=== PATIENT | male | born 1970 | race Hispanic/Latino ===

== ENCOUNTER 2017-11-26 14:47 | Emergency (ER) | payer BC ==
--- OUTSIDE RECORDS SUMMARY | 2017-11-26 14:49 | XMS REPORT ---
:1970 Author Organization eClinicalWorks Care Team Providers Name Role Phone Burak Davies Provider Role Unavailable Allergies No Known Allergies Problems Problem Type Condition Code Onset Dates Condition Status Problem Controlled type 2 diabetes mellitus E11.9 Active without complication, without long-term current use of insulin Problem Migraine without aura and without G43.009 Active status migrainosus, not intractable Problem Asthma without status asthmaticus J45.909 Active or acute exacerbation Problem Obesity (BMI 30.0-34.9) E66.9 Active Problem Prediabetes R73.09 Active Problem Benign essential HTN I10 Active Problem Hyperlipidemia, mixed E78.2 Active Problem Allergic rhinitis, seasonal J30.2 Active Problem Obstructive sleep apnea G47.33 Active Problem Dysphagia, unspecified R13.10 Active Assessment Hyperlipidemia, mixed E78.2 Active Assessment Obstructive sleep apnea G47.33 Active Assessment Benign essential HTN I10 Active Assessment Migraine without aura and without G43.009 Active status migrainosus, not intractable Assessment Controlled type 2 diabetes mellitus E11.9 Active without complication, without long-term current use of insulin Medications Medication Code Code Instructions Start End Status Dosage System Date Date Nalfon [facility] 44296183824 400 MG Orally Active 1 capsule Three times a day Sumatriptan [facility] 91156218129 5 MG/ACT Active 1 puff as Nasally Once a needed one day time Metformin HCl ND 88140697197 1000 MG Orally Inactive 1 tablet Twice a day with meals Cozaar ND 83546932773 100 MG Orally Active 1 tablet Once a day Metformin HCl ND 36518374375 500 MG Orally August 21, Active 1 tablet twice a day 2017 with a meal Topiramate ND 65168996426 25 MG Orally Active 1 tablet Twice a day Results No Known Results Summary Purpose eClinicalWorks Submission
--- OUTSIDE RECORDS SUMMARY | 2017-11-26 14:49 | XMS REPORT ---
:1970 Author Organization eClinicalWorks Care Team Providers Name Role Phone Samson Burak Provider Role Unavailable Allergies No Known Allergies [...] Start End Status Dosage System Date Date Sumatriptan [facility] 66743167569 5 MG/ACT Nasally Active 1 puff as Once a day needed one time Nalfon [facility] 49655420619 400 MG Orally Active 1 capsule Three times a day Cozaar [facility] 40138876764 100 MG Orally Active 1 tablet Once a day Topiramate ND 15297998316 25 MG Orally Active 1 tablet Twice a day Metformin HCl ND 40082285060 1000 MG Orally May 30, Active 1 tablet Twice a day 2017 with meals Results No Known Results Summary Purpose eClinicalWorks Submission
[2017-11-26] MEDS ORDERED: ONDANSETRON 4 MG/2 ML VIAL ONE (17:08)
[2017-11-26] MEDS ORDERED: FENTANYL CITR 100 MCG/2 ML ONE (17:08)
[2017-11-26 17:14] LABS: Absolute Lymphocytes (CBC) 2.7 K/uL (0.7-4.9); Absolute Monocytes 0.8 K/uL (0.1-1.3); Absolute Neutrophil 4.2 K/uL (1.8-8.0); Basophils % 0.4 % (0-1.3); Eosinophils % 1.7 % (0-4.4); Hematocrit 47.9 % (39.6-49.0); Lymphocytes % 34.3 % (15.3-44.8); MCH 31.5 pg (27.0-35.0); MCV 91.9 fL (80-100); MPV 9.8 fL (7.6-11.3); Monocytes % 9.9 % (3.3-12.3); RBC Red Blood Cell Count 5.21 M/uL (4.33-5.43)
[2017-11-26 17:32] LABS: Bilirubin Direct 0.2 mg/dL (0-0.2); Bilirubin Total 1.2 mg/dL (0.2-1.0); Potassium 3.6 mmol/L (3.5-5.1); Protein, Total 8.5 g/dL (6.4-8.2)
--- NOTE | 2017-11-26 18:05 | RAD REPORT ---
EXAM DESCRIPTION: CT - Abdomen Pelvis W Contrast - 11/26/2017 5:49 pm CLINICAL HISTORY: Abdominal pain/right upper quadrant pain nausea. COMPARISON: 2013 TECHNIQUE: Computed axial tomography of the abdomen pelvis was obtained. 100 cc Isovue-300 was admin istered intravenously. Oral contrast was not requested which limits evaluation of bowel. All CT scans are performed using dose optimization technique as appropriate and may include automated exposure control or mA/KV adjustment according to patient size. FINDINGS: The liver, spleen, pancreas, adrenal and kidneys appear unremarkable. The gallbladder is been removed There is no evidence of diverticulitis. The appendix is normal. Small bilateral inguinal hernias contain. Small umbilical hernia is seen The wall of the rectum appears thickened IMPRESSION: Apparent thickening of the wall of the rectum may be secondary to incomplete distention or mass. Digital examination is recommended
--- NOTE | 2017-11-26 18:49 | ER ---
Nurse's Notes [facility] Name: Shahab Pacheco Age: 47 yrs Sex: Male : 1970 Arrival Date: 11/26/2017 Time: 14:51 Bed 14 Private MD: Diagnosis: Upper abdominal pain, unspecified Presentation: 11/26 14:56 Presenting complaint: Patient states: RUQ pain that began . pt reports nausea aa5 today. Denies vomiting, denies diarrhea. Transition of care: patient was not received from another setting of care. Onset of symptoms was November 2017. Risk Assessment: Do you want to hurt yourself or someone else? Patient reports no desire to harm self or others. Initial Sepsis Screen: Does the patient meet any 2 criteria? No. Patient's initial sepsis screen is negative. Does the patient have a suspected source of infection? No. Patient's initial sepsis screen is negative. Care prior to arrival: None. 14:56 Method Of Arrival: Ambulatory aa5 14:56 Acuity: DAMIAN 3 aa5 Historical: - Allergies: 14:57 Morphine; aa5 - PMHx: 14:57 Hypertension; lower back pain; aa5 - PSHx: 14:57 spur removed from foot; removal of bone from pharynx; Cholecystectomy; aa5 - Immunization history:: Adult Immunizations up to date. - Social history:: Smoking status: Patient/guardian denies using tobacco. - Ebola Screening: : No symptoms or risks identified at this time. Screenin:53 Abuse screen: Denies threats or abuse. Denies injuries from another. Nutritional ph screening: No deficits noted. Tuberculosis screening: No symptoms or risk factors identified. Fall Risk None identified. Assessment: 16:51 General: Appears in no apparent distress. uncomfortable, well groomed, Behavior is ph calm, cooperative, appropriate for age, Denies fever. Pain: Complains of pain in right upper quadrant Pain radiates to anterior aspect of right lateral abdomen. Neuro: Level of Consciousness is awake, alert, obeys commands, Oriented to person, place, time, situation. Cardiovascular: Capillary refill < 3 seconds in bilateral fingers Patient's skin is warm and dry. Respiratory: Airway is patent Respiratory effort is even, unlabored, Respiratory pattern is regular, symmetrical. GI: Abdomen is round non-distended, Bowel sounds present X 4 quads. Abd is soft X 4 quads Abdomen is tender to palpation in right upper quadrant and right lower quadrant Reports upper abdominal pain, bloating, gaseousness, nausea, Patient currently denies diarrhea, vomiting. : No signs and/or symptoms were reported regarding the genitourinary system. Derm: Skin is intact, is healthy with good turgor, Skin is pink, warm \T\ dry. Musculoskeletal: Circulation, motion, and sensation intact. Range of motion: intact in all extremities. 17:30 Reassessment: Patient appears in no apparent distress at this time. Patient and/or ph family updated on plan of care and expected duration. Pain level reassessed. Patient is alert, oriented x 3, equal unlabored respirations, skin warm/dry/pink. Pt reports that pain has decreased to 5/10, taken to CT via wheelchair. 18:30 Reassessment: Patient appears in no apparent distress at this time. Patient and/or ph family updated on plan of care and expected duration. Pain level reassessed. Patient is alert, oriented x 3, equal unlabored respirations, skin warm/dry/pink. Pt resting quietly, awaiting CT results, at bedside. 19:30 General: Appears in no apparent distress. Behavior is calm, cooperative, appropriate ea for age, Discharge instructions give to patient, verbalized the understanding of instruciton. Neuro: Level of Consciousness is awake, alert, obeys commands, Oriented to person, place, time, situation. Cardiovascular: Patient's skin is warm and dry. Respiratory: Airway is patent Respiratory effort is even, unlabored, Respiratory pattern is regular, symmetrical. GI: pt reports symptoms improved. : No signs and/or symptoms were reported regarding the genitourinary system. Derm: Skin is pink, warm \T\ dry. Vital Signs: 14:57 BP 123 / 87; Pulse 60; Resp 16 S; Temp 97.8(TE); Pulse Ox 97% on R/A; Weight 102.06 kg aa5 (R); Height 5 ft. 11 in. (180.34 cm) (R); Pain 8/10; 17:00 BP 118 / 91; Pulse 62; Resp 18; Pulse Ox 99% on R/A; ph 18:00 BP 127 / 78; Pulse 61; Resp 18; Pulse Ox 98% on R/A; ph 19:30 BP 130 / 70; Pulse 60; Resp 18; Temp 98; Pulse Ox 99% on R/A; Pain 0/10; ea 14:57 Body Mass Index 31.38 (102.06 kg, 180.34 cm) aa5 ED Course: 14:51 Patient arrived in ED. mr 14:56 Triage completed. aa5 14:56 Arm band placed on. aa5 16:20 Dell Cloud MD is Attending Physician. gs 16:51 Jelly Constantino RN is Primary Nurse. ph 16:53 Patient has correct armband on for positive identification. Placed in gown. Bed in low ph position. Call light in reach. Side rails up X 1. Pulse ox on. NIBP on. Warm blanket given. 16:53 Initial lab(s) drawn, by me, sent to lab. Inserted saline lock: 20 gauge in right ph antecubital area, using aseptic technique. Blood collected. 17:48 CT Abd/Pelvis - W/Contrast In Process Unspecified. EDNM 18:47 Solomon Navarrete MD is Referral Physician. gs 19:28 No provider procedures requiring assistance completed. ph 19:40 IV discontinued, intact, bleeding controlled, No redness/swelling at site. Pressure ea dressing applied. Administered Medications: 17:10 Drug: Zofran 4 mg Route: IVP; Site: right antecubital; ph 17:30 Follow up: Response: No adverse reaction ph 17:10 Drug: fentaNYL (PF) 50 mcg Route: IVP; Site: right antecubital; ph 17:30 Follow up: Response: No adverse reaction; Pain is decreased ph Outcome: 18:48 Discharge ordered by . gs 19:40 Discharged to home ambulatory, with significant other. ea 19:40 Condition: improved 19:40 Discharge instructions given to patient, Instructed on discharge instructions, follow up and referral plans. medication usage, Demonstrated understanding of instructions, follow-up care, medications, Prescriptions given X 1. 19:45 Patient left the ED. ea Signatures: Dispatcher [employer] EDNM Zoey Khan mr LoraSwati RN RN aa5 Jelly Constantino RN RN ph Bulan, Christian cb2 Antunez, Elena, RN RN ea Starr, Gregory, MD MD Corrections: (The following items were deleted from the chart) 14:59 14:57 Pulse 60bpm; Resp 16bpm; Spontaneous; Pulse Ox 97% RA; Temp 97.8F Temporal; aa5 102.06 kg Reported; Height 5 ft. 11 in. Reported; BMI: 31.3; Pain 10/12; aa5 11/27 02:28 11/26 20:18 Patient left the ED. cb2 ea
--- NOTE | 2017-11-26 18:49 | EDPHYS ---
Physician Documentation [facility] Name: Shahab Pacheco Age: 47 yrs Sex: Male : 1970 Arrival Date: 11/26/2017 Time: 14:51 Bed 14 Private MD: ED Physician Dell Cloud HPI: 11/26 19:48 This 47 yrs old Male presents to ER via Ambulatory with complaints of gs Abdominal Pain. 19:48 The patient presents with abdominal pain. The patient presents with abdominal pain in gs the epigastric area, in the right upper quadrant. Onset: The symptoms/episode began/occurred yesterday. The symptoms do not radiate. Associated signs and symptoms: Pertinent positives: nausea. The symptoms are described as crampy, sharp. Modifying factors: The symptoms are alleviated by nothing, the symptoms are aggravated by nothing. Severity of pain: At its worst the pain was severe in the emergency department the pain has improved moderately. The patient has experienced similar episodes in the past, a few times. Historical: - Allergies: 14:57 Morphine; aa5 - PMHx: 14:57 Hypertension; lower back pain; aa5 - PSHx: 14:57 spur removed from foot; removal of bone from pharynx; Cholecystectomy; aa5 - Immunization history:: Adult Immunizations up to date. - Social history:: Smoking status: Patient/guardian denies using tobacco. - Ebola Screening: : No symptoms or risks identified at this time. ROS: 19:48 All other systems are negative. gs Exam: 19:48 Head/Face: Normocephalic, atraumatic. Eyes: Pupils equal round and reactive to light, gs extra-ocular motions intact. Lids and lashes normal. Conjunctiva and sclera are non-icteric and not injected. Cornea within normal limits. Periorbital areas with no swelling, redness, or edema. ENT: Nares patent. No nasal discharge, no septal abnormalities noted. Tympanic membranes are normal and external auditory canals are clear. Oropharynx with no redness, swelling, or masses, exudates, or evidence of obstruction, uvula midline. Mucous membranes moist. Neck: Trachea midline, no thyromegaly or masses palpated, and no cervical lymphadenopathy. Supple, full range of motion without nuchal rigidity, or vertebral point tenderness. No Meningismus. Chest/axilla: Normal chest wall appearance and motion. Nontender with no deformity. No lesions are appreciated. Cardiovascular: Regular rate and rhythm with a normal S1 and S2. No gallops, murmurs, or rubs. Normal PMI, no JVD. No pulse deficits. Respiratory: Lungs have equal breath sounds bilaterally, clear to auscultation and percussion. No rales, rhonchi or wheezes noted. No increased work of breathing, no retractions or nasal flaring. Back: No spinal tenderness. No costovertebral tenderness. Full range of motion. Skin: Warm, dry with normal turgor. Normal color with no rashes, no lesions, and no evidence of cellulitis. MS/ Extremity: Pulses equal, no cyanosis. Neurovascular intact. Full, normal range of motion. Neuro: Awake and alert, GCS 15, oriented to person, place, time, and situation. Cranial nerves II-XII grossly intact. Motor strength 5/5 in all extremities. Sensory grossly intact. Cerebellar exam normal. Normal gait. 19:48 Constitutional: The patient appears alert, awake. 19:48 Abdomen/GI: Palpation: moderate abdominal tenderness, in the right upper quadrant and right lower quadrant, rebound tenderness, is not appreciated. 19:48 Abdomen/GI: Rectal exam: is unremarkable. gs Vital Signs: 14:57 BP 123 / 87; Pulse 60; Resp 16 S; Temp 97.8(TE); Pulse Ox 97% on R/A; Weight 102.06 kg aa5 (R); Height 5 ft. 11 in. (180.34 cm) (R); Pain 8/10; 17:00 BP 118 / 91; Pulse 62; Resp 18; Pulse Ox 99% on R/A; ph 18:00 BP 127 / 78; Pulse 61; Resp 18; Pulse Ox 98% on R/A; ph 19:30 BP 130 / 70; Pulse 60; Resp 18; Temp 98; Pulse Ox 99% on R/A; Pain 0/10; ea 14:57 Body Mass Index 31.38 (102.06 kg, 180.34 cm) aa5 MDM: 16:45 Patient medically screened. gs 19:48 Differential diagnosis: appendicitis, bowel obstruction, gastritis, pancreatitis. Data gs reviewed: vital signs, nurses notes. Counseling: I had a detailed discussion with the patient and/or guardian regarding: the historical points, exam findings, and any diagnostic results supporting the discharge/admit diagnosis, lab results, radiology results. Response to treatment: the patient's symptoms have markedly improved after treatment, and as a result, I will discharge patient. 11/26 16:55 Order name: Basic Metabolic Panel; Complete Time: 17:37 11/26 16:55 Order name: CBC with Diff; Complete Time: 17:37 11/26 16:55 Order name: Hepatic Function; Complete Time: 17:37 11/26 16:55 Order name: Lipase; Complete Time: 17:37 11/26 16:55 Order name: CT Abd/Pelvis - W/Contrast; Complete Time: 18:15 11/26 16:55 Order name: IV Saline Lock; Complete Time: 16:56 11/26 16:55 Order name: Labs collected and sent; Complete Time: 16:56 Administered Medications: 17:10 Drug: Zofran 4 mg Route: IVP; Site: right antecubital; ph 17:30 Follow up: Response: No adverse reaction ph 17:10 Drug: fentaNYL (PF) 50 mcg Route: IVP; Site: right antecubital; ph 17:30 Follow up: Response: No adverse reaction; Pain is decreased ph Disposition: 11/26/17 18:48 Discharged to Home. Impression: Upper abdominal pain, unspecified. - Condition is Stable. - Discharge Instructions: Abdominal Pain, Adult. - Prescriptions for Tramadol 50 mg Oral Tablet - take 1 tablet by ORAL route every 8 hours as needed; 12 tablet. - Medication Reconciliation Form, Thank You Letter, Antibiotic Education, Prescription Opioid Use form. - Follow up: Solomon Navarrete MD; When: 2 - 3 days; Reason: Re-evaluation by your physician. Signatures: Dispatcher [employer] EDMS Swati Lora RN RN [email or web address] Jelly Constantino RN RN ph Bulan, Christian cb2 Dell Cloud MD MD Corrections: (The following items were deleted from the chart) 20:18 18:48 11/26/2017 18:48 Discharged to Home. Impression: Upper abdominal pain, cb2 unspecified. Condition is Stable. Forms are Medication Reconciliation Form, Thank You Letter, Antibiotic Education, Prescription Opioid Use. Follow up: Solomon Navarrete; When: 2 - 3 days; Reason: Re-evaluation by your physician. gs
== END 2017-11-26 20:18 | disposition home or self-care (01) ==
LOC: ER 14:47
DX: R10.10 Upper abdominal pain, unspecified (principal); I10 Essential (primary) hypertension; Z88.5 Allergy status to narcotic agent
CPT/HCPCS: 36415; 74177; 80048; 80076; 83690; 85025; 96374; 96375; 99284; J2405; J3010; Q9967

== ENCOUNTER 2018-05-08 11:49 | Emergency (ER) | payer BC ==
--- OUTSIDE RECORDS SUMMARY | 2018-05-08 11:51 | XMS REPORT ---
:1970 Author Organization eClinicalWorks Care Team Providers Name Role Phone Samson Burak Provider Role Unavailable Allergies No Known Allergies Problems Problem Type Condition Code Onset Dates Condition Status Problem Migraine without aura and without G43.009 Active status migrainosus, not intractable Problem Hyperlipidemia, mixed E78.2 Active Problem Allergic rhinitis, seasonal J30.2 Active Assessment Benign essential HTN I10 Active Problem Controlled type 2 diabetes mellitus E11.9 Active without complication, without long-term current use of insulin Problem Asthma without status asthmaticus J45.909 Active or acute exacerbation Problem Benign essential HTN I10 Active Problem Adult BMI 33.0-33.9 kg/sq m Z68.33 Active Problem Obstructive sleep apnea G47.33 Active Problem Dysphagia, unspecified R13.10 Active Problem Obesity (BMI 30.0-34.9) E66.9 Active Problem Prediabetes R73.09 Active Medications Medication Code System Code Instructions Start Date End Date Status Dosage Cozaar [facility] 46742398183 100 MG Orally Active 1 tablet Once a day Results No Known Results Summary Purpose eClinicalWorks Submission
--- OUTSIDE RECORDS SUMMARY | 2018-05-08 11:51 | XMS REPORT ---
[...] End Status Dosage System Date Date Nalfon [facility] 12037254330 400 MG Orally Active 1 capsule Three times a day Sumatriptan [facility] 56079675902 5 MG/ACT Active 1 puff as Nasally Once a needed one day time Metformin HCl ND 77961276959 1000 MG Orally Inactive 1 tablet Twice a day with meals Cozaar ND 80965821949 100 MG Orally Active 1 tablet Once a day Metformin HCl ND 62889795408 500 MG Orally August 21, Active 1 tablet twice a day 2017 with a meal Topiramate ND 04142602432 25 MG Orally Active 1 tablet Twice a day Results No Known Results Summary Purpose eClinicalWorks Submission
--- OUTSIDE RECORDS SUMMARY | 2018-05-08 11:51 | XMS REPORT ---
:1970 Author Organization eClinicalWorks Care Team Providers Name Role Phone Davies Burak Provider Role Unavailable Allergies, Adverse Reactions, Alerts Substance Reaction Event Type Morphine Sulfate Info Not Available Drug Allergy Problems Problem Type Condition Code Onset Dates [...] Active Problem Dysphagia, unspecified R13.10 Active Assessment Obstructive sleep apnea G47.33 Active Assessment Benign essential HTN I10 Active Assessment Migraine without aura and without G43.009 Active status migrainosus, not intractable Assessment Controlled type 2 diabetes mellitus E11.9 Active without complication, without long-term current use of insulin Assessment Hyperlipidemia, mixed E78.2 Active Medications Medication Code Code Instructions Start End Status Dosage System Date Date Sumatriptan [facility] 01099967685 5 MG/ACT Nasally Active 1 puff as Once a day needed one time Metformin HCl ND 91229025441 500 MG Orally Active 1 tablet Once a day with a meal Nalfon [facility] 71509183936 400 MG Orally Active 1 capsule Three times a day Topiramate ND 75171023146 25 MG Orally Active 1 tablet Once a day Metformin HCl ND 67661020875 500 MG Orally Active 1 tablet twice a day with a meal Cozaar ND 61304770945 100 MG Orally Active 1 tablet Once a day Results No Known Results Summary Purpose eClinicalWorks Submission
--- OUTSIDE RECORDS SUMMARY | 2018-05-08 11:51 | XMS REPORT ---
:1970 Author Organization eClinicalWorks Care Team Providers Name Role Phone Davies [facility] Provider Role Unavailable Allergies, Adverse Reactions, Alerts Substance Reaction Event Type Morphine Sulfate Info Not Available Drug Allergy Problems Problem Type Condition Code Onset Dates Condition Status Problem Migraine without aura and without G43.009 Active status migrainosus, not intractable Problem Hyperlipidemia, mixed E78.2 Active Problem Allergic rhinitis, seasonal J30.2 Active Assessment Adult BMI 33.0-33.9 kg/sq m Z68.33 Active Assessment Well adult on routine health check Z00.00 Active Problem Controlled type 2 diabetes mellitus [...] Problem Prediabetes R73.09 Active Medications Medication Code Code Instructions Start End Status Dosage System Date Date Metformin HCl [facility] 12214409946 500 MG Active TAKE ONE TABLET BY MOUTH TWICE A DAY WITH MEALS Topiramate [facility] 94737341340 25 MG Orally Active 1 tablet Once a day Sumatriptan [facility] 64786706331 5 MG/ACT Nasally Active 1 puff as Once a day needed one time Nalfon [facility] 29416489081 400 MG Orally Active 1 capsule Three times a day Cozaar [facility] 92335293523 100 MG Orally Active 1 tablet Once a day Results No Known Results Summary Purpose eClinicalWorks Submission
--- OUTSIDE RECORDS SUMMARY | 2018-05-08 11:51 | XMS REPORT ---
[...] End Status Dosage System Date Date Sumatriptan [facility] 00521426521 5 MG/ACT Nasally Active 1 puff as Once a day needed one time Nalfon [facility] 30471202704 400 MG Orally Active 1 capsule Three times a day Cozaar [facility] 05702453839 100 MG Orally Active 1 tablet Once a day Topiramate ND 40878575179 25 MG Orally Active 1 tablet Twice a day Metformin HCl ND 04909386847 1000 MG Orally May 30, Active 1 tablet Twice a day 2017 with meals Results No Known Results Summary Purpose eClinicalWorks Submission
[2018-05-08 13:27] LABS: Protime INR 0.96
--- NOTE | 2018-05-08 13:30 | RAD REPORT ---
EXAM DESCRIPTION: CT - Head Brain Wo Cont - 05/08/2018 1:23 pm CLINICAL HISTORY: DIZZINESS Headache, hypertension COMPARISON: No comparisons TECHNIQUE: All CT scans are performed using dose optimization technique as appropriate and may inclu de automated exposure control or mA/KV adjustment according to patient size. FINDINGS: No intracranial hemorrhage, hydrocephalus or extra-axial fluid collection.No areas of brai n edema or evidence of midline shift. The paranasal sinuses and mastoids are clear. The calvarium is intact. IMPRESSION: No acute intracranial abnormality.
--- NOTE | 2018-05-08 13:33 | EKG ---
Test Date: 2018-05-08 Test Time: 13:14:36 Last Trimmer: PAOLO MEASUREMENT RESULTS: Intervals: Rate: 50 RI: 144 QRSD: 90 QT: 448 QTc: 408 [place]: P: 45 RI: 144 QRS: 66 T: 40 INTERPRETIVE STATEMENTS: Sinus bradycardia Otherwise normal ECG Compared to ECG 02/26/2014 22:16:43 Sinus rhythm no longer present Sinus arrhythmia no longer present T-wave abnormality no longer present Electronically Signed On 05-08-18 13:32:53 [employer] ROUTEMAN by Tito Campa
[2018-05-08 13:45] LABS: ALT/SGPT 43 U/L (12-78); AST/SGOT 20 U/L (15-37); Albumin 4.2 g/dL (3.4-5.0); Alkaline Phosphatase 103 U/L (45-117); BUN Blood Urea Nitrogen 16 mg/dL (7-18); Bicarbonate 28 mmol/L (21-32); Bilirubin Direct 0.1 mg/dL (0-0.2); Bilirubin Total 0.6 mg/dL (0.2-1.0); Glucose Level 88 mg/dL (74-106); Magnesium 2.3 mg/dL (1.8-2.4); NT PRO-BNP 9 pg/mL (<125); Potassium 3.7 mmol/L (3.5-5.1); Protein, Total 8.2 g/dL (6.4-8.2); Sodium Level 142 mmol/L (136-145); Troponin (Emerg Dept Use Only) < 0.02 ng/mL (0.0-0.045)
[2018-05-08 13:56] LABS: Absolute Lymphocytes (CBC) 2.3 K/uL (0.7-4.9); Absolute Monocytes 0.5 K/uL (0.1-1.3); Absolute Neutrophil 2.6 K/uL (1.8-8.0); Basophils % 0.6 % (0-1.3); Eosinophils % 2.2 % (0-4.4); Hematocrit 46.2 % (39.6-49.0); Lymphocytes % 41.4 % (15.3-44.8); MPV 10.2 fL (7.6-11.3); Monocytes % 8.9 % (3.3-12.3); RBC Red Blood Cell Count 5.13 M/uL (4.33-5.43)
[2018-05-08] MEDS ORDERED: MECLIZINE HCL 12.5 MG TAB ONE (13:57)
[2018-05-08] MEDS ORDERED: DIAZEPAM 5 MG TABLET ONE (13:57)
--- NOTE | 2018-05-08 14:13 | RAD REPORT ---
EXAM DESCRIPTION: RAD - Chest Single View - 05/08/2018 2:04 pm CLINICAL HISTORY: HTN,, Dizziness Chest pain. COMPARISON: CHEST PA AND LAT 2 VIEW dated 02/26/2014; CHEST PA AND LAT 2 VIEW dated 02/25/2008; CHES T PA AND LAT 2 VIEW dated 02/23/2008; CHEST PA AND LAT 2 VIEW dated 12/16/2005 FINDINGS: Portable technique limits examination quality. The lungs are grossly clear. The heart is normal in size. No displaced fractures. IMPRESSION: No acute intrathoracic process suspected.
--- NOTE | 2018-05-08 15:19 | ER ---
Nurse's Notes [facility] Name: Shahab Pacheco Age: 47 yrs Sex: Male : 1970 Arrival Date: 05/08/2018 Time: 11:50 Bed 24 Private MD: Burak Davies Diagnosis: Vertiginous syndromes in diseases classified elsewhere Presentation: 05/08 12:04 Presenting complaint: states: he told me to come pick him up from work, he said he tw2 has blurry vision, he is tense in the back of his neck and he says he feels flush and they told him his bp was elevated. Transition of care: patient was not received from another setting of care. Onset of symptoms was May 08, 2018. Risk Assessment: Do you want to hurt yourself or someone else? Patient reports no desire to harm self or others. Initial Sepsis Screen: Does the patient meet any 2 criteria? No. Patient's initial sepsis screen is negative. Does the patient have a suspected source of infection? No. Patient's initial sepsis screen is negative. Care prior to arrival: None. 12:04 Method Of Arrival: Wheelchair tw2 12:04 Acuity: DAMIAN 3 tw2 Triage Assessment: 12:07 General: Appears in no apparent distress. well groomed, Behavior is calm, cooperative, tw2 appropriate for age. Pain: Complains of pain in back of neck. Historical: - Allergies: 12:09 Morphine; "cold, and i get stiff"; tw2 - Home Meds: 12:09 losartan 100 mg Oral tab once daily [Active]; tramadol 50 mg Oral tab 1 tab every 4-6 tw2 hours for Pain [Active]; metformin 500 mg Oral Tb24 1 tab 2 times per day [Active]; fenoprofen 400 mg oral cap 1 cap 3 times per day [Active]; topiramate 25 mg oral CSpX 1 cap once daily [Active]; - PMHx: 12:09 Hypertension; lower back pain; tw2 - PSHx: 12:09 spur removed from foot; removal of bone from pharynx; Cholecystectomy; tw2 - Immunization history:: Adult Immunizations. - Social history:: Smoking status: Patient/guardian denies using tobacco. - Ebola Screening: : Patient denies travel to an Ebola-affected area in the 21 days before illness onset. Screenin:05 Abuse screen: Denies threats or abuse. Denies injuries from another. Nutritional ca1 screening: No deficits noted. Tuberculosis screening: No symptoms or risk factors identified. Fall Risk IV access (20 points). Assessment: 13:05 General: Appears in no apparent distress. comfortable, Behavior is calm, cooperative, ca1 appropriate for age. Pain: Complains of pain in back of neck Pain does not radiate. Pain currently is 8 out of 10 on a pain scale. Quality of pain is described as pressure, Pain began 2 hours ago. Neuro: Level of Consciousness is awake, alert, obeys commands, Oriented to person, place, time, situation, Reports dizziness, since this morning. Cardiovascular: Heart tones S1 S2 present Capillary refill < 3 seconds Patient's skin is warm and dry. Respiratory: Airway is patent Trachea midline Respiratory effort is even, unlabored, Respiratory pattern is regular, symmetrical, Breath sounds are clear bilaterally. GI: Abdomen is round non-distended, Bowel sounds present X 4 quads. Abd is soft and non tender X 4 quads. Reports nausea. : No signs and/or symptoms were reported regarding the genitourinary system. EENT: No signs and/or symptoms were reported regarding the EENT system. Derm: Skin is intact, is healthy with good turgor, Skin is pink, warm \\T\\ dry. Musculoskeletal: Circulation, motion, and sensation intact. Capillary refill < 3 seconds. 14:00 Reassessment: Patient appears in no apparent distress at this time. Patient and/or ca1 family updated on plan of care and expected duration. Pain level reassessed. Patient is alert, oriented x 3, equal unlabored respirations, skin warm/dry/pink. 14:54 Reassessment: Patient appears in no apparent distress at this time. Patient and/or ca1 family updated on plan of care and expected duration. Pain level reassessed. Patient is alert, oriented x 3, equal unlabored respirations, skin warm/dry/pink. 15:30 Reassessment: Patient appears in no apparent distress at this time. Patient is alert, ca1 oriented x 3, equal unlabored respirations, skin warm/dry/pink. Vital Signs: 12:06 BP 126 / 88; Pulse 63; Resp 18; Temp 96.8(TE); Pulse Ox 97% on R/A; Weight 102.06 kg; tw2 Height 5 ft. 10 in. (177.80 cm) (R); Pain 6/10; 13:30 BP 129 / 91; Pulse 54; Resp 19; Pulse Ox 100% on R/A; ca1 14:15 BP 120 / 81; Pulse 67; Resp 19; Pulse Ox 98% on R/A; ca1 14:54 BP 108 / 80; Pulse 51; Resp 19; Pulse Ox 98% on R/A; ca1 15:30 BP 122 / 73; Pulse 50; Resp 19; Pulse Ox 98% on R/A; ca1 12:06 Body Mass Index 32.28 (102.06 kg, 177.80 cm) tw2 12:06 the back of neck, slight headache tw2 ED Course: 11:50 Patient arrived in ED. mr 11:52 Burak Davies DO is Private Physician. mr 12:06 Triage completed. tw2 12:06 Arm band placed on. tw2 12:59 Deion Mcclain MD is Attending Physician. kdr 13:05 Patient has correct armband on for positive identification. Placed in gown. Bed in low ca1 position. Call light in reach. Side rails up X 1. siderographist on. Pulse ox on. NIBP on. Warm blanket given. 13:06 Rosita Owens, SISI is Primary Nurse. ca1 13:13 Inserted saline lock: 20 gauge in right antecubital area, using aseptic technique. ca1 Blood collected. 13:21 EKG done, by fuel conversion technician. reviewed by Deion Mcclain MD. at1 13:22 CT completed. Patient tolerated procedure well. Patient moved to CT via wheelchair. jg6 Patient moved back from CT. 13:28 CT Head Brain wo Cont In Process Unspecified. EDMS 13:39 CT completed. Patient tolerated procedure well. Patient moved to CT. jg6 14:03 X-ray completed. Portable x-ray completed in exam room. Patient tolerated procedure jb2 well. 14:04 XRAY Chest (1 view) In Process Unspecified. EDMS 15:18 Ernesto De La Torre MD is Referral Physician. kdr 15:41 No provider procedures requiring assistance completed. IV discontinued, intact, ca1 bleeding controlled, No redness/swelling at site. Pressure dressing applied. Administered Medications: 13:48 Drug: Valium 5 mg Route: PO; ca1 14:15 Follow up: Response: No adverse reaction ca1 13:49 Drug: Meclizine 25 mg Route: PO; ca1 14:16 Follow up: Response: No adverse reaction; Marked relief of symptoms ca1 Outcome: 15:19 Discharge ordered by . kdr 15:41 Discharged to home ambulatory. ca1 15:41 Condition: stable 15:41 Discharge instructions given to patient, significant other, Instructed on discharge instructions, follow up and referral plans. medication usage, Demonstrated understanding of instructions, follow-up care, medications, Prescriptions given X 1. 15:42 Patient left the ED. ca1 Signatures: Dispatcher [employer] EDMS Deion Mcclain MD MD kdr Rivera, Tatiana mr Gamez, Serjio jb2 Latricia Farr, pediatric oncology nurse EKG Tat1 Agata Brito RN RN tw2 Deann France6 Rosita Owens RN RN ca1 Corrections: (The following items were deleted from the chart) 13:30 13:05 GI: No signs and/or symptoms were reported involving the gastrointestinal system. ca1 ca1 13:44 13:05 Pain: Complains of pain in back of neck Pain does not radiate. Pain currently is ca1 8 out of 10 on a pain scale. Pain began 2 hours ago. ca1
--- NOTE | 2018-05-08 15:19 | EDPHYS ---
Physician Documentation [facility] Name: Shahab Pacheco Age: 47 yrs Sex: Male : 1970 Arrival Date: 05/08/2018 Time: 11:50 Bed 24 Private MD: Samson [facility] ED Physician Deion Mcclain HPI: 05/08 15:20 This 47 yrs old Male presents to ER via Wheelchair with complaints of High kdr Blood Pressure, Dizziness, Blurred Vision. 15:21 The patient presents with dizziness, generalized weakness, lightheadedness, feeling off kdr balance, sense of spinning, vertigo. Onset: The symptoms/episode began/occurred suddenly, just prior to arrival. Context: occurred at work, occurred while the patient was standing, walking, just prior to the episode the patient experienced no apparent symptoms. Modifying factors: The symptoms are alleviated by holding head still, the symptoms are aggravated by movement of head, standing up, changing position. Associated signs and symptoms: Pertinent positives: blurred vision, Pertinent negatives: abdominal pain, agitation, ataxia, combativeness, confusion, diaphoresis, focal weakness, head injury, headache, near-syncope, numbness, palpitations, , seizure, shortness of breath, syncope, tingling, vomiting. Severity of symptoms: At their worst the symptoms were mild in the emergency department the symptoms have improved moderately. Patient's baseline: Neuro: alert and fully oriented, Motor: no deficits, Ambulation: walks without assistance, Speech: normal. Historical: - Allergies: 12:09 Morphine; "cold, and i get stiff"; tw2 - Home Meds: 12:09 losartan 100 mg Oral tab once daily [Active]; tramadol 50 mg Oral tab 1 tab every 4-6 tw2 hours for Pain [Active]; metformin 500 mg Oral Tb24 1 tab 2 times per day [Active]; fenoprofen 400 mg oral cap 1 cap 3 times per day [Active]; topiramate 25 mg oral CSpX 1 cap once daily [Active]; - PMHx: 12:09 Hypertension; lower back pain; tw2 - PSHx: 12:09 spur removed from foot; removal of bone from pharynx; Cholecystectomy; tw2 - Immunization history:: Adult Immunizations. - Social history:: Smoking status: Patient/guardian denies using tobacco. - Ebola Screening: : Patient denies travel to an Ebola-affected area in the 21 days before illness onset. ROS: 15:21 Constitutional: Negative for fever, chills, and weight loss, Eyes: Negative for injury, kdr pain, redness, and discharge, ENT: Negative for injury, pain, and discharge, Neck: Negative for injury, pain, and swelling, Cardiovascular: Negative for chest pain, palpitations, and edema, Respiratory: Negative for shortness of breath, cough, wheezing, and pleuritic chest pain, Abdomen/GI: Negative for abdominal pain, nausea, vomiting, diarrhea, and constipation, Back: Negative for injury and pain, : Negative for injury, bleeding, discharge, and swelling, MS/Extremity: Negative for injury and deformity, Skin: Negative for injury, rash, and discoloration, Psych: Negative for depression, anxiety, suicide ideation, homicidal ideation, and hallucinations, Allergy/Immunology: Negative for hives, rash, and allergies, Endocrine: Negative for neck swelling, polydipsia, polyuria, polyphagia, and marked weight changes, Hematologic/Lymphatic: Negative for swollen nodes, abnormal bleeding, and unusual bruising. 15:21 Neuro: Positive for dizziness, Negative for altered mental status, gait disturbance, hearing loss, seizure activity, speech changes, syncope, tinnitus, tremor. Exam: 15:21 Constitutional: This is a well developed, well nourished patient who is awake, alert, kdr and in no acute distress. Head/Face: Normocephalic, atraumatic. Eyes: Pupils equal round and reactive to light, extra-ocular motions intact. Lids and lashes normal. Conjunctiva and sclera are non-icteric and not injected. Cornea within normal limits. Periorbital areas with no swelling, redness, or edema. ENT: Nares patent. No nasal discharge, no septal abnormalities noted. Tympanic membranes are normal and external auditory canals are clear. Oropharynx with no redness, swelling, or masses, exudates, or evidence of obstruction, uvula midline. Mucous membranes moist. Neck: Trachea midline, no thyromegaly or masses palpated, and no cervical lymphadenopathy. Supple, full range of motion without nuchal rigidity, or vertebral point tenderness. No Meningismus. Chest/axilla: Normal chest wall appearance and motion. Nontender with no deformity. No lesions are appreciated. Cardiovascular: Regular rate and rhythm with a normal S1 and S2. No gallops, murmurs, or rubs. Normal PMI, no JVD. No pulse deficits. Respiratory: Lungs have equal breath sounds bilaterally, clear to auscultation and percussion. No rales, rhonchi or wheezes noted. No increased work of breathing, no retractions or nasal flaring. Abdomen/GI: Soft, non-tender, with normal bowel sounds. No distension or tympany. No guarding or rebound. No evidence of tenderness throughout. Back: No spinal tenderness. No costovertebral tenderness. Full range of motion. Skin: Warm, dry with normal turgor. Normal color with no rashes, no lesions, and no evidence of cellulitis. MS/ Extremity: Pulses equal, no cyanosis. Neurovascular intact. Full, normal range of motion. Neuro: Awake and alert, GCS 15, oriented to person, place, time, and situation. Cranial nerves II-XII grossly intact. Motor strength 5/5 in all extremities. Sensory grossly intact. Cerebellar exam normal. Normal gait. Psych: Awake, alert, with orientation to person, place and time. Behavior, mood, and affect are within normal limits. Vital Signs: 12:06 BP 126 / 88; Pulse 63; Resp 18; Temp 96.8(TE); Pulse Ox 97% on R/A; Weight 102.06 kg; tw2 Height 5 ft. 10 in. (177.80 cm) (R); Pain 6/10; 13:30 BP 129 / 91; Pulse 54; Resp 19; Pulse Ox 100% on R/A; ca1 14:15 BP 120 / 81; Pulse 67; Resp 19; Pulse Ox 98% on R/A; ca1 14:54 BP 108 / 80; Pulse 51; Resp 19; Pulse Ox 98% on R/A; ca1 15:30 BP 122 / 73; Pulse 50; Resp 19; Pulse Ox 98% on R/A; ca1 12:06 Body Mass Index 32.28 (102.06 kg, 177.80 cm) tw2 12:06 the back of neck, slight headache tw2 MDM: 15:19 Patient medically screened. kdr 15:21 Data reviewed: vital signs, nurses notes, lab test result(s), radiologic studies. kdr Counseling: I had a detailed discussion with the patient and/or guardian regarding: the historical points, exam findings, and any diagnostic results supporting the discharge/admit diagnosis, lab results, radiology results, the need for outpatient follow up. Physician consultation: Ernesto De La Torre MD was called at 15:15, was contacted at 15:15, regarding consult, patient's condition, outpatient follow-up, and will see patient in office, next week. 05/08 13:04 Order name: Basic Metabolic Panel; Complete Time: 14:10 kdr 05/08 13:04 Order name: CBC with Diff; Complete Time: 14:10 kdr 05/08 13:04 Order name: LFT's; Complete Time: 14:10 kdr 05/08 13:04 Order name: Magnesium; Complete Time: 14:10 kdr 05/08 13:04 Order name: NT PRO-BNP; Complete Time: 14:10 kdr 05/08 13:04 Order name: PT-INR; Complete Time: 13:37 kdr 05/08 13:04 Order name: Troponin (emerg Dept Use Only); Complete Time: 14:10 kdr 05/08 13:04 Order name: XRAY Chest (1 view); Complete Time: 14:56 kdr 05/08 13:04 Order name: EKG; Complete Time: 13:04 kdr 05/08 13:04 Order name: Cardiac monitoring; Complete Time: 13:07 kdr 05/08 13:04 Order name: EKG - Nurse/Tech; Complete Time: 13:17 kdr 05/08 13:05 Order name: CT Head Brain wo Cont; Complete Time: 13:37 kdr 05/08 13:04 Order name: IV Saline Lock; Complete Time: 13:17 kdr 05/08 13:04 Order name: Labs collected and sent; Complete Time: 13:17 kdr 05/08 13:04 Order name: O2 Per Protocol; Complete Time: 13:07 kdr 05/08 13:04 Order name: O2 Sat Monitoring; Complete Time: 13:07 kdr Administered Medications: 13:48 Drug: Valium 5 mg Route: PO; ca1 14:15 Follow up: Response: No adverse reaction ca1 13:49 Drug: Meclizine 25 mg Route: PO; ca1 14:16 Follow up: Response: No adverse reaction; Marked relief of symptoms ca1 Disposition: 05/08/18 15:19 Discharged to Home. Impression: Vertiginous syndromes in diseases classified elsewhere. - Condition is Stable. - Discharge Instructions: Vertigo, [id number], Dizziness, [id number]. - Prescriptions for Meclizine 25 mg Oral Tablet - take 1 tablet by ORAL route every 8 hours As needed; 30 tablet. - Medication Reconciliation Form, Thank You Letter, Work release form form. - Follow up: Ernesto De La Torre MD; When: 2 - 3 days; Reason: If symptoms return, Further diagnostic work-up, Recheck today's complaints, Continuance of care, Re-evaluation by your physician. - Problem is new. - Symptoms have improved. Signatures: Dispatcher [employer] EDMS Deion Mcclain MD MD kdr Agata Brito RN RN tw2 Rosita Owens RN RN ca1 Corrections: (The following items were deleted from the chart) 15:42 15:19 05/08/2018 15:19 Discharged to Home. Impression: Vertiginous syndromes in ca1 diseases classified elsewhere. Condition is Stable. Forms are Medication Reconciliation Form, Thank You Letter, Antibiotic Education, Prescription Opioid Use. Follow up: Ernesto De La Torre; When: 2 - 3 days; Reason: If symptoms return, Further diagnostic work-up, Recheck today's complaints, Continuance of care, Re-evaluation by your physician. Problem is new. Symptoms have improved. kdr
== END 2018-05-08 15:42 | disposition home or self-care (01) ==
LOC: ER 11:49
DX: R42 Dizziness and giddiness (principal); H82.9 Vertiginous syndromes in diseases classified elsewhere, unspecified ear; I10 Essential (primary) hypertension; Z88.5 Allergy status to narcotic agent
CPT/HCPCS: 36415; 70450; 71045; 80048; 80076; 83735; 83880; 84484; 85025; 85610; 93005; 99285

== ENCOUNTER 2020-01-06 14:16 | Inpatient (IN) | payer BC ==
--- OUTSIDE RECORDS SUMMARY | 2020-01-06 14:34 | XMS REPORT | Continuity of Care Document ---
:1970 Author Organization [facility] t Address [address] [place] [address] Care Team Providers Name Role Phone Unavailable Unavailable Unavailable Problems This patient has no known problems. Allergies, Adverse Reactions, Alerts Allergy Allergy Status Severity Reaction(s) Onset Inactive Treating Comm ents Source Name Type Date Date Clinician Morphine Adverse Active Info Not [facility] Available [facility] Medications Ordered Filled Start Stop Current Ordering Indication Dosage Frequency Signature Comments Components Source Medication Medication Date Date Medication? Clinician (SIG) Name Name Pantoprazol Pantoprazol Yes Burak [address] [facility] Sodium e Sodium 1-17 [facility] Montelukast Montelukast Yes Burak [address] [facility] Sodium Sodium 7-18 [facility] Atorvastati Atorvastati Yes Burak [address] [facility] n Calcium n Calcium 4-08 Davies [facility] Losartan Losartan Yes Burak [address] [facility] Potassium Potassium 3-11 Davies [facility] - [facility]: [facility] Topiramate Topiramate Yes Burak [address] [facility] Metformin Metformin Yes Burak [address] [facility] HCl HCl [facility] with a [facility] Sumatriptan Sumatriptan Yes Burak [address] [facility] Davies needed one [facility] - [facility] Nalfon Nalfon Yes Burak [address] [facility] Fenoprofen Fenoprofen Yes Burak [address] [facility] Calcium Calcium Davies [facility] Metformin Metformin Yes Burak TAKE ONE [facility] HCl HCl Davies TABLET BY [facility] - MOUTH ONCE [facility] WITH l A [facility]AL [facility] Pantoprazol Pantoprazol Yes Burak TAKE ONE [facility] Sodium e Sodium Davies TABLET BY L [facility] - MOUTH [facility] Atorvastati Atorvastati Yes Burak TAKE ONE [facility] n Calcium n Calcium Davies TABLET BY [facility] - MOUTH [facility]ILY l [facility] Losartan Losartan Yes Burak TAKE ONE [facility] Potassium Potassium Davies TABLET BY [facility] - MOUTH [facility] Procedures This patient has no known procedures. Encounters Start End Encounter Admission Attending Care Care Encounter Source Date/Time Date/Time Type Type Clinicians Facility Department ID 2020-01-05 2020-01-05 Outpatient [facility] [id number] [facility] 2019-12-22 2019-12-22 [facility] [id number] [facility] 2019-09-22 2019-09-22 [facility] [id number] [facility] 08[facility]15[facility] 08:15:00 [facility] [employer] [facility] l Medicine Outpati ent Clinics 2019-06-23 2019-06-23 [facility] [id number] [facility] 08:30[facility]00 08:30:00 [facility] [employer] [facility] Medicine l Medicine Outpati ent Clinics 2019-03-21 2019-03-21 [facility] [id number] [facility] 11:15:00 11:15:00 t [employer] [facility] Medicine l Medicine Outpati ent Clinics 2019-01-13 2019-01-13 [facility] [id number] [facility] 15:15:[facility] 15:15:[address] [facility] Medicine l Medicine Outpati ent Clinics 2018-12-20 2018-12-20 [facility] [id number] 14:02:[facility] 14:02:[address] [facility] Medicine l Medicine Outpati ent Clinics 2018-12-20 2018-12-20 [facility] [id number] [facility] 08:30:[facility] 08:30:[address] [facility] Medicine l Medicine Outpati ent Clinics 2018-09-19 2018-09-19 [facility] [id number] 10:45:[facility] 10:45:[address] [facility] Medicine l Medicine Outpati ent Clinics 2018-06-10 2018-06-10 [facility] [id number] [facility] 08:15:[facility] 08:15:[address] [facility] - Drive [facility] Medicine l Medicine Outpati ent Clinics 2018-05-20 2018-05-20 [facility] [id number] [facility] 10:32:[facility] 10:32:[address] [facility] Medicine l Medicine Outpati ent Clinics 2018-05-14 2018-05-14 [facility] [id number] 11:21:00 11:21:[address] [facility] - Drive [facility] Medicine l Medicine Outpati ent Clinics 2018-05-10 2018-05-10 [facility] [id number] [facility] 14:47:00 14:47:[address] [facility] - Drive [facility] Medicine l Medicine Outpati ent Clinics 2018-05-06 2018-05-06 [facility] [id number] 10:11:00 10:11:[address] [facility] - Drive [facility] Medicine l Medicine Outpati ent Clinics 2018-03-11 2018-03-11 [facility] [id number] 13:15:00 13:15:[address] [facility] - Drive [facility] Medicine l Medicine Outpati ent Clinics 2017-12-06 2017-12-06 [facility] [id number] 14:30:00 14:30:00 t [employer] [facility] 2017-08-21 2017-08-21 [facility] [id number] [facility] 14:15:00 14:15:00 t [employer] [facility] 2017-05-30 2017-05-30 [facility] [id number] 16:00:00 16:00:00 t [employer] [facility] Results This patient has no known results.
--- OUTSIDE RECORDS SUMMARY | 2020-01-06 14:35 | XMS REPORT ---
:1970 Author Organization [facility] Address [address] [place] [place] [address] Care Team Providers Name Role Phone Burak Davies Unavailable [phone] PROBLEMS Type Condition ICD9-CM [id number] Onset Condition SNOMED Code Notes Code Code Dates Status Problem Controlled type E11.9 Active 221406054 2 diabetes mellitus without complication, without long-term current use of insulin Problem Hyperlipidemia, E78.2 Active 311635868 mixed Problem Allergic J30.2 Active 076692407 rhinitis, seasonal Problem Prediabetes R73.09 Active 043842498 Problem Obesity (BMI E66.9 Active 720897162 30.0-34.9) Problem Benign essential I10 Active 71193475 HTN Problem Non-seasonal J30.89 Active 77517297 allergic rhinitis, unspecified trigger Problem Obstructive G47.33 Active 34030939 sleep apnea Problem Primary insomnia F51.01 Active 7503952 Problem Dysphagia, R13.10 Active 04378862 unspecified Problem Migraine without G43.009 Active 974259535 aura and without status migrainosus, not intractable Problem Asthma without J45.909 Active 803917340 status asthmaticus or acute exacerbation Problem Adult BMI Z68.33 Active 684674841 33.0-33.9 kg/sq m Problem GERD without K21.9 Active 547660387 esophagitis ALLERGIES Allergen (clinical drug Drug/Non Drug Allergy Reaction Allergy Type Onset Date Status ingredient) documented on EMR morphine Morphine Sulfate(NDC Unknown Drug Allergy Ac tive Code:[address]-09) ENCOUNTERS from 1970 to 2020-01-05 Encounter Location Date Provider Diagnosis [facility] [address] [address], [address] ; [place] [address] due to life ev ent Z63.4 ; Benign essential HTN I 10 ; Obstructive sle ep apnea G47.33 ; Adult BMI 33.0-33.9 k g/sq m Z68.33 ; Contro lled type 2 diabetes mellitus withou t complication, w ithout long-term curre nt use of insulin E11. 9 ; Hyperlipidemia, mixed E78.2 ; Migrain e without aura an d without status migrainosus, no t intractable G43 .009 ; Allergic rhinit is, seasonal J30.2 ; GERD without esophag itis K21.9 and [facility] counseling Z71. 89 IMMUNIZATIONS Vaccine Route Administration Date Status Kenalog (Triamcinolone) IM Intramuscular Dec 20, 2018 Adminis tered SOCIAL HISTORY Tobacco Use: Social History Observation Description Date Details (start date - stop date) Never Smoker Sex Assigned At : Social History Observation Description Sex Assigned At Unknown PHQ9 Question Answer Notes Little interest or pleasure in doing things More than half t he days Feeling down, depressed, or hopeless More than half the days Trouble falling or staying asleep or sleeping too much More than half the days Feeling tired or having little energy More than half the day s Poor appetite or overeating More than half the days Feeling bad about yourself, or that you are a failure, More than half the days or have let yourself or your family down Trouble concentrating on things, such as reading the Several days newspaper or watching television Moving or speaking so slowly that other people could Not at all have noticed; or the opposite, being so fidgety or restless that you have been moving around a lot more than usual Total Score 13 Interpretation Moderate Depression Thoughts that you would be better off or of Not at all hurting yourself in some way Alcohol Screen Question Answer Notes Did you have a drink containing alcohol in Yes the past year? Points 3 Interpretation Negative How often did you have 6 or more drinks on Never (0 points) one occasion in the past year? How many drinks did you have on a typical 3 or 4 (1 point) day when you were drinking in the past year? How often did you have a drink containing Two to four times a month (2 points) alcohol in the past year? Tobacco Use/Smoking Question Answer Notes Are you a never smoker REASON FOR REFERRAL No Information VITAL SIGNS Height 70 in Jan, Weight 247.9 lbs Jan, Temperature 97.5 degrees Fahrenheit Jan, BMI 35.57 kg/m2 Jan, Oximetry 98 % Jan, Respiratory Rate 16 /min Jan, Blood pressure systolic 136 mm Hg Jan, Blood pressure diastolic 81 mm Hg Jan, MEDICATIONS Medication SIG (Take, Route, Start Date End Date Status Frequency, Duration) Atorvastatin Calcium 10 MG 1 tablet Orally Once a Active day for 90 days Atorvastatin Calcium 10 MG TAKE ONE TABLET BY MOUTH Active DAILY for 30 Metformin HCl 500 MG TAKE ONE TABLET BY MOUTH Not-Taking ONCE DAILY WITH A MEAL Fenoprofen Calcium 400 MG 1 capsule Orally PRN Not-Taking ProAir HFA 108 (90 Base) 2 puffs as needed Jan, Active MCG/ACT Inhalation every 6 hrs PRN COugh, Wheezing or shortness of breath for 30 days Nalfon 400 MG 1 capsule Orally Three Acti ve times a day Montelukast Sodium 10 MG 1 tablet Orally Once a Active day for 30 day(s) Losartan Potassium 50 MG 1 tablet Orally Once a Active day for 90 days Topiramate 25 MG 1 tablet Orally Once a A ctive day for 30 days Pantoprazole Sodium 40 MG TAKE ONE TABLET BY MOUTH Not-Taking DAILY for 30 Sumatriptan 5 MG/ACT 1 puff as needed one time Active Nasally Once a day Trazodone HCl 100 MG Take 1/2 tab QHS x 1 week Jan, Active then 1 tab QHS Orally Once a day for 30 day(s) Pantoprazole Sodium 40 MG 1 tablet Orally Once a Active day for 30 day(s) PROCEDURES No Information RESULTS No Results REASON FOR VISIT Refill on asthma RX, & possible depressionIN BOBBY [phone] MEDICAL (GENERAL) HISTORY Type Description Date Medical History Benign essential HTN Medical History Obstructive sleep apnea Medical History Asthma without status asthmaticus or acu te exacerbation Medical History Allergic rhinitis, seasonal Medical History Obesity (BMI 30.0-34.9) Medical History Prediabetes Medical History Hyperlipidemia, mixed Medical History Dysphagia, unspecified Medical History Migraine without aura and without status migrainosus, not intractable Medical History Controlled type 2 diabetes mellitus with out complication, without long-term current use of insulin Surgical History Gallbladder 2010 Surgical History Toe 2000 Surgical History Right CTS Dr. Winslow 2016 Goals Section No Information Health Concerns No Information MEDICAL EQUIPMENT No Information MENTAL STATUS No Information FUNCTIONAL STATUS No Information ASSESSMENTS Encounter Date Diagnosis Notes Jan, Bereavement counseling (ICD-10 - Z71.89) Jan, GERD without esophagitis (ICD-10 - K21.9 ) Jan, Bereavement due to life event (ICD-10 - Z63.4) Jan, Primary insomnia (ICD-10 - F51.01) Jan, Hyperlipidemia, mixed (ICD-10 - E78.2) Jan, Allergic rhinitis, seasonal (ICD-10 - J3 0.2) Jan, Migraine without aura and without status migrainosus, not intractable (ICD-10 - G43.009) Jan, Obstructive sleep apnea (ICD-10 - G47.33 ) Jan, Benign essential HTN (ICD-10 - I10) Jan, Controlled type 2 diabetes mellitus with out complication, without long-term current use of insulin (ICD-10 - E11.9) Jan, Adult BMI 33.0-33.9 kg/sq m (ICD-10 - Z6 8.33) PLAN OF TREATMENT Medication Medication Name Sig Start Date Stop Date ProAir HFA 108 (90 Base) MCG/ACT 2 puffs as needed Inhalation Jan, every 6 hrs PRN COugh, Wheezing or shortness of breath for 30 days Trazodone HCl 100 MG Take 1/2 tab QHS x 1 week then Jan, 1 tab QHS Orally Once a day for 30 day(s) Pantoprazole Sodium 40 MG 1 tablet Orally Once a day for 30 day(s) Losartan Potassium 50 MG 1 tablet Orally Once a day for 90 days Topiramate 25 MG 1 tablet Orally Once a day for 30 days Montelukast Sodium 10 MG 1 tablet Orally Once a day for 30 day(s) Atorvastatin Calcium 10 MG 1 tablet Orally Once a day for 90 days Sumatriptan 5 MG/ACT 1 puff as needed one time Nasally Once a day Nalfon 400 MG 1 capsule Orally Three times a day Treatment Notes Assessment Notes Clinical Notes Primary insomnia Discussed differential diagnosis with patient. Education given. Discussed good sleep hygiene. Will trial trazodone and titrate as tolerated. Side effect panel discussed extensively. Bereavement due to life event Actively listented. Support gi darby. Discussed treatment options. Medication + Counseling/Therapy. Infomation provided for psychologist for therapy options, encouraged to call to make an appt. close follow-up in 3 weeks. Benign essential HTN Doing well. REDUCED TO 50 mg. Education given. , DASH Diet discussed. Instructed to measure BP at home and bring in log to f/u appt. Instructions and logs given. Education given. Obstructive sleep apnea New CPAP: COmpliant. Adult BMI 33.0-33.9 kg/sq m Counseling given. Diet and exerc ise discussed. Education given. Goal is to lose 20 pounds. Controlled type 2 diabetes STOPPED METFORMIN for 3 additiona l mellitus without complication, months trial (total 6 months) . SIde without long-term current use of effect panel discussed. , D iawilliamtes insulin Education Diabetes is a disorder that disrupts the way your body uses glucose (sugar). It is a chronic medication condition that requires regular monitoring and treatment throughout your life. Treatment includes: lifestyle modification, self-care measures, and medication. Fortunately, these treatments can keep the blood sugar levels close to normal and minimize the risk of developing complications. The primary blood test to measure the progress of diabetes is the Hemoglobin A1c. Normal levels is less than 7.0 but less than 6.5 is considered excellent control. Fasting blood sugars should be in the range of 80-120 while random blood sugars should range below 200 especially after meals. Carbohydrate (sugar) intake for diabetics should be below 45 grams per meal and 15 grams per snack. Diabetic preventive care is vital to prevent complications, so it is important to have yearly diabetic eye and foot exams with specialists. If your diabetes is not controlled, then contact your doctor to further address.Medication may need to be adjusted and/or added. Hyperlipidemia, mixed Cont LIPITOR 10 mg and titrate as toelrated. Side effect discussed. GOal <70 LDL. Hyperlipidemia Education: Hyperlipidemia refers to increased levels of lipids(fats) in the blood, including cholesterol and triglycerides. This can significantly increase your risk of developing coronary artery disease and peripheral artery disease. This can cause chest pain, heart attack, stroke, and fatigue. Treatment is recommended to decrease your risk. Treatment includes: lifestyle modification, low salt/low fat diet, exercise, tobacco cessation, low alcohol intake and sometimes medication. Blood tests (TC,TG, HDL, LDL) are utilized to determine treatment regimens. TC(Total cholesterol) should be below 200. TG(Total Triglycerides) should be below 150. HDL(Good cholesterol) should be above 40. LDL(Bad Cholesterol) should be below 130(if you have one risk factor) or less than 100( if you have more than one risk factor or have DM/CAD/PVD). Compliance with medication and treatment is vital. If you have questions, talk to your doctor. Migraine without aura and without Stable. Managed by Dr.Barn alvarez. Keep status migrainosus, not HARTMAN Diary. intractable Allergic rhinitis, seasonal Refill given. Education given. s kash effect discussed. Flare-up. Knelaog IM given in office. Will start allergy benefits. 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 Using intermittently. We have discussed the pathophysiology of reflux disease and we discussed lifestyle modifications to avoid reflux that include elevation head of the bed, avoid alcohol, avoid caffeine, avoid maintenance, avoid tight clothing, avoid eating within 3-4 hours before bedtime, and avoiding smoking. Next Appt Details 3 Weeks TV Reason: Provider Name:Burak Davies, 2020-01-26 0 3:20:00 PM, [address], [place], [address], Provider Name:Burak Davies 2020-03-16 0 9:45:00 AM, [address], [place], [address], Provider Name:Burak Davies 2020-03-23 1 0:30:00 AM, [address], [place], [address], Insurance Providers Payer Name Payer Payer Insured Name Patient Coverage Covera ge End Address Phone Relationship to Start Date Gabriel e Insured [employer] [phone] Junior,Re self 2016 and Blue [id number] [facility] [address]
--- OUTSIDE RECORDS SUMMARY | 2020-01-06 14:35 | XMS REPORT ---
:1970 Author Organization [facility] Address [address] [place] [place] [address] Care Team Providers Name Role Phone Burak Davies Unavailable [phone] PROBLEMS Type Condition ICD9-CM EHX56-GF Onset Condition SNOMED Code Notes Code Code Dates Status Problem Allergic J30.2 Active 658870889 rhinitis, seasonal Problem Controlled type E11.9 Active 054459555 2 diabetes mellitus without complication, without long-term current use of insulin Problem Obstructive G47.33 Active 75438708 sleep apnea Problem Prediabetes R73.09 Active 455362061 Problem Obesity (BMI E66.9 Active 598729342 30.0-34.9) Problem GERD without K21.9 Active 227485885 esophagitis Problem Dysphagia, R13.10 Active 53905209 unspecified Problem Non-seasonal J30.89 Active 95157770 allergic rhinitis, unspecified trigger Problem Hyperlipidemia, E78.2 Active 224056587 mixed Problem Benign essential I10 Active 49658072 HTN Problem Asthma without J45.909 Active 052464949 status asthmaticus or acute exacerbation Problem Migraine without G43.009 Active 851299475 aura and without status migrainosus, not intractable Problem Adult BMI Z68.33 Active 651488030 33.0-33.9 kg/sq m ALLERGIES Allergen (clinical drug Drug/Non Drug Allergy Reaction Allergy Type Onset Date Status ingredient) documented on EMR morphine Morphine Sulfate(NDC Unknown Drug Allergy Ac tive Code:[address]-69) ENCOUNTERS from 1970 to 2019-12-22 Encounter Location Date Provider Diagnosis [facility] [address] Dec, [facility] type 2 Family Medicine [address], [place] [address] without compli cation, without long-te rm current use of insulin E11.9 ; Benign essentia l HTN I10 ; Adult BMI 33.0-33.9 kg/sq m Z68.33 ; Obstru ctive sleep apnea G47 .33 ; Hyperlipidemia, mixed E78.2 ; Migrain e without aura an d without status migrainosus, no t intractable G43 .009 ; Allergic rhinit is, seasonal J30.2 and GERD without esophagitis K21 .9 IMMUNIZATIONS Vaccine Route Administration Date Status Kenalog (Triamcinolone) IM Intramuscular Dec 20, 2018 Adminis tered SOCIAL HISTORY Tobacco Use: Social History Observation Description Date Details (start date - stop date) Never Smoker Sex Assigned At : Social History Observation Description Sex Assigned At Unknown Alcohol Screen Question Answer Notes Did you [...] No Information VITAL SIGNS Height 70 in Dec, Weight 245 lbs Dec, Temperature 97.9 degrees Fahrenheit Dec, BMI 35.15 kg/m2 Dec, MEDICATIONS Medication SIG (Take, Route, Start Date End Date Status Frequency, Duration) Montelukast Sodium 10 MG 1 tablet Orally Once a day Active for 30 day(s) Losartan Potassium 50 MG 1 tablet Orally Once a day Active for 90 days Pantoprazole Sodium 40 MG 1 tablet Orally Once a day Active for 30 day(s) Topiramate 25 MG 1 tablet Orally Once a day Active for 30 days Atorvastatin Calcium 10 MG TAKE ONE TABLET BY MOUTH Active DAILY for 30 Fenoprofen Calcium 400 MG 1 capsule Orally PRN Not-Taking Nalfon 400 MG 1 capsule Orally Three Acti ve times a day Sumatriptan 5 MG/ACT 1 puff as needed one time Active Nasally Once a day Pantoprazole Sodium 40 MG TAKE ONE TABLET BY MOUTH Active DAILY for 30 Metformin HCl 500 MG TAKE ONE TABLET BY MOUTH Not-Taking ONCE DAILY WITH A MEAL PROCEDURES No Information RESULTS No Results REASON FOR VISIT 3 mth lab f/u MEDICAL (GENERAL) HISTORY Type Description Date Medical [...] Surgical History Gallbladder 2010 Surgical History Toe 1999 Surgical History Right CTS Dr. Winslow 2016 Goals Section No Information Health Concerns No Information MEDICAL EQUIPMENT No Information MENTAL STATUS No Information FUNCTIONAL STATUS No Information ASSESSMENTS Encounter Date Diagnosis Notes Dec, Controlled type 2 diabetes mellitus with out complication, without long-term current use of insulin (ICD-10 - E11.9) Dec, Adult BMI 33.0-33.9 kg/sq m (ICD-10 - Z6 8.33) Dec, Benign essential HTN (ICD-10 - I10) Dec, GERD without esophagitis (ICD-10 - K21.9 ) Dec, Hyperlipidemia, mixed (ICD-10 - E78.2) Dec, Obstructive sleep apnea (ICD-10 - G47.33 ) Dec, Allergic rhinitis, seasonal (ICD-10 - J3 0.2) Dec, Migraine without aura and without status migrainosus, not intractable (ICD-10 - G43.009) PLAN OF TREATMENT Medication Medication Name Sig Start Date Stop Date Montelukast Sodium 10 MG 1 tablet Orally Once a day for 30 day(s) Sumatriptan 5 MG/ACT 1 puff as needed one time Nasally Once a day Atorvastatin Calcium 10 MG TAKE ONE TABLET BY MOUTH DAILY for 30 Nalfon 400 MG 1 capsule Orally Three times a day Losartan Potassium 50 MG 1 tablet Orally Once a day for 90 days Topiramate 25 MG 1 tablet Orally Once a day for 30 days Pantoprazole Sodium 40 MG 1 tablet Orally Once a day for 30 day(s) Treatment Notes Assessment Notes Clinical Notes Controlled type 2 diabetes STOPPED METFORMIN for 3 additiona l mellitus without complication, months trial (total 6 months) . SIde without long-term current use of effect panel discussed. Anjali insulin Education Diabetes is a disorder that [...] may need to be adjusted and/or added. Benign essential HTN Doing well. REDUCED TO 50 mg. Education given. , DASH Diet discussed. Instructed to measure BP at home and bring in log to f/u appt. Instructions and logs given. Education given. Adult BMI 33.0-33.9 kg/sq m Counseling given. Diet and exerc ise discussed. Education given. Goal is to lose 20 pounds. Obstructive sleep apnea New CPAP: COmpliant. Hyperlipidemia, mixed Cont LIPITOR 10 mg and [...] start allergy benefits. 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 Using intermittently. We have discussed the pathophysiology of reflux disease and we discussed lifestyle modifications to avoid reflux that include elevation head of the bed, avoid alcohol, avoid caffeine, avoid maintenance, avoid tight clothing, avoid eating within 3-4 hours before bedtime, and avoiding smoking. Treatment Notes Test Name Order Date Lipid Panel With LDL/HDL Ratio 2019-12-22 Microalbumin/Creat Ratio, Random Ur 2019-12-22 Hemoglobin A1c 2019-12-22 Comp. Metabolic Panel (14) (CMP) 2019-12-22 CBC With Differential/Platelet 2019-12-22 Next Appt Details 3 Months TV + Labs 1 week before Reason: Insurance Providers Payer Name Payer Payer Insured Name Patient Coverage Covera ge End Address Phone Relationship to Start Date Gabriel e Insured [employer] [phone] Karlee Pacheco self 2016 and [place] [id number] [facility] [address]
[2020-01-06] MEDS ORDERED: METHYLPREDNISOLONE 125 MG INJ ONE ×2 (14:57→22:59)
[2020-01-06] MEDS ORDERED: LEVALBUTEROL 1.25 MG/3 ML NEB ONE (14:57)
[2020-01-06] MEDS ORDERED: NA CHLORIDE 0.9% 1,000 ML ONE (14:58)
[2020-01-06 15:11] LABS: Absolute Lymphocytes (CBC) 1.6 K/uL (0.7-4.9); Basophils % 0.8 % (0-1.3); Hematocrit 45.8 % (39.6-49.0); Lymphocytes % 28.6 % (15.3-44.8); MPV 9.4 fL (7.6-11.3); RBC Red Blood Cell Count 5.07 M/uL (4.33-5.43)
[2020-01-06 15:23] LABS: Potassium 3.5 mmol/L (3.5-5.1)
--- NOTE | 2020-01-06 16:54 | RAD REPORT ---
EXAM DESCRIPTION: Carol Ann Single View01/06/2020 3:39 pm CLINICAL HISTORY: Cough COMPARISON: 2018 FINDINGS: The lungs appear clear of acute infiltrate. The heart is normal size IMPRESSION: No acute abnormalities displayed
--- NOTE | 2020-01-06 17:02 | RAD REPORT ---
EXAM DESCRIPTION: CT - Chest For Pe Angio - 01/06/2020 4:55 pm CLINICAL HISTORY: DYSPNEA COMPARISON: Chest Single View dated 01/06/2020 TECHNIQUE: Dynamically enhanced 3 mm thick images of the chest were obtained during administration o f approximately 150mL Isovue 370 IV contrast. Coronal and oblique MIP reconstruction images were gene rated and reviewed. Exam utilizes a protocol to evaluate the pulmonary arterial tree. All CT scans are performed using dose optimization technique as appropriate and may include automated exposure control or mA/KV adjustment according to patient size. FINDINGS: No pulmonary emboli are identified. The aorta as imaged shows no acute or suspicious finding. No pericardial thickening or effusion. No focal mass or infiltrate. Interstitial markings are accentuated by respiratory motion. No pleural effusion or pleural thickening. No mediastinal or hilar suspicious masses. No chest wall masses or abnormal axillary lymphadenopathy. IMPRESSION: No pulmonary emboli identified. No other significant or suspicious findings.
--- NOTE | 2020-01-06 17:14 | EDPHYS ---
Physician Documentation [facility] Name: Shahab Pacheco Age: 49 yrs Sex: Male : 1970 Arrival Date: 01/06/2020 Time: 14:19 Bed 26 Private MD: Burak Davies ED Physician Demond Abad HPI: 01/05 14:43 This 49 yrs old Male presents to ER via Ambulatory with complaints of rn Breathing Difficulty. 14:43 The patient has shortness of breath at rest, with light activity. rn 14:44 Onset: The symptoms/episode began/occurred 3 day(s) ago. The patient's shortness of rn breath is aggravated by exertion, light activity, talking, walking. Severity of symptoms: At their worst the symptoms were moderate in the emergency department the symptoms are unchanged. The patient has experienced similar episodes in the past. Reports asthma, gets bad atleast "Once a year". Reports doesn't feel ill, no fever, no hemoptysis, no hx of dvt/PE. 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 No trauma. Seen by pcp recently, given albuterol and helps temporarily but got worse today. No fever/runny nose/loss of taste or smell. . Historical: - Allergies: 14:24 Morphine; "cold, and i get stiff"; ll1 - Home Meds: 18:46 topiramate 25 mg Oral CSpX 1 cap once daily [Active]; Multiple Vitamins oral tab tw2 [Active]; atorvastatin 10 mg oral tab 1 tab once daily [Active]; pantoprazole 40 mg oral TbEC 1 tab once daily [Active]; losartan 50 mg oral tab 1 tab once daily [Active]; trazodone (bulk) 100 mg tab, take 1/2 tab at bedtime miscellaneous powd [Active]; - PMHx: 14:24 Hypertension; lower back pain; cpap at night; ll1 - PSHx: 14:24 spur removed from foot; removal of bone from pharynx; Cholecystectomy; ll1 - Immunization history:: Flu vaccine is not up to date. - Social history:: Smoking status: Patient denies any tobacco usage or history of. - Family history:: not pertinent. - Hospitalizations: : No recent hospitalization is reported. ROS: 14:44 Constitutional: Negative for fever, chills, and weight loss, Eyes: Negative for injury, rn pain, redness, and discharge, Cardiovascular: Negative for palpitations, and edema Respiratory: + sob/cough/wheezing Abdomen/GI: Negative for abdominal pain, nausea, vomiting, diarrhea, and constipation, MS/Extremity: Negative for injury and deformity, Skin: Negative for injury, rash, and discoloration, Neuro: Negative for headache, weakness, numbness, tingling, and seizure. Exam: 14:44 Constitutional: This is a well developed, well nourished patient who is awake, alert, rn + tachypnea with audible wheezing and frequent cough Head/Face: Normocephalic, atraumatic. Cardiovascular: Regular rate and rhythm. No pulse deficits. Respiratory: + tachypnea with retractions, audible wheezing noted Abdomen/GI: Soft, non-tender Skin: Warm, dry MS/ Extremity: Pulses equal, no cyanosis. Neuro: Awake and alert, GCS 15 15:28 ECG was reviewed by the Attending Physician. rn Vital Signs: 14:24 BP 158 / 86; Pulse 77; Resp 20; Temp 98.3; Pulse Ox 97% ; Weight 112.04 kg; Height 5 ll1 ft. 11 in. (180.34 cm); Pain 5/10; 15:08 BP 152 / 84; Pulse 65; Resp 18; Pulse Ox 97% on Nebulizer Mask; tw2 16:00 BP 143 / 78; Pulse 73; Resp 20; Pulse Ox 98% ; tw2 17:11 BP 149 / 88; Pulse 89; Resp 22; Pulse Ox 91% on R/A; tw2 17:15 Pulse Ox 97% on 2 lpm NC; tw2 17:46 BP 128 / 79; Pulse 66; Resp 22; Pulse Ox 96% ; sv 18:47 BP 124 / 71; Pulse 71; Resp 19; Pulse Ox 97% on 2 lpm NC; tw2 14:24 Body Mass Index 34.45 (112.04 kg, 180.34 cm) ll1 17:11 provider at bedside at this time, placed on o2 via nc, will continue to monitor tw2 MDM: 14:31 Patient medically screened. rn 17:12 Differential diagnosis: Anemia Anxiety Reaction asthma, Bronchitis pneumonia, rn Pneumothorax Psychogenic pulmonary edema, Pulmonary Embolism reactive airway disease, Sepsis. Data reviewed: vital signs, nurses notes, lab test result(s), EKG, radiologic studies, CT scan, plain films, and as a result, I will admit patient. Counseling: I had a detailed discussion with the patient and/or guardian regarding: the historical points, exam findings, and any diagnostic results supporting the discharge/admit diagnosis, lab results, radiology results, the need for further work-up and treatment in the hospital. Response to treatment: the patient's symptoms have mildly improved after treatment, and as a result, I will admit patient. Admission orders: after a detailed discussion of the patient's condition and case, the admit orders are written by me. ED course: Pt still tachypneic, oxygen 91%, clear cxr and neg CT PE protocol. flu neg. Covid sent. Will admit for oxygen requirement and work of breathing to Dr. Griffin. . 01/05 14:41 Order name: CBC with Diff rn 01/05 14:41 Order name: Basic Metabolic Panel; Complete Time: 15:44 rn 01/05 14:41 Order name: COVID-19 rn 01/05 14:41 Order name: Flu; Complete Time: 16:15 rn 01/05 14:41 Order name: Procalcitonin; Complete Time: 15:44 rn 01/05 17:21 Order name: CBC with Automated Diff EDID 01/05 17:21 Order name: CBC with Automated Diff EDID 01/05 17:21 Order name: Comprehensive Metabolic Panel [facility] 01/05 17:21 Order name: Comprehensive Metabolic Panel [facility] 01/05 17:21 Order name: Lactate EDID 01/05 17:21 Order name: Lactate EDID 01/05 17:21 Order name: Lipid Profile EDID 01/05 17:21 Order name: Lipid Profile EDID 01/05 17:21 Order name: Magnesium EDID 01/05 14:41 Order name: XRAY Chest (1 view); Complete Time: 17:01 rn 01/05 16:24 Order name: CT Chest For PE Angio; Complete Time: 17:04 rn 01/05 17:21 Order name: Magnesium EDID 01/05 17:21 Order name: NT PRO-BNP EDID 01/05 17:21 Order name: NT PRO-BNP EDID 01/05 17:21 Order name: Phosphorus EDID 01/05 17:21 Order name: Phosphorus EDMS 01/05 17:21 Order name: Protime (+INR) EDMS 01/05 17:21 Order name: Protime (+INR) EDMS 01/05 17:21 Order name: PTT, Activated Partial Thromb EDMS 01/05 17:21 Order name: PTT, Activated Partial Thromb EDMS 01/05 18:10 Order name: CBC Smear Scan EDMS 01/05 20:20 Order name: Blood Culture Adult (2) rv 01/06 07:45 Order name: CBC Smear Scan EDMS 01/06 10:43 Order name: Lactate Sepsis 2 HR Follow-up EDMS 01/06 16:22 Order name: Lactate EDMS 01/05 14:41 Order name: IV Start; Complete Time: 15:08 rn 01/05 14:41 Order name: EKG; Complete Time: 14:41 rn 01/05 14:41 Order name: EKG - Nurse/Tech; Complete Time: 14:51 rn 01/05 17:21 Order name: NPO EDMS EC:28 Rate is 74 beats/min. Rhythm is regular. QRS [place] is Normal. [place] interval is normal. QRS rn interval is normal. QT interval is normal. No Q waves. T waves are Normal. No ST changes noted. Clinical impression: NSR w/ Non-specific ST/T Changes. Interpreted by me. Reviewed by me. Administered Medications: 15:05 Drug: SOLU-Medrol 125 mg Route: IVP; Site: left antecubital; tw2 16:31 Follow up: Response: No adverse reaction tw2 15:07 Drug: NS 0.9% 1000 ml Route: IV; Rate: 1000 ml; Site: left antecubital; tw2 16:31 Follow up: Response: No adverse reaction; IV Status: Completed infusion; IV Intake: tw2 1000ml 15:08 Drug: Xopenex (3) 1.25 mg Route: Inhalation; tw2 Disposition: 01/06/20 17:14 Hospitalization ordered by Hema Griffin for Observation. Preliminary diagnosis are Asthma, Hypoxemia, Dyspnea, unspecified. - Bed requested for Telemetry/MedSurg (observation). - Status is Observation. bd - Condition is Stable. - Problem is an acute exacerbation. - Symptoms have improved. Signatures: Dispatcher [employer] EDMS [address] Elana Hays, RN RN kl Demond Abad MD MD rn Lasagna, Tonya, RN RN tl1 Agata Brito RN RN tw2 Zulma Hays RN RN ll1 Corrections: (The following items were deleted from the chart) 19:39 17:14 Hospitalization Ordered by Hema Griffin MD for Observation. Preliminary tl1 diagnosis is Asthma; Hypoxemia; Dyspnea, unspecified. Bed requested for Telemetry/MedSurg (observation). Status is Observation. Condition is Stable. Problem is an acute exacerbation. Symptoms have improved. rn 01/06 17:03 11 19:39 01/06/2020 17:14 Hospitalization Ordered by Hema Griffin MD for bd Observation. Preliminary diagnosis is Asthma; Hypoxemia; Dyspnea, unspecified. Bed requested for [facility] ER HOLD. Status is Observation. Condition is Stable. Problem is an acute exacerbation. Symptoms have improved. tl1 01/06 17:13 17:03 01/06/2020 17:14 Hospitalization Ordered by Hema Griffin MD for Observation. kl Preliminary diagnosis is Asthma; Hypoxemia; Dyspnea, unspecified. Bed requested for Telemetry/MedSurg (observation). Status is Observation. Condition is Stable. Problem is an acute exacerbation. Symptoms have improved. bd 18:31 17:13 01/06/2020 17:14 Hospitalization Ordered by Hema Griffin MD for Observation. bd Preliminary diagnosis is Asthma; Hypoxemia; Dyspnea, unspecified. Bed requested for Telemetry/MedSurg (observation). Status is Observation. Condition is Stable. Problem is an acute exacerbation. Symptoms have improved.
--- NOTE | 2020-01-06 17:14 | ER ---
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 States he was ll1 wheezing earlier this week and saw his doctor, Brayan Davies, given an inhaler, not helping. Coronavirus screen: Client denies travel out of the [place] in the last 14 days. congestion, cough unrelated to allergies, Client presents with at least one sign or symptom that may indicate coronavirus-19. Standard/surgical mask placed on the client. Ebola Screen: Patient denies travel to an Ebola-affected area in the 21 days before illness onset. Initial Sepsis Screen: Does the patient meet any 2 criteria? No. Patient's initial sepsis screen is negative. Risk Assessment: Do you want to hurt yourself or someone else? Patient reports no desire to harm self or others. Onset of symptoms was January 06, 2020. 14:24 Method Of Arrival: Ambulatory ll1 14:24 Acuity: DAMIAN 3 ll1 20:32 Initial Sepsis Screen: Does the patient have a suspected source of infection? Yes: rv Productive cough/pneumonia. Triage Assessment: 20:32 General: Appears comfortable. Respiratory: Onset: The symptoms/episode began/occurred rv gradually, the patient has mild shortness of breath. Respiratory: Airway is patent Breath sounds are clear bilaterally. Historical: - Allergies: 14:24 Morphine; "cold, and i get stiff"; ll1 - Home Meds: 18:46 topiramate 25 mg Oral CSpX 1 cap once daily [Active]; Multiple Vitamins oral tab tw2 [Active]; atorvastatin 10 mg oral tab 1 tab once daily [Active]; pantoprazole 40 mg oral TbEC 1 tab once daily [Active]; losartan 50 mg oral tab 1 tab once daily [Active]; trazodone (bulk) 100 mg tab, take 1/2 tab at bedtime miscellaneous powd [Active]; - PMHx: 14:24 Hypertension; lower back pain; cpap at night; ll1 - PSHx: 14:24 spur removed from foot; removal of bone from pharynx; Cholecystectomy; ll1 - Immunization history:: Flu vaccine is not up to date. - Social history:: Smoking status: Patient denies any tobacco usage or history of. - Family history:: not pertinent. - Hospitalizations: : No recent hospitalization is reported. Screenin:36 Abuse screen: Denies threats or abuse. Nutritional screening: No deficits noted. tw2 Nutritional screening: No deficits noted. Tuberculosis screening: No symptoms or risk factors identified. Fall Risk None identified. Assessment: 14:34 Reassessment: provider at bedside at this time. tw2 15:05 General: Appears in no apparent distress. well groomed, Behavior is calm, cooperative, tw2 appropriate for age. Pain: Denies pain. Neuro: Level of Consciousness is awake, alert, obeys commands, Oriented to person, place, time, situation. Cardiovascular: Heart tones S1 S2 Patient's skin is warm and dry. Rhythm is regular. Respiratory: Reports shortness of breath at rest on exertion cough that is non-productive, persistent Airway is patent Respiratory effort is even, unlabored, Respiratory pattern is regular, symmetrical, Breath sounds are clear bilaterally. GI: Abdomen is flat, Bowel sounds present X 4 quads. : No signs and/or symptoms were reported regarding the genitourinary system. EENT: No signs and/or symptoms were reported regarding the EENT system. Derm: No signs and/or symptoms reported regarding the dermatologic system. Musculoskeletal: Range of motion: intact in all extremities. 16:00 Reassessment: No changes from previously documented assessment. Patient and/or family tw2 updated on plan of care and expected duration. Pain level reassessed. Patient is alert, oriented x 3, equal unlabored respirations, skin warm/dry/pink. 17:00 Reassessment: No changes from previously documented assessment. Patient and/or family tw2 updated on plan of care and expected duration. Pain level reassessed. Patient is alert, oriented x 3, equal unlabored respirations, skin warm/dry/pink. 18:00 Reassessment: No changes from previously documented assessment. Patient and/or family tw2 updated on plan of care and expected duration. Pain level reassessed. Patient is alert, oriented x 3, equal unlabored respirations, skin warm/dry/pink. 18:48 Reassessment: Patient appears in no apparent distress at this time. No changes from tw2 previously documented assessment. Patient and/or family updated on plan of care and expected duration. Pain level reassessed. Patient is alert, oriented x 3, equal unlabored respirations, skin warm/dry/pink. Vital Signs: 14:24 BP 158 / 86; Pulse 77; Resp 20; Temp 98.3; Pulse Ox 97% ; Weight 112.04 kg; Height 5 ll1 ft. 11 in. (180.34 cm); Pain 5/10; 15:08 BP 152 / 84; Pulse 65; Resp 18; Pulse Ox 97% on Nebulizer Mask; tw2 16:00 BP 143 / 78; Pulse 73; Resp 20; Pulse Ox 98% ; tw2 17:11 BP 149 / 88; Pulse 89; Resp 22; Pulse Ox 91% on R/A; tw2 17:15 Pulse Ox 97% on 2 lpm NC; tw2 17:46 BP 128 / 79; Pulse 66; Resp 22; Pulse Ox 96% ; sv 18:47 BP 124 / 71; Pulse 71; Resp 19; Pulse Ox 97% on 2 lpm NC; tw2 14:24 Body Mass Index 34.45 (112.04 kg, 180.34 cm) ll1 17:11 provider at bedside at this time, placed on o2 via nc, will continue to monitor tw2 ED Course: 14:19 Patient arrived in ED. ag5 14:20 Burak Davies DO is Private Physician. ag5 14:27 Triage completed. ll1 14:27 Arm band placed on Patient placed in an exam room, on a stretcher. ll1 14:30 Placed in gown. Bed in low position. Adult w/ patient. traffic monitor specialist on. Pulse ox on. tw2 NIBP on. 14:31 Demond Abad MD is Attending Physician. rn 14:36 Agata Brito RN is Primary Nurse. tw2 15:05 Inserted saline lock: 20 gauge in left antecubital area, using aseptic technique. Blood tw2 collected. 15:08 Flu Sent. tw2 15:08 COVID-19 Sent. tw2 15:08 Basic Metabolic Panel Sent. tw2 15:08 CBC with Diff Sent. tw2 15:40 XRAY Chest (1 view) In Process Unspecified. EDMS 16:55 CT Chest For PE Angio In Process Unspecified. EDMS 17:13 Hema Griffin MD is Hospitalizing Provider. rn 19:07 Report given to SISI Orozco. tw2 19:38 Primary Nurse role handed off by Agata Brito RN mw2 19:49 Ryder Wilcox RN is Primary Nurse. rv 20:31 No provider procedures requiring assistance completed. IV is patent, with fluids rv infusing freely, Patient admitted, IV remains in place. 01/06 07:10 Primary Nurse role handed off by Ryder Wilcox RN 07:10 Guru Neal, SISI is Primary Nurse. bp Administered Medications: 01/05 15:05 Drug: SOLU-Medrol 125 mg Route: IVP; Site: left antecubital; tw2 16:31 Follow up: Response: No adverse reaction tw2 15:07 Drug: NS 0.9% 1000 ml Route: IV; Rate: 1000 ml; Site: left antecubital; tw2 16:31 Follow up: Response: No adverse reaction; IV Status: Completed infusion; IV Intake: tw2 1000ml 15:08 Drug: Xopenex (3) 1.25 mg Route: Inhalation; tw2 Intake: 16:31 IV: 1000ml; Total: 1000ml. tw2 Output: 17:15 Urine: 900ml (Voided); Total: 900ml. tw2 Outcome: 17:14 Decision to Hospitalize by Provider. rn 20:31 Admitted to ER Hold. Please see [facility] for further documentation. rv 20:31 Condition: good 20:31 Instructed on the need for admit. 01/06 18:31 Patient left the ED. bd Signatures: Dispatcher [employer] EDMS [address] Stephanie RN Demond Benson MD MD rn Wise, Tara, RN RN tw2 Guru Neal RN RN Milla Harvey mw2 Ryder Wilcox RN RN Zeferino Jaramillo 5 Zulma Hays RN RN ll1 Corrections: (The following items were deleted from the chart) 01/05 17:11 16:00 BP 143 / 78; Pulse 73bpm; Resp 16bpm; Pulse Ox 98%; sv tw2
[2020-01-06] MEDS ORDERED: ACETAMINOPHEN 500 MG TAB PO PRN (17:17)
[2020-01-06] MEDS ORDERED: ONDANSETRON 4 MG/2 ML VIAL IV PRN (17:17)
[2020-01-06] MEDS ORDERED: BENZONATATE 100 MG CAP PO PRN (17:20)
[2020-01-06] MEDS: METHYLPREDNISOLONE 125 MG INJ IV SCH ×2 (18:00→23:05)
[2020-01-06 18:10] LABS: Blood Morphology Comment NOT SEEN (NOT SEEN); Platelet Estimate ADEQ; White Blood Cell Scan OK (OK)
[2020-01-06] MEDS ORDERED: IPRATROPIUM BROM 0.5MG/2.5ML ONE (19:34)
[2020-01-06] MEDS ORDERED: ALBUTEROL 2.5 MG/3 ML NEB SOL ONE (19:34)
[2020-01-06] MEDS: IPRATROPIUM BROM 0.5MG/2.5ML NEB SCH (19:35)
[2020-01-06] MEDS: ALBUTEROL 2.5 MG/3 ML NEB SOL NEB PRN (19:35)
[2020-01-06] MEDS ORDERED: AZITHROMYCIN 500 MG INJ IVPB ONE (20:11)
[2020-01-06] MEDS ORDERED: NA CHLORIDE 0.9% 250 ML ONE (20:11)
[2020-01-06] MEDS ORDERED: CEFTRIAXONE/SWI 1gm 1 GM/10 ML SYR ONE (20:12)
[2020-01-06] MEDS ORDERED: ENOXAPARIN 40 MG/0.4 ML SQ ONE (20:12)
[2020-01-06] MEDS: AZITHROMYCIN IV 500 MG in NA CHLORIDE 0.9% 250 ML IVPB SCH (20:34)
[2020-01-06] MEDS: ENOXAPARIN 40 MG/0.4 ML SQ SCH (20:34)
[2020-01-06 20:56] VITALS: BMI 34.4
[2020-01-06] MEDS: CEFTRIAXONE/SWI 1gm 1 GM/10 ML SYR IVP SCH (21:00)
[2020-01-07] MEDS: IPRATROPIUM BROM 0.5MG/2.5ML NEB SCH ×4 (01:15→20:00)
[2020-01-07] MEDS: ALBUTEROL 2.5 MG/3 ML NEB SOL NEB PRN ×2 (01:15→07:52)
[2020-01-07] MEDS ORDERED: ALBUTEROL 2.5 MG/3 ML NEB SOL ONE ×2 (01:27→07:41)
[2020-01-07] MEDS ORDERED: METHYLPREDNISOLONE 125 MG INJ ONE ×3 (04:45→16:22)
[2020-01-07] MEDS: METHYLPREDNISOLONE 125 MG INJ IV SCH ×3 (05:00→17:22)
[2020-01-07 05:37] LABS: Absolute Lymphocytes (CBC) 0.8 K/uL (0.7-4.9); Basophils % 0.2 % (0-1.3); Hematocrit 44.1 % (39.6-49.0); Lymphocytes % 9.5 % (15.3-44.8); RBC Red Blood Cell Count 4.86 M/uL (4.33-5.43)
[2020-01-07 05:38] LABS: Protime INR 1.01
[2020-01-07 05:41] LABS: Albumin 3.7 g/dL (3.4-5.0); Bilirubin Total 0.6 mg/dL (0.2-1.0); Magnesium 2.3 mg/dL (1.8-2.4); Phosphorus 2.4 mg/dL (2.5-4.9); Potassium 4.1 mmol/L (3.5-5.1); Protein, Total 7.8 g/dL (6.4-8.2)
--- NOTE | 2020-01-07 07:16 | EKG ---
Test Date: 2020-01-06 Test Time: 14:48:24 Program/Music Director: MATT MEASUREMENT RESULTS: Intervals: Rate: 74 MO: 150 QRSD: 86 QT: 388 QTc: 430 [place]: P: 45 MO: 150 QRS: 59 T: 40 INTERPRETIVE STATEMENTS: Sinus rhythm with premature atrial complexes Otherwise normal ECG Compared to ECG 05/08/2018 13:14:36 Atrial premature complex(es) now present Sinus bradycardia no longer present Electronically Signed On 01-07-20 07:16:03 CHEMISTRY TEACHER by Barak Munoz
[2020-01-07] MEDS ORDERED: IPRATROPIUM BROM 0.5MG/2.5ML ONE ×2 (07:41→12:31)
[2020-01-07 07:45] LABS: Blood Morphology Comment NOT SEEN (NOT SEEN); Platelet Estimate ADEQ; White Blood Cell Scan OK (OK)
[2020-01-07] MEDS: POTASS/SODIUM PHOSPHATE 1 PKT POWD.PACK PO SCH ×3 (08:00→10:00)
[2020-01-07] MEDS ORDERED: INFLUENZA VACCINE (for 3y+) 0.5 ML DOSE IMVAC ONE (08:00)
[2020-01-07] MEDS: CEFTRIAXONE/SWI 1gm 1 GM/10 ML SYR IVP SCH ×2 (09:00→21:14)
[2020-01-07] MEDS: ENOXAPARIN 40 MG/0.4 ML SQ SCH (09:00)
[2020-01-07] MEDS: AZITHROMYCIN IV 500 MG in NA CHLORIDE 0.9% 250 ML IVPB SCH (09:00)
[2020-01-07] MEDS ORDERED: ENOXAPARIN 30 MG/0.3 ML SQ ONE (09:32)
[2020-01-07] MEDS ORDERED: CEFTRIAXONE/SWI 1gm 1 GM/10 ML SYR ONE (09:32)
--- NOTE | 2020-01-07 16:44 | P.HP ---
Certification for Inpatient Patient admitted to: Observation With expected LOS: <2 Midnights Patient will require the following post-hospital care: None Practitioner: I am a practitioner with admitting privileges, knowledge of patient current condition, hospital course, and medical plan of care. Services: Services provided to patient in accordance with Admission requirements found in Title 42 Section 412.3 of the Code of Federal Regulations Patient History Date of Service: 01/06/20 Reason for admission: Acute asthma exacerbation; hypoxic; tachypneic; lactic acidosis History of Present Illness: Patient is a 49-year-old gentleman came to the hospital with difficulty breathing. Patient was severely tachypneic and was unable to get his breath. He has a history of asthma but states that it has been well controlled. He decided to come to the emergency room for further evaluation. In the emergency room, patient was hypoxic satting 85% on room air. She was given 2 L of oxygen his sats came up to 95%. Patient had chest x-ray and CT scan imaging which did not reveal an acute infiltrate. It appears that he is having acute asthma exacerbation. Patient also has a lactic acidosis mainly related to hypoxemia. Will monitor the lactic acid level and continue monitoring for any fever and infection. COVID-19 testing is pending as well. Flu testing has been negative. At this time, patient be admitted to the hospital and will monitor his peak flows and serial lactic acid levels. Hopefully we can get patient home within the next 48 hrs. Allergies morphine Allergy (Verified 01/06/20 22:01) Unknown Home Medications: Atorvastatin Calcium 1 tab PO DAILY 01/06/20 Losartan Potassium 1 tab PO DAILY 01/06/20 Multivitamin [Multiple Vitamins] 1 tab PO DAILY 01/06/20 Pantoprazole [Protonix Tab*] 1 tab PO DAILY 01/06/20 Topiramate 1 tab PO DAILY 01/06/20 Trazodone HCl 0.5 tab PO BEDTIME 01/06/20 Albuterol Inhaler [Ventolin Inhaler*] 2 puff IH Q6H PRN 01/07/20 - Past Medical/Surgical History -: Asthma Past Surgical History: Patient denies surgical history - Family History Father Family History: Reviewed- Non-Contributory - Social History Smoking Status: Former smoker (Quit 20 years ago) Place of Residence: Home Review of Systems 10-point ROS is otherwise unremarkable Physical Examination - Vital Signs Temperature: 96.9 F Blood Pressure: 118/76 Pulse: 101 Respirations: 18 Pulse Ox (%): 96 - Physical Exam General: Alert, In no apparent distress, Moderate distress HEENT: Atraumatic, PERRLA, Mucous membr. moist/pink, EOMI, Sclerae nonicteric Neck: Supple, 2+ carotid pulse no bruit, No LAD, Without JVD or thyroid abnormality Respiratory: Diminished, Expiratory wheezes, Inspiratory wheezes Cardiovascular: Regular rate/rhythm, Normal S1 S2, No murmurs Gastrointestinal: Normal bowel sounds, Soft and benign, Non-distended, No tenderness Musculoskeletal: No clubbing, No swelling, No tenderness Integumentary: No rashes Neurological: Normal gait, Normal speech, Normal strength at 5/5 x4 extr, Normal tone, Sensation intact, Cranial nerves 3-12 intact, Normal affect Lymphatics: No axilla or inguinal lymphadenopathy - Studies Laboratory Data (last 24 hrs) 01/06/20 14:58: WBC 5.5, Hgb 15.6, Hct 45.8, Plt Count 152 Microbiology Data (last 24 hrs): 01/06/20 14:53 Nasopharnyx Influenza Type A Antigen Screen - Final 01/06/20 14:53 Nasopharnyx Influenza Type B Antigen Screen - Final Assessment & Plan - Problems (Diagnosis) (1) Acute asthma exacerbation Current Visit: Yes Status: Acute (2) Hypoxemia Current Visit: Yes Status: Acute (3) Tachypnea Current Visit: Yes Status: Acute - Plan Plan: 1. Continue with albuterol and Atrovent nebs 2. Continue with IV steroids 3. Outpatient pulmonary function testing 4. Pulmonary follow-up if symptoms do not improve 5. Room air O2 sats 6. Repeat chest x-ray in the morning 7. Peak flows as needed 8. GI and DVT prophylaxis Discharge Plan: Home Plan to discharge in: 48 Hours - Advance Directives Does patient have a Living Will: No Does patient have a Durable POA for Healthcare: No - Code Status/Comfort Care Code Status Assessed: Yes Code Status: Full Code Critical Care: No Time Spent Managing PTS Care (In Minutes): 45
[2020-01-07] MEDS ORDERED: TRAZODONE 50 MG TABLET PO PRN (20:57)
[2020-01-08] MEDS: METHYLPREDNISOLONE 125 MG INJ IV SCH ×2 (00:25→05:19)
[2020-01-08] MEDS: IPRATROPIUM BROM 0.5MG/2.5ML NEB SCH ×2 (01:20→07:40)
[2020-01-08 04:28] LABS: Phosphorus 4.2 mg/dL (2.5-4.9); Potassium 4.3 mmol/L (3.5-5.1)
[2020-01-08] MEDS: CEFTRIAXONE/SWI 1gm 1 GM/10 ML SYR IVP SCH (09:02)
[2020-01-08] MEDS: AZITHROMYCIN IV 500 MG in NA CHLORIDE 0.9% 250 ML IVPB SCH (09:02)
[2020-01-08] MEDS: ENOXAPARIN 40 MG/0.4 ML SQ SCH (09:02)
[2020-01-08 09:24] VITALS: O2SAT 98
[2020-01-08 09:25] VITALS: BP 123/55; TEMP 98
--- NOTE | 2020-01-08 09:52 | P.PN ---
Subjective Date of Service: 01/07/20 The patient is still with some cough shortness of breath. Overall, feeling better. COVID-19 testing still pending. Review of Systems 10-point ROS is otherwise unremarkable Physical Examination - Vital Signs Temperature: 98 F Blood Pressure: 123/55 Pulse: 66 Respirations: 20 Pulse Ox (%): 94 - Physical Exam General: Alert, In no apparent distress, Oriented x3 Respiratory: Clear to auscultation bilaterally, Normal air movement Cardiovascular: Regular rate/rhythm, Normal S1 S2, No murmurs Gastrointestinal: Normal bowel sounds, Soft and benign, Non-distended, No tenderness Musculoskeletal: No clubbing, No swelling, No tenderness Integumentary: No rashes Neurological: Normal tone, Sensation intact, Cranial nerves 3-12 intact - Studies Medications List Reviewed: Yes Assessment & Plan - Problems (Diagnosis) (1) Acute asthma exacerbation Current Visit: Yes Status: Acute (2) Hypoxemia Current Visit: Yes Status: Acute (3) Tachypnea Current Visit: Yes Status: Acute - Plan Plan: Cont. with plan of care as mentioned below: 1. Continue with albuterol and Atrovent nebs 2. Continue with IV steroids 3. Outpatient pulmonary function testing 4. Pulmonary follow-up if symptoms do not improve 5. Room air O2 sats 6. Repeat chest x-ray in the morning 7. Peak flows as needed 8. GI and DVT prophylaxis Discharge Plan: Home Plan to discharge in: Greater than 2 days - Advance Directives Does patient have a Living Will: No Does patient have a Durable POA for Healthcare: No - Code Status/Comfort Care Code Status: Full Code Critical Care: No Time Spent Managing PTS Care (In Minutes): 35
--- NOTE | 2020-01-08 09:52 | P.DS ---
Discharge Date: 01/08/20 Disposition: ROUTINE DISCHARGE Discharge Condition: GOOD Reason for Admission: Acute asthma exacerbation; hypoxic; tachypneic; lactic acidosis - Problems (1) Acute asthma exacerbation Status: Acute (2) Hypoxemia Status: Acute (3) Tachypnea Status: Acute Brief History of Present Illness: Patient is a 49-year-old gentleman came to the hospital with difficulty breathing. Patient was severely tachypneic and was unable to get his breath. He has a history of asthma but states that it has been well controlled. He decided to come to the emergency room for further evaluation. In the emergency room, patient was hypoxic satting 85% on room air. She was given 2 L of oxygen his sats came up to 95%. Patient had chest x-ray and CT scan imaging which did not reveal an acute infiltrate. It appears that he is having acute asthma exacerbation. Patient also has a lactic acidosis mainly related to hypoxemia. Will monitor the lactic acid level and continue monitoring for any fever and infection. COVID-19 testing is pending as well. Flu testing has been negative. At this time, patient be admitted to the hospital and will monitor his peak flows and serial lactic acid levels. Hopefully we can get patient home within the next 48 hrs. Hospital Course: Patient is to hospital for his severe hypoxemia. She was started on 2 L of oxygen and weak and was generally eats, nebs, and antibiotics. Patient's lactic acid remains elevated. After his hypoxemia corrected his lactic acid improved. At this time, patient is doing well and he is stable for discharge home with outpatient follow-up. His COVID-19 test came back negative. Vital Signs/Physical Exam: Temp Pulse Resp BP Pulse Ox 98 F 66 20 123/55 L 94 01/08/20 09:52 01/08/20 09:52 01/08/20 09:52 01/08/20 09:52 01/08/20 09:52 General: Alert, In no apparent distress, Oriented x3 Laboratory Data at Discharge: WBC 8.5 K/uL (4.3-10.9) D 01/07/20 04:37 Hgb 15.1 g/dL (13.6-17.9) 01/07/20 04:37 Hct 44.1 % (39.6-49.0) 01/07/20 04:37 Plt Count 178 K/uL (152-406) 01/07/20 04:37 PT 11.9 SECONDS (9.5-12.5) 01/07/20 04:37 INR 1.01 01/07/20 04:37 APTT 26.1 SECONDS (24.3-36.9) 01/07/20 04:37 Sodium 142 mmol/L (136-145) 01/08/20 03:26 Potassium 4.3 mmol/L (3.5-5.1) 01/08/20 03:26 BUN 17 mg/dL (7-18) 01/08/20 03:26 Creatinine 1.05 mg/dL (0.55-1.3) 01/08/20 03:26 Glucose 152 mg/dL (74-106) H 01/08/20 03:26 Phosphorus 4.2 mg/dL (2.5-4.9) D 01/08/20 03:26 Magnesium 2.3 mg/dL (1.8-2.4) 01/07/20 04:37 Total Bilirubin 0.6 mg/dL (0.2-1.0) 01/07/20 04:37 AST 29 U/L (15-37) 01/07/20 04:37 ALT 89 U/L (12-78) H 01/07/20 04:37 Alkaline Phosphatase 103 U/L (45-117) 01/07/20 04:37 Triglycerides 82 mg/dL (<150) 01/07/20 04:37 Cholesterol 147 mg/dL (<200) 01/07/20 04:37 HDL Cholesterol 42 mg/dL (40-60) 01/07/20 04:37 Cholesterol/HDL Ratio 3.50 01/07/20 04:37 Home Medications: Atorvastatin Calcium 1 tab PO DAILY 01/06/20 Losartan Potassium 1 tab PO DAILY 01/06/20 Multivitamin [Multiple Vitamins] 1 tab PO DAILY 01/06/20 Pantoprazole [Protonix Tab*] 1 tab PO DAILY 01/06/20 Topiramate 1 tab PO DAILY 01/06/20 Trazodone HCl 0.5 tab PO BEDTIME 01/06/20 Albuterol Inhaler [Ventolin Inhaler*] 2 puff IH Q6H PRN 01/07/20 Azithromycin Tab [Zithromax*] 250 mg PO ZPAK #1 katarzyna 01/08/20 Fluticasone/Salmeterol [Advair 250-50 Diskus] 1 each IH BID #1 disk.w.dev 01/08/20 Methylprednisolone [Medrol dosepack] 4 mg PO DIRECTED #1 katarzyna 01/08/20 New Medications: Fluticasone/Salmeterol [Advair 250-50 Diskus] 1 each IH BID #1 disk.w.dev Methylprednisolone [Medrol dosepack] 4 mg PO DIRECTED #1 katarzyna Azithromycin Tab [Zithromax*] 250 mg PO ZPAK #1 katarzyna Patient Discharge Instructions: OK TO DC IV AND DC HOME. FOLLOW-UP WITH PRIMARY CARE PROVIDER IN 1-2 WEEKS. FOLLOW-UP WITH PULMONARY FOR PULMONARY FUNCTION TESTING IN 1-2 WEEKS. RETURN TO THE ER IF SYMPTOMS WORSEN. CALL or TEXT DR. SERRANO AT [phone] IF ANY QUESTIONS REGARDING HOSPITAL STAY. PLEASE CALL THE FLOOR AT [phone] IF ANY MEDICATION OR NURSING QUESTIONS. 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
[2020-01-08] MEDS ORDERED: INFLUENZA VACCINE (for 3y+) 0.5 ML DOSE IMVAC ONE (10:00)
== END 2020-01-08 10:25 | disposition home or self-care (01) | DRG 202 ==
LOC: ER 14:16 → ERHOLD 17:18 → 2ND 01-07 17:45
PROVIDERS: ADMIT Hospitalist; ATTEND Hospitalist
DX: J45.901 Unspecified asthma with (acute) exacerbation (principal); E87.2 Acidosis; I10 Essential (primary) hypertension; R06.82 Tachypnea, not elsewhere classified; R09.02 Hypoxemia; Z88.5 Allergy status to narcotic agent; Z87.891 Personal history of nicotine dependence; Z79.899 Other long term (current) drug therapy; Z90.49 Acquired absence of other specified parts of digestive tract; Z20.828 Contact with and (suspected) exposure to other viral communicable diseases; Z23 Encounter for immunization
CPT/HCPCS: 36415; 71045; 71275; 80048; 80053; 80061; 83605; 83735; 83880; 84100; 84145; 85025; 85610; 85730; 87040; 87804; 90471; 93005; 94010; 94640; 94760; 96361; 96374; 99285; J0456; J0696; J1650; J2930; J7030; J7050; Q2035; Q9967

== ENCOUNTER 2020-04-11 18:20 | Emergency (ER) | payer BC ==
--- OUTSIDE RECORDS SUMMARY | 2020-04-11 18:22 | XMS REPORT | Continuity of Care Document ---
:[address] [facility] t Address [address] [place] [address] Care Team Providers Name Role Phone Unavailable Unavailable Unavailable Problems This patient has no known problems. Allergies, Adverse Reactions, Alerts Allergy Allergy Status Severity Reaction(s) Onset Inactive Treating Comm ents Source Name Type Date Date Clinician Morphine Adverse Active Info Not [facility] Available [facility] Medications Ordered Filled Start Stop Current Ordering Indication Dosage Frequency Signature Comments Components Source Medication Medication Date Date Medication? Clinician (SIG) Name Name Pantoprazol Pantoprazol Yes Burak [address] [facility] Sodium e Sodium 1-17 [facility] Montelukast Montelukast Yes Burak [address] [facility] Sodium Sodium 7-18 [facility] Atorvastati Atorvastati Yes Burak [address] [facility] n Calcium n Calcium 4-08 Davies [facility] - [facility]: [facility] Losartan Losartan Yes Burak [address] [facility] Potassium Potassium 3-11 Davies [facility]: [facility] Topiramate Topiramate Yes Burak [address] [facility] Metformin Metformin Yes Burak [address] [facility] HCl HCl Davies with a [facility] - meal [facility] Sumatriptan Sumatriptan Yes Burak [address] [facility] Davies needed one [facility] - [facility] Nalfon Nalfon Yes Burak [address] [facility] Fenoprofen Fenoprofen Yes Burak [address] [facility] Calcium Calcium Davies [facility] Metformin Metformin Yes Burak TAKE ONE [facility] HCl HCl Davies TABLET BY [facility] - MOUTH ONCE [facility] DAILY WITH l A MEAL [facility] Pantoprazol Pantoprazol Yes Burak TAKE ONE [facility] e Sodium e Sodium Davies TABLET BY L ukes - MOUTH [facility] Atorvastati Atorvastati Yes Burak TAKE ONE [facility] n Calcium n Calcium Davies TABLET BY [facility] - M[facility]TH [facility] Losartan Losartan Yes Burak TAKE ONE [facility] Potassium Potassium Davies TABLET BY [facility] M[facility]TH [facility] Procedures This patient has no known procedures. Encounters Start End Encounter Admission Attending Care Care Encounter Source Date/Time Date/Time Type Type Clinicians Facility Department ID 2020-04-06 2020-04-06 Outpatient [facility] [id number] [facility] 2020-03-23 2020-03-23 [facility] [id number] 2020-02-16 2020-02-16 [facility] [id number] [facility] 2020-02-16 2020-02-16 [facility] [id number] 2020-02-03 2020-02-03 [facility] [id number] [facility] 2020-01-26 2020-01-26 [facility] [id number] [facility] 2020-01-19 2020-01-19 [facility] [id number] [facility] 2020-01-09 2020-01-09 [facility] [id number] [facility] 2020-01-06 2020-01-06 [facility] [id number] [facility] 2020-01-05 2020-01-05 [facility] [id number] 2019-12-22 2019-12-22 [facility] [id number] [facility] 2019-09-22 2019-09-22 [facility] [id number] [facility] 08[facility] 08:15:[facility] [place] [employer] [place] [facility] Medicine l Medicine Outpati ent Clinics 2019-06-23 2019-06-23 [facility] [id number] [address] 08[facility]30:00 08:30:00 t [employer] s - [facility] Medicine l Medicine Outpati ent Clinics 2019-03-21 2019-03-21 [facility] [id number] [facility] 11:15:00 11:15:00 [place] [employer] [place] [facility] Medicine l Medicine Outpati ent Clinics 2019-01-13 2019-01-13 [facility] [id number] [facility] 15:15:00 15:15:00 [place] [employer] [place] [facility] Medicine l Medicine Outpati ent Clinics 2018-12-20 2018-12-20 [facility] [id number] 14:02:00 14:02:00 [employer] - [facility] Medicine l Medicine Outpati ent Clinics 2018-12-20 2018-12-20 [facility] [id number] 08:30:00 08:30:[address] [facility] - Drive [facility] Medicine l Medicine Outpati ent Clinics 2018-09-19 2018-09-19 [facility] [id number] 10:45:[facility] 10:45:[address] [facility] - Drive [facility] Medicine l Medicine Outpati ent Clinics 2018-06-10 2018-06-10 [facility] [id number] 08:15:[facility] 08:15:[address] [facility] - Drive [facility] Medicine l Medicine Outpati ent Clinics 2018-05-20 2018-05-20 [facility] [id number] 10:32:00 10:32:[address] Luke [facility] - Drive [facility] Medicine Outpati ent Clinics 2018-05-14 2018-05-14 [facility] [id number] 11:21:00 11:21:[address] [facility] - Drive [facility] Medicine Outpati ent Clinics 2018-05-10 2018-05-10 [facility] [id number] 14:47:00 14:47:[address] [facility] - Drive [facility] Medicine l Medicine Outpati ent Clinics 2018-05-06 2018-05-06 [facility] [id number] 10:11:00 10:11:00 [place] [facility] - Drive [facility] Medicine Medicine Outpati ent Clinics 2018-03-11 2018-03-11 [facility] [id number] 13:15:00 13:15:[address] [facility] - Drive [facility] Medicine Medicine Outpati ent Clinics 2017-12-06 2017-12-06 [facility] [id number] [facility] 14:30:00 14:30:[address] [facility] - Drive [facility] Medicine l Medicine Outpati ent Clinics 2017-08-21 2017-08-21 [facility] [id number] 14:15:00 14:15:[address] Luke [facility] - Drive [facility] Medicine l Medicine Outpati ent Clinics 2017-05-30 2017-05-30 [facility] [id number] 16:00:00 16:00:00 t [employer] [facility] Medicine Medicine Outpati ent Clinics Results This patient has no known results.
--- OUTSIDE RECORDS SUMMARY | 2020-04-11 18:22 | XMS REPORT ---
:1970 Author Organization [facility] Address [address] [place] [place] [address] Care Team Providers Name Role Phone Burak Davies Unavailable [phone] PROBLEMS Type Condition ICD9-CM [id number] Onset Condition SNOMED Code Notes Code Code Dates Status Problem Allergic J30.2 Active 981644235 rhinitis, seasonal Problem Controlled type E11.9 Active 762741314 2 diabetes mellitus without complication, without long-term current use of insulin Problem Dysphagia, R13.10 Active 81984895 unspecified Problem Hyperlipidemia, E78.2 Active 756393390 mixed Problem Obesity (BMI E66.9 Active 463702168 30.0-34.9) Problem Benign essential I10 Active 58376642 HTN Problem Migraine without G43.009 Active 895162330 aura and without status migrainosus, not intractable Problem Primary insomnia F51.01 Active 2075221 Problem Prediabetes R73.09 Active 204788236 Problem Moderate asthma J45.901 Active 187021669 with exacerbation, unspecified whether persistent Problem Obstructive G47.33 Active 81110765 sleep apnea Problem Asthma without J45.909 Active 782271149 status asthmaticus or acute exacerbation Problem Adult BMI Z68.33 Active 750098992 33.0-33.9 kg/sq m Problem GERD without K21.9 Active 729378320 esophagitis Problem Non-seasonal J30.89 Active 59460864 allergic rhinitis, unspecified trigger ALLERGIES Allergen (clinical drug Drug/Non Drug Allergy Reaction Allergy Type Onset Date Status ingredient) documented on EMR morphine Morphine Sulfate(NDC Unknown Drug Allergy Ac tive Code:[address]-11) ENCOUNTERS from 1970 to 2020-01-19 Encounter Location Date Provider Diagnosis [facility] [address], [place] [address] IMMUNIZATIONS Vaccine Route Administration Date Status Kenalog [...] REASON FOR REFERRAL No Information VITAL SIGNS No information MEDICATIONS Medication SIG (Take, Route, Notes Start Date End Date Status Frequency, Duration) Trazodone HCl 100 MG Take 1/2 tab QHS x 1 Active week then 1 tab QHS Orally Once a day for 30 day(s) Metformin HCl 500 MG TAKE ONE TABLET BY Not-Taking MOUTH ONCE DAILY WITH A MEAL Fenoprofen Calcium 400 MG 1 capsule Orally PRN Not-Taking Losartan Potassium 50 MG 1 tablet Orally Once a Active day for 90 days Sumatriptan 5 MG/ACT 1 puff as needed one Active time Nasally Once a day Topiramate 25 MG 1 tablet Orally Once a Active day for 30 days Montelukast Sodium 10 MG 1 tablet Orally Once a Active day for 30 day(s) ProAir HFA 108 (90 Base) 2 puffs as needed Active MCG/ACT Inhalation every 6 hrs PRN COugh, Wheezing or shortness of breath for 30 days Atorvastatin Calcium 10 TAKE ONE TABLET BY Active MG MOUTH DAILY for 30 Atorvastatin Calcium 10 1 tablet Orally Once a Active MG day for 90 days Pantoprazole Sodium 40 MG TAKE ONE TABLET BY Active MOUTH DAILY for 30 Nalfon 400 MG 1 capsule Orally Three Active times a day PROCEDURES No Information RESULTS No Results REASON FOR VISIT [facility]ML[facility] hosp admit, pulmonology MEDICAL (GENERAL) HISTORY Type Description Date Medical [...] 1999 Surgical History Right CTS Dr. Winslow 2017 Goals Section No Information Health Concerns No Information MEDICAL EQUIPMENT No Information MENTAL STATUS No Information FUNCTIONAL STATUS No Information ASSESSMENTS No Information PLAN OF TREATMENT Medication Medication Name Sig Start Date Stop Date Trazodone HCl 100 MG Take 1/2 tab QHS x 1 week then 1 tab QHS Orally Once a day for 30 day(s) Atorvastatin Calcium 10 MG 1 tablet Orally Once a day for 90 days Pantoprazole Sodium 40 MG TAKE ONE TABLET BY MOUTH DAILY for 30 ProAir HFA 108 (90 Base) MCG/ACT 2 puffs as needed Inhalation every 6 hrs PRN COugh, Wheezing or shortness of breath for 30 days Losartan Potassium 50 MG 1 tablet Orally Once a day for 90 days Sumatriptan 5 MG/ACT 1 puff as needed one time Nasally Once a day Topiramate 25 MG 1 tablet Orally Once a day for 30 days Montelukast Sodium 10 MG 1 tablet Orally Once a day for 30 day(s) Nalfon 400 MG 1 capsule Orally Three times a day Next Appt Details Provider Name:Burak Davies, 2020-01-26 0 3:20:00 PM, [address], [place], [address], Provider Name:Burak Davies, 2020-03-16 0 9:45:00 AM, [address], [place], [address], Provider Name:Burak Davies, 2020-03-23 1 0:30:00 AM, [address], [place], [address], Insurance Providers Payer Name Payer Payer Insured Name Patient Coverage Covera ge End Address Phone Relationship to Start Date Gabriel e Insured [employer] [phone] Junior,Re self 2017 and Blue [id number] [facility] [id number]
--- OUTSIDE RECORDS SUMMARY | 2020-04-11 18:23 | XMS REPORT ---
:1970 Author Organization [facility] Address [address] [place] [address] Care Team Providers Name Role Phone Burak Davies Unavailable [phone] PROBLEMS Type Condition ICD9-CM [id number] Onset Condition SNOMED Code Notes Code Code Dates Status Problem Controlled type E11.9 Active 461842459 2 diabetes mellitus without complication, without long-term current use of insulin Problem Hyperlipidemia, E78.2 Active 678079423 mixed Problem Allergic J30.2 Active 201295441 rhinitis, seasonal Problem Obstructive G47.33 Active 34864987 sleep apnea Problem Dysphagia, R13.10 Active 87089097 unspecified Problem Benign essential I10 Active 76571643 HTN Problem Migraine without G43.009 Active 369202369 aura and without status migrainosus, not intractable Problem Asthma without J45.909 Active 727573755 status asthmaticus or acute exacerbation Problem Moderate J45.40 Active 988110974 persistent asthma without complication Problem Obesity (BMI E66.9 Active 083667966 30.0-34.9) Problem Moderate asthma J45.901 Active 483911434 with exacerbation, unspecified whether persistent Problem Prediabetes R73.09 Active 120174084 Problem Adult BMI Z68.33 Active 483606696 33.0-33.9 kg/sq m Problem GERD without K21.9 Active 173116577 esophagitis Problem Non-seasonal J30.89 Active 44535457 allergic rhinitis, unspecified trigger Problem Primary insomnia F51.01 Active 2734476 ALLERGIES Allergen (clinical drug Drug/Non Drug Allergy Reaction Allergy Type Onset Date Status ingredient) documented on EMR morphine Morphine Sulfate([facility] Unknown Drug Allergy Ac tive Code:[address]-89) ENCOUNTERS from 1970 to 2020-01-26 Encounter Location Date Provider Diagnosis [facility] [address] Jan, [facility] Davies Mod erate asthma with Family Medicine [address] [place] [address] unspecified wh ether persistent J45. 901 ; Moderate persis tent asthma without complication J4 5.40 ; Primary insomni a F51.01 ; Bereav ement due to life bebeto nt Z63.4 ; Benign essential HTN I 10 [...] ; GERD without esophag itis K21.9 and [place] vement counseling Z71. 89 IMMUNIZATIONS Vaccine Route [...] VITAL SIGNS Height 70 in Jan, Weight 250 lbs Jan, Temperature 97 degrees Fahrenheit Jan, BMI 35.87 kg/m2 Jan, MEDICATIONS Medication SIG (Take, Route, Notes Start Date End Date Status Frequency, Duration) Nalfon 400 MG 1 capsule Orally Three Active times a day Montelukast Sodium 10 MG 1 tablet Orally Once a Active day for 30 day(s) Atorvastatin Calcium 10 TAKE ONE TABLET BY Active MG MOUTH DAILY for 30 Fenoprofen Calcium 400 1 capsule Orally PRN Not-Taking MG Pantoprazole Sodium 40 TAKE ONE TABLET BY Active MG MOUTH DAILY for 30 Pantoprazole Sodium 40 1 tablet Orally Once a Active MG day for 30 day(s) Sumatriptan 5 MG/ACT 1 puff as needed one Active time Nasally Once a day Losartan Potassium 50 MG 1 tablet Orally Once a Active day for 90 days ProAir HFA 108 (90 Base) 2 puffs as needed Active MCG/ACT Inhalation every 6 hrs PRN COugh, Wheezing or shortness of breath for 30 days Trelegy Ellipta 1 puff Inhalation Once Jan, Active 100-62.5-25 MCG/INH a day Atorvastatin Calcium 10 1 tablet Orally Once a Active MG day for 90 days Metformin HCl 500 MG TAKE ONE TABLET BY Not-Taking MOUTH ONCE DAILY WITH A MEAL Topiramate 25 MG 1 tablet Orally Once a Active day for 30 days Trazodone HCl 100 MG 1 tablet at bedtime Active Orally Once a day for 90 days PROCEDURES No Information RESULTS No Results REASON FOR VISIT 3 wk f/u MEDICAL (GENERAL) HISTORY Type Description Date [...] STATUS No Information ASSESSMENTS Encounter Date Diagnosis Assessment Notes Treatment Notes Treatm ent Clinical Notes Jan, Moderate asthma Hospital Course with exacerbation, reviewed. Education unspecified given. Answered all whether persistent questions to the best (ICD-10 - J45.901) of my knowledge. Seen by extended day teacher. Prednisone was changed to 15-day course. Upcoming appointment pulmonology for pulmonary function test. Reports a significant improvement Jan, Moderate Managed by persistent asthma Aggrawal. Stable without with current regimen. complication Upcoming appointment (ICD-10 - J45.40) for pulmonary function test. Jan, Primary insomnia Discussed (ICD-10 - F51.01) differential diagnosis with patient. Education given. Discussed good sleep hygiene. Working well with trazodone. Refill given for 100 mg. Side effect panel discussed extensively. Jan, Bereavement due to Actively listented. life event (ICD-10 Support given. - Z63.4) Discussed treatment options. Medication + Counseling/Therapy. Infomation provided for psychologist for therapy options, encouraged to call to make an appt. doing well overall. Jan, Benign essential Doing well. REDUCED HTN (ICD-10 - I10) TO 50 mg. Education given. , DASH Diet discussed. Instructed to measure BP at home and bring in log to f/u appt. Instructions and logs given. Education given. Jan, Obstructive sleep New CPAP: COmpliant. apnea (ICD-10 - G47.33) Jan, Adult BMI Counseling given. 33.0-33.9 kg/sq m Diet and exercise (ICD-10 - Z68.33) discussed. Education given. Goal is to lose 20 pounds. Jan, Controlled type 2 STOPPED METFORMIN for diabetes mellitus 3 additional months without trial (total 6 complication, months). SIde effect without long-term panel discussed. , current use of Diabetes Education insulin (ICD-10 - Diabetes is a E11.9) disorder that disrupts the way your body [...] may need to be adjusted and/or added. Jan, Hyperlipidemia, Cont LIPITOR 10 mg mixed (ICD-10 - and titrate as E78.2) toelrated. Side effect discussed. GOal <70 LDL. [...] you have questions, talk to your doctor. Jan, Migraine without Stable. Managed by aura and without . Keep HARTMAN status Diary. migrainosus, not intractable (ICD-10 - G43.009) Jan, Allergic rhinitis, Refill given. seasonal (ICD-10 - Education given. side J30.2) effect discussed. Flare-up. Knelaog IM given in office. Will start allergy benefits. Jan, GERD without Discussed alf esophagitis impact of PPI usage. (ICD-10 - K21.9) Using intermittently. We have discussed the pathophysiology of reflux disease and we discussed lifestyle modifications to avoid reflux that include elevation head of the bed, avoid alcohol, avoid caffeine, avoid maintenance, avoid tight clothing, avoid eating within 3-4 hours before bedtime, and avoiding smoking. Jan, Bereavement counseling (ICD-10 - Z71.89) Jan, Other -- Medication reviewed and updated. -- Dietary and Lifestyle modifications addressed regarding diet, exercise and weight managemen t. -- Treatment options, risks and benefits, side effects reviewed in detail. -- Advised on signs/symptoms to monitor and when to call clinic and/or visit the nearest ER. Patient verbalized understanding and agreeable with plan. PLAN OF TREATMENT Medication Medication Name Sig Start Date Stop Date Losartan Potassium 50 MG 1 tablet Orally Once a day for 90 days Montelukast Sodium 10 MG 1 tablet Orally Once a day for 30 day(s) Trelegy Ellipta 100-62.5-25 1 puff Inhalation Once a day Jan, MCG/INH Topiramate 25 MG 1 tablet Orally Once a day for 30 days Trazodone HCl 100 MG 1 tablet at bedtime Orally Once a day for 90 days ProAir HFA 108 (90 Base) MCG/ACT 2 puffs as needed Inhalation every 6 hrs PRN COugh, Wheezing or shortness of breath for 30 days Sumatriptan 5 MG/ACT 1 puff as needed one time Nasally Once a day Nalfon 400 MG 1 capsule Orally Three times a day Atorvastatin Calcium 10 MG 1 tablet Orally Once a day for 90 days Pantoprazole Sodium 40 MG 1 tablet Orally Once a day for 30 day(s) Treatment Notes Assessment Notes Clinical Notes Moderate asthma with exacerbation, Hospital Course reviewed. Education unspecified whether persistent given. Answered all questions to the best of my knowledge. Seen by extended day teacher. Prednisone was changed to 15-day course. Upcoming appointment pulmonology for pulmonary function test. Reports a significant improvement Moderate persistent asthma without Managed by Dr. Murray. Stable complication with current regimen. Upcoming appointment for pulmonary function test. Primary insomnia Discussed differential diagnosis with patient. Education given. Discussed good sleep hygiene. Working well with trazodone. Refill given for 100 mg. Side effect panel discussed extensively. Bereavement due to life event Actively listented. Support gi darby. Discussed treatment options. Medication + Counseling/Therapy. Infomation provided for psychologist for therapy options, encouraged to call to make an appt. doing well overall. Benign essential HTN Doing well. REDUCED TO [...] use of effect panel discussed. , D iabetes insulin Education Diabetes is a disorder that [...] Keep status migrainosus, not HARTMAN Diary. intractable GERD without esophagitis Discussed alf impact of PPI usage. Using intermittently. We have discussed the pathophysiology of reflux disease and we discussed lifestyle modifications to avoid reflux that include elevation head of the bed, avoid alcohol, avoid caffeine, avoid maintenance, avoid tight clothing, avoid eating within 3-4 hours before bedtime, and avoiding smoking. Allergic rhinitis, seasonal Refill given. Education given. s kash effect discussed. Flare-up. Knelaog IM given in office. Will start allergy benefits. Next Appt Details as scheduled Reason: Provider Name:Burak Davies, 2020-03-16 0 9:45:00 AM, [address], [place], [address], Provider Name:Burak Samson 2020-03-23 1 0:30:00 AM, [address], [place], [address], Insurance Providers Payer Name Payer Payer Insured Name Patient Coverage Covera ge End Address Phone Relationship to Start Date Gabriel e Insured [employer] [phone] Junior,Re self 2016 and Blue [id number] [facility] [address]
--- OUTSIDE RECORDS SUMMARY | 2020-04-11 18:23 | XMS REPORT ---
:1970 Author Organization [facility] Address [address] [place] [place] [address] Care Team Providers Name Role Phone Burak Davies Unavailable [phone] PROBLEMS Type Condition ICD9-CM [id number] Onset Condition SNOMED Code Notes Code Code Dates Status Problem Controlled type E11.9 Active 597950909 2 diabetes mellitus without complication, without long-term current use of insulin Problem Hyperlipidemia, E78.2 Active 064589265 mixed Problem Allergic J30.2 Active 188224540 rhinitis, seasonal Problem Obstructive G47.33 Active 75843915 sleep apnea Problem Dysphagia, R13.10 Active 65246315 unspecified Problem Benign essential I10 Active 90510370 HTN Problem Migraine without G43.009 Active 980001656 aura and without status migrainosus, not intractable Problem Asthma without J45.909 Active 849098944 status asthmaticus or acute exacerbation Problem Moderate J45.40 Active 164153871 persistent asthma without complication Problem Obesity (BMI E66.9 Active 401996433 30.0-34.9) Problem Moderate asthma J45.901 Active 570936396 with exacerbation, unspecified whether persistent Problem Prediabetes R73.09 Active 551945921 Problem Adult BMI Z68.33 Active 587131041 33.0-33.9 kg/sq m Problem GERD without K21.9 Active 921481254 esophagitis Problem Non-seasonal J30.89 Active 22946705 allergic rhinitis, unspecified trigger Problem Primary insomnia F51.01 Active 4821368 ALLERGIES Allergen (clinical drug Drug/Non Drug Allergy Reaction Allergy Type Onset Date Status ingredient) documented on EMR morphine Morphine Sulfate([facility] Unknown Drug Allergy Ac tive Code:[address]-01) ENCOUNTERS from 1970 to 2020-02-16 Encounter Location Date Provider Diagnosis [address] Feb, [facility] Davies Upp er respiratory Family Medicine [address], [place] [address] unspecified ty pe J06.9 ; Cough R 05 and Moderate persis tent asthma without complication J4 5.40 IMMUNIZATIONS Vaccine Route Administration Date Status Kenalog [...] No Information VITAL SIGNS Height 70 in Feb, Weight 248 lbs Feb, Temperature 98.6 degrees Fahrenheit Feb, BMI 35.58 kg/m2 Feb, Blood pressure systolic 123 mm Hg Feb, Blood pressure diastolic 84 mm Hg Feb, MEDICATIONS Medication SIG (Take, Route, Notes Start Date End Date Status Frequency, Duration) Trelegy Ellipta 1 puff Inhalation Ac tive 100-62.5-25 MCG/INH Once a day Topiramate 25 MG 1 tablet Orally Once Active a day for 30 days Sumatriptan 5 MG/ACT 1 puff as needed one Active time Nasally Once a day Pantoprazole Sodium 40 TAKE ONE TABLET BY Active MG MOUTH DAILY for 30 Nalfon 400 MG 1 capsule Orally Activ e Three times a day Trazodone HCl 100 MG 1 tablet at bedtime Active Orally Once a day for 90 days ProAir HFA 108 (90 2 puffs as needed Active Base) MCG/ACT Inhalation every 6 hrs PRN COugh, Wheezing or shortness of breath for 30 days Metformin HCl 500 MG TAKE ONE TABLET BY Not-Taking MOUTH ONCE DAILY WITH A MEAL Losartan Potassium 50 1 tablet Orally Once Active MG a day for 90 days Atorvastatin Calcium TAKE ONE TABLET BY Active 10 MG MOUTH DAILY for 30 Atorvastatin Calcium 1 tablet Orally Once Active 10 MG a day for 90 days PredniSONE 20 MG 2 tablet Orally Once Feb, Feb, Active a day for 5 days Fenoprofen Calcium 400 1 capsule Orally PRN Not-Taking MG Montelukast Sodium 10 1 tablet Orally Once Active MG a day for 30 day(s) PROCEDURES No Information RESULTS No Results REASON FOR VISIT Sick MEDICAL (GENERAL) HISTORY Type Description Date Medical [...] Notes Treatment Notes Treatm ent Clinical Notes Feb, Upper respiratory Discussed tract infection, supportive measures unspecified type and home remedies (ICD-10 - J06.9) for symptomatic relief. Increase hydration. Advised on signs/symptoms to monitor. OK to use OTC Tylenol and/or NSAIDs for pain and fever, temporarily. It is important to rest and take your medication as recommended by the doctor. You should clean your hands frequently. You should remain indoors and cover your mouth when coughing. If necessary you may have to wear a mask to keep from infecting others. You should also change your toothbrush within 24 hours of starting any antibiotics. Salt water gargles three times a day is recommended for pharyngeal irritation and congestion. Nasal saline sprays three times a day to the nostrils may help with the nasal congestion. You may also take Mucinex OTC for chest congestion. If the symptoms persists or worsen after 24-48 hours especially if taking medication, then you are to call back for reevaluation or go to the ER. Feb, Cough (ICD-10 - R05) Feb, Moderate persistent Managed by Dr. skaggs without Aggrawal. Concern complication for early (ICD-10 - J45.40) exacerbation, mild. Will start prednisone burst for 5 days. Encouraged patient to call feeder operator for further evaluation management. Declined ED visit. Monitor symptoms closely. Upcoming appointment for pulmonary function test. Advised on signs and symptoms to monitor and when to visit the nearest ED. Patient vocalized understanding. Feb, Other -- Medication reviewed and updated. -- Dietary and Lifestyle modifications addressed regarding diet, exercise and weight managemen t. -- Treatment options, risks and benefits, side effects reviewed in detail. -- Advised on signs/symptoms to monitor and when to call clinic and/or visit the nearest ER. Patient verbalized understanding and agreeable with plan. -- Medication reviewed and updated. -- Dietary and Lifestyle modifications addressed regarding diet, exercise and weight managemen t. -- Treatment options, risks and benefits, side effects reviewed in detail. -- Advised on signs/symptoms to monitor and when to call clinic and/or visit the nearest ER. Patient verbalized understanding and agreeable with plan. PLAN OF TREATMENT Medication Medication Name Sig Start Date Stop Date Domingolenevaeh Velasquez 100-62.5-25 1 puff Inhalation Once a day MCG/INH PredniSONE 20 MG 2 tablet Orally Once a day Feb, 19 D 2019 for 5 days Treatment Notes Assessment Notes Clinical Notes Upper respiratory tract infection, Discussed supportive joshua ures and unspecified type home remedies for symptomatic relief. Increase hydration. Advised on signs/symptoms to monitor. OK to use OTC Tylenol and/or NSAIDs for pain and fever, temporarily. It is important to rest and take your medication as recommended by the doctor. You should clean your hands frequently. You should remain indoors and cover your mouth when coughing. If necessary you may have to wear a mask to keep from infecting others. You should also change your toothbrush within 24 hours of starting any antibiotics. Salt water gargles three times a day is recommended for pharyngeal irritation and congestion. Nasal saline sprays three times a day to the nostrils may help with the nasal congestion. You may also take Mucinex OTC for chest congestion. If the symptoms persists or worsen after 24-48 hours especially if taking medication, then you are to call back for reevaluation or go to the ER. Moderate persistent asthma without Managed by Dr. Murray. Concern complication for early exacerbation, mild. Will start prednisone burst for 5 days. Encouraged patient to call feeder operator for further evaluation management. Declined ED visit. Monitor symptoms closely. Upcoming appointment for pulmonary function test. Advised on signs and symptoms to monitor and when to visit the nearest ED. Patient vocalized understanding. Next Appt Details prn Reason: Provider Name:Burak Davies, 2020-03-16 0 9:45:00 AM, [address], [place], [address], Provider Name:Burak Davies, 2020-03-23 1 0:30:00 AM, [address], [place], [address], Insurance Providers Payer Name Payer Payer Insured Name Patient Coverage Covera ge End Address Phone Relationship to Start Date Gabriel e Insured [employer] [phone] Junior,Re self 2016 and [place] [id number] [facility] [address]
--- OUTSIDE RECORDS SUMMARY | 2020-04-11 18:23 | XMS REPORT ---
:1970 Author Organization [facility] Address [address] [place] [address] Care Team Providers Name Role Phone Burak Davies Unavailable [phone] PROBLEMS Type Condition ICD9-CM [id number] Onset Condition SNOMED Code Notes Code Code Dates Status Problem Controlled type E11.9 Active 023516506 2 diabetes mellitus without complication, without long-term current use of insulin Problem Hyperlipidemia, E78.2 Active 660352809 mixed Problem Allergic J30.2 Active 256070063 rhinitis, seasonal Problem Obstructive G47.33 Active 95126803 sleep apnea Problem Dysphagia, R13.10 Active 08847797 unspecified Problem Benign essential I10 Active 67231984 HTN Problem Migraine without G43.009 Active 709590197 aura and without status migrainosus, not intractable Problem Asthma without J45.909 Active 572236818 status asthmaticus or acute exacerbation Problem Moderate J45.40 Active 800498036 persistent asthma without complication Problem Obesity (BMI E66.9 Active 429739933 30.0-34.9) Problem Moderate asthma J45.901 Active 960413156 with exacerbation, unspecified whether persistent Problem Prediabetes R73.09 Active 885877368 Problem Adult BMI Z68.33 Active 076409129 33.0-33.9 kg/sq m Problem GERD without K21.9 Active 336908302 esophagitis Problem Non-seasonal J30.89 Active 77285134 allergic rhinitis, unspecified trigger Problem Primary insomnia F51.01 Active 6525584 ALLERGIES Allergen (clinical drug Drug/Non Drug Allergy Reaction Allergy Type Onset Date Status ingredient) documented on EMR morphine Morphine Sulfate([facility] Unknown Drug Allergy Ac tive Code:[address]-09) ENCOUNTERS from 1970 to 2020-02-16 Encounter Location Date Provider Diagnosis [facility] [address], [place] [address] IMMUNIZATIONS Vaccine Route Administration Date Status Kenalog [...] Medication Name Sig Start Date Stop Date Trelegy Ellipta 100-62.5-25 1 puff Inhalation Once a day MCG/INH PredniSONE 20 MG 2 tablet Orally Once a day Feb,2019 for 5 days Next Appt Details Provider Name:Burak Samson 2020-03-16 0 9:45:00 AM, [address], [place], [address], Provider Name:Burak Davies 2020-03-23 1 0:30:00 AM, [address], [place], [address], Insurance Providers Payer Name Payer Payer Insured Name Patient Coverage Covera End Address Phone Relationship to Start Date Gabriel e Insured [employer] [phone] Junior,Re self 2016 and Blue [id number] [facility] [phone]
--- OUTSIDE RECORDS SUMMARY | 2020-04-11 18:23 | XMS REPORT ---
:1970 Author Organization [facility] Address [address] [place] [place] [address] Care Team Providers Name Role Phone Burak Davies Unavailable [phone] PROBLEMS Type Condition ICD9-CM [id number] Onset Condition SNOMED Code Notes Code Code Dates Status Problem Controlled type E11.9 Active 867117765 2 diabetes mellitus without complication, without long-term current use of insulin Problem Hyperlipidemia, E78.2 Active 905529873 mixed Problem Allergic J30.2 Active 713846805 rhinitis, seasonal Problem Obstructive G47.33 Active 37508534 sleep apnea Problem Dysphagia, R13.10 Active 65498997 unspecified Problem Benign essential I10 Active 85506425 HTN Problem Migraine without G43.009 Active 109803723 aura and without status migrainosus, not intractable Problem Asthma without J45.909 Active 815634849 status asthmaticus or acute exacerbation Problem Moderate J45.40 Active 368310948 persistent asthma without complication Problem Obesity (BMI E66.9 Active 608254977 30.0-34.9) Problem Moderate asthma J45.901 Active 682442359 with exacerbation, unspecified whether persistent Problem Prediabetes R73.09 Active 460224285 Problem Adult BMI Z68.33 Active 233769075 33.0-33.9 kg/sq m Problem GERD without K21.9 Active 946136243 esophagitis Problem Non-seasonal J30.89 Active 01750469 allergic rhinitis, unspecified trigger Problem Primary insomnia F51.01 Active 4902851 ALLERGIES Allergen (clinical drug Drug/Non Drug Allergy Reaction Allergy Type Onset Date Status ingredient) documented on EMR morphine Morphine Sulfate([facility] Unknown Drug Allergy Ac tive Code:[address]-94) ENCOUNTERS from 1970 to 2020-03-23 Encounter Location Date Provider Diagnosis [facility] [address] [place], Burak Davies Mod erate asthma with Family Medicine [address] [place] [address] unspecified wh ether persistent J45. 901 ; [...] ; GERD without esophag itis K21.9 and [place] vement counseling Z71. 89 IMMUNIZATIONS Vaccine Route [...] No Information VITAL SIGNS Height 70 in Mar, Weight 246 lbs Mar, Temperature 98 degrees Fahrenheit Mar, BMI 35.29 kg/m2 Mar, Blood pressure systolic 122 mm Hg Mar, Blood pressure diastolic 80 mm Hg Mar, MEDICATIONS Medication SIG (Take, Route, Notes Start Date End Date Status Frequency, Duration) Metformin HCl 500 MG TAKE ONE TABLET BY Not-Taking MOUTH ONCE DAILY WITH A MEAL Trelegy Ellipta 1 puff Inhalation Once Active 100-62.5-25 MCG/INH a day Losartan Potassium 50 MG 1 tablet Orally Once a Active day for 90 days Sumatriptan 5 MG/ACT 1 puff as needed one Active time Nasally Once a day Montelukast Sodium 10 MG 1 tablet Orally Once a Active day for 30 day(s) Atorvastatin Calcium 10 1 tablet Orally Once a Active MG day for 90 days Pantoprazole Sodium 40 MG TAKE ONE TABLET BY Active MOUTH DAILY for 30 Atorvastatin Calcium 10 TAKE ONE TABLET BY Active MG MOUTH DAILY for 30 Trazodone HCl 100 MG 1 tablet at bedtime Active Orally Once a day for 90 days Fenoprofen Calcium 400 MG 1 capsule Orally PRN Not-Taking Pantoprazole Sodium 40 MG 1 tablet Orally Once a Active day for 30 day(s) Nalfon 400 MG 1 capsule Orally Three Active times a day Topiramate 25 MG 1 tablet Orally Once a Active day for 30 days ProAir HFA 108 (90 Base) 2 puffs as needed Active MCG/ACT Inhalation every 6 hrs PRN COugh, Wheezing or shortness of breath for 30 days PROCEDURES No Information RESULTS No Results [...] Notes Treatment Notes Treatm ent Clinical Notes Mar, Moderate asthma Hospital Course with exacerbation, reviewed. Education unspecified given. Answered all whether persistent questions to the best (ICD-10 - J45.901) of my knowledge. 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 Prednisone was changed to 15-day course. Upcoming appointment pulmonology for pulmonary function test. Reports a significant improvement Mar, Moderate Managed by persistent asthma Aggrawal. Stable without with current regimen. complication Upcoming appointment (ICD-10 - J45.40) for pulmonary function test. Mar, Primary insomnia Discussed (ICD-10 - F51.01) differential diagnosis with patient. Education given. Discussed good sleep hygiene. Working well with trazodone. Refill given for 100 mg. Side effect panel discussed extensively. Mar, Bereavement due to Actively listented. life event (ICD-10 Support given. - Z63.4) Discussed treatment options. Medication + Counseling/Therapy. Infomation provided for psychologist for therapy options, encouraged to call to make an appt. doing well overall. Mar, Benign essential Doing well. REDUCED HTN (ICD-10 - I10) TO 50 mg. Education given. , DASH Diet discussed. Instructed to measure BP at home and bring in log to f/u appt. Instructions and logs given. Education given. Mar, Obstructive sleep New CPAP: COmpliant. apnea (ICD-10 - G47.33) Mar, Adult BMI Counseling given. 33.0-33.9 kg/sq m Diet and exercise (ICD-10 - Z68.33) discussed. Education given. Goal is to lose 20 pounds. Mar, Controlled type 2 STOPPED METFORMIN for diabetes [...] may need to be adjusted and/or added. Mar, Hyperlipidemia, Cont LIPITOR 10 mg mixed (ICD-10 [...] you have questions, talk to your doctor. Mar, Migraine without Stable. Managed by auralfreda and without . Keep HARTMAN status Diary. migrainosus, not intractable (ICD-10 - G43.009) Mar, Allergic rhinitis, Refill given. seasonal (ICD-10 - Education given. side J30.2) effect discussed. Flare-up. Knelaog IM given in office. Will start allergy benefits. Mar, GERD without Discussed custodial esophagitis impact of PPI usage. (ICD-10 - K21.9) Using intermittently. We have discussed the pathophysiology of reflux disease and we discussed lifestyle modifications to avoid reflux that include elevation head of the bed, avoid alcohol, avoid caffeine, avoid maintenance, avoid tight clothing, avoid eating within 3-4 hours before bedtime, and avoiding smoking. Mar, Bereavement counseling (ICD-10 - Z71.89) Mar, Other -- Medication reviewed and updated. -- [...] 1 capsule Orally Three times a day Sumatriptan 5 MG/ACT 1 puff as needed one time Nasally Once a day Losartan Potassium [...] Orally Once a day for 30 days Trelegy Ellipta 100-62.5-25 1 puff Inhalation Once a day MCG/INH Pantoprazole Sodium 40 MG 1 tablet Orally Once a day for 30 day(s) Atorvastatin Calcium 10 MG 1 tablet Orally Once a day for 90 days Treatment Notes Assessment Notes Clinical Notes Moderate asthma with exacerbation, Hospital Course reviewed. Education unspecified whether persistent given. Answered all questions to the best of my knowledge. 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 Prednisone was changed to 15-day course. Upcoming appointment pulmonology for pulmonary function test. Reports a significant improvement Moderate persistent asthma without Managed by Dr. Aggrawal. Stable complication with current regimen. Upcoming appointment [...] current use of effect panel discussed. , Anjali flynn insulin Education Diabetes is a disorder that [...] HARTMAN Diary. intractable GERD without esophagitis Discussed custodial impact of PPI usage. Using intermittently. We [...] Will start allergy benefits. Next Appt Details 3 Months TV + Labs 1 week before Reason: Provider Name:Burak Davies, 2020-06-14 08:15:00 AM, [address], [place], [address], Provider Name:Burak Davies, 2020-06-21 11:30:00 AM, [address], [place], [address], Insurance Providers Payer Name Payer Payer Insured Name Patient Coverage Covera ge End Address Phone Relationship to Start Date Gabriel e Insured [employer] [phone] Junior,Re self 2017 and Blue [id number] [facility] [address]
--- OUTSIDE RECORDS SUMMARY | 2020-04-11 18:23 | XMS REPORT ---
:1970 Author Organization [facility] Address [address] [place] [place] [address] Care Team Providers Name Role Phone Burak Davies Unavailable [phone] PROBLEMS Type Condition ICD9-CM [id number] Onset Condition SNOMED Code Notes Code Code Dates Status Problem Controlled type E11.9 Active 302667887 2 diabetes mellitus without complication, without long-term current use of insulin Problem Hyperlipidemia, E78.2 Active 770750084 mixed Problem Allergic J30.2 Active 276467840 rhinitis, seasonal Problem Obstructive G47.33 Active 61542238 sleep apnea Problem Dysphagia, R13.10 Active 10667986 unspecified Problem Benign essential I10 Active 19246161 HTN Problem Migraine without G43.009 Active 682776407 aura and without status migrainosus, not intractable Problem Asthma without J45.909 Active 174637024 status asthmaticus or acute exacerbation Problem Moderate J45.40 Active 904569018 persistent asthma without complication Problem Obesity (BMI E66.9 Active 738380767 30.0-34.9) Problem Moderate asthma J45.901 Active 994111723 with exacerbation, unspecified whether persistent Problem Prediabetes R73.09 Active 010545243 Problem Adult BMI Z68.33 Active 714561570 33.0-33.9 kg/sq m Problem GERD without K21.9 Active 257144226 esophagitis Problem Non-seasonal J30.89 Active 89346337 allergic rhinitis, unspecified trigger Problem Primary insomnia F51.01 Active 7316680 ALLERGIES Allergen (clinical drug Drug/Non Drug Allergy Reaction Allergy Type Onset Date Status ingredient) documented on EMR morphine Morphine Sulfate([facility] Unknown Drug Allergy Ac tive Code:[address]-36) ENCOUNTERS from 1970 to 2020-02-03 Encounter Location Date Provider Diagnosis [facility] [address], [place] [address] IMMUNIZATIONS Vaccine Route Administration Date Status Kenalog [...] Information RESULTS No Results REASON FOR VISIT FMLA, pulm MEDICAL (GENERAL) HISTORY Type Description Date Medical [...] Orally Once a day for 30 day(s) Next Appt Details Provider Name:Burak Davies, 2020-03-16 0 9:45:00 AM, [address], [place], [address], Provider Name:Burak Davies, 2020-03-23 1 0:30:00 AM, [address], [place], [address], Insurance Providers Payer Name Payer Payer Insured Name Patient Coverage Covera ge End Address Phone Relationship to Start Date Gabriel e Insured [employer] [phone] Junior,Re self 2016 and Boyd [id number] [facility] [address]
--- OUTSIDE RECORDS SUMMARY | 2020-04-11 18:23 | XMS REPORT ---
:1970 Author Organization [facility] Address [address] [facility] [address] [place] [address] Care Team Providers Name Role Phone Nato Acuña Unavailable [phone] PROBLEMS Type Condition ICD9-CM SGD14-EW Onset Condition W/U Status Risk SNOM ED Notes Code Code Dates Status Code Problem Controlled E11.9 Active confirmed 966448070 type 2 diabetes mellitus without complication, without long-term current use of insulin Problem Hyperlipidemi E78.2 Active confirmed 623268 003 a, mixed Problem Allergic J30.2 Active confirmed 583145411 rhinitis, seasonal Problem Obstructive G47.33 Active confirmed 31152396 sleep apnea Problem Dysphagia, R13.10 Active confirmed 84504290 unspecified Problem Benign I10 Active confirmed 82347107 essential HTN Problem Migraine G43.009 Active confirmed 541906379 without aura and without status migrainosus, not intractable Problem Asthma J45.909 Active confirmed 198125656 without status asthmaticus or acute exacerbation Problem Moderate J45.40 Active confirmed 844012682 persistent asthma without complication Problem Obesity (BMI E66.9 Active confirmed 8900563 01 30.0-34.9) Problem Moderate J45.901 Active confirmed 778439966 asthma with exacerbation, unspecified whether persistent Problem Prediabetes R73.09 Active confirmed 52113141 2 Problem Adult BMI Z68.33 Active confirmed 208314500 33.0-33.9 kg/sq m Problem GERD without K21.9 Active confirmed 6259757 05 esophagitis Problem Non-seasonal J30.89 Active confirmed 9719732 4 allergic rhinitis, unspecified trigger Problem Primary F51.01 Active confirmed 9533504 insomnia ALLERGIES Allergen (clinical drug Drug/Non Drug Allergy Reaction Allergy Type Onset Date Status ingredient) documented on EMR morphine Morphine Sulfate([facility] Unknown Drug Allergy Ac tive Code:[address]-46) ENCOUNTERS from 1970 to 2020-04-06 Encounter Location Date Provider Diagnosis [facility] [address] Apr, Nato Acuña Pain, joint, ankle, [facility] [address] [place] [address] IMMUNIZATIONS Vaccine Route Administration Date Status Kenalog [...] Once a Active day for 30 day(s) Fenoprofen Calcium 400 MG 1 capsule Orally PRN Not-Taking Trazodone HCl 100 MG 1 tablet at bedtime Active Orally Once a day for 90 days Metformin HCl 500 MG TAKE ONE TABLET BY Not-Taking MOUTH ONCE DAILY WITH A MEAL Atorvastatin Calcium 10 1 tablet Orally Once a Active MG day for 90 Sumatriptan 5 MG/ACT 1 puff as needed one Active time Nasally Once a day Topiramate 25 MG 1 tablet Orally Once a Active day for 30 days Losartan Potassium 50 MG 1 tablet Orally Once a Active day for 90 days ProAir HFA 108 (90 Base) 2 puffs as needed Active MCG/ACT Inhalation every 6 hrs PRN COugh, Wheezing or shortness of breath for 30 days Nalfon 400 MG 1 capsule Orally Three Active times a day Pantoprazole Sodium 40 MG TAKE ONE TABLET BY Active MOUTH DAILY for 30 Trelegy Ellipta 1 puff Inhalation Once Active 100-62.5-25 MCG/INH a day PROCEDURES No Information RESULTS No Results REASON FOR VISIT xray order MEDICAL (GENERAL) HISTORY Type Description Date Medical [...] Notes Treatment Notes Treatm ent Clinical Notes Apr, Pain, joint, ankle, right (ICD-10 - M25.571) PLAN OF TREATMENT Medication Medication Name Sig Start Date Stop Date Montelukast Sodium 10 MG 1 tablet Orally Once a day for 30 day(s) Nalfon 400 MG 1 capsule Orally Three times a day Pantoprazole Sodium 40 MG TAKE ONE TABLET BY MOUTH DAILY for 30 Losartan Potassium 50 MG 1 tablet Orally Once a day for 90 days ProAir HFA 108 (90 Base) MCG/ACT 2 puffs as needed Inhalation every 6 hrs PRN COugh, Wheezing or shortness of breath for 30 days Trazodone HCl 100 MG 1 tablet at bedtime Orally Once a day for 90 days Atorvastatin Calcium 10 MG 1 tablet Orally Once a day for 90 Sumatriptan 5 MG/ACT 1 puff as needed one time Nasally Once a day Topiramate 25 MG 1 tablet Orally Once a day for 30 days Trelenevaeh Ellipta 100-62.5-25 1 puff Inhalation Once a day MCG/INH Treatment Notes Test Name Order Date Ankle Right 3 View 2020-04-06 Next Appt Details Provider Name:Nato Acuña, 2020-04-15 0 2:00:00 PM, [address] [place], [address], Provider Name:Burak Davies, 2020-06-14 08:15:00 AM, [address], [place], [address], Provider Name:Burak Davies, 2020-06-21 11:30:00 AM, [address], [place], [address], Insurance Providers Payer Name Payer Payer Insured Name Patient Coverage Covera ge End Address Phone Relationship to Start Date Gabriel e Insured [employer] [phone] Junior,Re self 2016 and Blue [id number] [facility] [address]
[2020-04-11 20:04] LABS: Absolute Lymphocytes (CBC) 0.7 K/uL (0.7-4.9); Basophils % 0.5 % (0-1.3); Lymphocytes % 8.7 % (15.3-44.8); MPV 8.9 fL (7.6-11.3); RBC Red Blood Cell Count 5.16 M/uL (4.33-5.43)
[2020-04-11] MEDS ORDERED: LEVALBUTEROL 1.25 MG/3 ML NEB ONE (20:04)
[2020-04-11] MEDS ORDERED: dexAMETHasone 10 MG/ML VIAL ONE (20:04)
[2020-04-11] MEDS ORDERED: Magnesium Sulfate 2gm IVPB 2 G/50 ML BAG IV ONE (20:04)
[2020-04-11 20:33] LABS: ALT/SGPT 80 U/L (12-78); AST/SGOT 35 U/L (15-37); Albumin 3.6 g/dL (3.4-5.0); Alkaline Phosphatase 102 U/L (45-117); BUN Blood Urea Nitrogen 12 mg/dL (7-18); Bicarbonate 25 mmol/L (21-32); Bilirubin Direct 0.1 mg/dL (0-0.2); Bilirubin Total 0.4 mg/dL (0.2-1.0); Glucose Level 109 mg/dL (74-106); Magnesium 2.1 mg/dL (1.8-2.4); NT PRO-BNP 7 pg/mL (<125); Protein, Total 7.7 g/dL (6.4-8.2); Sodium Level 138 mmol/L (136-145); Troponin (Emerg Dept Use Only) < 0.02 ng/mL (0.0-0.045)
--- NOTE | 2020-04-11 20:59 | RAD REPORT ---
EXAM DESCRIPTION: RAD - Chest Single View - 04/11/2020 8:36 pm CLINICAL HISTORY: SOB Chest pain. COMPARISON: Chest Single View dated 01/06/2020; Chest Single View dated 05/08/2018; CHEST PA AND LAT 2 VIEW dated 02/26/2014; CHEST PA AND LAT 2 VIEW dated 02/25/2008 FINDINGS: Portable technique limits examination quality. Mild bilateral interstitial lung opacities are seen, compatible with viral infection. The heart is no rmal in size. No displaced fractures.
--- NOTE | 2020-04-11 22:36 | ER ---
Nurse's Notes [facility] Name: Shahab Pacheco Age: 49 yrs Sex: Male : 1970 Arrival Date: 04/11/2020 Time: 18:22 Bed 16 Private MD: Burak Davies Diagnosis: Coronavirus infection, unspecified Presentation: 04/11 18:29 Chief complaint: Patient states: tested positive for COVID on , started losing iw his breath earlier today, SpO2 dropped into the 80's at home, also has dry cough, no chest pain, no fever at home,denies n/v/d. Coronavirus screen: Client reports previous positive COVID test result. Ebola Screen: Patient negative for fever greater than or equal to 101.5 degrees Fahrenheit, and additional compatible Ebola Virus Disease symptoms Patient denies exposure to infectious person. Patient denies travel to an Ebola-affected area in the 21 days before illness onset. No symptoms or risks identified at this time. Initial Sepsis Screen: Does the patient meet any 2 criteria? No. Patient's initial sepsis screen is negative. Does the patient have a suspected source of infection? No. Patient's initial sepsis screen is negative. Risk Assessment: Do you want to hurt yourself or someone else? Patient reports no desire to harm self or others. Onset of symptoms was April 08, 2020. 18:29 Method Of Arrival: Wheelchair iw 18:29 Acuity: DAMIAN 3 iw Historical: - Allergies: 18:34 Morphine; "cold, and i get stiff"; iw - Home Meds: 18:34 trelegy [Active]; Albuterol Inhl [Active]; pantoprazole 40 mg oral TbEC 1 tab once iw daily [Active]; topiramate 25 mg oral tab [Active]; losartan 50 mg oral tab 1 tab once daily [Active]; atorvastatin 10 mg Oral tab 1 tab once daily [Active]; Azithromycin Oral [Active]; - PMHx: 18:34 cpap at night; Hypertension; lower back pain; iw - PSHx: 18:34 removal of bone from pharynx; spur removed from foot; Cholecystectomy; iw - Immunization history:: Flu vaccine is up to date. - Social history:: Smoking status: Patient/guardian denies using tobacco, but has a distant history of tobacco abuse. Assessment: 19:20 General: Appears in no apparent distress. Behavior is calm, cooperative, appropriate ll2 for age. Pain: Denies pain. Neuro: Level of Consciousness is awake, alert, obeys commands, Oriented to person, place, time, situation. Cardiovascular: Rhythm is regular. Respiratory: Airway is patent Respiratory effort is even, unlabored, Respiratory pattern is regular, symmetrical. Derm: Skin is intact, is healthy with good turgor, Skin is pink, warm \\T\\ dry. 20:15 Reassessment: Patient and/or family updated on plan of care and expected duration. Pain ll2 level reassessed. Patient is alert, oriented x 3, equal unlabored respirations, skin warm/dry/pink. 22:07 Reassessment: Patient and/or family updated on plan of care and expected duration. Pain ll2 level reassessed. Patient is alert, oriented x 3, equal unlabored respirations, skin warm/dry/pink. Vital Signs: 18:29 BP 130 / 81; Pulse 117; Resp 20 S; Pulse Ox 95% on R/A; Weight 115.21 kg; Height 5 ft. iw 11 in. (180.34 cm); 18:29 Body Mass Index 35.43 (115.21 kg, 180.34 cm) iw ED Course: 18:22 Patient arrived in ED. ag5 18:22 Angel Robles MD is Private Physician. ag5 18:22 Burak Davies DO is Private Physician. ag5 18:32 Triage completed. iw 18:34 Arm band placed on. iw 19:13 Shane Cole PA is PHCP. [facility] 19:14 Lucius Childress MD is Attending Physician. [facility] 19:30 Jennifer Hill RN is Primary Nurse. ll2 19:55 Inserted saline lock: 20 gauge in left antecubital area, using aseptic technique. Blood dh4 collected. 20:36 XRAY Chest (1 view) In Process Unspecified. EDMS 22:36 Burak Davies DO is Referral Physician. [facility] Administered Medications: 20:30 Drug: Magnesium Sulfate 1 grams Route: IVPB; Infused Over: 1 hrs; Site: left ll2 antecubital; 20:37 Drug: Xopenex (3) 1.25 mg Route: Inhalation; ll2 21:03 Follow up: Response: No adverse reaction ll2 20:37 Drug: Decadron - Dexamethasone 10 mg Route: IVP; Site: left antecubital; ll2 21:03 Follow up: Response: No adverse reaction ll2 Outcome: 22:36 Discharge ordered by MD. dominguez 23:11 Patient left the ED. ll2 Signatures: Dispatcher [employer] EDMS Shane Cole PA PA jmm Williams, Irene, RN Zeferino Linton 5 René Angeles 4 Jennifer Hill RN RN 2
--- NOTE | 2020-04-11 22:36 | EDPHYS ---
Physician Documentation [facility] Name: Shahab Pacheco Age: 49 yrs Sex: Male : 1970 Arrival Date: 04/11/2020 Time: 18:22 Bed 16 Private MD: Burak Davies ED Physician Lucius Childress HPI: 04/11 19:22 This 49 yrs old Male presents to ER via Wheelchair with complaints of jmm Breathing Difficulty. 19:22 The patient has shortness of breath at rest, with light activity. Onset: The jmm symptoms/episode began/occurred gradually, 3 day(s) ago. Duration: The symptoms are continuous, and are markedly worse than the original presentation. The patient's shortness of breath is aggravated by exertion, light activity. Associated signs and symptoms: Pertinent positives: non-productive cough. This is a 49 year old male with a history of htn that presents to the ED with complaints of cough, shortness of breath beginning 3 days ago when diagnosed with covid. Patient states home o2 lowered today. . Historical: - Allergies: 18:34 Morphine; "cold, and i get stiff"; iw - Home Meds: 18:34 trelegy [Active]; Albuterol Inhl [Active]; pantoprazole 40 mg oral TbEC 1 tab once iw daily [Active]; topiramate 25 mg oral tab [Active]; losartan 50 mg oral tab 1 tab once daily [Active]; atorvastatin 10 mg Oral tab 1 tab once daily [Active]; Azithromycin Oral [Active]; - PMHx: 18:34 cpap at night; Hypertension; lower back pain; iw - PSHx: 18:34 removal of bone from pharynx; spur removed from foot; Cholecystectomy; iw - Immunization history:: Flu vaccine is up to date. - Social history:: Smoking status: Patient/guardian denies using tobacco, but has a distant history of tobacco abuse. ROS: 19:22 Constitutional: Positive for body aches, chills, fatigue. jmm 19:22 Respiratory: Positive for cough, shortness of breath. 19:22 All other systems are negative. Exam: 19:22 Constitutional: This is a well developed, well nourished patient who is awake, alert, jmm and in no acute distress. Head/Face: atraumatic. Eyes: EOMI, no conjunctival erythema appreciated ENT: Moist Mucus Membranes Neck: Trachea midline, Supple Chest/axilla: Normal chest wall appearance and motion. Cardiovascular: Regular rate and rhythm. No edema appreciated Respiratory: Normal respirations, no respiratory distress appreciated Abdomen/GI: Non distended, soft Back: Normal ROM Skin: General appearance color normal MS/ Extremity: Moves all extremities, no obvious deformities appreciated, no edema noted to the lower extremities Neuro: Awake and alert, normal gait Psych: Behavior is normal, Mood is normal, Patient is cooperative and pleasant Vital Signs: 18:29 BP 130 / 81; Pulse 117; Resp 20 S; Pulse Ox 95% on R/A; Weight 115.21 kg; Height 5 ft. iw 11 in. (180.34 cm); 18:29 Body Mass Index 35.43 (115.21 kg, 180.34 cm) iw MDM: 19:22 Patient medically screened. [facility] 22:35 Data reviewed: vital signs, nurses notes. Counseling: I had a detailed discussion with alberto the patient and/or guardian regarding: the historical points, exam findings, and any diagnostic results supporting the discharge/admit diagnosis, lab results, radiology results, the need for outpatient follow up, to return to the emergency department if symptoms worsen or persist or if there are any questions or concerns that arise at home. ED course: O2 on ambulation wnl. Patient prescribed additional medication and given strict return precautions. Patient does not appear to be in resp distress on discharge. . 04/11 19:22 Order name: Basic Metabolic Panel [facility] 04/11 19:22 Order name: CBC with Diff; Complete Time: 20:09 [facility] 04/11 19:22 Order name: LFT's [facility] 04/11 19:22 Order name: Magnesium [facility] 04/11 19:22 Order name: NT PRO-BNP; Complete Time: 20:40 [facility] 04/11 19:22 Order name: PT-INR; Complete Time: 20:22 [facility] 04/11 19:22 Order name: Troponin (emerg Dept Use Only); Complete Time: 20:40 [facility] 04/11 19:22 Order name: D-Dimer; Complete Time: 20:22 [facility] 04/11 19:22 Order name: CRP; Complete Time: 20:40 [facility] 04/11 19:22 Order name: Blood Culture Adult (2) [facility] 04/11 19:22 Order name: Procalcitonin; Complete Time: 20:40 m 04/11 19:22 Order name: Lactate; Complete Time: 20:40 [facility] 04/11 19:23 Order name: Basic Metabolic Panel; Complete Time: 20:40 EDMS 04/11 19:23 Order name: Liver (Hepatic) Function; Complete Time: 20:40 EDMS 04/11 19:22 Order name: XRAY Chest (1 view); Complete Time: 21:07 [facility] 04/11 19:22 Order name: EKG; Complete Time: 19:24 m 04/11 19:22 Order name: Cardiac monitoring; Complete Time: 19:56 [facility] 04/11 19:22 Order name: EKG - Nurse/Tech; Complete Time: 19:56 [facility] 04/11 19:22 Order name: IV Saline Lock; Complete Time: 19:56 [facility] 04/11 19:22 Order name: Labs collected and sent; Complete Time: 19:56 [facility] 04/11 19:22 Order name: O2 Per Protocol; Complete Time: 19:55 [facility] 04/11 19:22 Order name: O2 Sat Monitoring; Complete Time: 19:55 [facility] 04/11 19:23 Order name: Magnesium; Complete Time: 20:40 EDMS 04/11 20:41 Order name: Misc. Order: ambulate o2; Complete Time: 22:05 jm Administered Medications: 20:30 Drug: Magnesium Sulfate 1 grams Route: IVPB; Infused Over: 1 hrs; Site: left ll2 antecubital; 20:37 Drug: Xopenex (3) 1.25 mg Route: Inhalation; ll2 21:03 Follow up: Response: No adverse reaction ll2 20:37 Drug: Decadron - Dexamethasone 10 mg Route: IVP; Site: left antecubital; ll2 21:03 Follow up: Response: No adverse reaction ll2 Disposition: 04/12 05:14 Co-signature as Attending Physician, Lucius Childress MD. [email or web address] Disposition: 04/11/20 22:36 Discharged to Home. Impression: Coronavirus infection, unspecified. - Condition is Stable. - Discharge Instructions: COVID-19. - Prescriptions for ivermectin 3 mg Oral tablet - take 6 tablet by ORAL route as directed 6 tabs by mouth on day one and on day 3; 12 tablet. Prednisone 20 mg Oral Tablet - take 3 tablet by ORAL route once daily for 5 days; 15 tablet. - Medication Reconciliation Form, Thank You Letter, Antibiotic Education, Prescription Opioid Use form. - Follow up: Burak Davies DO; When: 1 - 2 days; Reason: Recheck today's complaints, Continuance of care, Re-evaluation by your physician. - Notes: Please take 10,000 IU of vitamin D daily 1000 MG of NAC twice a day 50 mg of Zinc a day Signatures: Dispatcher [employer] EDMS Shane Cole PA PA jmm Williams, Irene RN RN iw Jennifer Hill RN RN ll2 Lucius Childress MD MD [email or web address] Corrections: (The following items were deleted from the chart) 04/11 23:11 22:36 04/11/2020 22:36 Discharged to Home. Impression: Coronavirus infection, ll2 unspecified. Condition is Stable. Forms are Medication Reconciliation Form, Thank You Letter, Antibiotic Education, Prescription Opioid Use. Follow up: Burak Davies; When: 1 - 2 days; Reason: Recheck today's complaints, Continuance of care, Re-evaluation by your physician. alberto
[2020-04-11 23:18] VITALS: BP 130/81; O2SAT 95
== END 2020-04-11 23:11 | disposition home or self-care (01) ==
LOC: ER 18:20
DX: U07.1 COVID-19 (principal); R05 Cough; I10 Essential (primary) hypertension; Z88.5 Allergy status to narcotic agent
CPT/HCPCS: 93005; 87040 ×2; 85025; 80048; 36415; 83735; 85610; 85379; 80076; 83605; 84484; 84145; 83880; 86140; 71045; 96375; 96374; 99284; J1100; J3475

== ENCOUNTER 2020-04-14 03:39 | Inpatient (IN) | payer BC ==
[2020-04-14 04:39] LABS: Absolute Lymphocytes (CBC) 1.3 K/uL (0.7-4.9); Basophils % 0.1 % (0-1.3); Hematocrit 49.2 % (39.6-49.0); RBC Red Blood Cell Count 5.36 M/uL (4.33-5.43)
[2020-04-14 04:43] LABS: Protime INR 0.94
[2020-04-14] MEDS ORDERED: ACETAMINOPHEN 500 MG TAB ONE (04:49)
[2020-04-14] MEDS ORDERED: METHYLPREDNISOLONE 125 MG INJ ONE (04:49)
[2020-04-14] MEDS ORDERED: IPRATROPIUM BROM 0.5MG/2.5ML ONE (04:49)
[2020-04-14] MEDS ORDERED: AZITHROMYCIN 500 MG INJ IVPB ONE (04:50)
[2020-04-14] MEDS ORDERED: ALBUTEROL 2.5 MG/3 ML NEB SOL ONE (04:50)
[2020-04-14] MEDS ORDERED: NA CHLORIDE 0.9% 1,000 ML ONE ×2 (04:50→08:19)
[2020-04-14] MEDS ORDERED: NA CHLORIDE 0.9% 250 ML ONE (04:50)
[2020-04-14] MEDS ORDERED: ONDANSETRON 4 MG/2 ML VIAL ONE (04:58)
[2020-04-14 05:05] LABS: ALT/SGPT 55 U/L (12-78); AST/SGOT 27 U/L (15-37); Albumin 3.2 g/dL (3.4-5.0); Alkaline Phosphatase 94 U/L (45-117); BUN Blood Urea Nitrogen 15 mg/dL (7-18); Bicarbonate 27 mmol/L (21-32); Bilirubin Direct 0.2 mg/dL (0-0.2); Bilirubin Total 0.5 mg/dL (0.2-1.0); Ferritin 841.9 ng/mL (26-388); Glucose Level 102 mg/dL (74-106); Lipase 186 U/L (73-393); Protein, Total 8.1 g/dL (6.4-8.2); Sodium Level 137 mmol/L (136-145); Troponin (Emerg Dept Use Only) < 0.02 ng/mL (0.0-0.045)
--- NOTE | 2020-04-14 05:28 | P.HP ---
Certification for Inpatient Patient admitted to: Inpatient With expected LOS: >2 Midnights Patient will require the following post-hospital care: None Practitioner: I am a practitioner with admitting privileges, knowledge of patient current condition, hospital course, and medical plan of care. Services: Services provided to patient in accordance with Admission requirements found in Title 42 Section 412.3 of the Code of Federal Regulations <Yi Wheelershua - Last Filed: 04/14/20 05:23> Patient History Date of Service: 04/14/20 Primary Care Provider: Brayan Davies Reason for admission: Covid Pneumonia, Hypoxia History of Present Illness: This is a 49 y/o M with history of sleep apnea and HTN that presented to the ED today for worsening of shortness of breath and cough. Patient was seen three days ago and diagnosed with COVID-19. Was put on vitamins and azithromycin. Stated that his symptoms significantly increased over last 24 hours. Patients oxygen saturation was in the 80s RA upon arrival. Patient found to have infiltrates consistent with viral pneumonia. Medicine consulted at that time for admission Home medications list reviewed: Yes - Past Medical/Surgical History Has patient received pneumonia vaccine in the past: No Diabetic: No -: Asthma - Social History Smoking Status: Never smoker Smoking therapy provided: No Alcohol use: No CD- Drugs: No Caffeine use: Yes Place of Residence: Home <Pedro Luis Wheeler - Last Filed: 04/14/20 05:23> Date of Service: 04/14/20 <ceasar ashby - Last Filed: 04/14/20 15:06> Allergies morphine Allergy (Verified 01/06/20 22:01) Unknown Home Medications: Atorvastatin Calcium 1 tab PO DAILY 01/06/20 Losartan Potassium 1 tab PO DAILY 01/06/20 Pantoprazole [Protonix Tab*] 1 tab PO DAILY 01/06/20 Topiramate 1 tab PO DAILY 01/06/20 Trazodone HCl 1 tab PO BEDTIME 01/06/20 Albuterol Inhaler [Ventolin Inhaler*] 2 puff IH Q6H PRN 01/07/20 Azithromycin Tab [Zithromax*] 250 mg PO ZPAK #1 katarzyna 01/08/20 Ascorbic Acid [Vitamin C] 1,000 mg pe PO DAILY 04/14/20 Cholecalciferol (Vitamin D3) [Vitamin D3] 25 mcg PO DAILY 04/14/20 Cyanocobalamin (Vitamin B-12) [Vitamin B12] 1,000 mg PO DAILY 04/14/20 Fluticasone/Umeclidin/Vilanter [Trelegy Ellipta 200-62.5-25] 1 pill IH DAILY 04/14/20 Montelukast [Singulair*] 10 mg PO DAILY 04/14/20 Zinc Gluconate [Zinc] 22 mg PO DAILY 04/14/20 Review of Systems General: Fever, Malaise Eyes: Unremarkable ENT: Unremarkable Respiratory: Cough, Shortness of Breath, SOB with Excertion Cardiovascular: Unremarkable Gastrointestinal: Unremarkable Genitourinary: Unremarkable Musculoskeletal: Unremarkable Integumentary: Unremarkable Neurological: Unremarkable Lymphatics: Unremarkable <LizbethyamilethPedro Luis - Last Filed: 04/14/20 05:23> Physical Examination - Vital Signs Temperature: 101.4 F Blood Pressure: 113/63 Pulse: 113 Respirations: 24 Pulse Ox (%): 97 (4 lpm NC) - Physical Exam General: Alert, In no apparent distress, Oriented x3, Cooperative HEENT: PERRLA, Mucous membr. moist/pink, EOMI Neck: Supple, 2+ carotid pulse no bruit, JVD not distended, No Thyromegaly Respiratory: Clear to auscultation bilaterally Cardiovascular: No edema, Normal S1 S2, No gallops, No rubs, Irregular heart rate/rhythm (Tachycardic) Capillary refill: <2 Seconds Gastrointestinal: Normal bowel sounds, Soft and benign, Non-distended, No ascites, No tenderness, No masses, No rebound, No guarding Musculoskeletal: No clubbing, No swelling, No contractures, No erythema, No tenderness, No warmth Integumentary: No rashes, No breakdown, No significant lesion, No tenderness/swelling, No erythema, No warmth, No cyanosis Neurological: Normal speech, Normal strength at 5/5 x4 extr, Normal tone, Sensation intact, Cranial nerves 3-12 intact, Normal affect Lymphatics: No axilla or inguinal lymphadenopathy - Studies Laboratory Data (last 24 hrs) 04/14/20 04:25: PT 10.8, INR 0.94, APTT 27.0 04/14/20 04:25: WBC 12.10 H D, Hgb 16.1, Hct 49.2 H, Plt Count 223 D 04/14/20 04:25: Sodium 137, Potassium 4.0, BUN 15, Creatinine 1.05, Glucose 102, Total Bilirubin 0.5, AST 27, ALT 55, Alkaline Phosphatase 94, Lipase 186 <Pedro Luis Wheeler - Last Filed: 04/14/20 05:23> - Studies Laboratory Data (last 24 hrs) 04/14/20 04:25: PT 10.8, INR 0.94, APTT 27.0 04/14/20 04:25: WBC 12.10 H D, Hgb 16.1, Hct 49.2 H, Plt Count 223 D 04/14/20 04:25: Sodium 137, Potassium 4.0, BUN 15, Creatinine 1.05, Glucose 102, Total Bilirubin 0.5, AST 27, ALT 55, Alkaline Phosphatase 94, Lipase 186 Microbiology Data (last 24 hrs): 04/14/20 04:25 Nasopharnyx Influenza Type A Antigen Screen - Final 04/14/20 04:25 Nasopharnyx Influenza Type B Antigen Screen - Final <ceasar ashby - Last Filed: 04/14/20 15:06> Assessment and Plan - Problems (Diagnosis) (1) HTN (hypertension) Current Visit: Yes Status: Chronic Qualifiers: Hypertension type: essential hypertension Qualified Code(s): I10 - Essential (primary) hypertension (2) Pneumonia due to COVID-19 virus Current Visit: Yes Status: Acute (3) Hypoxia Current Visit: Yes Status: Acute (4) Sleep apnea Current Visit: Yes Status: Chronic Qualifiers: Sleep apnea type: obstructive Qualified Code(s): G47.33 - Obstructive sleep apnea (adult) (pediatric) - Plan 1. Patient will be admitted to COVID floor for continuous pulse-ox monitoring and telemetry. Will continue to be on oxygen and will adjust as needed 2. Patient started on Remdisivir, Ivermectin, vitamins, steroids, and anticoagulation therapy according to covid protocol 3. Pulmonology has been consulted for further evaluation and recommendations for COVID-19 4. Will manage BP with medication as needed for systolic >160 or diastolic >110 Discharge Plan: Home Plan to discharge in: Greater than 2 days - Advance Directives Does patient have a Living Will: No Does patient have a Durable POA for Healthcare: No - Code Status/Comfort Care Code Status Assessed: Yes Code Status: Full Code Critical Care: No Time Spent Managing Pts Care (In Minutes): 70 <Pedro Luis Wheeler - Last Filed: 04/14/20 05:23> Physician Review: Patient Assessed, Agree with Above Assessment and Plan Physician Review Additional Text: Pneumonia due to COVID 19 Acute respiratory failure with hypoxia. High-dose steroid Patient is status post Ivermectin. Titrate oxygen. Arranged for home oxygen. Thromboprophylaxis with Eliquis. <ceasar ashby - Last Filed: 04/14/20 15:06>
[2020-04-14] MEDS ORDERED: KETOROLAC 30 MG/ML INJ ONE (05:31)
--- NOTE | 2020-04-14 05:38 | ER ---
Nurse's Notes [facility] Name: Shahab Pacheco Age: 49 yrs Sex: Male : 1970 Arrival Date: 04/14/2020 Time: 03:42 Bed 7 Private MD: Burak Davies Diagnosis: SARS-associated coronavirus as the cause of diseases classified elsewhere;Viral pneumonia, unspecified;Acute respiratory failure with hypoxia Presentation: 04/14 03:58 Chief complaint: Patient states: I woke up this morning around 2 am and was short of jb4 breath again. I have covid-19. Coronavirus screen: Client denies travel out of the [place] in the last 14 days. Client presents with at least one sign or symptom that may indicate coronavirus-19. Standard/surgical mask placed on the client. Provider contacted for isolation considerations. Client reports previous positive COVID test result. Ebola Screen: Patient negative for fever greater than or equal to 101.5 degrees Fahrenheit, and additional compatible Ebola Virus Disease symptoms. Initial Sepsis Screen: Does the patient meet any 2 criteria? RR > 20 per min. Temp <36.0*C (96.8*F)) or > 38.3*C (100.9*F). HR > 90 bpm. Yes Does the patient have a suspected source of infection? No. Patient's initial sepsis screen is negative. Risk Assessment: Do you want to hurt yourself or someone else? Patient reports no desire to harm self or others. Onset of symptoms was April 14, 2020. Transition of care: patient was not received from another setting of care. 03:58 Method Of Arrival: Ambulatory jb4 03:58 Acuity: DAMIAN 3 jb4 Historical: - Allergies: 04:05 Morphine; "cold, and i get stiff"; jb4 - Home Meds: 04:05 Albuterol Inhl [Active]; atorvastatin 10 mg Oral tab 1 tab once daily [Active]; jb4 Azithromycin Oral [Active]; losartan 50 mg Oral tab 1 tab once daily [Active]; losartan 50 mg Oral tab 1 tab once daily [Active]; Multiple Vitamins Oral tab [Active]; pantoprazole 40 mg Oral TbEC 1 tab once daily [Active]; topiramate 25 mg Oral tab [Active]; trelegy [Active]; - PMHx: 04:05 cpap at night; Hypertension; lower back pain; jb4 - PSHx: 04:05 removal of bone from pharynx; spur removed from foot; Cholecystectomy; jb4 - Immunization history:: Adult Immunizations up to date. - Social history:: Smoking status: Patient denies any tobacco usage or history of. Patient/guardian denies using alcohol, street drugs. - Family history:: not pertinent. Screenin:51 Abuse screen: Denies threats or abuse. Nutritional screening: No deficits noted. ea Tuberculosis screening: No symptoms or risk factors identified. Fall Risk None identified. Assessment: 04:05 General: Appears in no apparent distress. uncomfortable, ill, Behavior is calm, jb4 cooperative, appropriate for age. Pain: Complains of pain in low back area Pain does not radiate. Pain currently is 8 out of 10 on a pain scale. Quality of pain is described as aching. Neuro: Level of Consciousness is awake, alert, obeys commands, Oriented to person, place, time, situation. Cardiovascular: Patient's skin is warm and dry. Rhythm is sinus rhythm. Respiratory: Airway is patent Respiratory effort is even, labored, Respiratory pattern is symmetrical, tachypnea Breath sounds are clear bilaterally. GI: No signs and/or symptoms were reported involving the gastrointestinal system. : No signs and/or symptoms were reported regarding the genitourinary system. EENT: No signs and/or symptoms were reported regarding the EENT system. Derm: Skin is intact, Skin is pink, warm \\T\\ dry. Musculoskeletal: Circulation, motion, and sensation intact. Range of motion: intact in all extremities. 05:00 Reassessment: Patient appears in no apparent distress at this time. Patient and/or jb4 family updated on plan of care and expected duration. Pain level reassessed. PT remains tachypneic, with even, labored respirations. Is A\\T\\Ox4, no s/s of distress noted. 06:20 Reassessment: Patient appears in no apparent distress at this time. Patient and/or jb4 family updated on plan of care and expected duration. Pain level reassessed. Patient is alert, oriented x 3, equal unlabored respirations, skin warm/dry/pink. Updated pt's (Belle, ) on POC. Vital Signs: 03:58 BP 113 / 63; Pulse 113; Resp 24; Temp 101.4(O); Pulse Ox 100% on R/A; Weight 116.12 kg; jb4 Height 5 ft. 11 in. (180.34 cm) (R); Pain 8/10; 05:00 BP 100 / 60; Pulse 107; Resp 27; Pulse Ox 98% on R/A; jb4 06:30 BP 112 / 65; Pulse 104; Resp 24; Temp 98.4(TE); Pulse Ox 92% on 2 lpm NC; jb4 03:58 Body Mass Index 35.70 (116.12 kg, 180.34 cm) jb4 ED Course: 03:42 Patient arrived in ED. mr 03:42 Burak Davies DO is Private Physician. mr 03:48 Hema Willis MD is Attending Physician. ma2 03:51 Jamia Simons, RN is Primary Nurse. ea 03:51 Patient has correct armband on for positive identification. Bed in low position. Call ea light in reach. Side rails up X2. Pulse ox on. NIBP on. 03:51 Arm band placed on right wrist. Patient placed in an exam room, on a stretcher, on ea pulse oximetry. 04:00 Triage completed. jb4 04:37 Chest Single View XRAY In Process Unspecified. EDMS 05:37 Francisco Grant is Hospitalizing Provider. jr8 07:12 Primary Nurse role handed off by Jamia Simons, SISI bd Administered Medications: 03:35 Drug: SOLU-Medrol 125 mg Route: IVP; Site: right antecubital; jb4 04:35 Drug: NS 0.9% 1000 ml Route: IV; Rate: 1 bolus; Site: right antecubital; jb4 04:35 Drug: Tylenol 1000 mg Route: PO; jb4 04:42 Drug: Albuterol - atroVENT (3:1) (2.5 mg - 0.5 mg) 3 ml Route: Nebulizer; jb4 05:15 Follow up: Response: No adverse reaction; Marked relief of symptoms jb4 04:42 Drug: Zofran (Ondansetron) 4 mg Route: IVP; Site: right antecubital; jb4 05:15 Follow up: Response: No adverse reaction; Nausea is decreased jb4 04:45 Drug: AZITHromycin 500 mg Route: IVPB; Infused Over: 1 hrs; Site: right antecubital; jb4 04:49 Not Given (Other Intervention Used): Albuterol HFA Inhaler 2 puffs Inhalation once jb4 05:24 Drug: TORadol - Ketorolac 15 mg Route: IVP; Site: right antecubital; jb4 06:00 Follow up: Response: No adverse reaction; Pain is decreased jb4 Outcome: 05:37 Decision to Hospitalize by Provider. jr8 13:02 Patient left the ED. bd Signatures: Dispatcher [employer] EDMS Lala Streeta, Tatiana mr Liam, Seamus, KATIE PA jr8 Kris Jesus RN RN jb4 Jamia Simons RN RN ea Alzahri, Mohammad, MD MD ma2 Corrections: (The following items were deleted from the chart) 05:11 05:00 BP 100 / 60; Pulse 107bpm; Resp 38bpm; Pulse Ox 98% RA; jb4 jb4 06:57 06:20 Reassessment: Patient appears in no apparent distress at this time. Patient jb4 and/or family updated on plan of care and expected duration. Pain level reassessed. Patient is alert, oriented x 3, equal unlabored respirations, skin warm/dry/pink. jb4
--- NOTE | 2020-04-14 05:38 | EDPHYS ---
Physician Documentation [facility] Name: Shahab Pacheco Age: 49 yrs Sex: Male : 1970 Arrival Date: 04/14/2020 Time: 03:42 Bed 7 Private MD: Samson [facility] ED Physician Hema Willis HPI: 04/14 04:12 This 49 yrs old Male presents to ER via Ambulatory with complaints of COVID+, ma2 Breathing Difficulty. 04:12 The patient has shortness of breath at rest. Onset: The symptoms/episode began/occurred ma2 gradually, 2 day(s) ago. Associated signs and symptoms: Pertinent positives: productive cough, Pertinent negatives: non-productive cough, diaphoresis. Severity of symptoms: At their worst the symptoms were mild in the emergency department the symptoms are unchanged. The patient has not experienced similar symptoms in the past. Historical: - Allergies: 04:05 Morphine; "cold, and i get stiff"; jb4 - Home Meds: 04:05 Albuterol Inhl [Active]; atorvastatin 10 mg Oral tab 1 tab once daily [Active]; jb4 Azithromycin Oral [Active]; losartan 50 mg Oral tab 1 tab once daily [Active]; losartan 50 mg Oral tab 1 tab once daily [Active]; Multiple Vitamins Oral tab [Active]; pantoprazole 40 mg Oral TbEC 1 tab once daily [Active]; topiramate 25 mg Oral tab [Active]; trelegy [Active]; - PMHx: 04:05 cpap at night; Hypertension; lower back pain; jb4 - PSHx: 04:05 removal of bone from pharynx; spur removed from foot; Cholecystectomy; jb4 - Immunization history:: Adult Immunizations up to date. - Social history:: Smoking status: Patient denies any tobacco usage or history of. Patient/guardian denies using alcohol, street drugs. - Family history:: not pertinent. ROS: 04:12 Constitutional: Negative for fever, chills, and weight loss. ma2 04:12 All other systems are negative. Exam: 04:12 Constitutional: This is a well developed, well nourished patient who is awake, alert, ma2 and in no acute distress. ENT: Nares patent. No nasal discharge, no septal abnormalities noted. Tympanic membranes are normal and external auditory canals are clear. Oropharynx with no redness, swelling, or masses, exudates, or evidence of obstruction, uvula midline. Mucous membranes moist. Neck: Trachea midline, no thyromegaly or masses palpated, and no cervical lymphadenopathy. Supple, full range of motion without nuchal rigidity, or vertebral point tenderness. No Meningismus. Chest/axilla: Normal chest wall appearance and motion. Nontender with no deformity. No lesions are appreciated. Cardiovascular: Regular rate and rhythm with a normal S1 and S2. No gallops, murmurs, or rubs. Normal PMI, no JVD. No pulse deficits. Respiratory: Lungs have equal breath sounds bilaterally, rales to auscultation bilat. No rales. No increased work of breathing, no retractions or nasal flaring. has hypoxemia with sats 90 on RA. sats improved to 96% with O2 4 L via NC Abdomen/GI: Soft, non-tender, with normal bowel sounds. No distension or tympany. No guarding or rebound. No evidence of tenderness throughout. Back: No spinal tenderness. No costovertebral tenderness. Full range of motion. Skin: Warm, dry with normal turgor. Normal color with no rashes, no lesions, and no evidence of cellulitis. MS/ Extremity: Pulses equal, no cyanosis. Neurovascular intact. Full, normal range of motion. Neuro: Awake and alert, GCS 15, oriented to person, place, time, and situation. Cranial nerves II-XII grossly intact. Motor strength 5/5 in all extremities. Sensory grossly intact. Cerebellar exam normal. Normal gait. Vital Signs: 03:58 BP 113 / 63; Pulse 113; Resp 24; Temp 101.4(O); Pulse Ox 100% on R/A; Weight 116.12 kg; jb4 Height 5 ft. 11 in. (180.34 cm) (R); Pain 8/10; 05:00 BP 100 / 60; Pulse 107; Resp 27; Pulse Ox 98% on R/A; jb4 06:30 BP 112 / 65; Pulse 104; Resp 24; Temp 98.4(TE); Pulse Ox 92% on 2 lpm NC; jb4 03:58 Body Mass Index 35.70 (116.12 kg, 180.34 cm) 4 MDM: 03:48 Patient medically screened. ma2 04:12 Differential diagnosis: Bronchitis pneumonia, reactive airway disease. ms04/14 04:02 Order name: Blood Culture Adult (2) 04/14 04:02 Order name: BMP ms2 04/14 04:02 Order name: C-Reactive Protein ms2 04/14 04:02 Order name: CBC with Diff ms2 04/14 04:02 Order name: Ferritin ms2 04/14 04:02 Order name: Flu ms2 04/14 04:02 Order name: Lactate ms04/14 04:02 Order name: LFT's; Complete Time: 05:36 ms2 04/14 04:02 Order name: Lipase; Complete Time: 05:36 [facility] 04/14 04:02 Order name: Procalcitonin; Complete Time: 05:36 [facility] 04/14 04:02 Order name: PT-INR; Complete Time: 04:58 [facility] 04/14 04:02 Order name: Ptt, Activated; Complete Time: 04:58 [facility] 04/14 04:02 Order name: Troponin (emerg Dept Use Only); Complete Time: 05:36 [facility] 04/14 04:02 Order name: Blood Culture [facility] 04/14 03:51 Order name: Chest Single View XRAY ms04/14 04:02 Order name: Basic Metabolic Panel; Complete Time: 05:36 EDMS 04/14 04:02 Order name: C-Reactive Protein; Complete Time: 05:36 MS 04/14 04:02 Order name: CBC with Automated Diff; Complete Time: 04:58 MS 04/14 04:03 Order name: Ferritin; Complete Time: 05:36 [facility] 04/14 04:03 Order name: Influenza Screen (A MS 04/14 04:03 Order name: Lactate; Complete Time: 05:02 MS 04/14 11:55 Order name: Urine Dipstick--Ancillary (enter results) em1 04/14 12:26 Order name: Urine Dipstick-Ancillary [facility] 04/14 04:02 Order name: EKG; Complete Time: 04:03 ms04/14 04:02 Order name: Cardiac monitoring; Complete Time: 05:16 ms2 04/14 04:02 Order name: Droplet/Contact Precautions; Complete Time: 05:16 [facility] 04/14 04:02 Order name: EKG - Nurse/Tech; Complete Time: 05:16 04/14 04:02 Order name: IV Start; Complete Time: 04:30 04/14 04:02 Order name: Labs collected and sent; Complete Time: 04:49 04/14 04:02 Order name: O2 Per Protocol; Complete Time: 05:17 04/14 04:02 Order name: O2 Sat Monitoring; Complete Time: 05:17 04/14 04:02 Order name: Urine Dipstick-Ancillary (obtain specimen); Complete Time: 11:54 04/14 05:10 Order name: CONS Physician Consult EDMS Administered Medications: 03:35 Drug: SOLU-Medrol 125 mg Route: IVP; Site: right antecubital; jb4 04:35 Drug: NS 0.9% 1000 ml Route: IV; Rate: 1 bolus; Site: right antecubital; jb4 04:35 Drug: Tylenol 1000 mg Route: PO; jb4 04:42 Drug: Albuterol - atroVENT (3:1) (2.5 mg - 0.5 mg) 3 ml Route: Nebulizer; jb4 05:15 Follow up: Response: No adverse reaction; Marked relief of symptoms jb4 04:42 Drug: Zofran (Ondansetron) 4 mg Route: IVP; Site: right antecubital; jb4 05:15 Follow up: Response: No adverse reaction; Nausea is decreased jb4 04:45 Drug: AZITHromycin 500 mg Route: IVPB; Infused Over: 1 hrs; Site: right antecubital; jb4 04:49 Not Given (Other Intervention Used): Albuterol HFA Inhaler 2 puffs Inhalation once jb4 05:24 Drug: TORadol - Ketorolac 15 mg Route: IVP; Site: right antecubital; jb4 06:00 Follow up: Response: No adverse reaction; Pain is decreased jb4 Disposition: 04/14/20 05:37 Hospitalization ordered by Francisco Grant for Inpatient Admission. Preliminary diagnosis are SARS-associated coronavirus as the cause of diseases classified elsewhere, Viral pneumonia, unspecified, Acute respiratory failure with hypoxia. - Bed requested for Intensive Care Unit. - Status is Inpatient Admission. bd - Condition is Stable. - Problem is new. - Symptoms have improved. Signatures: Dispatcher [employer] EDMS [address] bd Mary Harkins, RN RN iw Seamus Wheeler PA PA jr8 Kris Jesus, RN RN jb4 Hema Willis MD MD ma2 Corrections: (The following items were deleted from the chart) 11:01 05:37 Hospitalization Ordered by Francisco Grant for Inpatient Admission. Preliminary iw diagnosis is SARS-associated coronavirus as the cause of diseases classified elsewhere; Viral pneumonia, unspecified; Acute respiratory failure with hypoxia. Bed requested for Telemetry/MedSurg (Inpatient). Status is Inpatient Admission. Condition is Stable. Problem is new. Symptoms have improved. jr8 11:52 11:01 04/14/2020 05:37 Hospitalization Ordered by Francisco Grant for Inpatient bd Admission. Preliminary diagnosis is SARS-associated coronavirus as the cause of diseases classified elsewhere; Viral pneumonia, unspecified; Acute respiratory failure with hypoxia. Bed requested for [facility] ER HOLD. Status is Inpatient Admission. Condition is Stable. Problem is new. Symptoms have improved. iw 13:02 11:52 04/14/2020 05:37 Hospitalization Ordered by Francisco Grant for Inpatient bd Admission. Preliminary diagnosis is SARS-associated coronavirus as the cause of diseases classified elsewhere; Viral pneumonia, unspecified; Acute respiratory failure with hypoxia. Bed requested for Intensive Care Unit. Status is Inpatient Admission. Condition is Stable. Problem is new. Symptoms have improved. bd
[2020-04-14] MEDS ORDERED: Remdesivir 200 MG in NA CHLORIDE 0.9% 250 ML IV ONE (07:20)
[2020-04-14] MEDS ORDERED: NA CHLORIDE 0.9% 1,000 ML IV SCH (07:20)
--- NOTE | 2020-04-14 08:11 | RAD REPORT ---
EXAM DESCRIPTION: RAD - Chest Single View - 04/14/2020 4:37 am CLINICAL HISTORY: CONGESTION, COVID-19 positive COMPARISON: April 11 TECHNIQUE: AP portable chest image was obtained 04/14/2020 4:37 am . FINDINGS: Lung volumes are relatively low. Mild bilateral interstitial opacities are still present. There is some hazy ground-glass opacification in the mid and lower left lung field. Heart and vascula ture are normal. No measurable pleural effusion and no pneumothorax. No acute bony abnormality seen. No acute aortic findings suspected. IMPRESSION: Hazy opacification in the mid and lower left lung field is present along with continued interstitial opacification. Given the history, mild COVID-19 pneumonia is the primary consideration.
[2020-04-14] MEDS ORDERED: THIAMINE 200 MG/2 ML INJ ONE (08:18)
[2020-04-14] MEDS ORDERED: ZINC SULFATE 220 MG CAP ONE (08:18)
[2020-04-14] MEDS ORDERED: ASCORBIC ACID 500 MG TABLET ONE (08:19)
[2020-04-14] MEDS ORDERED: APIXABAN 5 MG TABLET ONE (08:19)
[2020-04-14] MEDS ORDERED: FAMOTIDINE 20 MG/2 ML VIAL IV ONE (08:19)
[2020-04-14] MEDS ORDERED: METHYLPREDNISOLONE 40 MG INJ ONE (08:19)
[2020-04-14] MEDS: THIAMINE 200 MG/2 ML INJ IVP SCH (09:00)
[2020-04-14] MEDS: FAMOTIDINE 20 MG/2 ML VIAL IV SCH ×2 (09:00→19:53)
[2020-04-14] MEDS: VITAMIN D 5,000 UNIT CAP PO SCH (09:00)
[2020-04-14] MEDS: METHYLPREDNISOLONE 125 MG INJ IV SCH ×2 (09:00→19:53)
[2020-04-14] MEDS: ZINC SULFATE 220 MG CAP PO SCH (09:00)
[2020-04-14] MEDS: APIXABAN 5 MG TABLET PO SCH ×2 (09:00→19:54)
[2020-04-14] MEDS: ASCORBIC ACID 500 MG TABLET PO SCH ×4 (09:00→19:54)
[2020-04-14] MEDS ORDERED: IVERMECTIN 3 MG TABLET PO ONE (09:00)
[2020-04-14] MEDS: ACETAMINOPHEN 325 MG TABLET PO PRN ×2 (11:21→19:53)
[2020-04-14] MEDS ORDERED: ACETAMINOPHEN 325 MG TABLET ONE (11:33)
--- NOTE | 2020-04-14 11:53 | EKG ---
Test Date: 2020-04-14 Test Time: 04:15:45 Sales Project Administrator: MU MEASUREMENT RESULTS: Intervals: Rate: 97 WV: 122 QRSD: 78 QT: 324 QTc: 411 [place]: P: 40 WV: 122 QRS: 37 T: 8 INTERPRETIVE STATEMENTS: Normal sinus rhythm Nonspecific T wave abnormality Abnormal ECG Compared to ECG 04/11/2020 19:53:29 T-wave abnormality now present Sinus tachycardia no longer present Electronically Signed On 04-14-20 11:53:13 [employer] by Barak Munoz
--- NOTE | 2020-04-14 12:13 | P.CNS ---
Date of Consult: 04/14/20 Reason for Consult: Respiratory failure from byrne virus Primary Care Provider: Brayan Davies Chief Complaint: Covid Pneumonia, Hypoxia History of Present Illness: Patient is 49 years of age history of sleep apnea hypertension admitted with worsening shortness of breath and cough he was diagnosed with byrne virus 3 days ago as her multi vitamins is Zithromax continued to get progressively worse and appeared in the hospital he is doing much better on the L of nasal cannula oxygen Allergies morphine Allergy (Verified 01/06/20 22:01) Unknown Home Medications: Atorvastatin Calcium 1 tab PO DAILY 01/06/20 Losartan Potassium 1 tab PO DAILY 01/06/20 Pantoprazole [Protonix Tab*] 1 tab PO DAILY 01/06/20 Topiramate 1 tab PO DAILY 01/06/20 Trazodone HCl 1 tab PO BEDTIME 01/06/20 Albuterol Inhaler [Ventolin Inhaler*] 2 puff IH Q6H PRN 01/07/20 Azithromycin Tab [Zithromax*] 250 mg PO ZPAK #1 katarzyna 01/08/20 Ascorbic Acid [Vitamin C] 1,000 mg pe PO DAILY 04/14/20 Cholecalciferol (Vitamin D3) [Vitamin D3] 25 mcg PO DAILY 04/14/20 Cyanocobalamin (Vitamin B-12) [Vitamin B12] 1,000 mg PO DAILY 04/14/20 Fluticasone/Umeclidin/Vilanter [Trelegy Ellipta 200-62.5-25] 1 pill IH DAILY 04/14/20 Montelukast [Singulair*] 10 mg PO DAILY 04/14/20 Zinc Gluconate [Zinc] 22 mg PO DAILY 04/14/20 - Past Medical/Surgical History Diabetic: No -: Asthma -: hypertension -: CPAP at night -: low back back -: cholecystectomy -: Pharynx (removal of bone) -: Spur removed from foot - Social History Smoking Status: Former smoker Alcohol use: No CD- Drugs: No Caffeine use: Yes Place of Residence: Home Review of Systems General: Weakness Respiratory: Cough, Shortness of Breath Physical Examination Temp Pulse Resp BP Pulse Ox 99.1 F 80 22 H 111/68 94 04/14/20 11:41 04/14/20 11:41 04/14/20 11:41 04/14/20 11:41 04/14/20 11:41 General: Alert, Oriented x3, Mild distress Laboratory Data (last 24 hrs) 04/14/20 04:25: PT 10.8, INR 0.94, APTT 27.0 04/14/20 04:25: WBC 12.10 H D, Hgb 16.1, Hct 49.2 H, Plt Count 223 D 04/14/20 04:25: Sodium 137, Potassium 4.0, BUN 15, Creatinine 1.05, Glucose 102, Total Bilirubin 0.5, AST 27, ALT 55, Alkaline Phosphatase 94, Lipase 186 - Problems (1) Pneumonia due to COVID-19 virus Current Visit: Yes Status: Acute Plan: Patient is 49 years of age admitted with respiratory failure from byrne virus he is doing better on 2 L nasal cannula oxygen chemistries all reviewed chest x- ray shows minimal changes plan to discharge home on ivermectin high-dose prednisone follow-up with me in a week
[2020-04-14 12:26] LABS: Urine Blood NEGATIVE (NEG); Urine Glucose NEGATIVE (NEG); Urine Protein 1+ (NEG); Urine Specific Gravity 1.015 (1.005-1.030); Urine pH 7.5 (5.0-7.0)
--- OUTSIDE RECORDS SUMMARY | 2020-04-14 12:35 | XMS REPORT | Continuity of Care Document ---
:1970 Author Organization [facility] t Address [address] [place] [address] Care Team Providers Name Role Phone Unavailable Unavailable Unavailable Problems This patient has no known problems. Allergies, Adverse Reactions, Alerts Allergy Allergy Status Severity Reaction(s) Onset Inactive Treating Comm ents Source Name Type Date Date Clinician Morphine Adverse Active Info Not [facility] Medications Ordered Filled Start Stop Current Ordering Indication Dosage Frequency Signature Comments Components Source Medication Medication Date Date Medication? Clinician (SIG) Name Name Pantoprazol Pantoprazol Yes Burak [address] [facility] Sodium e Sodium 1-17 [facility] Montelukast Montelukast Yes Burak [address] [facility] Sodium Sodium 7-18 [facility] Atorvastati Atorvastati Yes Burak [address] [facility] n Calcium n Calcium 4-08 Davies [facility] - 00:[facility]: [facility] Losartan Losartan Yes Burak [address] [facility] Potassium Potassium 3-11 Davies [facility] - 00:[facility]: [facility] Topiramate Topiramate Yes Burak [address] [facility] Metformin Metformin Yes Burak [address] [facility] HCl HCl Davies with a [facility] - meal [facility] Sumatriptan Sumatriptan Yes Burak [address] [facility] Davies needed one [facility] - time [facility] Nalfon Nalfon Yes Burak [address] [facility] Fenoprofen Fenoprofen Yes Burak [address] [facility] Calcium Calcium [facility] Metformin Metformin Yes Burak TAKE ONE [facility] HCl HCl Davies TABLET BY [facility] - MOUTH ONCE Memoria DAILY WITH l A MEAL [facility] Pantoprazol Pantoprazol Yes Burak TAKE ONE [facility] Sodium e Sodium Davies TABLET BY L ukes - MOUTH Memoria DAILY l [facility] Atorvastati Atorvastati Yes Burak TAKE ONE [facility] n Calcium n Calcium Davies TABLET BY [facility] - MOUTH [facility] DAILY l [facility] Losartan Losartan Yes Burak TAKE ONE [facility] Potassium Potassium Davies TABLET BY [facility] - MOUTH [facility] DAILY l [facility] Procedures This patient has no known procedures. Encounters Start End Encounter Admission Attending Care Care Encounter Source Date/Time Date/Time Type Type Clinicians Facility Department ID 2020-04-12 2020-04-12 Outpatient [facility] [id number] [facility] 2020-04-11 2020-04-11 Outpatient [facility] [id number] [facility] 2020-04-11 2020-04-11 Outpatient [facility] [id number] [facility] 2020-04-06 2020-04-06 Outpatient [facility] [id number] [facility] 2020-03-23 2020-03-23 [facility] [id number] [facility] 2020-02-16 2020-02-16 [facility] [id number] [facility] 2020-02-16 2020-02-16 [facility] [id number] [facility] 2020-02-03 2020-02-03 Out[facility] [id number] [facility] 2020-01-26 2020-01-26 Out[facility] [id number] [facility] 2020-01-19 2020-01-19 Out[facility] [id number] [facility] 2020-01-09 2020-01-09 Out[facility] [id number] [facility] 2020-01-06 2020-01-06 Out[facility] [id number] [facility] 2020-01-05 2020-01-05 Out[facility] [id number] [facility] 2019-12-22 2019-12-22 Out[facility] [id number] [facility] 2019-09-22 2019-09-22 [facility] [id number] [facility] 08[facility]15:[facility] [facility] Outpati ent Clinics 2019-06-23 2019-06-23 [facility] [id number] [facility] 08:30[facility] 08:30:00 [facility] [place] [facility] Outpat[facility] Clinics 2019-03-21 2019-03-21 [facility] [id number] [address] 11:15:00 11:15:00 t [place] [facility] - [facility] Medicine l Medicine Outpati ent Clinics 2019-01-13 2019-01-13 [facility] [id number] 15:15:00 15:15:00 [place] [address] [facility] - [facility] Medicine Medicine Outpati ent Clinics 2018-12-20 2018-12-20 [facility] [id number] 14:02:00 14:02:00 [place] [address] [facility] - Drive [facility] Medicine Outpati ent Clinics 2018-12-20 2018-12-20 [facility] [id number] [address] 08:30:00 08:30:00 [place] [address] [place] [address] Luke [facility] - Drive [facility] Medicine Medicine Outpati ent Clinics 2018-09-19 2018-09-19 [facility] [id number] 10:45:00 10:45:00 [place] [address] Luke [facility] - Drive [facility] Medicine Outpati ent Clinics 2018-06-10 2018-06-10 [facility] [id number] [address] 08:15:00 08:15:00 [place] [address] [place] [address] Luke s - Drive [facility] Medicine Medicine Outpati ent Clinics 2018-05-20 2018-05-20 [facility] [id number] [facility] 10:32:00 10:32:00 [place] [address] Luke [facility] - Drive [facility] Medicine Outpati ent Clinics 2018-05-14 2018-05-14 [facility] [id number] 11:21:00 11:21:00 [place] [address] Luke [facility] - Drive [facility] Medicine Outpati ent Clinics 2018-05-10 2018-05-10 [facility] [id number] 14:47:00 14:47:00 [place] [address] Luke s - Drive [facility] Medicine Medicine Outpati ent Clinics 2018-05-06 2018-05-06 [facility] [id number] 10:11:00 10:11:00 [place] [address] Luke [facility] - Drive [facility] Medicine Outpati ent Clinics 2018-03-11 2018-03-11 [facility] [id number] [facility] 13:15:00 13:15:00 [place] [address] Luke [facility] - Drive [facility] Outpati ent Clinics 2017-12-06 2017-12-06 [facility] [id number] [facility] 14:30:00 14:30:00 t Medicine in Practice [facility] 2017-08-21 2017-08-21 [facility] [id number] 14:15:00 14:15:00 t Medicine in Practice [facility] 2017-05-30 2017-05-30 [facility] [id number] [facility] 16:00:00 16:00:00 t Medicine in Practice [facility] Results This patient has no known results.
--- OUTSIDE RECORDS SUMMARY | 2020-04-14 12:36 | XMS REPORT ---
:1970 Author Organization [facility] Address [address] [place] [place] [address] Care Team Providers Name Role Phone Burak Davies Unavailable [phone] PROBLEMS Type Condition ICD9-CM [id number] Onset Condition W/U Status Risk SNOM ED Notes Code Code Dates Status Code Problem Controlled E11.9 Active confirmed 035805897 type 2 diabetes mellitus without complication, without long-term current use of insulin Problem Hyperlipidemi E78.2 Active confirmed 881009 003 a, mixed Problem Allergic J30.2 Active confirmed 093821723 rhinitis, seasonal Problem Obstructive G47.33 Active confirmed 04083496 sleep apnea Problem Dysphagia, R13.10 Active confirmed 92162285 unspecified Problem Benign I10 Active confirmed 39957360 essential HTN Problem Migraine G43.009 Active confirmed 774405032 without aura and without status migrainosus, not intractable Problem Asthma J45.909 Active confirmed 915835815 without status asthmaticus or acute exacerbation Problem Moderate J45.40 Active confirmed 509711206 persistent asthma without complication Problem Obesity (BMI E66.9 Active confirmed 3030388 01 30.0-34.9) Problem Moderate J45.901 Active confirmed 333133135 asthma with exacerbation, unspecified whether persistent Problem Prediabetes R73.09 Active confirmed 41411989 2 Problem Adult BMI Z68.33 Active confirmed 575614329 33.0-33.9 kg/sq m Problem GERD without K21.9 Active confirmed 5322139 05 esophagitis Problem Non-seasonal J30.89 Active confirmed 3608860 4 allergic rhinitis, unspecified trigger Problem Primary F51.01 Active confirmed 5830096 insomnia ALLERGIES Allergen (clinical drug Drug/Non Drug Allergy Reaction Allergy Type Onset Date Status ingredient) documented on EMR morphine Morphine Sulfate([facility] Unknown Drug Allergy Ac tive Code:[address]-21) ENCOUNTERS from 1970 to 2020-04-11 Encounter Location Date Provider Diagnosis [facility] [address] [facility] [address], [place] [address] IMMUNIZATIONS Vaccine Route Administration Date Status Kenalog [...] Start Date End Date Status Frequency, Duration) Topiramate 25 MG 1 tablet Orally Once Active a day for 30 days Montelukast Sodium 10 1 tablet Orally Once Active MG a day for 30 day(s) Azithromycin 250 MG 2 tablets on the Apr, Apr, Active first day, then 1 tablet daily for 4 days Orally Once a day for 5 day(s) Nalfon 400 MG 1 capsule Orally Activ e Three times a day Atorvastatin Calcium 1 tablet Orally Once Active 10 MG a day for 90 Metformin HCl 500 MG TAKE ONE TABLET BY Not-Taking MOUTH ONCE DAILY WITH A MEAL Fenoprofen Calcium 400 1 capsule Orally PRN Not-Taking MG Losartan Potassium 50 1 tablet Orally Once Active MG a day for 90 days ProAir HFA 108 (90 2 puffs as needed Active Base) MCG/ACT Inhalation every 6 hrs PRN COugh, Wheezing or shortness of breath for 30 days Trelegy Ellipta 1 puff Inhalation Ac tive 100-62.5-25 MCG/INH Once a day Trazodone HCl 100 MG 1 tablet at bedtime Active Orally Once a day for 90 days Pantoprazole Sodium 40 TAKE ONE TABLET BY Active MG MOUTH DAILY for 30 Sumatriptan 5 MG/ACT 1 puff as needed one Active time Nasally Once a day PROCEDURES No Information RESULTS No Results REASON FOR VISIT COVID + MEDICAL (GENERAL) HISTORY Type Description Date Medical [...] Medication Name Sig Start Date Stop Date Atorvastatin Calcium 10 MG 1 tablet Orally Once a day for 90 Pantoprazole Sodium 40 MG TAKE ONE TABLET BY MOUTH DAILY for 30 Nalfon 400 MG 1 capsule Orally Three times a day ProAir HFA 108 (90 Base) 2 puffs as needed Inhalation MCG/ACT every 6 hrs PRN COugh, Wheezing or shortness of breath for 30 days Azithromycin 250 MG 2 tablets on the first day, Apr, Apr, then 1 tablet daily for 4 days Orally Once a day for 5 day(s) Trazodone HCl 100 MG 1 tablet at bedtime Orally Once a day for 90 days Topiramate 25 MG 1 tablet Orally Once a day for 30 days Losartan Potassium 50 MG 1 tablet Orally Once a day for 90 days Montelukast Sodium 10 MG 1 tablet Orally Once a day for 30 day(s) Trelenevaeh Ellipta 100-62.5-25 1 puff Inhalation Once a day MCG/INH Sumatriptan 5 MG/ACT 1 puff as needed one time Nasally Once a day Next Appt Details Provider Name:Nato Acuña, 2020-04-15 0 2:00:00 PM, [address] [place], [address], Provider Name:Burak Davies, 2020-06-14 08:15:00 AM, [address], [place], [address], Provider Name:Burak Davies, 2020-06-21 11:30:00 AM, [address], [place], [address], Insurance Providers Payer Name Payer Payer Insured Name Patient Coverage Covera End Address Phone Relationship to Start Date Gabriel e Insured [employer] [phone] Junior,Re self 2017 and Blue [id number] [facility] [id number]
[2020-04-14] MEDS ORDERED: dilTIAZem HCL 25 MG/5 ML VIAL IV ONE ×2 (16:44→16:45)
[2020-04-14] MEDS ORDERED: DILTIAZEM INJ 125 MG in NA CHLORIDE 0.9% 100 ML IVPB PRN ×2 (16:53→16:59)
[2020-04-14] MEDS: METOPROLOL TAR 25 MG TAB PO SCH ×2 (17:13→17:14)
[2020-04-14] MEDS ORDERED: METOPROLOL TARTRATE 5 MG/5 ML INJ IV STA (17:21)
[2020-04-14] MEDS ORDERED: DIGOXIN 0.25 MG/ML AMP IV ONE (18:00)
[2020-04-14] MEDS: MELATONIN 5 MG TABLET PO SCH (19:53)
[2020-04-14] MEDS ORDERED: FENTANYL CITR 100 MCG/2 ML IV ONE (21:05)
[2020-04-14] MEDS: BENZONATATE 100 MG CAP PO PRN (21:19)
[2020-04-15] MEDS ORDERED: LORazepam 2 MG/ML VIAL IV ONE (04:49)
[2020-04-15] MEDS: METOPROLOL TAR 25 MG TAB PO SCH ×2 (04:54→17:37)
[2020-04-15] MEDS: BENZONATATE 100 MG CAP PO PRN ×3 (04:56→20:39)
[2020-04-15] MEDS: ACETAMINOPHEN 325 MG TABLET PO PRN (04:56)
[2020-04-15] MEDS ORDERED: LORazepam 2 MG/ML VIAL ONE (05:08)
[2020-04-15 05:35] LABS: Absolute Lymphocytes (CBC) 0.8 K/uL (0.7-4.9); Basophils % 0.1 % (0-1.3); Lymphocytes % 5.4 % (15.3-44.8); MPV 9.7 fL (7.6-11.3); RBC Red Blood Cell Count 5.05 M/uL (4.33-5.43)
[2020-04-15 05:51] LABS: C-Reactive Protein 79.5 mg/L (<3.00); Ferritin 1012.3 ng/mL (26-388); Magnesium 2.8 mg/dL (1.8-2.4); Potassium 4.6 mmol/L (3.5-5.1); Thyroid Stimulating Hormone 0.33 uIU/mL (0.360-3.740)
[2020-04-15 07:59] LABS: Platelet Estimate ADEQ
[2020-04-15 08:00] LABS: Blood Morphology Comment NOT SEEN (NOT SEEN)
[2020-04-15] MEDS ORDERED: Remdesivir 100 MG in NA CHLORIDE 0.9% 250 ML IV SCH (09:00)
[2020-04-15] MEDS: ZINC SULFATE 220 MG CAP PO SCH (09:42)
[2020-04-15] MEDS: ASCORBIC ACID 500 MG TABLET PO SCH ×4 (09:42→20:39)
[2020-04-15] MEDS: VITAMIN D 5,000 UNIT CAP PO SCH (09:42)
[2020-04-15] MEDS: FAMOTIDINE 20 MG/2 ML VIAL IV SCH ×2 (09:42→20:38)
[2020-04-15] MEDS: APIXABAN 5 MG TABLET PO SCH ×2 (09:42→20:39)
[2020-04-15] MEDS: THIAMINE 200 MG/2 ML INJ IVP SCH (09:43)
[2020-04-15] MEDS: METHYLPREDNISOLONE 125 MG INJ IV SCH ×2 (09:43→20:38)
[2020-04-15] MEDS ORDERED: METOPROLOL TARTRATE 5 MG/5 ML INJ IV PRN (12:25)
[2020-04-15] MEDS: LORazepam 2 MG/ML VIAL IV PRN ×2 (12:38→20:55)
--- NOTE | 2020-04-15 12:45 | P.PN ---
Subjective Date of Service: 04/15/20 Primary Care Provider: Brayan Davies Chief Complaint: Covid Pneumonia, Hypoxia Patient developed AFib with RVR yesterday. He is currently tolerating 6 L of oxygen. Patient was on Cardizem drip yesterday. Cardizem drip weaned off the this morning. His heart rate continues to fluctuate up to 150. Physical Examination - Vital Signs Temperature: 97.4 F Blood Pressure: 100/64 Pulse: 104 Respirations: 39 Pulse Ox (%): 91 - Physical Exam General: Alert, In no apparent distress, Oriented x3 Neck: Supple, JVD not distended Cardiovascular: No edema, Normal S1 S2, Irregular heart rate/rhythm Gastrointestinal: Soft and benign, Non-distended Musculoskeletal: No swelling Integumentary: No rashes Neurological: Other (No focal motor deficit.) Assessment And Plan - Current Problems (Diagnosis) (1) Acute respiratory failure with hypoxia Current Visit: Yes Status: Acute (2) Atrial fibrillation with RVR Current Visit: Yes Status: Acute (3) Asthma Current Visit: Yes Status: Acute (4) Pneumonia due to COVID-19 virus Current Visit: Yes Status: Acute (5) HTN (hypertension) Current Visit: Yes Status: Chronic Qualifiers: Hypertension type: essential hypertension Qualified Code(s): I10 - Essential (primary) hypertension (6) Sleep apnea Current Visit: Yes Status: Chronic Qualifiers: Sleep apnea type: obstructive Qualified Code(s): G47.33 - Obstructive sleep apnea (adult) (pediatric) - Plan Continue high dose IV steroid. Vitamin D and C supplementation, zinc supplementation. Status post Ivermectin. Pulmonary input appreciated. Eliquis for thrombo prophylaxis. Continue oral metoprolol for AFib rate control. IV metoprolol p.r.n. Cardiology consult Echocardiogram. Blood cultures: No growth to date. Weaned off oxygen as tolerated. Physician Review: Patient Assessed, Agree with Above Assessment and Plan
[2020-04-15] MEDS: CEPACOL LOZENGES PO PRN (17:56)
--- NOTE | 2020-04-15 18:37 | CON ---
Date of Consultation: 04/15/2020 Reason For Consultation: Atrial fibrillation with rapid ventricular response. History Of Present Illness: A 49-year-old male with a history of hypertension, sleep apnea, presente d with worsening shortness of breath, diagnosed with COVID-19 pneumonia, apparently went into episode of atrial fibrillation with rapid ventricular response that was transient and paroxysmal, heart rate 135, now in sinus, heart rate in the 70s. Past Medical History: As outlined above in HPI. Medications: Refer to reconciliation sheet for detailed list. Allergies: MORPHINE. Family History: No premature coronary artery disease or cancer. Social History: Does not drink or use any drugs. Review of Systems: All systems reviewed and they were negative except for what mentioned in the HPI. Physical Examination: Vital Signs: Temperature is 97.4, pulse 70, breathing at 31, blood pressure 111/66, saturating 92%. General: Pleasant middle-aged male, in no distress. Head and Neck: Pupils are equal, reactive to light. Intact eye movements. No JVD. No cervical lym phadenopathy. Neck: Supple. Thyroid is not enlarged. Lungs: Clear to auscultation bilaterally. No accessory muscle use. Heart: Regular rate and rhythm. No extra sounds. Abdomen: Soft, nontender. Bowel sounds positive. No organomegaly. No masses or hernia. No rigidi ty or rebound. Extremities: No clubbing, cyanosis. Intact pulses. Skin: No rash. Neuro: Alert, awake, oriented x3. No acute focal deficits. Investigations: Hemoglobin 15.2. Creatinine is 1.04. TSH is 0.33. Assessment/plan: Paroxysmal atrial fibrillation, 1 episode with rapid ventricular response, back in sinus rhythm now. We agree with Eliquis 5 mg twice a day and metoprolol. Please obtain echocardiogr am and we will monitor. If he goes back into atrial fibrillation again on the current therapy may co nsider sotalol treatment. SR/MODL Voice ID: [id number] Report ID: [id number]
[2020-04-15] MEDS: TRAZODONE 50 MG TABLET PO SCH (20:39)
[2020-04-15] MEDS: MELATONIN 5 MG TABLET PO SCH (20:39)
[2020-04-15] MEDS ORDERED: HOME MED 1 EA UNK (Trazodone Hcl [Trazodone Hcl] 100 MG Tablet) PO SCH (21:00)
[2020-04-16] MEDS: ACETAMINOPHEN 325 MG TABLET PO PRN (03:00)
--- NOTE | 2020-04-16 05:27 | P.PN ---
Date of Service: 04/16/20 code dariela called after patient reportedly noted with loss of consciousness, staff report he was earlier seen without any issues. He was started on CPR and intial pulse was found after one round of epi and sodium bicarb. Patient subsequently became pulseless and 4 rounds of epi and continuous CPR was done . He was intubated also . Patient developed pulseless electrical activity and subsequent at 435am .Family informed by me on the phone
[2020-04-16] MEDS: METOPROLOL TAR 25 MG TAB PO SCH ×2 (05:48→17:38)
[2020-04-16] MEDS: CEPACOL LOZENGES PO PRN ×3 (05:49→12:42)
[2020-04-16] MEDS: BENZONATATE 100 MG CAP PO PRN (05:49)
[2020-04-16 05:52] LABS: Absolute Lymphocytes (CBC) 0.9 K/uL (0.7-4.9); Basophils % 0.1 % (0-1.3); Hematocrit 43.1 % (39.6-49.0); Lymphocytes % 6.4 % (15.3-44.8); MPV 9.2 fL (7.6-11.3); RBC Red Blood Cell Count 4.73 M/uL (4.33-5.43)
[2020-04-16 06:07] LABS: Albumin 2.4 g/dL (3.4-5.0); Bilirubin Total 0.5 mg/dL (0.2-1.0); C-Reactive Protein 49.3 mg/L (<3.00); Ferritin 907.2 ng/mL (26-388); Potassium 4.5 mmol/L (3.5-5.1); Protein, Total 6.6 g/dL (6.4-8.2)
[2020-04-16] MEDS: THIAMINE 200 MG/2 ML INJ IVP SCH (08:30)
[2020-04-16] MEDS: METHYLPREDNISOLONE 125 MG INJ IV SCH ×2 (08:30→20:52)
[2020-04-16] MEDS: FAMOTIDINE 20 MG/2 ML VIAL IV SCH ×2 (08:30→20:52)
[2020-04-16] MEDS: VITAMIN D 5,000 UNIT CAP PO SCH (08:31)
[2020-04-16] MEDS: MONTELUKAST 10 MG TAB PO SCH (08:31)
[2020-04-16] MEDS: ZINC SULFATE 220 MG CAP PO SCH (08:31)
[2020-04-16] MEDS: APIXABAN 5 MG TABLET PO SCH ×2 (08:39→20:51)
[2020-04-16] MEDS: ASCORBIC ACID 500 MG TABLET PO SCH ×4 (08:39→20:52)
--- NOTE | 2020-04-16 08:47 | ECHO ---
HEIGHT: 5 ft 11 in WEIGHT: 243 lb 1.6 oz DATE OF STUDY: 04/15/[address]: ceasar ashby 2-DIMENSIONAL: YES M.MODE: YES DOPPLER: YES COLOR FLOW: YES TDS: PORTABLE: YES DEFINITY: BUBBLE STUDY: DIAGNOSIS: ATRIAL FIBRILLATION WITH RAPID VENTRICULAR RESPONSE CARDIAC HISTORY: CATHERIZATION: SURGERY: PROSTHETIC VALVE: PACEMAKER: MEASUREMENTS (cm) DIASTOLIC (NORMALS) SYSTOLIC (NORMALS) IVSd 1.2 (0.6-1.2) LA Diam 3.7 (1.9-4.0) LVEF 54% LVIDd 3.6 (3.5-5.7) LVIDs 2.6 (2.0-3.5) %FS 27% LVPWd 1.1 (0.6-1.2) Ao Diam 3.1 (2.0-3.7) 2 DIMENSIONAL ASSESSMENT: RIGHT ATRIUM: NORMAL LEFT ATRIUM: NORMAL RIGHT VENTRICLE: NORMAL LEFT VENTRICLE: NORMAL TRICUSPID VALVE: NORMAL MITRAL VALVE: NORMAL PULMONIC VALVE: NORMAL AORTIC VALVE: NORMAL PERICARDIAL EFFUSION: NONE AORTIC ROOT: NORMAL LEFT VENTRICULAR WALL MOTION: NORMAL DOPPLER/COLOR FLOW: NORMAL COMMENTS: NORMAL LEFT VENTRICULAR EJECTION FRACTION 55-60%. NORMAL STUDY. TECHNOLOGIST: MARCO DO
[2020-04-16] MEDS: Fluticasone/Umeclidin/Vilanter [Trelegy Ellipta 200-62.5-25] Blst.W.Dev IH SCH (09:00)
[2020-04-16] MEDS ORDERED: TOPIRAMATE 25 MG TAB PO SCH (09:00)
[2020-04-16] MEDS ORDERED: IVERMECTIN 3 MG TABLET PO ONE (09:00)
[2020-04-16] MEDS: LORazepam 2 MG/ML VIAL IV PRN (12:45)
--- NOTE | 2020-04-16 15:36 | P.PN ---
Subjective Date of Service: 04/16/20 Primary Care Provider: Brayan Davies Chief Complaint: Covid Pneumonia, Hypoxia Patient is improving currently on nasal cannula oxygen does not appear to be any distress Review of Systems General: Weakness Respiratory: Shortness of Breath Physical Examination - Vital Signs Temperature: 97.6 F Blood Pressure: 128/77 Pulse: 66 Respirations: 28 Pulse Ox (%): 90 - Physical Exam General: Alert, In no apparent distress, Cooperative Assessment & Plan - Problems (Diagnosis) (1) Pneumonia due to COVID-19 virus Current Visit: Yes Status: Acute Plan: Respiratory failure from byrne virus oxygen requirements declining he is doing better was titrated to 6 L of nasal cannula oxygen possible discharge white count is declining Physician Review: Patient Assessed, Agree with Above Assessment and Plan
--- NOTE | 2020-04-16 17:06 | P.PN ---
Subjective Date of Service: 04/16/20 Primary Care Provider: Brayan Davies Chief Complaint: Covid Pneumonia, Hypoxia Patient tolerating 6 L of oxygen. He remain in sinus rhythm. Physical Examination - Vital Signs Temperature: 97.6 F Blood Pressure: 128/78 Pulse: 100 Respirations: 30 Pulse Ox (%): 90 - Physical Exam General: Alert, In no apparent distress, Oriented x3 Neck: JVD not distended Cardiovascular: No edema, Regular rate/rhythm Gastrointestinal: Soft and benign, Non-distended Musculoskeletal: No swelling Integumentary: No rashes Neurological: Other (No focal motor deficit) Assessment And Plan - Current Problems (Diagnosis) (1) Acute respiratory failure with hypoxia Current Visit: Yes Status: Acute (2) Atrial fibrillation with RVR Current Visit: Yes Status: Acute (3) Asthma Current Visit: Yes Status: Acute (4) Pneumonia due to COVID-19 virus Current Visit: Yes Status: Acute (5) HTN (hypertension) Current Visit: Yes Status: Chronic Qualifiers: Hypertension type: essential hypertension Qualified Code(s): I10 - Essential (primary) hypertension (6) Sleep apnea Current Visit: Yes Status: Chronic Qualifiers: Sleep apnea type: obstructive Qualified Code(s): G47.33 - Obstructive sleep apnea (adult) (pediatric) - Plan Continue high dose IV steroid. Vitamin D and C supplementation, zinc supplementation. Status post Ivermectin. Pulmonary is following. Continue Eliquis Continue oral metoprolol for AFib rate control. IV metoprolol p.r.n. Echocardiogram result reviewed and unremarkable. Normal EF. Blood cultures: No growth to date. Weaned off oxygen as tolerated. Dc to home when patient is able to tolerate up to 4 L oxygen by nasal cannula.
[2020-04-16] MEDS: TRAZODONE 50 MG TABLET PO SCH (20:51)
[2020-04-16] MEDS: MELATONIN 5 MG TABLET PO SCH (20:51)
[2020-04-17] MEDS: METOPROLOL TAR 25 MG TAB PO SCH ×2 (05:10→16:59)
[2020-04-17 05:15] LABS: Albumin 2.5 g/dL (3.4-5.0); Bilirubin Total 0.8 mg/dL (0.2-1.0); C-Reactive Protein 32.7 mg/L (<3.00); Ferritin 1068.8 ng/mL (26-388); Potassium 4.6 mmol/L (3.5-5.1); Protein, Total 7.2 g/dL (6.4-8.2)
[2020-04-17] MEDS: VITAMIN D 5,000 UNIT CAP PO SCH (08:30)
[2020-04-17] MEDS: APIXABAN 5 MG TABLET PO SCH ×2 (08:30→21:04)
[2020-04-17] MEDS: ASCORBIC ACID 500 MG TABLET PO SCH ×4 (08:30→21:04)
[2020-04-17] MEDS: MONTELUKAST 10 MG TAB PO SCH (08:30)
[2020-04-17] MEDS: BENZONATATE 100 MG CAP PO PRN (08:30)
[2020-04-17] MEDS: METHYLPREDNISOLONE 125 MG INJ IV SCH ×2 (08:31→21:03)
[2020-04-17] MEDS: FAMOTIDINE 20 MG/2 ML VIAL IV SCH ×2 (08:31→21:03)
[2020-04-17] MEDS: THIAMINE 200 MG/2 ML INJ IVP SCH (08:31)
[2020-04-17] MEDS: ZINC SULFATE 220 MG CAP PO SCH (08:31)
[2020-04-17] MEDS: Fluticasone/Umeclidin/Vilanter [Trelegy Ellipta 200-62.5-25] Blst.W.Dev IH SCH (08:32)
--- NOTE | 2020-04-17 10:51 | P.PN ---
Subjective Date of Service: 04/17/20 Primary Care Provider: Brayan Davies Chief Complaint: Covid Pneumonia, Hypoxia Patient now on high-flow oxygen. He remain in sinus rhythm. Physical Examination - Vital Signs Temperature: 97.6 F Blood Pressure: 128/84 Pulse: 80 Respirations: 31 Pulse Ox (%): 94 - Physical Exam General: Alert, In no apparent distress, Oriented x3 Neck: Supple Cardiovascular: No edema, Regular rate/rhythm Gastrointestinal: Soft and benign, Non-distended Musculoskeletal: No swelling Integumentary: No rashes Neurological: Other (No focal motor deficit) Assessment And Plan - Current Problems (Diagnosis) (1) Acute respiratory failure with hypoxia Current Visit: Yes Status: Acute (2) Atrial fibrillation with RVR Current Visit: Yes Status: Acute (3) Asthma Current Visit: Yes Status: Acute (4) Pneumonia due to COVID-19 virus Current Visit: Yes Status: Acute (5) HTN (hypertension) Current Visit: Yes Status: Chronic Qualifiers: Hypertension type: essential hypertension Qualified Code(s): I10 - Essential (primary) hypertension (6) Sleep apnea Current Visit: Yes Status: Chronic Qualifiers: Sleep apnea type: obstructive Qualified Code(s): G47.33 - Obstructive sleep apnea (adult) (pediatric) - Plan Continue high dose IV steroid. Vitamin D and C supplementation, zinc supplementation. Status post Ivermectin. Pulmonary is following. Continue Eliquis Continue oral metoprolol for AFib rate control. Echocardiogram result reviewed and unremarkable. Normal EF. Blood cultures: No growth to date. Weaned off oxygen as tolerated. Dc to home when patient is able to tolerate up to 4 L oxygen by nasal cannula.
--- NOTE | 2020-04-17 11:53 | RAD REPORT ---
EXAM DESCRIPTION: RAD - Chest Single View - 04/17/2020 9:09 am CLINICAL HISTORY: Follow COVID pneumonia Chest pain. COMPARISON: Chest Single View dated 04/14/2020; Chest Single View dated 04/11/2020; Chest Single View d ated 01/06/2020; Chest Single View dated 05/08/2018 FINDINGS: Portable technique limits examination quality. Bilateral pulmonary opacities are present, mildly progressive since the comparative study. The heart is upper limit normal in size. No displaced fractures. IMPRESSION: Mild worsening in lung aeration is seen since comparative study.
[2020-04-17] MEDS: LORazepam 2 MG/ML VIAL IV PRN ×2 (13:14→17:49)
[2020-04-17] MEDS: TOPIRAMATE 25 MG TAB PO SCH (16:59)
[2020-04-17] MEDS: MELATONIN 5 MG TABLET PO SCH (21:04)
[2020-04-17] MEDS: TRAZODONE 50 MG TABLET PO SCH (21:04)
[2020-04-17] MEDS: ACETAMINOPHEN 325 MG TABLET PO PRN (21:06)
[2020-04-18 05:10] LABS: Absolute Lymphocytes (CBC) 0.7 K/uL (0.7-4.9); Basophils % 0.3 % (0-1.3); Hematocrit 48.4 % (39.6-49.0); Lymphocytes % 6.4 % (15.3-44.8); MPV 9.1 fL (7.6-11.3); RBC Red Blood Cell Count 5.23 M/uL (4.33-5.43)
[2020-04-18 05:53] LABS: C-Reactive Protein 27.4 mg/L (<3.00); Ferritin 957.5 ng/mL (26-388)
[2020-04-18] MEDS: METOPROLOL TAR 25 MG TAB PO SCH ×2 (06:43→17:10)
[2020-04-18] MEDS: Fluticasone/Umeclidin/Vilanter [Trelegy Ellipta 200-62.5-25] Blst.W.Dev IH SCH (07:48)
[2020-04-18] MEDS: ASCORBIC ACID 500 MG TABLET PO SCH ×4 (07:50→21:53)
[2020-04-18] MEDS: METHYLPREDNISOLONE 125 MG INJ IV SCH ×2 (07:50→21:53)
[2020-04-18] MEDS: MONTELUKAST 10 MG TAB PO SCH (07:51)
[2020-04-18] MEDS: VITAMIN D 5,000 UNIT CAP PO SCH (07:51)
[2020-04-18] MEDS: ZINC SULFATE 220 MG CAP PO SCH (07:51)
[2020-04-18] MEDS: THIAMINE 200 MG/2 ML INJ IVP SCH (07:51)
[2020-04-18] MEDS: FAMOTIDINE 20 MG/2 ML VIAL IV SCH (07:51)
--- NOTE | 2020-04-18 07:59 | EKG ---
Test Date: 2020-04-15 Test Time: 13:37:26 Nanny Caregiver: MG MEASUREMENT RESULTS: Intervals: Rate: 73 DC: 130 QRSD: 84 QT: 370 QTc: 407 [place]: P: 54 DC: 130 QRS: 56 T: 23 INTERPRETIVE STATEMENTS: Normal sinus rhythm Nonspecific T wave abnormality Abnormal ECG Compared to ECG 04/14/2020 16:19:44 T-wave abnormality now present Atrial fibrillation no longer present ST (T wave) deviation no longer present Electronically Signed On 04-18-20 07:54:01 [employer]IST[employer] MANAGER by Barak Munoz
[2020-04-18] MEDS: LORazepam 2 MG/ML VIAL IV PRN (08:20)
[2020-04-18] MEDS: APIXABAN 5 MG TABLET PO SCH ×2 (08:21→21:52)
--- NOTE | 2020-04-18 10:40 | P.PN ---
Subjective Date of Service: 04/18/20 Primary Care Provider: Brayan Davies Chief Complaint: Covid Pneumonia, Hypoxia Patient remain on high-flow oxygen. He is in sinus rhythm.. He has no new complain. He denies shortness of breath at rest. Physical Examination - Vital Signs Temperature: 99.4 F Blood Pressure: 123/86 Pulse: 76 Respirations: 27 Pulse Ox (%): 90 - Physical Exam General: Alert, In no apparent distress Neck: JVD not distended Respiratory: Other (No labored breathing.) Cardiovascular: No edema, Regular rate/rhythm Gastrointestinal: Soft and benign, Non-distended Musculoskeletal: No swelling Integumentary: No rashes Neurological: Other (No focal motor deficit.) Assessment And Plan - Current Problems (Diagnosis) (1) Acute respiratory failure with hypoxia Current Visit: Yes Status: Acute (2) Atrial fibrillation with RVR Current Visit: Yes Status: Acute (3) Asthma Current Visit: Yes Status: Acute (4) Pneumonia due to COVID-19 virus Current Visit: Yes Status: Acute (5) HTN (hypertension) Current Visit: Yes Status: Chronic Qualifiers: Hypertension type: essential hypertension Qualified Code(s): I10 - Essential (primary) hypertension (6) Sleep apnea Current Visit: Yes Status: Chronic Qualifiers: Sleep apnea type: obstructive Qualified Code(s): G47.33 - Obstructive sleep apnea (adult) (pediatric) - Plan Patient is getting worse. Continue high dose IV steroid. Will transfuse 1 unit convalescent plasma. Vitamin D and C supplementation, zinc supplementation. Status post Ivermectin. Pulmonary is following. Continue Eliquis Continue oral metoprolol for AFib rate control. Echocardiogram: Normal EF. Blood cultures: No growth to date. Physician Review: Patient Assessed, Agree with Above Assessment and Plan Physician Review Additional Text: Pneumonia due to COVID 19 Acute respiratory failure with hypoxia. High-dose steroid Patient is status post Ivermectin. Titrate oxygen. Arranged for home oxygen. Thromboprophylaxis with Eliquis.
[2020-04-18] MEDS ORDERED: NA CHLORIDE 0.9% 250 ML IV ONE (10:49)
--- NOTE | 2020-04-18 10:55 | PN ---
Date of Progress Note: 04/16/2020 The patient was seen by Dr. Warren on 04/15/2020 for atrial fibrillation. He was placed on metoprolo l and Eliquis. Today 04/16/2020, the patient was in sinus rhythm, still tachypneic with a heart rate of 40. Blood pressure is adequate. He is afebrile. He remains on 95% CPAP BiPAP. His ferritin re shin elevated at 1068. His C-reactive protein is 32.7. He is on Eliquis. He is on antibiotics. H e is on Pepcid, steroids, metoprolol, zinc, and thiamin. Echocardiogram was perfectly normal. No wa ll motion abnormalities. No thrombus and no left atrial enlargement. Continue present regimen. NEHAL/MISA Voice ID: [id number] Report ID: [id number]
--- NOTE | 2020-04-18 11:12 | P.PN ---
Subjective Date of Service: 04/18/20 Primary Care Provider: Brayan Davies Chief Complaint: Respiratory failure No change patient is in fact requiring high concentrations of oxygen Review of Systems Respiratory: Shortness of Breath Physical Examination - Vital Signs Temperature: 99.4 F Blood Pressure: 123/86 Pulse: 76 Respirations: 27 Pulse Ox (%): 90 Assessment & Plan - Problems (Diagnosis) (1) Pneumonia due to COVID-19 virus Current Visit: Yes Status: Acute Plan: Respiratory failure oxygen concentrations of increased he is now on high-flow patient experience transient episode of AFib labs reviewed Physician Review: Patient Assessed, Agree with Above Assessment and Plan
[2020-04-18] MEDS: TRAMADOL HCL 50 MG TAB PO PRN (11:32)
[2020-04-18] MEDS ORDERED: DIPHENHYDRAMINE 50 MG/ML VIAL IV ONE (12:00)
[2020-04-18] MEDS ORDERED: Remdesivir 200 MG in NA CHLORIDE 0.9% 250 ML IV ONE (14:00)
[2020-04-18] MEDS: TOPIRAMATE 25 MG TAB PO SCH (17:10)
[2020-04-18] MEDS: TRAZODONE 50 MG TABLET PO SCH (21:52)
[2020-04-18] MEDS: FAMOTIDINE 20 MG TAB PO SCH (21:52)
[2020-04-18] MEDS: MELATONIN 5 MG TABLET PO SCH (21:52)
[2020-04-19 05:18] LABS: Absolute Lymphocytes (CBC) 0.6 K/uL (0.7-4.9); Basophils % 0.3 % (0-1.3); Hematocrit 46.5 % (39.6-49.0); Lymphocytes % 5.6 % (15.3-44.8); MPV 8.8 fL (7.6-11.3); RBC Red Blood Cell Count 5.09 M/uL (4.33-5.43)
[2020-04-19] MEDS: METOPROLOL TAR 25 MG TAB PO SCH ×2 (05:27→17:02)
[2020-04-19 05:38] LABS: Albumin 2.4 g/dL (3.4-5.0); Bilirubin Direct 0.2 mg/dL (0-0.2); C-Reactive Protein 15.5 mg/L (<3.00); Ferritin 930.3 ng/mL (26-388); Potassium 4.6 mmol/L (3.5-5.1)
[2020-04-19 05:53] LABS: Blood Morphology Comment NOT SEEN (NOT SEEN); Platelet Estimate ADEQ
[2020-04-19] MEDS: Fluticasone/Umeclidin/Vilanter [Trelegy Ellipta 200-62.5-25] Blst.W.Dev IH SCH (09:00)
[2020-04-19] MEDS: APIXABAN 5 MG TABLET PO SCH ×2 (09:46→20:24)
[2020-04-19] MEDS: VITAMIN D 5,000 UNIT CAP PO SCH (09:46)
[2020-04-19] MEDS: ASCORBIC ACID 500 MG TABLET PO SCH ×4 (09:46→20:24)
[2020-04-19] MEDS: FAMOTIDINE 20 MG TAB PO SCH ×2 (09:46→20:24)
[2020-04-19] MEDS: MONTELUKAST 10 MG TAB PO SCH (09:46)
[2020-04-19] MEDS: ZINC SULFATE 220 MG CAP PO SCH (09:46)
[2020-04-19] MEDS: THIAMINE 200 MG/2 ML INJ IVP SCH (09:46)
[2020-04-19] MEDS: METHYLPREDNISOLONE 125 MG INJ IV SCH ×2 (09:51→20:24)
[2020-04-19] MEDS: LORazepam 2 MG/ML VIAL IV PRN ×2 (10:45→20:49)
--- NOTE | 2020-04-19 12:06 | P.PN ---
Subjective Date of Service: 04/19/20 Primary Care Provider: Brayan Davies Chief Complaint: Respiratory failure Patient remain on high-flow oxygen. He is in sinus rhythm.. He has no new complain. He denies shortness of breath at rest. Nursing staff report episodes of anxiety. Physical Examination - Vital Signs Temperature: 96.9 F Blood Pressure: 130/86 Pulse: 78 Respirations: 27 Pulse Ox (%): 79 - Physical Exam General: Alert, In no apparent distress Neck: JVD not distended Respiratory: Other (Nonlabored breathing.) Cardiovascular: Regular rate/rhythm Gastrointestinal: Soft and benign, Non-distended Musculoskeletal: No swelling Integumentary: No rashes Neurological: Other (No focal motor deficit) - Studies Microbiology Data (last 24 hrs): 04/14/20 04:40 Blood - Blood Aerobic Blood Culture - Final No growth in 5 days. 04/14/20 04:40 Blood - Blood Anaerobic Blood Culture - Final No growth in 5 days. 04/14/20 04:25 Blood - Blood Aerobic Blood Culture - Final No growth in 5 days. 04/14/20 04:25 Blood - Blood Anaerobic Blood Culture - Final No growth in 5 days. Assessment And Plan - Current Problems (Diagnosis) (1) Acute respiratory failure with hypoxia Current Visit: Yes Status: Acute (2) Atrial fibrillation with RVR Current Visit: Yes Status: Acute (3) Asthma Current Visit: Yes Status: Acute (4) Pneumonia due to COVID-19 virus Current Visit: Yes Status: Acute (5) HTN (hypertension) Current Visit: Yes Status: Chronic Qualifiers: Hypertension type: essential hypertension Qualified Code(s): I10 - Essential (primary) hypertension (6) Sleep apnea Current Visit: Yes Status: Chronic Qualifiers: Sleep apnea type: obstructive Qualified Code(s): G47.33 - Obstructive sleep apnea (adult) (pediatric) - Plan No major changes from yesterday Continue high dose IV steroid. Status post 1 unit convalescent plasma transfusion. Patient also started on Remdesivir. Vitamin D and C supplementation, zinc supplementation. Status post Ivermectin. Pulmonary is following. Continue Eliquis Continue oral metoprolol for AFib rate control. Echocardiogram: Normal EF.
[2020-04-19] MEDS: Remdesivir 100 MG in NA CHLORIDE 0.9% 250 ML IV SCH (14:05)
[2020-04-19] MEDS: clonazePAM 0.5 MG TAB PO PRN (14:08)
--- NOTE | 2020-04-19 15:55 | P.PN ---
Subjective Date of Service: 04/19/20 Primary Care Provider: Brayan Davies Chief Complaint: Respiratory failure Not doing well. Refusing BIPAP. Very anxious Review of Systems General: Weakness Respiratory: Shortness of Breath Physical Examination - Vital Signs Temperature: 96.9 F Blood Pressure: 130/86 Pulse: 78 Respirations: 27 Pulse Ox (%): 79 - Studies Microbiology Data (last 24 hrs): 04/14/20 04:40 Blood - Blood Aerobic Blood Culture - Final No growth in 5 days. 04/14/20 04:40 Blood - Blood Anaerobic Blood Culture - Final No growth in 5 days. 04/14/20 04:25 Blood - Blood Aerobic Blood Culture - Final No growth in 5 days. 04/14/20 04:25 Blood - Blood Anaerobic Blood Culture - Final No growth in 5 days. Assessment & Plan - Problems (Diagnosis) (1) Pneumonia due to COVID-19 virus Current Visit: Yes Status: Acute Plan: Resp failure. Refusing BIPAP. Very anxious Requiring HF O2 . Add Klyash. Gabrielley dehydrated Repeat dose of Ivermectin Physician Review: Patient Assessed, Agree with Above Assessment and Plan
[2020-04-19] MEDS ORDERED: IVERMECTIN 3 MG TABLET PO ONE (16:00)
[2020-04-19] MEDS: TOPIRAMATE 25 MG TAB PO SCH (17:02)
[2020-04-19] MEDS: TRAZODONE 50 MG TABLET PO SCH (20:24)
[2020-04-19] MEDS: MELATONIN 5 MG TABLET PO SCH (20:24)
[2020-04-20 05:26] LABS: Absolute Lymphocytes (CBC) 0.6 K/uL (0.7-4.9); Basophils % 0.2 % (0-1.3); Lymphocytes % 4.5 % (15.3-44.8); MPV 8.7 fL (7.6-11.3); RBC Red Blood Cell Count 5.05 M/uL (4.33-5.43)
[2020-04-20 05:42] LABS: Albumin 2.4 g/dL (3.4-5.0); Bilirubin Direct 0.2 mg/dL (0-0.2); C-Reactive Protein 19.7 mg/L (<3.00); Ferritin 837.9 ng/mL (26-388); Potassium 4.5 mmol/L (3.5-5.1); Protein, Total 6.9 g/dL (6.4-8.2)
[2020-04-20] MEDS: METOPROLOL TAR 25 MG TAB PO SCH ×2 (07:45→17:29)
[2020-04-20] MEDS: VITAMIN D 5,000 UNIT CAP PO SCH (07:45)
[2020-04-20] MEDS: THIAMINE 200 MG/2 ML INJ IVP SCH (07:46)
[2020-04-20] MEDS: APIXABAN 5 MG TABLET PO SCH ×2 (07:46→20:27)
[2020-04-20] MEDS: FAMOTIDINE 20 MG TAB PO SCH ×2 (07:46→20:26)
[2020-04-20] MEDS: MONTELUKAST 10 MG TAB PO SCH (07:46)
[2020-04-20] MEDS: ZINC SULFATE 220 MG CAP PO SCH (07:46)
[2020-04-20] MEDS: METHYLPREDNISOLONE 125 MG INJ IV SCH ×2 (07:47→20:25)
[2020-04-20] MEDS: ASCORBIC ACID 500 MG TABLET PO SCH ×4 (07:52→20:27)
[2020-04-20] MEDS: Fluticasone/Umeclidin/Vilanter [Trelegy Ellipta 200-62.5-25] Blst.W.Dev IH SCH (09:00)
[2020-04-20] MEDS: clonazePAM 0.5 MG TAB PO PRN ×2 (10:54→21:09)
--- NOTE | 2020-04-20 12:20 | P.PN ---
Subjective Date of Service: 04/20/20 Primary Care Provider: Brayan Davies Chief Complaint: Respiratory failure Subjective: No new changes (reports he feels about the same, maybe slightly better compared to yesterday. without new complaints, voiding without issue) Review of Systems 10-point ROS is otherwise unremarkable Physical Examination - Vital Signs Temperature: 98.6 F Blood Pressure: 115/73 Pulse: 82 Respirations: 37 Pulse Ox (%): 82 Assessment & Plan Physician Review Additional Text: Physical Exam Gen: NAD, alert HEENT: normal conjunctiva, sclera anicteric Pulm: nonlabored respirations on HFNC CV: Regular rate and rhythm Abd: soft, non-tender, non-distended Ext: no swelling/tenderness Problem List: Acute respiratory failure with hypoxia afib with RVR Asthma Pneumonia due to COVID-19 virus HTN PREMA continue IV Solu-Medrol 80 mg b.i.d. s/p 1u conv plasma, ivermectin. on Remdesevir Vitamin D and C supplementation, zinc supplementation. Ferritin and CRP with slight improvement Pulmonary is following. wean HFNC as tolerated Continue Eliquis Continue oral metoprolol for AFib rate control - per cardiology recommendations Echocardiogram: Normal EF. VTE: eliquis Code: full Dispo: anticipate dc home, > 2 days, will need home O2. weaning O2 Time Spent Managing Pts Care (In Minutes): 35
[2020-04-20] MEDS: Remdesivir 100 MG in NA CHLORIDE 0.9% 250 ML IV SCH (14:34)
[2020-04-20] MEDS: TOPIRAMATE 25 MG TAB PO SCH (17:29)
[2020-04-20] MEDS: BENZONATATE 100 MG CAP PO PRN (20:27)
[2020-04-20] MEDS: MELATONIN 5 MG TABLET PO SCH (20:27)
[2020-04-20] MEDS: TRAMADOL HCL 50 MG TAB PO PRN (20:27)
[2020-04-20] MEDS: TRAZODONE 50 MG TABLET PO SCH (20:27)
[2020-04-21] MEDS: ACETAMINOPHEN 325 MG TABLET PO PRN ×2 (04:58→17:22)
[2020-04-21] MEDS: METOPROLOL TAR 25 MG TAB PO SCH ×2 (04:59→17:22)
[2020-04-21] MEDS: BENZONATATE 100 MG CAP PO PRN (05:01)
[2020-04-21 05:43] LABS: Albumin 2.4 g/dL (3.4-5.0); Bilirubin Direct 0.3 mg/dL (0-0.2); Bilirubin Total 1.3 mg/dL (0.2-1.0); C-Reactive Protein 39.6 mg/L (<3.00); Ferritin 777.7 ng/mL (26-388); Potassium 4.7 mmol/L (3.5-5.1); Protein, Total 7.1 g/dL (6.4-8.2)
--- NOTE | 2020-04-21 07:37 | RAD REPORT ---
EXAM DESCRIPTION: Carol Ann Single View04/21/2020 6:59 am CLINICAL HISTORY: Chest pain COMPARISON: April 17 FINDINGS: Overall no significant change in the bilateral pulmonary opacities. Heart is borderline e nlarged
[2020-04-21] MEDS: THIAMINE 200 MG/2 ML INJ IVP SCH (08:56)
[2020-04-21] MEDS: ASCORBIC ACID 500 MG TABLET PO SCH ×4 (08:56→21:09)
[2020-04-21] MEDS: METHYLPREDNISOLONE 125 MG INJ IV SCH ×2 (08:56→21:09)
[2020-04-21] MEDS: VITAMIN D 5,000 UNIT CAP PO SCH (08:56)
[2020-04-21] MEDS: APIXABAN 2.5 MG TABLET PO SCH ×2 (08:57→21:08)
[2020-04-21] MEDS: Fluticasone/Umeclidin/Vilanter [Trelegy Ellipta 200-62.5-25] Blst.W.Dev IH SCH (08:57)
[2020-04-21] MEDS: FAMOTIDINE 20 MG TAB PO SCH ×2 (08:57→21:08)
[2020-04-21] MEDS: MONTELUKAST 10 MG TAB PO SCH (08:57)
[2020-04-21] MEDS: ZINC SULFATE 220 MG CAP PO SCH (08:57)
[2020-04-21] MEDS ORDERED: D50W 25 GM/50 ML SYRINGE IV PRN (10:46)
[2020-04-21] MEDS ORDERED: GLUCAGON 1 MG/VIAL IM PRN (10:46)
[2020-04-21] MEDS: INSULIN -REGULAR HUMAN 50 UNIT/0.5 ML ML SQ SCH ×3 (11:30→21:00)
[2020-04-21] MEDS ORDERED: INSULIN -REGULAR HUMAN 50 UNIT/0.5 ML ML IV SCH (11:30)
[2020-04-21] MEDS: clonazePAM 0.5 MG TAB PO PRN (12:51)
--- NOTE | 2020-04-21 13:08 | P.PN ---
Subjective Date of Service: 04/20/20 Primary Care Provider: Brayan Davies Chief Complaint: Respiratory failure Not doing well anxious continues to remain hypoxic requiring high concentrations of oxygen still Review of Systems General: Weakness Respiratory: Shortness of Breath Physical Examination - Vital Signs Temperature: 97.1 F Blood Pressure: 116/82 Pulse: 74 Respirations: 35 Pulse Ox (%): 93 Assessment & Plan - Problems (Diagnosis) (1) Pneumonia due to COVID-19 virus Current Visit: Yes Status: Acute Plan: Respiratory failure still requiring high concentrations of oxygen continue with present medication prone positioning he has had 3 doses of ivermectin now maximum treatment Physician Review: Patient Assessed, Agree with Above Assessment and Plan
[2020-04-21] MEDS: Remdesivir 100 MG in NA CHLORIDE 0.9% 250 ML IV SCH (14:00)
--- NOTE | 2020-04-21 15:59 | P.PN ---
Subjective Date of Service: 04/21/20 Primary Care Provider: Brayan Davies Chief Complaint: Respiratory failure Subjective: No new changes (feels about the same, has not gotten out of bed much, sleeps most of day) Review of Systems 10-point ROS is otherwise unremarkable Physical Examination - Vital Signs Temperature: 97.1 F Blood Pressure: 119/72 Pulse: 69 Respirations: 33 Pulse Ox (%): 91 Assessment & Plan Physician Review Additional Text: Physical Exam Gen: NAD, AAOx3 HEENT: normal conjunctiva, sclera anicteric Pulm: nonlabored respirations on HFNC CV: Regular rate and rhythm Abd: soft, non-tender, non-distended Ext: no swelling/tenderness Problem List: Acute respiratory failure with hypoxia afib with RVR Asthma Pneumonia due to COVID-19 virus HTN PREMA continue IV Solu-Medrol 80 mg b.i.d. s/p 1u conv plasma, ivermectin. on Remdesevir Vitamin D and C supplementation, zinc supplementation. Ferritin and CRP slightly improved /~same Pulmonary is following. wean HFNC as tolerated Continue Eliquis Continue oral metoprolol for AFib rate control - per cardiology recommendations Echocardiogram: Normal EF. VTE: eliquis Code: full Dispo: anticipate dc home, > 2 days, will need home O2 Time Spent Managing Pts Care (In Minutes): 35
[2020-04-21] MEDS: TOPIRAMATE 25 MG TAB PO SCH (17:22)
[2020-04-21] MEDS ORDERED: D50W 25 GM/50 ML VIAL IV PRN (18:00)
[2020-04-21] MEDS: TRAMADOL HCL 50 MG TAB PO PRN (18:50)
[2020-04-21] MEDS: TRAZODONE 50 MG TABLET PO SCH (21:08)
[2020-04-21] MEDS: MELATONIN 5 MG TABLET PO SCH (21:10)
[2020-04-22] MEDS: clonazePAM 0.5 MG TAB PO PRN (01:02)
[2020-04-22] MEDS: TRAMADOL HCL 50 MG TAB PO PRN ×2 (01:02→12:11)
[2020-04-22 05:18] LABS: Albumin 2.3 g/dL (3.4-5.0); Bilirubin Direct 0.3 mg/dL (0-0.2); Bilirubin Total 1.3 mg/dL (0.2-1.0); C-Reactive Protein 38.5 mg/L (<3.00); Ferritin 761.6 ng/mL (26-388); Magnesium 2.4 mg/dL (1.8-2.4); Potassium 4.8 mmol/L (3.5-5.1); Protein, Total 6.7 g/dL (6.4-8.2)
[2020-04-22] MEDS: INSULIN -REGULAR HUMAN 50 UNIT/0.5 ML ML SQ SCH ×4 (07:30→21:00)
[2020-04-22] MEDS: Fluticasone/Umeclidin/Vilanter [Trelegy Ellipta 200-62.5-25] Blst.W.Dev IH SCH (09:00)
[2020-04-22] MEDS: MONTELUKAST 10 MG TAB PO SCH (09:06)
[2020-04-22] MEDS: VITAMIN D 5,000 UNIT CAP PO SCH (09:06)
[2020-04-22] MEDS: METOPROLOL TAR 25 MG TAB PO SCH ×2 (09:06→17:09)
[2020-04-22] MEDS: APIXABAN 2.5 MG TABLET PO SCH ×2 (09:06→21:00)
[2020-04-22] MEDS: FAMOTIDINE 20 MG TAB PO SCH ×2 (09:06→21:09)
[2020-04-22] MEDS: ZINC SULFATE 220 MG CAP PO SCH (09:06)
[2020-04-22] MEDS: ASCORBIC ACID 500 MG TABLET PO SCH ×4 (09:06→21:09)
[2020-04-22] MEDS: METHYLPREDNISOLONE 125 MG INJ IV SCH ×2 (09:11→21:09)
[2020-04-22] MEDS: THIAMINE 200 MG/2 ML INJ IVP SCH (09:12)
[2020-04-22] MEDS: Remdesivir 100 MG in NA CHLORIDE 0.9% 250 ML IV SCH ×2 (13:40→15:14)
[2020-04-22] MEDS: ENSURE HIGH PROTEIN 237 ML CAN PO SCH ×2 (17:00→21:10)
[2020-04-22] MEDS: TOPIRAMATE 25 MG TAB PO SCH (17:09)
--- NOTE | 2020-04-22 17:15 | P.PN ---
Subjective Date of Service: 04/22/20 Primary Care Provider: Brayan Davies Chief Complaint: Respiratory failure Subjective: Improving (Feeling better, breathing more comfortably, appetite improving) Review of Systems 10-point ROS is otherwise unremarkable Physical Examination - Vital Signs Temperature: 97.6 F Blood Pressure: 115/76 Pulse: 70 Respirations: 29 Pulse Ox (%): 92 Assessment & Plan Physician Review Additional Text: Physical Exam Gen: NAD, AAOx3 HEENT: normal conjunctiva, sclera anicteric Pulm: nonlabored respirations on HFNC CV: Regular rate and rhythm Abd: soft, non-tender, non-distended Ext: no swelling/tenderness Problem List: Acute respiratory failure with hypoxia afib with RVR Asthma Pneumonia due to COVID-19 virus HTN PREMA continue IV Solu-Medrol 80 mg b.i.d. s/p 1u conv plasma, ivermectin. on Remdesevir Vitamin D and C supplementation, zinc supplementation. Ferritin and CRP slightly improved Pulmonary is following. wean HFNC as tolerated Continue Eliquis Continue oral metoprolol for AFib rate control - per cardiology recommendations Echocardiogram: Normal EF. VTE: eliquis Code: full Dispo: anticipate dc home, > 2 days, will need home O2 Time Spent Managing Pts Care (In Minutes): 40
[2020-04-22] MEDS ORDERED: APIXABAN 5 MG TABLET ONE (20:11)
[2020-04-22] MEDS: TRAZODONE 50 MG TABLET PO SCH (21:09)
[2020-04-22] MEDS: MELATONIN 5 MG TABLET PO SCH (21:09)
[2020-04-23] MEDS: METOPROLOL TAR 25 MG TAB PO SCH ×2 (05:04→17:53)
[2020-04-23 05:44] LABS: Absolute Lymphocytes (CBC) 0.3 K/uL (0.7-4.9); Basophils % 0.4 % (0-1.3); Hematocrit 50.4 % (39.6-49.0); Lymphocytes % 2.1 % (15.3-44.8); MPV 9.4 fL (7.6-11.3); RBC Red Blood Cell Count 5.46 M/uL (4.33-5.43)
[2020-04-23 06:10] LABS: C-Reactive Protein 21.5 mg/L (<3.00); Ferritin 679.2 ng/mL (26-388)
[2020-04-23] MEDS: INSULIN -REGULAR HUMAN 50 UNIT/0.5 ML ML SQ SCH ×4 (07:30→19:48)
[2020-04-23 07:34] LABS: Blood Morphology Comment NOT SEEN (NOT SEEN); Platelet Estimate ADEQ; White Blood Cell Scan OK (OK)
[2020-04-23] MEDS: THIAMINE 200 MG/2 ML INJ IVP SCH (08:41)
[2020-04-23] MEDS: METHYLPREDNISOLONE 125 MG INJ IV SCH ×2 (08:41→20:18)
[2020-04-23] MEDS: FAMOTIDINE 20 MG TAB PO SCH ×2 (08:42→20:20)
[2020-04-23] MEDS: VITAMIN D 5,000 UNIT CAP PO SCH (08:42)
[2020-04-23] MEDS: MONTELUKAST 10 MG TAB PO SCH (08:42)
[2020-04-23] MEDS: ASCORBIC ACID 500 MG TABLET PO SCH ×4 (08:42→20:20)
[2020-04-23] MEDS: ENSURE HIGH PROTEIN 237 ML CAN PO SCH ×3 (08:42→20:29)
[2020-04-23] MEDS: ZINC SULFATE 220 MG CAP PO SCH (08:42)
[2020-04-23] MEDS: APIXABAN 2.5 MG TABLET PO SCH (08:44)
[2020-04-23] MEDS: Fluticasone/Umeclidin/Vilanter [Trelegy Ellipta 200-62.5-25] Blst.W.Dev IH SCH (09:00)
[2020-04-23] MEDS: CEPACOL LOZENGES PO PRN (09:40)
[2020-04-23] MEDS: BENZONATATE 100 MG CAP PO PRN (09:40)
[2020-04-23] MEDS ORDERED: GLUCAGON 1 MG/VIAL IM PRN (12:17)
[2020-04-23] MEDS ORDERED: D50W 25 GM/50 ML SYRINGE IV PRN (12:17)
--- NOTE | 2020-04-23 12:18 | P.PN ---
Subjective Date of Service: 04/23/20 Primary Care Provider: Brayan Davies Chief Complaint: Respiratory failure Patient is feeling better he is sitting in his chair working on his computer feeling better oxygen requirements are declining Review of Systems General: Weakness Respiratory: Shortness of Breath Physical Examination - Vital Signs Temperature: 97.7 F Blood Pressure: 135/73 Pulse: 72 Respirations: 28 Pulse Ox (%): 87 Assessment & Plan - Problems (Diagnosis) (1) Pneumonia due to COVID-19 virus Current Visit: Yes Status: Acute Plan: Respiratory failure patient is improving continue titrate his O2 down as a history of asthma complaining of a slight cough labs reviewed blood sugars elevated I have added NPH insulin patient has a 3 doses of ivermectin continue with present doses of steroids for now Physician Review: Patient Assessed, Agree with Above Assessment and Plan
--- NOTE | 2020-04-23 16:52 | P.PN ---
Subjective Date of Service: 04/23/20 Primary Care Provider: Brayan Davies Chief Complaint: Respiratory failure Subjective: Improving (improving, feeling better, eating better, more optimistic today, in better mood) Review of Systems 10-point ROS is otherwise unremarkable Physical Examination - Vital Signs Temperature: 97.7 F Blood Pressure: 106/70 Pulse: 75 Respirations: 27 Pulse Ox (%): 95 Assessment & Plan Physician Review Additional Text: Physical Exam Gen: NAD, sitting up in bed HEENT: normal conjunctiva, sclera anicteric Pulm: nonlabored respirations on HFNC, dry cough CV: Regular rate and rhythm Abd: soft, non-tender, non-distended Ext: no swelling/tenderness Problem List: Acute respiratory failure with hypoxia afib with RVR Asthma Pneumonia due to COVID-19 virus HTN PREMA continue IV Solu-Medrol 80 mg b.i.d. s/p 1u conv plasma, ivermectin. on Remdesevir Vitamin D and C supplementation, zinc supplementation. Ferritin and CRP slightly improved Pulmonary is following. wean HFNC as tolerated Continue Eliquis Continue oral metoprolol for AFib rate control - per cardiology recommendations titrate insulin for steroid induced hyperglycemia Echocardiogram: Normal EF. VTE: eliquis Code: full Dispo: anticipate dc home, > 2 days, will need home O2 Time Spent Managing Pts Care (In Minutes): 35
[2020-04-23] MEDS: INSULIN 70/30 100 UNITS/ML SQ SCH (17:05)
[2020-04-23] MEDS: TOPIRAMATE 25 MG TAB PO SCH (17:24)
[2020-04-23] MEDS: MELATONIN 5 MG TABLET PO SCH (20:20)
[2020-04-23] MEDS: APIXABAN 5 MG TABLET PO SCH (20:20)
[2020-04-23] MEDS: TRAZODONE 50 MG TABLET PO SCH (20:20)
[2020-04-24 05:25] LABS: C-Reactive Protein 11.5 mg/L (<3.00); Ferritin 693.6 ng/mL (26-388)
[2020-04-24] MEDS: METOPROLOL TAR 25 MG TAB PO SCH ×2 (06:15→17:58)
[2020-04-24] MEDS: INSULIN -REGULAR HUMAN 50 UNIT/0.5 ML ML SQ SCH ×4 (07:30→20:03)
[2020-04-24] MEDS: INSULIN 70/30 100 UNITS/ML SQ SCH ×3 (07:30→17:58)
[2020-04-24] MEDS: MONTELUKAST 10 MG TAB PO SCH (08:35)
[2020-04-24] MEDS: ZINC SULFATE 220 MG CAP PO SCH (08:35)
[2020-04-24] MEDS: METHYLPREDNISOLONE 125 MG INJ IV SCH ×2 (08:35→20:03)
[2020-04-24] MEDS: VITAMIN D 5,000 UNIT CAP PO SCH (08:35)
[2020-04-24] MEDS: FAMOTIDINE 20 MG TAB PO SCH ×2 (08:36→20:03)
[2020-04-24] MEDS: ENSURE HIGH PROTEIN 237 ML CAN PO SCH ×2 (08:36→21:00)
[2020-04-24] MEDS: ASCORBIC ACID 500 MG TABLET PO SCH ×4 (08:36→20:03)
[2020-04-24] MEDS: THIAMINE 200 MG/2 ML INJ IVP SCH (08:36)
[2020-04-24] MEDS: APIXABAN 5 MG TABLET PO SCH ×2 (08:36→20:03)
[2020-04-24] MEDS: Fluticasone/Umeclidin/Vilanter [Trelegy Ellipta 200-62.5-25] Blst.W.Dev IH SCH (09:00)
--- NOTE | 2020-04-24 10:05 | P.PN ---
Subjective Date of Service: 04/24/20 (Hospitalist) Primary Care Provider: Brayan Davies Chief Complaint: Respiratory failure All those feeling subjectively better he still continues to remain very hypoxic still experiencing desaturation Review of Systems General: Weakness Respiratory: Shortness of Breath Physical Examination - Vital Signs Temperature: 97.4 F Blood Pressure: 107/65 Pulse: 65 Respirations: 25 Pulse Ox (%): 95 - Physical Exam General: Alert, In no apparent distress, Oriented x3 Cardiovascular: No edema, Normal S1 S2 Gastrointestinal: Normal bowel sounds, Soft and benign Assessment & Plan - Problems (Diagnosis) (1) Pneumonia due to COVID-19 virus Current Visit: Yes Status: Acute Plan: Respiratory failure from byrne virus no change in patient's condition will try BiPAP during the day alternating with high-flow blood sugars reasonably controlled white count mildly elevated echocardiogram is normal increase insulin Physician Review: Patient Assessed, Agree with Above Assessment and Plan
[2020-04-24] MEDS: TOPIRAMATE 25 MG TAB PO SCH (17:58)
[2020-04-24] MEDS: TRAZODONE 50 MG TABLET PO SCH (20:02)
[2020-04-24] MEDS: MELATONIN 5 MG TABLET PO SCH (20:03)
[2020-04-25] MEDS: METOPROLOL TAR 25 MG TAB PO SCH (06:00)
[2020-04-25 06:12] LABS: Absolute Lymphocytes (CBC) 0.6 K/uL (0.7-4.9); Basophils % 0.4 % (0-1.3); Hematocrit 52.1 % (39.6-49.0); Lymphocytes % 2.9 % (15.3-44.8); MPV 9.4 fL (7.6-11.3); RBC Red Blood Cell Count 5.61 M/uL (4.33-5.43)
[2020-04-25 06:13] LABS: C-Reactive Protein 7.38 mg/L (<3.00); Ferritin 731.3 ng/mL (26-388); Potassium 4.6 mmol/L (3.5-5.1)
[2020-04-25] MEDS: INSULIN -REGULAR HUMAN 50 UNIT/0.5 ML ML SQ SCH ×4 (07:24→20:09)
[2020-04-25] MEDS: ASCORBIC ACID 500 MG TABLET PO SCH ×4 (07:38→20:09)
[2020-04-25] MEDS: ZINC SULFATE 220 MG CAP PO SCH ×2 (07:38→07:39)
[2020-04-25] MEDS: BENZONATATE 100 MG CAP PO PRN (07:38)
[2020-04-25] MEDS: APIXABAN 5 MG TABLET PO SCH ×2 (07:38→20:09)
[2020-04-25] MEDS: METHYLPREDNISOLONE 125 MG INJ IV SCH ×2 (07:38→20:09)
[2020-04-25] MEDS: THIAMINE 200 MG/2 ML INJ IVP SCH (07:38)
[2020-04-25] MEDS: FAMOTIDINE 20 MG TAB PO SCH ×2 (07:38→20:09)
[2020-04-25] MEDS: INSULIN 70/30 100 UNITS/ML SQ SCH ×2 (07:39→17:17)
[2020-04-25] MEDS: VITAMIN D 5,000 UNIT CAP PO SCH (07:39)
[2020-04-25] MEDS: MONTELUKAST 10 MG TAB PO SCH (07:39)
[2020-04-25] MEDS: ENSURE HIGH PROTEIN 237 ML CAN PO SCH ×2 (07:39→21:00)
[2020-04-25] MEDS: CEPACOL LOZENGES PO PRN (07:39)
[2020-04-25] MEDS: Fluticasone/Umeclidin/Vilanter [Trelegy Ellipta 200-62.5-25] Blst.W.Dev IH SCH (09:00)
--- NOTE | 2020-04-25 09:18 | P.PN ---
Subjective Date of Service: 04/25/20 (Hospitalist) Primary Care Provider: Brayan Davies Chief Complaint: Respiratory failure Still continues to be hypoxic otherwise he is feeling better unable to tolerate BiPAP blood pressure is little low Review of Systems Respiratory: Shortness of Breath Physical Examination - Vital Signs Temperature: 98.6 F Blood Pressure: 97/59 Pulse: 55 Respirations: 25 Pulse Ox (%): 95 - Physical Exam General: Alert, Oriented x3, Mild distress Respiratory: Clear to auscultation bilaterally, Diminished Cardiovascular: No edema, Regular rate/rhythm Gastrointestinal: Normal bowel sounds, Soft and benign Assessment & Plan - Problems (Diagnosis) (1) Pneumonia due to COVID-19 virus Current Visit: Yes Status: Acute Plan: Respiratory failure from byrne virus blood pressure low Dc Toprol all labs reviewed blood sugar is reasonably controlled patient is on insulin continue to wean down on the FiO2 Physician Review: Patient Assessed, Agree with Above Assessment and Plan
[2020-04-25] MEDS: TOPIRAMATE 25 MG TAB PO SCH ×3 (17:00→17:46)
[2020-04-25] MEDS: TRAZODONE 50 MG TABLET PO SCH (20:08)
[2020-04-25] MEDS: MELATONIN 5 MG TABLET PO SCH (20:09)
[2020-04-26 05:53] LABS: Hematocrit 50.6 % (39.6-49.0); MPV 9.5 fL (7.6-11.3); RBC Red Blood Cell Count 5.43 M/uL (4.33-5.43)
[2020-04-26 06:11] LABS: BUN Blood Urea Nitrogen 20 mg/dL (7-18); Bicarbonate 29 mmol/L (21-32); C-Reactive Protein 8.98 mg/L (<3.00); Ferritin 655.7 ng/mL (26-388); Glucose Level 111 mg/dL (74-106); Potassium 4.2 mmol/L (3.5-5.1); Sodium Level 138 mmol/L (136-145)
[2020-04-26] MEDS: INSULIN 70/30 100 UNITS/ML SQ SCH ×2 (07:30→17:50)
[2020-04-26] MEDS: INSULIN -REGULAR HUMAN 50 UNIT/0.5 ML ML SQ SCH ×4 (07:30→21:00)
[2020-04-26] MEDS: Fluticasone/Umeclidin/Vilanter [Trelegy Ellipta 200-62.5-25] Blst.W.Dev IH SCH (09:00)
[2020-04-26] MEDS: ZINC SULFATE 220 MG CAP PO SCH (09:40)
[2020-04-26] MEDS: METHYLPREDNISOLONE 125 MG INJ IV SCH ×2 (09:40→21:54)
[2020-04-26] MEDS: MONTELUKAST 10 MG TAB PO SCH (09:40)
[2020-04-26] MEDS: APIXABAN 5 MG TABLET PO SCH ×2 (09:40→21:53)
[2020-04-26] MEDS: VITAMIN D 5,000 UNIT CAP PO SCH (09:40)
[2020-04-26] MEDS: FAMOTIDINE 20 MG TAB PO SCH ×2 (09:40→21:53)
[2020-04-26] MEDS: THIAMINE 200 MG/2 ML INJ IVP SCH (09:40)
[2020-04-26] MEDS: ASCORBIC ACID 500 MG TABLET PO SCH ×4 (09:41→21:53)
[2020-04-26] MEDS: ENSURE HIGH PROTEIN 237 ML CAN PO SCH ×2 (09:42→21:55)
--- NOTE | 2020-04-26 13:08 | P.PN ---
Subjective Date of Service: 04/26/20 Primary Care Provider: Brayan Davies Chief Complaint: Respiratory failure Subjective: No new changes (Feeling well, eating well, voiding and stooling without issue. hypoxia with movement) Review of Systems 10-point ROS is otherwise unremarkable Physical Examination - Vital Signs Temperature: 97.9 F Blood Pressure: 94/75 Pulse: 91 Respirations: 22 Pulse Ox (%): 94 Assessment & Plan Physician Review Additional Text: Physical Exam Gen: NAD, sitting up in chair at bedside HEENT: normal conjunctiva, sclera anicteric Pulm: nonlabored respirations on HFNC CV: Regular rate and rhythm Abd: soft, non-tender, non-distended Ext: no swelling/tenderness Problem List: Acute respiratory failure with hypoxia afib with RVR Asthma Pneumonia due to COVID-19 virus HTN PREMA continue IV Solu-Medrol . s/p 1u conv plasma, ivermectin. on Remdesevir Vitamin D and C supplementation, zinc supplementation. Pulmonary is following. wean HFNC as tolerated Continue Brian was on metoprolol for Afib per cardiology recommendations, dc'd on 04/25 due to hypotension titrate insulin for steroid induced hyperglycemia Echocardiogram: Normal EF. VTE: eliquis Code: full Dispo: anticipate dc home, > 2 days, will need home O2 Time Spent Managing Pts Care (In Minutes): 35
[2020-04-26] MEDS: TOPIRAMATE 25 MG TAB PO SCH (17:50)
[2020-04-26] MEDS: TRAZODONE 50 MG TABLET PO SCH (21:53)
[2020-04-26] MEDS: MELATONIN 5 MG TABLET PO SCH (21:53)
[2020-04-27] MEDS: INSULIN -REGULAR HUMAN 50 UNIT/0.5 ML ML SQ SCH ×4 (07:30→21:00)
--- NOTE | 2020-04-27 08:36 | P.PN ---
Subjective Date of Service: 04/27/20 Primary Care Provider: Brayan Davies Chief Complaint: Respiratory failure Patient is doing much better still complains a dyspnea on mild exertion with significant coughing as down to 55 L of high-flow Review of Systems General: Weakness Respiratory: Shortness of Breath Physical Examination - Vital Signs Temperature: 97.4 F Blood Pressure: 118/67 Pulse: 89 Respirations: 24 Pulse Ox (%): 91 - Physical Exam General: Alert, In no apparent distress, Moderate distress Respiratory: Clear to auscultation bilaterally, Diminished Assessment & Plan - Problems (Diagnosis) (1) Pneumonia due to COVID-19 virus Current Visit: Yes Status: Acute Plan: Respiratory failure patient is improving the weaned down to nasal cannula oxygen evaluate for discharge on prednisone 20 b.i.d. for a week then 10 b.i.d. telephone visit with me with another week vital signs stable Physician Review: Patient Assessed, Agree with Above Assessment and Plan
[2020-04-27] MEDS: Fluticasone/Umeclidin/Vilanter [Trelegy Ellipta 200-62.5-25] Blst.W.Dev IH SCH (09:00)
[2020-04-27] MEDS: ZINC SULFATE 220 MG CAP PO SCH (09:17)
[2020-04-27] MEDS: FAMOTIDINE 20 MG TAB PO SCH ×2 (09:17→21:43)
[2020-04-27] MEDS: METHYLPREDNISOLONE 125 MG INJ IV SCH ×2 (09:17→21:45)
[2020-04-27] MEDS: VITAMIN D 5,000 UNIT CAP PO SCH (09:17)
[2020-04-27] MEDS: ENSURE HIGH PROTEIN 237 ML CAN PO SCH ×2 (09:18→21:00)
[2020-04-27] MEDS: MONTELUKAST 10 MG TAB PO SCH (09:18)
[2020-04-27] MEDS: APIXABAN 5 MG TABLET PO SCH ×2 (09:18→21:43)
[2020-04-27] MEDS: THIAMINE 200 MG/2 ML INJ IVP SCH (09:18)
[2020-04-27] MEDS: ASCORBIC ACID 500 MG TABLET PO SCH ×4 (09:18→21:43)
[2020-04-27] MEDS: INSULIN 70/30 100 UNITS/ML SQ SCH ×2 (09:20→17:02)
--- NOTE | 2020-04-27 16:30 | P.PN ---
Subjective Date of Service: 04/27/20 Primary Care Provider: Brayan Davies Chief Complaint: Respiratory failure Patient remain on high-flow oxygen. He remain in sinus rhythm. He has no new complain. He denies shortness of breath at rest. Oxygen requirement is improving. He is currently tolerating 55% FiO2 and 30 L/min of oxygen flow. Physical Examination - Vital Signs Temperature: 97.9 F Blood Pressure: 115/63 Pulse: 89 Respirations: 34 Pulse Ox (%): 91 - Physical Exam General: Alert, In no apparent distress Respiratory: Other (Nonlabored breathing) Cardiovascular: No edema, Regular rate/rhythm Gastrointestinal: Non-distended Musculoskeletal: No swelling Integumentary: No rashes Neurological: Other (No focal motor deficit) Assessment And Plan - Current Problems (Diagnosis) (1) Acute respiratory failure with hypoxia Current Visit: Yes Status: Acute (2) Atrial fibrillation with RVR Current Visit: Yes Status: Acute (3) Asthma Current Visit: Yes Status: Acute (4) Pneumonia due to COVID-19 virus Current Visit: Yes Status: Acute (5) HTN (hypertension) Current Visit: Yes Status: Chronic Qualifiers: Hypertension type: essential hypertension Qualified Code(s): I10 - Essential (primary) hypertension (6) Sleep apnea Current Visit: Yes Status: Chronic Qualifiers: Sleep apnea type: obstructive Qualified Code(s): G47.33 - Obstructive sleep apnea (adult) (pediatric) Physician Review Additional Text: Problem List: Acute respiratory failure with hypoxia afib with RVR Asthma Pneumonia due to COVID-19 virus HTN PREMA continue IV Solu-Medrol . s/p 1u conv plasma, ivermectin. on Remdesevir Vitamin D and C supplementation, zinc supplementation. Pulmonary is following. wean HFNC as tolerated. Oxygen requirement decreasing. I anticipate patient will transition to oxygen by nasal cannula soon. Continue Eliquvidal was on metoprolol for Afib per cardiology recommendations, dc'd on 04/25 due to hypotension titrate insulin for steroid induced hyperglycemia Echocardiogram: Normal EF. VTE: eliquis Code: full
[2020-04-27] MEDS: TOPIRAMATE 25 MG TAB PO SCH (17:02)
[2020-04-27] MEDS: MELATONIN 5 MG TABLET PO SCH (21:43)
[2020-04-27] MEDS: TRAZODONE 50 MG TABLET PO SCH (21:44)
[2020-04-28 04:11] LABS: BUN Blood Urea Nitrogen 22 mg/dL (7-18); Bicarbonate 29 mmol/L (21-32); Glucose Level 120 mg/dL (74-106); Potassium 4.2 mmol/L (3.5-5.1); Sodium Level 139 mmol/L (136-145)
[2020-04-28 04:14] LABS: Hematocrit 48.3 % (39.6-49.0); MPV 9.7 fL (7.6-11.3); RBC Red Blood Cell Count 5.19 M/uL (4.33-5.43)
[2020-04-28 05:24] LABS: Blood Morphology Comment NOT SEEN (NOT SEEN); Platelet Estimate ADEQ
[2020-04-28] MEDS: INSULIN -REGULAR HUMAN 50 UNIT/0.5 ML ML SQ SCH ×4 (07:30→20:39)
[2020-04-28] MEDS: MONTELUKAST 10 MG TAB PO SCH (08:50)
[2020-04-28] MEDS: APIXABAN 5 MG TABLET PO SCH ×2 (08:50→20:38)
[2020-04-28] MEDS: VITAMIN D 5,000 UNIT CAP PO SCH (08:50)
[2020-04-28] MEDS: ZINC SULFATE 220 MG CAP PO SCH (08:51)
[2020-04-28] MEDS: ASCORBIC ACID 500 MG TABLET PO SCH ×4 (08:51→20:38)
[2020-04-28] MEDS: INSULIN 70/30 100 UNITS/ML SQ SCH ×2 (08:51→16:27)
[2020-04-28] MEDS: THIAMINE 200 MG/2 ML INJ IVP SCH (08:51)
[2020-04-28] MEDS: FAMOTIDINE 20 MG TAB PO SCH ×2 (08:51→20:38)
[2020-04-28] MEDS: METHYLPREDNISOLONE 125 MG INJ IV SCH ×2 (08:51→20:38)
[2020-04-28] MEDS: ENSURE HIGH PROTEIN 237 ML CAN PO SCH (08:52)
[2020-04-28] MEDS: Fluticasone/Umeclidin/Vilanter [Trelegy Ellipta 200-62.5-25] Blst.W.Dev IH SCH (08:52)
--- NOTE | 2020-04-28 14:50 | P.PN ---
Subjective Date of Service: 04/28/20 Primary Care Provider: Brayan Davies Chief Complaint: Respiratory failure Subjective: No new changes, Improving Review of Systems 10-point ROS is otherwise unremarkable Physical Examination - Vital Signs Temperature: 97.4 F Blood Pressure: 121/68 Pulse: 90 Respirations: 28 Pulse Ox (%): 92 - Physical Exam General: Alert, In no apparent distress HEENT: Atraumatic, Normocephalic Neck: Supple Respiratory: Diminished, Crackles/rales Cardiovascular: Regular rate/rhythm, Normal S1 S2 Capillary refill: <2 Seconds Gastrointestinal: Soft and benign, W/out hepatosplenomegaly Musculoskeletal: No clubbing, No swelling Integumentary: No rashes Neurological: Normal speech, Normal strength at 5/5 x4 extr Lymphatics: No axilla or inguinal lymphadenopathy Assessment & Plan Physician Review: Patient Assessed, Agree with Above Assessment and Plan Physician Review Additional Text: Assessment and plan Acute respiratory failure with hypoxia Multifocal pneumonia due to COVID 19 afib with RVR Asthma Pneumonia due to COVID-19 virus HTN PREMA Still getting significant amount of oxygen to keep the saturation above 90 Will try to wean down oxygen requirement Appreciate help from pulmonology continue IV Solu-Medrol . s/p 1u conv plasma, ivermectin. on Remdesevir Vitamin D and C supplementation, zinc supplementation. wean HFNC as tolerated. Oxygen requirement decreasing. Continue Brian was on metoprolol for Afib per cardiology recommendations, dc'd on 04/25 due to hypotension titrate insulin for steroid induced hyperglycemia Echocardiogram: Normal EF. Monitor closely under telemetry VTE: eliquis Code: full Awaiting further clinical recovery and weaning off oxygen Patient may need home O2 to be discharged Time Spent Managing Pts Care (In Minutes): 39
[2020-04-28] MEDS: TOPIRAMATE 25 MG TAB PO SCH (16:27)
[2020-04-28] MEDS: TRAZODONE 50 MG TABLET PO SCH (20:38)
[2020-04-28] MEDS: MELATONIN 5 MG TABLET PO SCH (20:38)
[2020-04-29 05:39] LABS: C-Reactive Protein 2.97 mg/L (<3.00); Ferritin 505.1 ng/mL (26-388)
[2020-04-29] MEDS: INSULIN -REGULAR HUMAN 50 UNIT/0.5 ML ML SQ SCH ×4 (07:10→20:35)
[2020-04-29] MEDS: ZINC SULFATE 220 MG CAP PO SCH (07:56)
[2020-04-29] MEDS: ASCORBIC ACID 500 MG TABLET PO SCH ×4 (07:56→20:33)
[2020-04-29] MEDS: FAMOTIDINE 20 MG TAB PO SCH ×2 (07:56→20:34)
[2020-04-29] MEDS: APIXABAN 5 MG TABLET PO SCH ×2 (07:57→20:34)
[2020-04-29] MEDS: VITAMIN D 5,000 UNIT CAP PO SCH (07:57)
[2020-04-29] MEDS: Fluticasone/Umeclidin/Vilanter [Trelegy Ellipta 200-62.5-25] Blst.W.Dev IH SCH (07:57)
[2020-04-29] MEDS: INSULIN 70/30 100 UNITS/ML SQ SCH ×2 (07:57→16:13)
[2020-04-29] MEDS: METHYLPREDNISOLONE 125 MG INJ IV SCH ×2 (07:57→20:34)
[2020-04-29] MEDS: MONTELUKAST 10 MG TAB PO SCH (08:08)
[2020-04-29] MEDS: THIAMINE 200 MG/2 ML INJ IVP SCH (08:08)
[2020-04-29] MEDS: TOPIRAMATE 25 MG TAB PO SCH (16:13)
--- NOTE | 2020-04-29 17:42 | P.PN ---
Subjective Date of Service: 04/29/20 Primary Care Provider: Brayan Davies Chief Complaint: Respiratory failure He has no new complain. He denies shortness of breath at rest. He is currently tolerating 55% FiO2 and 30 L/min of oxygen flow. Physical Examination - Vital Signs Temperature: 97.9 F Blood Pressure: 105/54 Pulse: 62 Respirations: 27 Pulse Ox (%): 90 - Physical Exam General: Alert, In no apparent distress, Oriented x3 Neck: JVD not distended Respiratory: Other (Nonlabored breathing.) Cardiovascular: No edema, Regular rate/rhythm Gastrointestinal: Soft and benign, Non-distended Musculoskeletal: No swelling Integumentary: No rashes Neurological: Other (No focal motor deficit.) Assessment And Plan - Current Problems (Diagnosis) (1) Acute respiratory failure with hypoxia Current Visit: Yes Status: Acute (2) Atrial fibrillation with RVR Current Visit: Yes Status: Acute (3) Asthma Current Visit: Yes Status: Acute (4) Pneumonia due to COVID-19 virus Current Visit: Yes Status: Acute (5) HTN (hypertension) Current Visit: Yes Status: Chronic Qualifiers: Hypertension type: essential hypertension Qualified Code(s): I10 - Essential (primary) hypertension (6) Sleep apnea Current Visit: Yes Status: Chronic Qualifiers: Sleep apnea type: obstructive Qualified Code(s): G47.33 - Obstructive sleep apnea (adult) (pediatric) - Plan Continue high dose IV steroid. Status post 1 unit convalescent plasma transfusion. Patient also started on Remdesivir. Vitamin D and C supplementation, zinc supplementation. Status post Ivermectin. Pulmonary is following. Continue Eliquis Continue oral metoprolol for AFib rate control. Echocardiogram: Normal EF. Wean to oxygen by nasal cannula as possible. Physician Review: Patient Assessed, Agree with Above Assessment and Plan Physician Review Additional Text: Assessment and plan Acute respiratory failure with hypoxia Multifocal pneumonia due to COVID 19 afib with RVR Asthma Pneumonia due to COVID-19 virus HTN PREMA Still getting significant amount of oxygen to keep the saturation above 90 Will try to wean down oxygen requirement Appreciate help from pulmonology continue IV Solu-Medrol . s/p 1u conv plasma, ivermectin. on Remdesevir Vitamin D and C supplementation, zinc supplementation. Oxygen requirement decreasing. Wean to oxygen by nasal cannula as possible. Continue Eliquis was on metoprolol for Afib per cardiology recommendations, dc'd on 04/25 due to hypotension titrate insulin for steroid induced hyperglycemia Echocardiogram: Normal EF. VTE: eliquis Code: full
[2020-04-29] MEDS: TRAZODONE 50 MG TABLET PO SCH (20:34)
[2020-04-29] MEDS: MELATONIN 5 MG TABLET PO SCH (20:34)
[2020-04-30 03:46] LABS: Absolute Lymphocytes (CBC) 0.4 K/uL (0.7-4.9); Basophils % 0.2 % (0-1.3); Hematocrit 45.1 % (39.6-49.0); Lymphocytes % 3.4 % (15.3-44.8); RBC Red Blood Cell Count 4.88 M/uL (4.33-5.43)
[2020-04-30 03:56] LABS: BUN Blood Urea Nitrogen 20 mg/dL (7-18); Bicarbonate 27 mmol/L (21-32); Glucose Level 126 mg/dL (74-106); Potassium 4.2 mmol/L (3.5-5.1); Sodium Level 139 mmol/L (136-145)
[2020-04-30] MEDS: INSULIN -REGULAR HUMAN 50 UNIT/0.5 ML ML SQ SCH ×4 (07:30→20:26)
[2020-04-30] MEDS: ZINC SULFATE 220 MG CAP PO SCH (08:59)
[2020-04-30] MEDS: FAMOTIDINE 20 MG TAB PO SCH ×2 (08:59→20:25)
[2020-04-30] MEDS: VITAMIN D 5,000 UNIT CAP PO SCH (08:59)
[2020-04-30] MEDS: MONTELUKAST 10 MG TAB PO SCH (08:59)
[2020-04-30] MEDS: ASCORBIC ACID 500 MG TABLET PO SCH ×4 (08:59→20:26)
[2020-04-30] MEDS: METHYLPREDNISOLONE 125 MG INJ IV SCH (09:00)
[2020-04-30] MEDS: APIXABAN 5 MG TABLET PO SCH ×2 (09:00→20:26)
[2020-04-30] MEDS: THIAMINE 200 MG/2 ML INJ IVP SCH (09:00)
[2020-04-30] MEDS: Fluticasone/Umeclidin/Vilanter [Trelegy Ellipta 200-62.5-25] Blst.W.Dev IH SCH (09:00)
[2020-04-30] MEDS: INSULIN 70/30 100 UNITS/ML SQ SCH ×2 (09:01→16:36)
--- NOTE | 2020-04-30 12:20 | P.PN ---
Subjective Date of Service: 04/30/20 Primary Care Provider: Brayan Davies Chief Complaint: Respiratory failure Patient is continuing to improve tamez requirements are declining Review of Systems General: Weakness Respiratory: Shortness of Breath Physical Examination - Vital Signs Temperature: 96.9 F Blood Pressure: 113/63 Pulse: 93 Respirations: 25 Pulse Ox (%): 92 Assessment & Plan - Problems (Diagnosis) (1) Pneumonia due to COVID-19 virus Current Visit: Yes Status: Acute Plan: Respiratory failure from byrne virus white count declining continue to wean to nasal cannula oxygen labs reviewed still has dyspnea on mild exertion subjectively doing better Dc BiPAP patient is fully anti coagulated reduce dose of Solu-Medrol possible discharge in 1 or 2 days Physician Review: Patient Assessed, Agree with Above Assessment and Plan
--- NOTE | 2020-04-30 16:25 | P.PN ---
Subjective Date of Service: 04/30/20 Primary Care Provider: Brayan Davies Chief Complaint: Respiratory failure He has no new complain. He denies shortness of breath at rest. He is currently tolerating oxygen by nasal cannula. Physical Examination - Vital Signs Temperature: 96.9 F Blood Pressure: 113/63 Pulse: 93 Respirations: 25 Pulse Ox (%): 92 - Physical Exam General: Alert, In no apparent distress HEENT: Other (Oxygen by nasal cannula) Neck: JVD not distended Respiratory: Other (Nonlabored breathing) Cardiovascular: No edema, Regular rate/rhythm Gastrointestinal: Non-distended Musculoskeletal: No swelling Neurological: Other (No focal motor deficit) Assessment And Plan - Current Problems (Diagnosis) (1) Acute respiratory failure with hypoxia Current Visit: Yes Status: Acute (2) Atrial fibrillation with RVR Current Visit: Yes Status: Acute (3) Asthma Current Visit: Yes Status: Acute (4) Pneumonia due to COVID-19 virus Current Visit: Yes Status: Acute (5) HTN (hypertension) Current Visit: Yes Status: Chronic Qualifiers: Hypertension type: essential hypertension Qualified Code(s): I10 - Essential (primary) hypertension (6) Sleep apnea Current Visit: Yes Status: Chronic Qualifiers: Sleep apnea type: obstructive Qualified Code(s): G47.33 - Obstructive sleep apnea (adult) (pediatric) Physician Review Additional Text: Assessment and plan Acute respiratory failure with hypoxia Multifocal pneumonia due to COVID 19 afib with RVR Asthma Pneumonia due to COVID-19 virus HTN PREMA Patient not tolerating oxygen by nasal cannula. Pulmonary is following continue IV Solu-Medrol . s/p 1u conv plasma, ivermectin. s/p Remdesevir On Vitamin D and C supplementation, zinc supplementation. Continue Eliquis was on metoprolol for Afib per cardiology recommendations, dc'd on 04/25 due to hypotension titrate insulin for steroid induced hyperglycemia Echocardiogram: Normal EF. Social service to assist with home oxygen arrangement. VTE: yannick Code: full
[2020-04-30] MEDS: TOPIRAMATE 25 MG TAB PO SCH (16:36)
[2020-04-30] MEDS: TRAZODONE 50 MG TABLET PO SCH (20:26)
[2020-04-30] MEDS: METHYLPREDNISOLONE 40 MG INJ IV SCH (20:26)
[2020-04-30] MEDS: MELATONIN 5 MG TABLET PO SCH (20:26)
[2020-05-01] MEDS: INSULIN -REGULAR HUMAN 50 UNIT/0.5 ML ML SQ SCH ×4 (07:30→21:24)
[2020-05-01] MEDS: Fluticasone/Umeclidin/Vilanter [Trelegy Ellipta 200-62.5-25] Blst.W.Dev IH SCH (09:00)
[2020-05-01] MEDS: INSULIN 70/30 100 UNITS/ML SQ SCH ×2 (09:20→16:12)
[2020-05-01] MEDS: ZINC SULFATE 220 MG CAP PO SCH (09:23)
[2020-05-01] MEDS: FAMOTIDINE 20 MG TAB PO SCH ×2 (09:23→21:25)
[2020-05-01] MEDS: METHYLPREDNISOLONE 40 MG INJ IV SCH ×2 (09:23→21:25)
[2020-05-01] MEDS: VITAMIN D 5,000 UNIT CAP PO SCH (09:23)
[2020-05-01] MEDS: MONTELUKAST 10 MG TAB PO SCH (09:23)
[2020-05-01] MEDS: ASCORBIC ACID 500 MG TABLET PO SCH ×4 (09:23→21:25)
[2020-05-01] MEDS: APIXABAN 5 MG TABLET PO SCH ×2 (09:23→21:24)
[2020-05-01] MEDS: THIAMINE 200 MG/2 ML INJ IVP SCH (09:25)
--- NOTE | 2020-05-01 12:37 | P.PN ---
Subjective Date of Service: 05/01/20 Primary Care Provider: Brayan Davies Chief Complaint: Respiratory failure He has no new complain. He denies shortness of breath at rest. He is currently tolerating 5 L oxygen by nasal cannula. Physical Examination - Vital Signs Temperature: 97.7 F Blood Pressure: 128/81 Pulse: 94 Respirations: 20 Pulse Ox (%): 84 - Physical Exam General: Alert, In no apparent distress Respiratory: Other (Nonlabored breathing) Cardiovascular: No edema, Regular rate/rhythm Gastrointestinal: Non-distended Musculoskeletal: No swelling Integumentary: No rashes Neurological: Other (No focal motor deficit) Assessment And Plan - Current Problems (Diagnosis) (1) Acute respiratory failure with hypoxia Current Visit: Yes Status: Acute (2) Atrial fibrillation with RVR Current Visit: Yes Status: Acute (3) Asthma Current Visit: Yes Status: Acute (4) Pneumonia due to COVID-19 virus Current Visit: Yes Status: Acute (5) HTN (hypertension) Current Visit: Yes Status: Chronic Qualifiers: Hypertension type: essential hypertension Qualified Code(s): I10 - Essential (primary) hypertension (6) Sleep apnea Current Visit: Yes Status: Chronic Qualifiers: Sleep apnea type: obstructive Qualified Code(s): G47.33 - Obstructive sleep apnea (adult) (pediatric) Physician Review Additional Text: Assessment and plan Acute respiratory failure with hypoxia Multifocal pneumonia due to COVID 19 afib with RVR Asthma Pneumonia due to COVID-19 virus HTN PREMA Patient now tolerating oxygen by nasal cannula. Continue to wean oxygen. continue IV Solu-Medrol . s/p 1u conv plasma, ivermectin. s/p Remdesevir On Vitamin D and C supplementation, zinc supplementation. Continue Eliquis was on metoprolol for Afib per cardiology recommendations, dc'd on 04/25 due to hypotension Continue insulin sliding scale and Novolin 70 30 for glucose management. Echocardiogram: Normal EF. Social service to assist with home oxygen arrangement. VTE: yannick Code: full
[2020-05-01] MEDS: TOPIRAMATE 25 MG TAB PO SCH (16:13)
[2020-05-01] MEDS: TRAZODONE 50 MG TABLET PO SCH (21:23)
[2020-05-01] MEDS: MELATONIN 5 MG TABLET PO SCH (21:24)
[2020-05-02] MEDS: INSULIN 70/30 100 UNITS/ML SQ SCH ×2 (10:30→16:52)
[2020-05-02] MEDS: VITAMIN D 5,000 UNIT CAP PO SCH (10:30)
[2020-05-02] MEDS: METHYLPREDNISOLONE 40 MG INJ IV SCH ×2 (10:30→21:21)
[2020-05-02] MEDS: INSULIN -REGULAR HUMAN 50 UNIT/0.5 ML ML SQ SCH ×4 (10:30→21:21)
[2020-05-02] MEDS: THIAMINE 200 MG/2 ML INJ IVP SCH (10:30)
[2020-05-02] MEDS: FAMOTIDINE 20 MG TAB PO SCH ×2 (10:30→21:21)
[2020-05-02] MEDS: ZINC SULFATE 220 MG CAP PO SCH (10:30)
[2020-05-02] MEDS: ASCORBIC ACID 500 MG TABLET PO SCH ×4 (10:30→21:22)
[2020-05-02] MEDS: Fluticasone/Umeclidin/Vilanter [Trelegy Ellipta 200-62.5-25] Blst.W.Dev IH SCH ×2 (10:30→10:50)
[2020-05-02] MEDS: MONTELUKAST 10 MG TAB PO SCH (10:30)
[2020-05-02] MEDS: APIXABAN 5 MG TABLET PO SCH ×2 (10:30→21:20)
--- NOTE | 2020-05-02 11:28 | P.PN ---
Subjective Date of Service: 05/02/20 Primary Care Provider: Brayan Davies Chief Complaint: Respiratory failure doing much better currently on 4-5 L on nasal cannula oxygen subjectively feeling better Review of Systems General: Weakness Respiratory: Shortness of Breath Physical Examination - Vital Signs Temperature: 98.3 F Blood Pressure: 124/74 Pulse: 81 Respirations: 18 Pulse Ox (%): 92 Assessment & Plan - Problems (Diagnosis) (1) Pneumonia due to COVID-19 virus Current Visit: Yes Status: Acute Plan: respiratory failure doing well stable for discharge continue with full anticoagulation prednisone 20 b.i.d. for a week then 10 b.i.d. telephone visit with me next week Physician Review: Patient Assessed, Agree with Above Assessment and Plan
--- NOTE | 2020-05-02 12:37 | P.PN ---
Subjective Date of Service: 05/02/20 Primary Care Provider: Brayan Davies Chief Complaint: Respiratory failure He has no new complain. He denies shortness of breath. He is has been tolerating 5 L oxygen by nasal cannula. Physical Examination - Vital Signs Temperature: 97.3 F Blood Pressure: 124/74 Pulse: 99 Respirations: 21 Pulse Ox (%): 91 - Physical Exam General: Alert, In no apparent distress Neck: JVD not distended Respiratory: Other (Non labored breathing.) Cardiovascular: No edema, Regular rate/rhythm, Normal S1 S2 Gastrointestinal: Soft and benign, Non-distended Musculoskeletal: No swelling Integumentary: No rashes Neurological: Other (No focal motor deficit) Assessment And Plan - Current Problems (Diagnosis) (1) Acute respiratory failure with hypoxia Current Visit: Yes Status: Acute (2) Atrial fibrillation with RVR Current Visit: Yes Status: Acute (3) Asthma Current Visit: Yes Status: Acute (4) Pneumonia due to COVID-19 virus Current Visit: Yes Status: Acute (5) HTN (hypertension) Current Visit: Yes Status: Chronic Qualifiers: Hypertension type: essential hypertension Qualified Code(s): I10 - Essential (primary) hypertension (6) Sleep apnea Current Visit: Yes Status: Chronic Qualifiers: Sleep apnea type: obstructive Qualified Code(s): G47.33 - Obstructive sleep apnea (adult) (pediatric) Physician Review: Patient Assessed, Agree with Above Assessment and Plan Physician Review Additional Text: Assessment and plan Acute respiratory failure with hypoxia Multifocal pneumonia due to COVID 19 afib with RVR Asthma Pneumonia due to COVID-19 virus HTN PREMA Patient tolerating oxygen by nasal cannula. Continue to wean oxygen. continue IV Solu-Medrol . s/p 1u conv plasma, ivermectin. s/p Remdesevir On Vitamin D and C supplementation, zinc supplementation. Continue Eliquis He was on metoprolol for Afib per cardiology recommendations, dc'd on 04/25 due to hypotension Continue insulin sliding scale and Novolin 70/30 for glucose management. Echocardiogram: Normal EF. Arranged for home oxygen for discharge. VTE: eliquis Code: full
[2020-05-02] MEDS: TOPIRAMATE 25 MG TAB PO SCH (16:53)
[2020-05-02] MEDS: TRAZODONE 50 MG TABLET PO SCH (21:20)
[2020-05-02] MEDS: MELATONIN 5 MG TABLET PO SCH (21:21)
[2020-05-03 04:26] LABS: BUN Blood Urea Nitrogen 18 mg/dL (7-18); Bicarbonate 26 mmol/L (21-32); Ferritin 425.2 ng/mL (26-388); Glucose Level 153 mg/dL (74-106); Magnesium 2.6 mg/dL (1.8-2.4); Potassium 4.1 mmol/L (3.5-5.1); Sodium Level 139 mmol/L (136-145)
[2020-05-03 05:25] LABS: C-Reactive Protein < 2.90 mg/L (<3.00)
[2020-05-03] MEDS: INSULIN -REGULAR HUMAN 50 UNIT/0.5 ML ML SQ SCH ×2 (07:30→11:30)
[2020-05-03] MEDS: INSULIN 70/30 100 UNITS/ML SQ SCH (08:55)
[2020-05-03] MEDS: APIXABAN 5 MG TABLET PO SCH (08:56)
[2020-05-03] MEDS: FAMOTIDINE 20 MG TAB PO SCH (08:56)
[2020-05-03] MEDS: ZINC SULFATE 220 MG CAP PO SCH (08:56)
[2020-05-03] MEDS: VITAMIN D 5,000 UNIT CAP PO SCH (08:56)
[2020-05-03] MEDS: MONTELUKAST 10 MG TAB PO SCH (08:57)
[2020-05-03] MEDS: METHYLPREDNISOLONE 40 MG INJ IV SCH (08:57)
[2020-05-03] MEDS: ASCORBIC ACID 500 MG TABLET PO SCH ×2 (08:57→14:53)
[2020-05-03] MEDS: THIAMINE 200 MG/2 ML INJ IVP SCH (09:00)
[2020-05-03] MEDS: Fluticasone/Umeclidin/Vilanter [Trelegy Ellipta 200-62.5-25] Blst.W.Dev IH SCH (09:00)
--- NOTE | 2020-05-03 14:01 | P.DS ---
Admission Date: 04/14/20 Discharge Date: 05/03/20 Primary Care Provider: Brayan Davies Disposition: ROUTINE DISCHARGE Discharge Condition: GOOD Reason for Admission: Respiratory failure - COVID-19 pneumonia Consultations: Pulmonology - Dr. Mahmood Procedures: TTE (04/14): normal study, EF: 55-60% CXR (04/14): Hazy opacification in the mid and lower left lung field is present along with continued interstitial opacification. CXR (04/17): Mild worsening in lung aeration is seen since comparative study. CXR (04/21): Overall no significant change in the bilateral pulmonary opacities. Heart is borderline enlarged Problem List: Acute respiratory failure with hypoxia secondary to Multifocal pneumonia due to COVID 19 new onset, paroxysmal afib with RVR Asthma Pneumonia due to COVID-19 virus HTN PREMA Brief History of Present Illness: 49 y/o M with history of sleep apnea and HTN that presented to the ED today for worsening of shortness of breath and cough. Patient was seen three days ago and diagnosed with COVID-19. Was put on vitamins and azithromycin. Stated that his symptoms significantly worsened over last 24 hours. Patients oxygen saturation was in the 80s RA upon arrival. Patient found to have infiltrates consistent with viral pneumonia. Hospital Course: Patient was admitted and treated for COVID-19 pneumonia. Patient had a prolonged hospitalization due to slow improvement of hypoxia / oxygen requirement. He was discharged home with home oxygen, only needing 4L NC for many hours prior to discharge. Hes also discharged with two weeks of prednisone, vitamin supplementation, Eliquis, and insulin. Patient had steroid induced hyperglycemia on top of his diabetes And will require insulin temporarily while taking prednisone. He is to follow up with Dr. Mahmood in the next week. Early on in his hospitalization, he was noted to go into rapid afib with RVR, which he was treated for with metoprolol 25mg BID, however patient had notable hypotension and was discontinued until BP improveed. Vital Signs/Physical Exam: Physical Exam General: Alert, In no apparent distress Neck: JVD not distended Respiratory: non-labored on 4L NC Cardiovascular: No edema, Regular rate/rhythm, Normal S1 S2 Gastrointestinal: Soft and benign, Non-distended Musculoskeletal: No swelling Integumentary: No rashes Neurological: (No focal motor deficit) Temp Pulse Resp BP Pulse Ox 97.0 F 99 H 19 118/72 92 05/03/20 12:00 05/03/20 12:00 05/03/20 12:00 05/03/20 12:00 05/03/20 12:00 General: In no apparent distress, Oriented x3 Cardiovascular: No edema, Regular rate/rhythm Gastrointestinal: Soft and benign, Non-distended, No tenderness Musculoskeletal: No erythema, No tenderness Integumentary: No rashes Neurological: Normal speech Laboratory Data at Discharge: WBC 12.00 K/uL (4.3-10.9) H D 04/30/20 03:04 Hgb 14.9 g/dL (13.6-17.9) 04/30/20 03:04 Hct 45.1 % (39.6-49.0) 04/30/20 03:04 Plt Count 265 K/uL (152-406) D 04/30/20 03:04 PT 10.8 SECONDS (9.5-12.5) 04/14/20 04:25 INR 0.94 04/14/20 04:25 APTT 27.0 SECONDS (24.3-36.9) 04/14/20 04:25 Sodium 139 mmol/L (136-145) 05/03/20 03:00 Potassium 4.1 mmol/L (3.5-5.1) 05/03/20 03:00 BUN 18 mg/dL (7-18) 05/03/20 03:00 Creatinine 0.76 mg/dL (0.55-1.3) 05/03/20 03:00 Glucose 153 mg/dL (74-106) H 05/03/20 03:00 Magnesium 2.6 mg/dL (1.8-2.4) H 05/03/20 03:00 Total Bilirubin 1.3 mg/dL (0.2-1.0) H 04/22/20 04:22 AST 29 U/L (15-37) 04/22/20 04:22 ALT 73 U/L (12-78) 04/22/20 04:22 Alkaline Phosphatase 93 U/L (45-117) 04/22/20 04:22 Triglycerides 107 mg/dL (<150) 04/15/20 04:42 Cholesterol 124 mg/dL (<200) 04/15/20 04:42 HDL Cholesterol 46 mg/dL (40-60) 04/15/20 04:42 Cholesterol/HDL Ratio 2.70 04/15/20 04:42 Lipase 186 U/L (73-393) 04/14/20 04:25 Home Medications: Atorvastatin Calcium 1 tab PO DAILY 01/06/20 Pantoprazole [Protonix Tab*] 1 tab PO DAILY 01/06/20 Topiramate 1 tab PO DAILY 01/06/20 Trazodone HCl 1 tab PO BEDTIME 01/06/20 Albuterol Inhaler [Ventolin Inhaler*] 2 puff IH Q6H PRN 01/07/20 Ascorbic Acid [Vitamin C] 1,000 mg pe PO DAILY 04/14/20 Cholecalciferol (Vitamin D3) [Vitamin D3] 25 mcg PO DAILY 04/14/20 Cyanocobalamin (Vitamin B-12) [Vitamin B12] 1,000 mg PO DAILY 04/14/20 Fluticasone/Umeclidin/Vilanter [Trelegy Ellipta 200-62.5-25] 1 pill IH DAILY 04/14/20 Montelukast [Singulair*] 10 mg PO DAILY 04/14/20 Zinc Gluconate [Zinc] 22 mg PO DAILY 04/14/20 Apixaban [Eliquis] 5 mg PO BID 30 Days #60 tablet 05/03/20 Insulin 70/30 NPH/Reg Human [Novolin 70/30*] 10 unit SQ BIDAC 14 Days #5 ml 05/03/20 Metoprolol Tartrate 12.5 mg PO BID 30 Days #30 tablet 05/03/20 predniSONE [Deltasone] 20 mg PO SEECOM 14 Days #21 tab 05/03/20 New Medications: Apixaban [Eliquis] 5 mg PO BID 30 Days #60 tablet Metoprolol Tartrate 12.5 mg PO BID 30 Days #30 tablet Insulin 70/30 NPH/Reg Human [Novolin 70/30*] 10 unit SQ BIDAC 14 Days #5 ml predniSONE [Deltasone] 20 mg PO SEECOM 14 Days #21 tab Physician Discharge Instructions: You were found to have COVID-19 pneumonia. You are discharged home with prednisone, eliquis (blood thinner), and oxygen. Continue to take it easy at home, slowly increasing your activity level as tolerated. You did go into Afib (atrial fibrillation) early in your hospitalization and started on metoprolol. You are discharged with a prescription for metoprolol as well. Please follow up with Dr. Mahmood (Pulmonology) in ~1 week. Please follow up with Cardiology, Dr. Munoz in ~2-3 weeks. Your blood pressure was noted to be on the low-normal side during hospitalization, so please hold your losartan until you follow up with your PCP and instructed to restart. Due to the steroids, your blood glucose levels were high and you needed insulin. You will continue insulin at home while taking steroids and will likely be temporary. Please monitor your glucose levels and discuss further with your PCP. Diet: ADA Activity: Ad kavita Followup: Gabriel Mahmood MD [ACTIVE - CAN ADMIT] - 1 Week (dry room attendant- call to schedule an appointment ) Barak Munoz MD [ACTIVE - CAN ADMIT] - (payroll clerk- follow up in 2-3 weeks, call to schedule an appointment ) Burak Davies, DO [Primary Care Provider] - 1-2 Weeks (PCP- call to schedule an appointment ) Time spent managing pt's care (in minutes): 40
[2020-05-03 16:25] VITALS: O2SAT 89
[2020-05-03 17:25] VITALS: BP 116/73; TEMP 97.6
== END 2020-05-03 18:00 | disposition home or self-care (01) | DRG 871 ==
LOC: ER 03:39 → ERHOLD 05:09 → 3RD-ICU 12:46 → 4TH 04-26 17:07
PROVIDERS: ADMIT Internal Medicine Sleep Medicine; ATTEND Hospitalist
PROC: XW033E5 Introduction of Remdesivir Anti-infective into Peripheral Vein, Percutaneous Approach, New Technology Group 5 (ICD-10-PCS; principal; 2020-04-14)
PROC: XW13325 Transfusion of Convalescent Plasma (Nonautologous) into Peripheral Vein, Percutaneous Approach, New Technology Group 5 (ICD-10-PCS; 2020-04-14)
PROC: 5A12012 Performance of Cardiac Output, Single, Manual (ICD-10-PCS; 2020-04-16)
PROC: 5A09457 Assistance with Respiratory Ventilation, 24-96 Consecutive Hours, Continuous Positive Airway Pressure (ICD-10-PCS; 2020-04-27)
DX: A41.89 Other specified sepsis (principal); U07.1 COVID-19; J12.82 Pneumonia due to coronavirus disease 2019; J96.01 Acute respiratory failure with hypoxia; F41.9 Anxiety disorder, unspecified; E11.65 Type 2 diabetes mellitus with hyperglycemia; I48.0 Paroxysmal atrial fibrillation; J45.909 Unspecified asthma, uncomplicated; G47.33 Obstructive sleep apnea (adult) (pediatric); I10 Essential (primary) hypertension; T38.0X5A Adverse effect of glucocorticoids and synthetic analogues, initial encounter; Z88.5 Allergy status to narcotic agent; Z79.899 Other long term (current) drug therapy; Z79.4 Long term (current) use of insulin; Z79.52 Long term (current) use of systemic steroids; Z90.49 Acquired absence of other specified parts of digestive tract; Z87.891 Personal history of nicotine dependence
CPT/HCPCS: 36415; 71045; 80048; 80053; 80061; 80076; 81003; 82728; 82947; 83605; 83690; 83735; 84145; 84443; 84484; 85025; 85027; 85610; 85730; 86140; 86900; 86901; 86927; 87040; 87804; 93005; 93306; 94003; 94010; 94660; 94760; 96374; 96375; 97116; 97161; 99284; J0456; J1160; J1200; J1815; J2405; J2920; J2930; J3010; J3411; J7030; J7050

== ENCOUNTER 2022-04-19 08:14 | Day surgery (SDC) | payer BC ==
[2022-04-19 08:39] LABS: Absolute Lymphocytes (CBC) 1.8 K/uL (0.7-4.9); Hematocrit 45.4 % (39.6-49.0); Lymphocytes % 27.4 % (15.3-44.8); MCV 92.7 fL (80-100); MPV 9.7 fL (7.6-11.3)
--- NOTE | 2022-04-19 08:39 | RAD REPORT ---
EXAM DESCRIPTION: [facility] And Lat (2 Views)04/19/2022 8:14 am CLINICAL HISTORY: pre op for hernia repair surgery COMPARISON: Chest Single View dated 04/21/2020; Chest Single View dated 04/17/2020; Chest Single View dated 04/14/2020; Chest Single View dated 04/11/2020 TECHNIQUE: PA and lateral views of the chest. FINDINGS: The lungs are clear. Mild Left basilar atelectatic changes are noted. No pneumothorax or e ffusion. The cardiomediastinal contours are unremarkable. IMPRESSION: No acute cardiopulmonary process.
[2022-04-19] MEDS ORDERED: Ringers Lactate 1,000 ML IV ONE (08:45)
[2022-04-19] MEDS ORDERED: NS 0.9% VIAL 10 ML ONE (10:03)
[2022-04-19] MEDS ORDERED: FENTANYL CITR 100 MCG/2 ML ONE ×2 (10:03→11:48)
[2022-04-19] MEDS ORDERED: propofoL 200 MG/20 ML VIAL IV ONE (10:03)
[2022-04-19] MEDS ORDERED: LIDOCAINE 2% MPF 5 ML VIAL ONE (10:03)
[2022-04-19] MEDS ORDERED: ROCURONIUM 50 MG/5 ML VIAL IV ONE (10:03)
[2022-04-19] MEDS ORDERED: MIDAZOLAM HCL 2 MG/2 ML INJ ONE (10:03)
[2022-04-19] MEDS: CEFAZOLIN SODIUM 1 GM/VIAL ONE ×2 (10:14→10:45)
[2022-04-19] MEDS ORDERED: ONDANSETRON 4 MG/2 ML VIAL ONE (11:00)
[2022-04-19] MEDS ORDERED: KETOROLAC 30 MG/ML INJ ONE (11:00)
[2022-04-19] MEDS ORDERED: GLYCOPYRROLATE 0.2 MG/ML SYR ONE ×2 (11:01→11:23)
[2022-04-19] MEDS ORDERED: Mastisol Adhesive Liq ONE (11:47)
--- NOTE | 2022-04-19 11:58 | P.BOP ---
Preoperative diagnosis: tender incarcerated Right inguinal hernia, reducible tender umbilical herni Primary procedure: 1. Laparoscopic repair tender incarcerated Right inguinal hernia with mesh Secondary procedure: 2. Open repair reducible tender umbilical hernia 2cm Test Deck Supervisor: DIVYA RADFORD (AUTOMATIC BRINE MIXER OPERATOR) Estimated blood loss: <10cc Specimen: no Findings: see dicta Anesthesia: General Complications: None Implants: 3D mesh medium Transferred to: Recovery Room Condition: Good
[2022-04-19] MEDS ORDERED: HYDROMORPHONE HCL 1 MG/ML INJ ONE (12:36)
--- NOTE | 2022-04-19 12:57 | EKG ---
Test Date: 2022-04-19 Test Time: 08:01:05 Insolvency Practitioner: EDMOND MEASUREMENT RESULTS: Intervals: Rate: 48 UT: 134 QRSD: 82 QT: 458 QTc: 409 [place]: P: 26 UT: 134 QRS: 32 T: 34 INTERPRETIVE STATEMENTS: Marked sinus bradycardia Abnormal ECG Compared to ECG 04/15/2020 13:37:26 Sinus rhythm no longer present T-wave abnormality no longer present Electronically Signed On 04-19-22 12:56:38 MARBLE CUTTER by James Warren
[2022-04-19] MEDS ORDERED: HYDROCODONE/APAP 10/325 TAB ONE (13:43)
[2022-04-19] MEDS ORDERED: TAMSULOSIN 0.4 MG SR CAP ONE (13:44)
[2022-04-19 14:38] VITALS: BP 146/85; TEMP 96.6; O2SAT 100
== END 2022-04-19 14:40 | disposition home or self-care (01) ==
LOC: OR 08:14
PROVIDERS: ATTEND Surgery
PROC: 0WQF0ZZ Repair Abdominal Wall, Open Approach (ICD-10-PCS; 2022-04-19)
PROC: 0YU54JZ Supplement Right Inguinal Region with Synthetic Substitute, Percutaneous Endoscopic Approach (ICD-10-PCS; principal; 2022-04-19 10:00)
DX: K40.30 Unilateral inguinal hernia, with obstruction, without gangrene, not specified as recurrent (principal); K42.9 Umbilical hernia without obstruction or gangrene
CPT/HCPCS: 93005; 85025; 80048; 36415; 88302; 71046; 49650; 49591; J2704; J2001; J2250; J3010 ×2; A4216; J1170; J7120; J2405; J0690

== ENCOUNTER → 2023-02-20 | Emergency (ER) | payer BC ==
[~2023-02-20] MED LIST: ALBUTEROL 2.5 MG/3 ML NEB SOL ONE; IPRATROPIUM BROM 0.5MG/2.5ML ONE; MAGNESIUM SULFATE 1 gm IVPB 1 GM/100 ML BAG IV ONE
--- OUTSIDE RECORDS SUMMARY | 2023-02-20 16:37 | XMS REPORT | Continuity of Care Document ---
Author Name Unknown Address [address] [place] [address] [facility] thconnect Address 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 Role Phone BURAK DAVIES Primary Care Physician Unavailab Burak Olson Attending Clinician Unavailable Rosario Francis Attending Clinician Unavail able RM DOWD Attending Clinician Unavailable RM DOWD Attending Clinician Unavailable Rm Dowd DO Attending Clinician Doctor Unassigned, Franquez Attending Clinician U navailable Payers Payer Name Policy Type Policy Number Effective Date Expirati on Date Source [facility] 6 [id number] 2021 00:00:00 [facility] Problems Condition Name Condition Details Condition Category Status Onset Date Resolution Date Last Treatment Date Treating Clinician Comments Source No known active problems No known active problems Disease [facility] [id number] Moderate asthma with exacerbati on, unspecifie d whether persistent Problem [facility] [id number] Atrial fibrillati on with RVR Problem [facility] [id number] Decreased hearing of both ears Problem [facility] [id number] Morbid (severe) obesity due to excess calories Problem [facility] [id number] Acute pain of left shoulder Problem [facility] 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) Post-COVID syndrome Problem [facility] Mixed hyperlipid emia Hyperlipid emia, mixed Problem [facility] Seasonal allergic rhinitis Allergic rhinitis, seasonal Problem [facility] Obstructiv e sleep apnea Obstructiv e sleep apnea Problem [facility] Dysphagia Dysphagia, unspecifie d Problem [facility] Obesity Obesity (BMI 30.0-34.9) Problem [facility] Prediabete s Prediabete s Problem [facility] Migraine without aura, not refractory Migraine without aura and without status migrainosu s, not intractabl e Problem [facility] Essential hypertensi on Benign essential HTN Problem [facility] [id number] GERD without esophagiti s Problem [facility] [id number] Non-season al allergic rhinitis, unspecifie d trigger Problem [facility] [id number] Primary insomnia Problem [facility] [id number] 07 Supplement al oxygen dependent Problem [facility] [id number] Body mass index [BMI] 37.0-37.9, adult Problem [facility] [id number] Asthma without status asthmaticu s or acute exacerbati on Problem [facility] [id number] Controlled type 2 diabetes mellitus without complicati on, without long-term current use of insulin Problem [facility] [id number] Moderate persistent asthma without complicati on Problem [facility] Allergies, Adverse Reactions, Alerts Allergy Name Allergy Type Status Severity Reaction(s) Onset Date Inactive Date Treating Clinician Comments Source NO KNOWN ALLERGIE S Drug Class Active [facility] 406 Drug allergy Active Unknown [facility] Social History Social Habit Start Date Stop Date Quantity Comments Source History of Tobacco Use [facility] Sex Assigned At [facility] Exposure to SARS-CoV-2 (event) 2022-07-22 00:00:00 2022-08-01 09:02:00 Not sure [facility] Tobacco use and exposure 2020-10-21 00:00:00 2020-10-21 00:00:00 Former smokeless tobacco user [facility] Smoking Status Start Date Stop Date Source Never Smoker [facility] Ex-smoker 2020-10-21 00:00:00 2020-10-21 00:00:00 [facility] Medications Ordered Medication Name Filled Medication Name Start Date Stop Date Current Medication? Ordering Clinician Indication Dosage Frequency Signature (SIG) Comments Components Source Kenalog (Triamcinol one) Kenalog (Triamcinol one) 2022-03 0-16 00:00: 00 No 40mg [facility] Kenalog (Triamcinol one) Kenalog (Triamcinol one) 2022-03 0-16 00:00: 00 No 40mg [facility] Kenalog (Triamcinol one) Kenalog (Triamcinol one) 2022-03 0-16 00:00: 00 No 40mg [facility] Kenalog (Triamcinol one) Kenalog (Triamcinol one) 2022-03 0-16 00:00: 00 No 40mg [facility] Kenalog (Triamcinol one) Kenalog (Triamcinol one) 2022-03 0-16 00:00: 00 No 40mg [facility] Kenalog (Triamcinol one) Kenalog (Triamcinol one) 2022-03 0-16 00:00: 00 No 40mg [facility] Kenalog (Triamcinol one) Kenalog (Triamcinol one) 2022-03 0-16 00:00: 00 No 40mg [facility] Amoxicillin -Pot Clavulanate 875-125 MG Amoxicillin -Pot Clavulanate 875-125 MG 6-22 00:00: 00 No 1{table t} BID Amoxicilli n-Pot Clavulanat e 875-125 MG Amoxicillin -Pot Clavulanate 875-125 MG Amoxicillin -Pot Clavulanate 875-125 MG 3-0 08-24 00:00: 00 No 1{table t} BID Amoxicilli n-Pot Clavulanat e 875-125 MG Amoxicillin -Pot Clavulanate 875-125 MG Amoxicillin -Pot Clavulanate 875-125 MG 2022-0 08-24 00:00: 00 No 1{table t} BID Amoxicilli n-Pot Clavulanat e 875-125 MG Amoxicillin -Pot Clavulanate 875-125 MG Amoxicillin -Pot Clavulanate 875-125 MG 3-0 08-24 00:00: 00 No 1{table t} BID Amoxicilli n-Pot Clavulanat e 875-125 MG Amoxicillin -Pot Clavulanate 875-125 MG Amoxicillin -Pot Clavulanate 875-125 MG 2022-0 08-24 00:00: 00 No 1{table t} BID Amoxicilli n-Pot Clavulanat e 875-125 MG Amoxicillin -Pot Clavulanate 875-125 MG Amoxicillin -Pot Clavulanate 875-125 MG 2022-0 08-24 00:00: 00 No 1{table t} BID Amoxicilli n-Pot Clavulanat e 875-125 MG fluticasone -umeclidin- vilanter 100-62.5-25 mcg DsDv 08-01 09:37: 08-01 00:00 :00 No 1{puff} Inhale 1 Puff. [facility] fluticasone -umeclidin- vilanter 100-62.5-25 mcg DsDv 08-01 09:37: 08-01 00:00 :00 No 1{puff} Inhale 1 Puff. [facility] vitamin C with moy hips (VITAMIN C) 1,000 mg tablet 08-01 09:19: 04 08-01 00:00 :00 No 1000mg Take 1,000 mg by mouth daily. [facility] vitamin C with moy hips (VITAMIN C) 1,000 mg tablet 08-01 09:19: 04 08-01 00:00 :00 No 1000mg Take 1,000 mg by mouth daily. [facility] zinc gluconate 50 mg tablet 08-01 09:18: 58 08-01 00:00 :00 No 50mg Take 50 mg by mouth daily. [facility] zinc gluconate 50 mg tablet 08-01 09:18: 58 08-01 00:00 :00 No 50mg Take 50 mg by mouth daily. [facility] fluticasone -umeclidin- vilanter 100-62.5-25 mcg DsDv 08-01 00:00: 00 Yes [id number] 1{puff} Inhale 1 Puff in the morning. [facility] fluticasone -umeclidin- vilanter 100-62.5-25 mcg DsDv 08-01 00:00: 00 Yes [id number] 1{puff} Inhale 1 Puff in the morning. [facility] Albuterol Sulfate HFA 108 (90 Base) MCG/ACT Albuterol Sulfate HFA 108 (90 Base) MCG/ACT 07-12 00:00: 00 No 1{puff_ as_need ed} QID Albuterol Sulfate HFA 108 (90 Base) MCG/ACT Albuterol Sulfate HFA 108 (90 Base) MCG/ACT Albuterol Sulfate HFA 108 (90 Base) MCG/ACT 07-12 00:00: 00 No 1{puff_ as_need ed} QID Albuterol Sulfate HFA 108 (90 Base) MCG/ACT Albuterol Sulfate HFA 108 (90 Base) MCG/ACT Albuterol Sulfate HFA 108 (90 Base) MCG/ACT 07-12 00:00: 00 No 1{puff_ as_need ed} QID Albuterol Sulfate HFA 108 (90 Base) MCG/ACT Albuterol Sulfate HFA 108 (90 Base) MCG/ACT Albuterol Sulfate HFA 108 (90 Base) MCG/ACT 3-0 5-10 00:00: 00 No 1{puff_ as_need ed} QID Albuterol Sulfate HFA 108 (90 Base) MCG/ACT Albuterol Sulfate HFA 108 (90 Base) MCG/ACT Albuterol Sulfate HFA 108 (90 Base) MCG/ACT 3-0 5-10 00:00: 00 No 1{puff_ as_need ed} QID Albuterol Sulfate HFA 108 (90 Base) MCG/ACT Albuterol Sulfate HFA 108 (90 Base) MCG/ACT Albuterol Sulfate HFA 108 (90 Base) MCG/ACT 2022-0 5-10 00:00: 00 No 1{puff_ as_need ed} QID Albuterol Sulfate HFA 108 (90 Base) MCG/ACT Albuterol Sulfate HFA 108 (90 Base) MCG/ACT Albuterol Sulfate HFA 108 (90 Base) MCG/ACT 2022-0 5-10 00:00: 00 No 1{puff_ as_need ed} QID Albuterol Sulfate HFA 108 (90 Base) MCG/ACT Kenalog (Triamcinol one) Kenalog (Triamcinol one) 2021-03 2- 00:00: 00 No 40mg [facility] Lidocaine Lidocaine 2021-03 2- 00:00: 00 No 10mg [facility] Kenalog (Triamcinol one) Kenalog (Triamcinol one) 2021-03 2- 00:00: 00 No 40mg [facility] Lidocaine Lidocaine 2021-03 2-05 00:00: 00 No 10mg [facility] Kenalog (Triamcinol one) Kenalog (Triamcinol one) 2021-03 2- 00:00: 00 No 40mg [facility] Lidocaine Lidocaine 2021-03 2- 00:00: 00 No 10mg [facility] Lidocaine Lidocaine 2021-03 2- 00:00: 00 No 10mg [facility] Kenalog (Triamcinol one) Kenalog (Triamcinol one) 2021-03 2-05 00:00: 00 No 40mg [facility] Kenalog (Triamcinol one) Kenalog (Triamcinol one) 2021-03 2 00:00: 00 No 40mg [facility] Lidocaine Lidocaine 2021-03 2 00:00: 00 No 10mg [facility] Kenalog (Triamcinol one) Kenalog (Triamcinol one) 2021-03 2- 00:00: 00 No 40mg [facility] Lidocaine Lidocaine 2021-03 2 00:00: 00 No 10mg [facility] Kenalog (Triamcinol one) Kenalog (Triamcinol one) 2021-03 2 00:00: 00 No 40mg [facility] Lidocaine Lidocaine 2021-03 2 00:00: 00 No 10mg [facility] Kenalog (Triamcinol one) Kenalog (Triamcinol one) 2021-03 2- 00:00: 00 No 40mg [facility] Lidocaine Lidocaine 2021-03 2 00:00: 00 No 10mg [facility] Kenalog (Triamcinol one) Kenalog (Triamcinol one) 2021-03 2- 00:00: 00 No 40mg [facility] Lidocaine Lidocaine 2021-03 2- 00:00: 00 No 10mg [facility] Kenalog (Triamcinol one) Kenalog (Triamcinol one) 2021-03 0-10 00:00: 00 No 40mg [facility] Kenalog (Triamcinol one) Kenalog (Triamcinol one) 2021-03 0-10 00:00: 00 No 40mg [facility] Kenalog (Triamcinol one) Kenalog (Triamcinol one) 2021-03 0-10 00:00: 00 No 40mg [facility] Kenalog (Triamcinol one) Kenalog (Triamcinol one) 2021-03 0-10 00:00: 00 No 40mg [facility] Kenalog (Triamcinol one) Kenalog (Triamcinol one) 2021-03 0-10 00:00: 00 No 40mg [facility] Kenalog (Triamcinol one) Kenalog (Triamcinol one) 2021-03 0-10 00:00: 00 No 40mg [facility] Kenalog (Triamcinol one) Kenalog (Triamcinol one) 2021-03 0-10 00:00: 00 No 40mg [facility] Kenalog (Triamcinol one) Kenalog (Triamcinol one) 2021-03 0-10 00:00: 00 No 40mg [facility] Kenalog (Triamcinol one) Kenalog (Triamcinol one) 2021-03 0-10 00:00: 00 No 40mg [facility] Kenalog (Triamcinol one) Kenalog (Triamcinol one) 2021-03 0-10 00:00: 00 No 40mg [facility] Kenalog (Triamcinol one) Kenalog (Triamcinol one) 2021-03 0-10 00:00: 00 No 40mg [facility] Kenalog (Triamcinol one) Kenalog (Triamcinol one) 2021-03 0-10 00:00: 00 No 40mg [facility] Kenalog (Triamcinol one) Kenalog (Triamcinol one) 2021-03 0-10 00:00: 00 No 40mg [facility] Levocetiriz ine Dihydrochlo ride 5 MG Levocetiriz ine Dihydrochlo ride 5 MG 2021-03 0-10 00:00: 00 01-10 00:00 :00 No 1{table t_in_th e_eveni ng} QD Levocetiri zine Dihydrochl oride 5 MG Levocetiriz ine Dihydrochlo ride 5 MG Levocetiriz ine Dihydrochlo ride 5 MG 2022-1 0-10 00:00: 00 01-10 00:00 :00 No 1{table t_in_th e_eveni ng} QD Levocetiri zine Dihydrochl oride 5 MG Levocetiriz ine Dihydrochlo ride 5 MG Levocetiriz ine Dihydrochlo ride 5 MG 2021-1 0-10 00:00: 00 01-10 00:00 :00 No 1{table t_in_th e_eveni ng} QD Levocetiri zine Dihydrochl oride 5 MG Levocetiriz ine Dihydrochlo ride 5 MG Levocetiriz ine Dihydrochlo ride 5 MG 2021-1 0-10 00:00: 00 01-10 00:00 :00 No 1{table t_in_th e_eveni ng} QD Levocetiri zine Dihydrochl oride 5 MG Benzonatate 200 MG Benzonatate 200 MG 08-19 00:00: 00 08-29 00:00 :00 No 1{capsu le} TID Benzonatat e 200 MG doxycycline hyclate 100 mg capsule 0 08-09 00:00: 00 Yes [id number] 100mg Take 1 capsule by mouth every 12 (twelve) hours. [facility] predniSONE 20 mg tablet 0 08-09 00:00: 00 Yes [id number] 40mg Take 2 tablets by mouth daily. [facility] doxycycline hyclate 100 mg capsule 2021-0 08-09 00:00: 00 Yes [id number] 100mg Take 1 capsule by mouth every 12 (twelve) hours. [facility] predniSONE 20 mg tablet 0 08-09 00:00: 00 Yes [id number] 40mg Take 2 tablets by mouth daily. [facility] doxycycline hyclate 100 mg capsule 0 08-09 00:00: 00 08-01 00:00 :00 No [id number] 100mg Take 1 capsule by mouth every 12 (twelve) hours. [facility] predniSONE 20 mg tablet 2021-0 08-09 00:00: 00 08-01 00:00 :00 No [id number] 40mg Take 2 tablets by mouth daily. [facility] doxycycline hyclate 100 mg capsule 08-09 00:00: 00 08-01 00:00 :00 No [id number] 100mg Take 1 capsule by mouth every 12 (twelve) hours. [facility] predniSONE 20 mg tablet 08-09 00:00: 00 08-01 00:00 :00 No [id number] 40mg Take 2 tablets by mouth daily. [facility] ALBUTEROL INHALE 07-29 09:26: 06 Yes 2{puff} Inhale 2 Puffs. [facility] vitamin C with moy hips (VITAMIN C) 1,000 mg tablet 07-29 09:26: 06 Yes 1000mg Take 1,000 mg by mouth daily. [facility] atorvastati n calcium (LIPITOR ORAL) 07-29 09:26: 06 Yes Take by mouth. [facility] fluticasone -umeclidin- vilanter 100-62.5-25 mcg DsDv 07-29 09:26: 06 Yes 1{puff} Inhale 1 Puff. [facility] montelukast 10 mg tablet 07-29 09:26: 06 Yes 10mg Take 10 mg by mouth. [facility] traZODone 50 mg tablet 07-29 09:26: 06 Yes 25mg Take 25 mg by mouth at bedtime. [facility] zinc gluconate 50 mg tablet 07-29 09:26: 06 Yes 50mg Take 50 mg by mouth daily. [facility] ALBUTEROL INHALE 07-29 09:26: 06 Yes 2{puff} Inhale 2 Puffs. [facility] vitamin C with moy hips (VITAMIN C) 1,000 mg tablet 07-29 09:26: 06 Yes 1000mg Take 1,000 mg by mouth daily. [facility] atorvastati n calcium (LIPITOR ORAL) 07-29 09:26: 06 Yes Take by mouth. [facility] fluticasone -umeclidin- vilanter 100-62.5-25 mcg DsDv 07-29 09:26: 06 Yes 1{puff} Inhale 1 Puff. [facility] montelukast 10 mg tablet 07-29 09:26: 06 Yes 10mg Take 10 mg by mouth. [facility] traZODone 50 mg tablet 07-29 09:26: 06 Yes 25mg Take 25 mg by mouth at bedtime. [facility] zinc gluconate 50 mg tablet 07-29 09:26: 06 Yes 50mg Take 50 mg by mouth daily. [facility] ALBUTEROL INHALE 07-29 09:26: 06 Yes 2{puff} Inhale 2 Puffs. [facility] vitamin C with moy hips (VITAMIN C) 1,000 mg tablet 07-29 09:26: 06 Yes 1000mg Take 1,000 mg by mouth daily. [facility] atorvastati n calcium (LIPITOR ORAL) 07-29 09:26: 06 Yes Take by mouth. [facility] fluticasone -umeclidin- vilanter 100-62.5-25 mcg DsDv 07-29 09:26: 06 Yes 1{puff} Inhale 1 Puff. [facility] montelukast 10 mg tablet 07-29 09:26: 06 Yes 10mg Take 10 mg by mouth. [facility] traZODone 50 mg tablet 07-29 09:26: 06 Yes 25mg Take 25 mg by mouth at bedtime. [facility] zinc gluconate 50 mg tablet 07-29 09:26: 06 Yes 50mg Take 50 mg by mouth daily. [facility] ALBUTEROL INHALE 07-29 09:26: 06 Yes 2{puff} Inhale 2 Puffs. [facility] atorvastati n calcium (LIPITOR ORAL) 07-29 09:26: 06 Yes Take by mouth. [facility] montelukast 10 mg tablet 07-29 09:26: 06 Yes 10mg Take 10 mg by mouth. [facility] traZODone 50 mg tablet 07-29 09:26: 06 Yes 25mg Take 25 mg by mouth at bedtime. [facility] ALBUTEROL INHALE 07-29 09:26: 06 Yes 2{puff} Inhale 2 Puffs. [facility] atorvastati n calcium (LIPITOR ORAL) 07-29 09:26: 06 Yes Take by mouth. [facility] montelukast 10 mg tablet 07-29 09:26: 06 Yes 10mg Take 10 mg by mouth. [facility] traZODone 50 mg tablet 07-29 09:26: 06 Yes 25mg Take 25 mg by mouth at bedtime. [facility] ALBUTEROL, REFILL, INHALE 10-21 15:40: 43 Yes Inhale. [facility] ALBUTEROL, REFILL, INHALE 10-21 15:40: 43 Yes Inhale. [facility] ALBUTEROL, REFILL, INHALE 10-21 15:40: 43 Yes Inhale. [facility] ALBUTEROL, REFILL, INHALE 10-21 15:40: 43 Yes Inhale. [facility] ALBUTEROL, REFILL, INHALE 10-21 15:40: 43 Yes Inhale. [facility] Pantoprazol e Sodium Pantoprazol e Sodium 03-21 00:00: 00 Yes Burak Davies 1 tablet [facility] Kenalog (Triamcinol one) Kenalog (Triamcinol one) 2018-03 00:00: 00 No 40mg [facility] Kenalog (Triamcinol one) Kenalog (Triamcinol one) 2018-0318 00:00: 00 No 40mg [facility] Kenalog (Triamcinol one) Kenalog (Triamcinol one) 2018-0318 00:00: 00 No 40mg [facility] Kenalog (Triamcinol one) Kenalog (Triamcinol one) 2018-0318 00:00: 00 No 40mg [facility] Kenalog (Triamcinol one) Kenalog (Triamcinol one) 2018-0318 00:00: 00 No 40mg [facility] Kenalog (Triamcinol one) Kenalog (Triamcinol one) 2018-0318 00:00: 00 No 40mg [facility] Kenalog (Triamcinol one) Kenalog (Triamcinol one) 2018-0318 00:00: 00 No 40mg [facility] Kenalog (Triamcinol one) Kenalog (Triamcinol one) 2018-0318 00:00: 00 No 40mg [facility] Kenalog (Triamcinol one) Kenalog (Triamcinol one) 2018-0318 00:00: 00 No 40mg [facility] Kenalog (Triamcinol one) Kenalog (Triamcinol one) 2018-0318 00:00: 00 No 40mg [facility] Kenalog (Triamcinol one) Kenalog (Triamcinol one) 2018-0318 00:00: 00 No 40mg [facility] Kenalog (Triamcinol one) Kenalog (Triamcinol one) 2018-0318 00:00: 00 No 40mg [facility] Kenalog (Triamcinol one) Kenalog (Triamcinol one) 2018-0318 00:00: 00 No 40mg [facility] Kenalog (Triamcinol one) Kenalog (Triamcinol one) 2018-0318 00:00: 00 No 40mg [facility] Kenalog (Triamcinol one) Kenalog (Triamcinol one) 2018-03 0-18 00:00: 00 No 40mg [facility] Kenalog (Triamcinol one) Kenalog (Triamcinol one) 2018-03 0-18 00:00: 00 No 40mg [facility] Kenalog (Triamcinol one) Kenalog (Triamcinol one) 2018-03 0-18 00:00: 00 No 40mg [facility] Kenalog (Triamcinol one) Kenalog (Triamcinol one) 2018-03 018 00:00: 00 No 40mg [facility] Kenalog (Triamcinol one) Kenalog (Triamcinol one) 2018-03 018 00:00: 00 No 40mg [facility] Kenalog (Triamcinol one) Kenalog (Triamcinol one) 2018-03 018 00:00: 00 No 40mg [facility] Kenalog (Triamcinol one) Kenalog (Triamcinol one) 2018-03 018 00:00: 00 No 40mg [facility] Montelukast Sodium Montelukast Sodium 2019-0 7-18 00:00: 00 Yes Burak Davies 1 tablet [facility] Atorvastati n Calcium Atorvastati n Calcium 2019-0 4-08 00:00: 00 Yes Burak Davies 1 tablet [facility] Losartan Potassium Losartan Potassium 2019-0 3-11 00:00: 00 Yes Burak Davies 1 tablet [facility] Topiramate Topiramate Yes Burak Davies 1 tablet [facility] Metformin HCl Metformin HCl Yes Burak Davies 1 tablet with a meal [facility] Sumatriptan Sumatriptan Yes Burak Davies 1 puff as needed one time [facility] Nalfon Nalfon Yes Burak Davies 1 capsule [facility] Fenoprofen Calcium Fenoprofen Calcium Yes Burak Davies 1 capsule [facility] Metformin HCl Metformin HCl Yes Burak Davies TAKE ONE TABLET BY MOUTH ONCE DAILY WITH A MEAL [facility] Pantoprazol e Sodium Pantoprazol e Sodium Yes Burak Davies TAKE ONE TABLET BY MOUTH DAILY [facility] Atorvastati n Calcium Atorvastati n Calcium Yes Burak Davies TAKE ONE TABLET BY MOUTH DAILY [facility] Losartan Potassium Losartan Potassium Yes Burak Davies TAKE ONE TABLET BY MOUTH DAILY [facility] Montelukast Sodium 10 MG Montelukast Sodium 10 MG No 1{table t} QD Montelukas t Sodium 10 MG Nalfon 400 MG Nalfon 400 MG No 1{capsu le} TID Nalfon 400 MG Zinc Zinc No Zinc Trelegy Ellipta 100-62.5-25 MCG/INH Trelegy Ellipta 100-62.5-25 MCG/INH No 1{puff} QD Trelegy Ellipta 100-62.5-2 5 MCG/INH Cholecalcif idalia 25 MCG (1000 UT) Cholecalcif idalia 25 MCG (1000 UT) No 1{capsu le} QD Cholecalci ferol 25 MCG (1000 UT) Pantoprazol e Sodium 40 MG Pantoprazol e Sodium 40 MG No 1{table t} QD Pantoprazo le Sodium 40 MG Vitamin B12 Vitamin B12 No Vi tamin B12 Montelukast Sodium 10 MG Montelukast Sodium 10 MG No Montelukas t Sodium 10 MG Atorvastati n Calcium 20 MG Atorvastati n Calcium 20 MG No 1{table t} QD Atorvastat in Calcium 20 MG Atorvastati n Calcium 10 MG Atorvastati n Calcium 10 MG No 1{table t} QD Atorvastat in Calcium 10 MG Pantoprazol e Sodium 40 MG Pantoprazol e Sodium 40 MG No Pantoprazo le Sodium 40 MG Metoprolol Tartrate 25 MG Metoprolol Tartrate 25 MG No .5{tabl et_with _food} BID Metoprolol Tartrate 25 MG metFORMIN HCl 500 MG metFORMIN HCl 500 MG No metFORMIN HCl 500 MG Topiramate 25 MG Topiramate 25 MG No 1{table t} QD Topiramate 25 MG Atorvastati n Calcium 10 MG Atorvastati n Calcium 10 MG No 1{table t} QD Atorvastat in Calcium 10 MG Metoprolol Tartrate 25 MG Metoprolol Tartrate 25 MG No 1{table t_with_ food} BID Metoprolol Tartrate 25 MG Fenoprofen Calcium 400 MG Fenoprofen Calcium 400 MG No 1{capsu le} Fenoprofen Calcium 400 MG ProAir HFA 108 (90 Base) MCG/ACT ProAir HFA 108 (90 Base) MCG/ACT No 2{puffs _as_nee ded} ProAir HFA 108 (90 Base) MCG/ACT SUMAtriptan 5 MG/ACT SUMAtriptan 5 MG/ACT No QD SUMAtripta n 5 MG/ACT Atorvastati n Calcium 10 MG Atorvastati n Calcium 10 MG No 1{table t} QD Atorvastat in Calcium 10 MG SUMAtriptan 5 MG/ACT SUMAtriptan 5 MG/ACT No QD SUMAtripta n 5 MG/ACT Zinc Zinc No Zinc Atorvastati n Calcium 20 MG Atorvastati n Calcium 20 MG No 1{table t} QD Atorvastat in Calcium 20 MG Topiramate 25 MG Topiramate 25 MG No 1{table t} QD Topiramate 25 MG ProAir HFA 108 (90 Base) MCG/ACT ProAir HFA 108 (90 Base) MCG/ACT No 2{puffs _as_nee ded} ProAir HFA 108 (90 Base) MCG/ACT Vitamin B12 Vitamin B12 No Vi tamin B12 Trelegy Ellipta 100-62.5-25 MCG/INH Trelegy Ellipta 100-62.5-25 MCG/INH No 1{puff} QD Trelegy Ellipta 100-62.5-2 5 MCG/INH Montelukast Sodium 10 MG Montelukast Sodium 10 MG No Montelukas t Sodium 10 MG Metoprolol Tartrate 25 MG Metoprolol Tartrate 25 MG No .5{tabl et_with _food} BID Metoprolol Tartrate 25 MG Montelukast Sodium 10 MG Montelukast Sodium 10 MG No 1{table t} QD Montelukas t Sodium 10 MG Atorvastati n Calcium 10 MG Atorvastati n Calcium 10 MG No 1{table t} QD Atorvastat in Calcium 10 MG metFORMIN HCl 500 MG metFORMIN HCl 500 MG No metFORMIN HCl 500 MG Nalfon 400 MG Nalfon 400 MG No 1{capsu le} TID Nalfon 400 MG Fenoprofen Calcium 400 MG Fenoprofen Calcium 400 MG No 1{capsu le} Fenoprofen Calcium 400 MG Pantoprazol e Sodium 40 MG Pantoprazol e Sodium 40 MG No Pantoprazo le Sodium 40 MG Cholecalcif idalia 25 MCG (1000 UT) Cholecalcif idalia 25 MCG (1000 UT) No 1{capsu le} QD Cholecalci ferol 25 MCG (1000 UT) Pantoprazol e Sodium 40 MG Pantoprazol e Sodium 40 MG No 1{table t} QD Pantoprazo le Sodium 40 MG Metoprolol Tartrate 25 MG Metoprolol Tartrate 25 MG No 1{table t_with_ food} BID Metoprolol Tartrate 25 MG SUMAtriptan 5 MG/ACT SUMAtriptan 5 MG/ACT No QD SUMAtripta n 5 MG/ACT Atorvastati n Calcium 10 MG Atorvastati n Calcium 10 MG No 1{table t} QD Atorvastat in Calcium 10 MG Zinc Zinc No Zinc Vitamin B12 Vitamin B12 No Vi tamin B12 Topiramate 25 MG Topiramate 25 MG No 1{table t} QD Topiramate 25 MG Pantoprazol e Sodium 40 MG Pantoprazol e Sodium 40 MG No 1{table t} QD Pantoprazo le Sodium 40 MG ProAir HFA 108 (90 Base) MCG/ACT ProAir HFA 108 (90 Base) MCG/ACT No 2{puffs _as_nee ded} ProAir HFA 108 (90 Base) MCG/ACT Fenoprofen Calcium 400 MG Fenoprofen Calcium 400 MG No 1{capsu le} Fenoprofen Calcium 400 MG metFORMIN HCl 500 MG metFORMIN HCl 500 MG No metFORMIN HCl 500 MG Metoprolol Tartrate 25 MG Metoprolol Tartrate 25 MG No .5{tabl et_with _food} BID Metoprolol Tartrate 25 MG Cholecalcif idlaia 25 MCG (1000 UT) Cholecalcif idalia 25 MCG (1000 UT) No 1{capsu le} QD Cholecalci ferol 25 MCG (1000 UT) Atorvastati n Calcium 10 MG Atorvastati n Calcium 10 MG No 1{table t} QD Atorvastat in Calcium 10 MG Nalfon 400 MG Nalfon 400 MG No 1{capsu le} TID Nalfon 400 MG Pantoprazol e Sodium 40 MG Pantoprazol e Sodium 40 MG No Pantoprazo le Sodium 40 MG Montelukast Sodium 10 MG Montelukast Sodium 10 MG No Montelukas t Sodium 10 MG Trelegy Ellipta 100-62.5-25 MCG/INH Trelegy Ellipta 100-62.5-25 MCG/INH No 1{puff} QD Trelegy Ellipta 100-62.5-2 5 MCG/INH Atorvastati n Calcium 20 MG Atorvastati n Calcium 20 MG No 1{table t} QD Atorvastat in Calcium 20 MG Metoprolol Tartrate 25 MG Metoprolol Tartrate 25 MG No 1{table t_with_ food} BID Metoprolol Tartrate 25 MG SUMAtriptan 5 MG/ACT SUMAtriptan 5 MG/ACT No QD SUMAtripta n 5 MG/ACT Atorvastati n Calcium 10 MG Atorvastati n Calcium 10 MG No 1{table t} QD Atorvastat in Calcium 10 MG Zinc Zinc No Zinc Vitamin B12 Vitamin B12 No Vi tamin B12 Topiramate 25 MG Topiramate 25 MG No 1{table t} QD Topiramate 25 MG Pantoprazol e Sodium 40 MG Pantoprazol e Sodium 40 MG No 1{table t} QD Pantoprazo le Sodium 40 MG ProAir HFA 108 (90 Base) MCG/ACT ProAir HFA 108 (90 Base) MCG/ACT No 2{puffs _as_nee ded} ProAir HFA 108 (90 Base) MCG/ACT Fenoprofen Calcium 400 MG Fenoprofen Calcium 400 MG No 1{capsu le} Fenoprofen Calcium 400 MG metFORMIN HCl 500 MG metFORMIN HCl 500 MG No metFORMIN HCl 500 MG Metoprolol Tartrate 25 MG Metoprolol Tartrate 25 MG No .5{tabl et_with _food} BID Metoprolol Tartrate 25 MG Cholecalcif idalia 25 MCG (1000 UT) Cholecalcif idalia 25 MCG (1000 UT) No 1{capsu le} QD Cholecalci ferol 25 MCG (1000 UT) Atorvastati n Calcium 10 MG Atorvastati n Calcium 10 MG No 1{table t} QD Atorvastat in Calcium 10 MG Nalfon 400 MG Nalfon 400 MG No 1{capsu le} TID Nalfon 400 MG Pantoprazol e Sodium 40 MG Pantoprazol e Sodium 40 MG No Pantoprazo le Sodium 40 MG Montelukast Sodium 10 MG Montelukast Sodium 10 MG No Montelukas t Sodium 10 MG Trelegy Ellipta 100-62.5-25 MCG/INH Trelegy Ellipta 100-62.5-25 MCG/INH No 1{puff} QD Trelegy Ellipta 100-62.5-2 5 MCG/INH Atorvastati n Calcium 20 MG Atorvastati n Calcium 20 MG No 1{table t} QD Atorvastat in Calcium 20 MG Metoprolol Tartrate 25 MG Metoprolol Tartrate 25 MG No 1{table t_with_ food} BID Metoprolol Tartrate 25 MG Atorvastati n Calcium 10 MG Atorvastati n Calcium 10 MG No 1{table t} QD Atorvastat in Calcium 10 MG metFORMIN HCl 500 MG metFORMIN HCl 500 MG No metFORMIN HCl 500 MG Pantoprazol e Sodium 40 MG Pantoprazol e Sodium 40 MG No Pantoprazo le Sodium 40 MG Fenoprofen Calcium 400 MG Fenoprofen Calcium 400 MG No 1{capsu le} Fenoprofen Calcium 400 MG Nalfon 400 MG Nalfon 400 MG No 1{capsu le} TID Nalfon 400 MG Metoprolol Tartrate 25 MG Metoprolol Tartrate 25 MG No .5{tabl et_with _food} BID Metoprolol Tartrate 25 MG SUMAtriptan 5 MG/ACT SUMAtriptan 5 MG/ACT No QD SUMAtripta n 5 MG/ACT Topiramate 25 MG Topiramate 25 MG No 1{table t} QD Topiramate 25 MG Cholecalcif idalia 25 MCG (1000 UT) Cholecalcif idalia 25 MCG (1000 UT) No 1{capsu le} QD Cholecalci ferol 25 MCG (1000 UT) Benzonatate 200 MG Benzonatate 200 MG No 1{capsu le_as_n eeded} Benzonatat e 200 MG Atorvastati n Calcium 10 MG Atorvastati n Calcium 10 MG No 1{table t} QD Atorvastat in Calcium 10 MG Atorvastati n Calcium 20 MG Atorvastati n Calcium 20 MG No 1{table t} QD Atorvastat in Calcium 20 MG Zinc Zinc No Zinc Montelukast Sodium 10 MG Montelukast Sodium 10 MG No Montelukas t Sodium 10 MG Pantoprazol e Sodium 40 MG Pantoprazol e Sodium 40 MG No 1{table t} QD Pantoprazo le Sodium 40 MG Trelegy Ellipta 100-62.5-25 MCG/INH Trelegy Ellipta 100-62.5-25 MCG/INH No 1{puff} QD Trelegy Ellipta 100-62.5-2 5 MCG/INH Metoprolol Tartrate 25 MG Metoprolol Tartrate 25 MG No 1{table t_with_ food} BID Metoprolol Tartrate 25 MG predniSONE 20 MG predniSONE 20 MG No QD predniSONE 20 MG Vitamin B12 Vitamin B12 No Vi tamin B12 ProAir HFA 108 (90 Base) MCG/ACT ProAir HFA 108 (90 Base) MCG/ACT No 2{puffs _as_nee ded} ProAir HFA 108 (90 Base) MCG/ACT Atorvastati n Calcium 10 MG Atorvastati n Calcium 10 MG No 1{table t} QD Atorvastat in Calcium 10 MG metFORMIN HCl 500 MG metFORMIN HCl 500 MG No metFORMIN HCl 500 MG Pantoprazol e Sodium 40 MG Pantoprazol e Sodium 40 MG No Pantoprazo le Sodium 40 MG Fenoprofen Calcium 400 MG Fenoprofen Calcium 400 MG No 1{capsu le} Fenoprofen Calcium 400 MG Nalfon 400 MG Nalfon 400 MG No 1{capsu le} TID Nalfon 400 MG Metoprolol Tartrate 25 MG Metoprolol Tartrate 25 MG No .5{tabl et_with _food} BID Metoprolol Tartrate 25 MG SUMAtriptan 5 MG/ACT SUMAtriptan 5 MG/ACT No QD SUMAtripta n 5 MG/ACT Topiramate 25 MG Topiramate 25 MG No 1{table t} QD Topiramate 25 MG Cholecalcif idalia 25 MCG (1000 UT) Cholecalcif idalia 25 MCG (1000 UT) No 1{capsu le} QD Cholecalci ferol 25 MCG (1000 UT) Benzonatate 200 MG Benzonatate 200 MG No 1{capsu le_as_n eeded} Benzonatat e 200 MG Atorvastati n Calcium 10 MG Atorvastati n Calcium 10 MG No 1{table t} QD Atorvastat in Calcium 10 MG Atorvastati n Calcium 20 MG Atorvastati n Calcium 20 MG No 1{table t} QD Atorvastat in Calcium 20 MG Zinc Zinc No Zinc Montelukast Sodium 10 MG Montelukast Sodium 10 MG No Montelukas t Sodium 10 MG Pantoprazol e Sodium 40 MG Pantoprazol e Sodium 40 MG No 1{table t} QD Pantoprazo le Sodium 40 MG Trelegy Ellipta 100-62.5-25 MCG/INH Trelegy Ellipta 100-62.5-25 MCG/INH No 1{puff} QD Trelegy Ellipta 100-62.5-2 5 MCG/INH Metoprolol Tartrate 25 MG Metoprolol Tartrate 25 MG No 1{table t_with_ food} BID Metoprolol Tartrate 25 MG predniSONE 20 MG predniSONE 20 MG No QD predniSONE 20 MG Vitamin B12 Vitamin B12 No Vi tamin B12 ProAir HFA 108 (90 Base) MCG/ACT ProAir HFA 108 (90 Base) MCG/ACT No 2{puffs _as_nee ded} ProAir HFA 108 (90 Base) MCG/ACT Montelukast Sodium 10 MG Montelukast Sodium 10 MG No Montelukas t Sodium 10 MG Atorvastati n Calcium 10 MG Atorvastati n Calcium 10 MG No 1{table t} QD Atorvastat in Calcium 10 MG Pantoprazol e Sodium 40 MG Pantoprazol e Sodium 40 MG No Pantoprazo le Sodium 40 MG Fenoprofen Calcium 400 MG Fenoprofen Calcium 400 MG No 1{capsu le} Fenoprofen Calcium 400 MG Nalfon 400 MG Nalfon 400 MG No 1{capsu le} TID Nalfon 400 MG Metoprolol Tartrate 25 MG Metoprolol Tartrate 25 MG No .5{tabl et_with _food} BID Metoprolol Tartrate 25 MG SUMAtriptan 5 MG/ACT SUMAtriptan 5 MG/ACT No QD SUMAtripta n 5 MG/ACT Topiramate 25 MG Topiramate 25 MG No 1{table t} QD Topiramate 25 MG Cholecalcif idalia 25 MCG (1000 UT) Cholecalcif idalia 25 MCG (1000 UT) No 1{capsu le} QD Cholecalci ferol 25 MCG (1000 UT) Benzonatate 200 MG Benzonatate 200 MG No 1{capsu le_as_n eeded} Benzonatat e 200 MG Atorvastati n Calcium 10 MG Atorvastati n Calcium 10 MG No 1{table t} QD Atorvastat in Calcium 10 MG Atorvastati n Calcium 20 MG Atorvastati n Calcium 20 MG No 1{table t} QD Atorvastat in Calcium 20 MG Zinc Zinc No Zinc ProAir HFA 108 (90 Base) MCG/ACT ProAir HFA 108 (90 Base) MCG/ACT No 2{puffs _as_nee ded} ProAir HFA 108 (90 Base) MCG/ACT Pantoprazol e Sodium 40 MG Pantoprazol e Sodium 40 MG No 1{table t} QD Pantoprazo le Sodium 40 MG Trelegy Ellipta 100-62.5-25 MCG/INH Trelegy Ellipta 100-62.5-25 MCG/INH No 1{puff} QD Trelegy Ellipta 100-62.5-2 5 MCG/INH Metoprolol Tartrate 25 MG Metoprolol Tartrate 25 MG No 1{table t_with_ food} BID Metoprolol Tartrate 25 MG predniSONE 20 MG predniSONE 20 MG No QD predniSONE 20 MG Vitamin B12 Vitamin B12 No Vi tamin B12 metFORMIN HCl 500 MG metFORMIN HCl 500 MG No metFORMIN HCl 500 MG Atorvastati n Calcium 10 MG Atorvastati n Calcium 10 MG No 1{table t} QD Atorvastat in Calcium 10 MG Atorvastati n Calcium 20 MG Atorvastati n Calcium 20 MG No 1{table t} QD Atorvastat in Calcium 20 MG Atorvastati n Calcium 10 MG Atorvastati n Calcium 10 MG No 1{table t} QD Atorvastat in Calcium 10 MG Pantoprazol e Sodium 40 MG Pantoprazol e Sodium 40 MG No 1{table t} QD Pantoprazo le Sodium 40 MG Topiramate 25 MG Topiramate 25 MG No 1{table t} QD Topiramate 25 MG Cholecalcif idalia 25 MCG (1000 UT) Cholecalcif idalia 25 MCG (1000 UT) No 1{capsu le} QD Cholecalci ferol 25 MCG (1000 UT) SUMAtriptan 5 MG/ACT SUMAtriptan 5 MG/ACT No QD SUMAtripta n 5 MG/ACT Metoprolol Tartrate 25 MG Metoprolol Tartrate 25 MG No .5{tabl et_with _food} BID Metoprolol Tartrate 25 MG predniSONE 20 MG predniSONE 20 MG No QD predniSONE 20 MG Zinc Zinc No Zinc ProAir HFA 108 (90 Base) MCG/ACT ProAir HFA 108 (90 Base) MCG/ACT No 2{puffs _as_nee ded} ProAir HFA 108 (90 Base) MCG/ACT Fenoprofen Calcium 400 MG Fenoprofen Calcium 400 MG No 1{capsu le} Fenoprofen Calcium 400 MG Montelukast Sodium 10 MG Montelukast Sodium 10 MG No Montelukas t Sodium 10 MG Nalfon 400 MG Nalfon 400 MG No 1{capsu le} TID Nalfon 400 MG Trelegy Ellipta 100-62.5-25 MCG/INH Trelegy Ellipta 100-62.5-25 MCG/INH No 1{puff} QD Trelegy Ellipta 100-62.5-2 5 MCG/INH metFORMIN HCl 500 MG metFORMIN HCl 500 MG No metFORMIN HCl 500 MG Metoprolol Tartrate 25 MG Metoprolol Tartrate 25 MG No 1{table t_with_ food} BID Metoprolol Tartrate 25 MG Vitamin B12 Vitamin B12 No Vi tamin B12 Benzonatate 200 MG Benzonatate 200 MG No 1{capsu le_as_n eeded} Benzonatat e 200 MG Pantoprazol e Sodium 40 MG Pantoprazol e Sodium 40 MG No Pantoprazo le Sodium 40 MG Atorvastati n Calcium 10 MG Atorvastati n Calcium 10 MG No 1{table t} QD Atorvastat in Calcium 10 MG Atorvastati n Calcium 20 MG Atorvastati n Calcium 20 MG No 1{table t} QD Atorvastat in Calcium 20 MG Atorvastati n Calcium 10 MG Atorvastati n Calcium 10 MG No 1{table t} QD Atorvastat in Calcium 10 MG Pantoprazol e Sodium 40 MG Pantoprazol e Sodium 40 MG No 1{table t} QD Pantoprazo le Sodium 40 MG Topiramate 25 MG Topiramate 25 MG No 1{table t} QD Topiramate 25 MG Cholecalcif idalia 25 MCG (1000 UT) Cholecalcif idalia 25 MCG (1000 UT) No 1{capsu le} QD Cholecalci ferol 25 MCG (1000 UT) SUMAtriptan 5 MG/ACT SUMAtriptan 5 MG/ACT No QD SUMAtripta n 5 MG/ACT Metoprolol Tartrate 25 MG Metoprolol Tartrate 25 MG No .5{tabl et_with _food} BID Metoprolol Tartrate 25 MG predniSONE 20 MG predniSONE 20 MG No QD predniSONE 20 MG Zinc Zinc No Zinc ProAir HFA 108 (90 Base) MCG/ACT ProAir HFA 108 (90 Base) MCG/ACT No 2{puffs _as_nee ded} ProAir HFA 108 (90 Base) MCG/ACT Fenoprofen Calcium 400 MG Fenoprofen Calcium 400 MG No 1{capsu le} Fenoprofen Calcium 400 MG Montelukast Sodium 10 MG Montelukast Sodium 10 MG No Montelukas t Sodium 10 MG Nalfon 400 MG Nalfon 400 MG No 1{capsu le} TID Nalfon 400 MG Trelegy Ellipta 100-62.5-25 MCG/INH Trelegy Ellipta 100-62.5-25 MCG/INH No 1{puff} QD Trelegy Ellipta 100-62.5-2 5 MCG/INH metFORMIN HCl 500 MG metFORMIN HCl 500 MG No metFORMIN HCl 500 MG Metoprolol Tartrate 25 MG Metoprolol Tartrate 25 MG No 1{table t_with_ food} BID Metoprolol Tartrate 25 MG Vitamin B12 Vitamin B12 No Vi tamin B12 Benzonatate 200 MG Benzonatate 200 MG No 1{capsu le_as_n eeded} Benzonatat e 200 MG Pantoprazol e Sodium 40 MG Pantoprazol e Sodium 40 MG No Pantoprazo le Sodium 40 MG Atorvastati n Calcium 10 MG Atorvastati n Calcium 10 MG No 1{table t} QD Atorvastat in Calcium 10 MG Topiramate 25 MG Topiramate 25 MG No 1{table t} QD Topiramate 25 MG Metoprolol Tartrate 25 MG Metoprolol Tartrate 25 MG No BID Metoprolol Tartrate 25 MG Fenoprofen Calcium 400 MG Fenoprofen Calcium 400 MG No 1{capsu le} Fenoprofen Calcium 400 MG SUMAtriptan 5 MG/ACT SUMAtriptan 5 MG/ACT No QD SUMAtripta n 5 MG/ACT Cholecalcif idalia 25 MCG (1000 UT) Cholecalcif idalia 25 MCG (1000 UT) No 1{capsu le} QD Cholecalci ferol 25 MCG (1000 UT) Atorvastati n Calcium 20 MG Atorvastati n Calcium 20 MG No Atorvastat in Calcium 20 MG predniSONE 20 MG predniSONE 20 MG No QD predniSONE 20 MG Montelukast Sodium 10 MG Montelukast Sodium 10 MG No Montelukas t Sodium 10 MG Zinc Zinc No Zinc metFORMIN HCl 500 MG metFORMIN HCl 500 MG No metFORMIN HCl 500 MG ProAir HFA 108 (90 Base) MCG/ACT ProAir HFA 108 (90 Base) MCG/ACT No 2{puffs _as_nee ded} ProAir HFA 108 (90 Base) MCG/ACT Benzonatate 200 MG Benzonatate 200 MG No 1{capsu le_as_n eeded} Benzonatat e 200 MG Pantoprazol e Sodium 40 MG Pantoprazol e Sodium 40 MG No Pantoprazo le Sodium 40 MG Pantoprazol e Sodium 40 MG Pantoprazol e Sodium 40 MG No 1{table t} QD Pantoprazo le Sodium 40 MG Nalfon 400 MG Nalfon 400 MG No 1{capsu le} TID Nalfon 400 MG Vitamin B12 Vitamin B12 No Vi tamin B12 Trelegy Ellipta 100-62.5-25 MCG/INH Trelegy Ellipta 100-62.5-25 MCG/INH No 1{puff} QD Trelegy Ellipta 100-62.5-2 5 MCG/INH Atorvastati n Calcium 10 MG Atorvastati n Calcium 10 MG No 1{table t} QD Atorvastat in Calcium 10 MG Atorvastati n Calcium 20 MG Atorvastati n Calcium 20 MG No QD Atorvastat in Calcium 20 MG Atorvastati n Calcium 10 MG Atorvastati n Calcium 10 MG No 1{table t} QD Atorvastat in Calcium 10 MG Montelukast Sodium 10 MG Montelukast Sodium 10 MG No QD Montelukas t Sodium 10 MG ProAir HFA 108 (90 Base) MCG/ACT ProAir HFA 108 (90 Base) MCG/ACT No 2{puffs _as_nee ded} ProAir HFA 108 (90 Base) MCG/ACT SUMAtriptan 5 MG/ACT SUMAtriptan 5 MG/ACT No QD SUMAtripta n 5 MG/ACT Benzonatate 200 MG Benzonatate 200 MG No 1{capsu le_as_n eeded} Benzonatat e 200 MG Metoprolol Tartrate 25 MG Metoprolol Tartrate 25 MG No BID Metoprolol Tartrate 25 MG predniSONE 20 MG predniSONE 20 MG No QD predniSONE 20 MG Cholecalcif idalia 25 MCG (1000 UT) Cholecalcif idalia 25 MCG (1000 UT) No 1{capsu le} QD Cholecalci ferol 25 MCG (1000 UT) Zinc Zinc No Zinc Nalfon 400 MG Nalfon 400 MG No 1{capsu le} TID Nalfon 400 MG metFORMIN HCl 500 MG metFORMIN HCl 500 MG No metFORMIN HCl 500 MG Trelegy Ellipta 100-62.5-25 MCG/INH Trelegy Ellipta 100-62.5-25 MCG/INH No 1{puff} QD Trelegy Ellipta 100-62.5-2 5 MCG/INH Atorvastati n Calcium 10 MG Atorvastati n Calcium 10 MG No 1{table t} QD Atorvastat in Calcium 10 MG Fenoprofen Calcium 400 MG Fenoprofen Calcium 400 MG No 1{capsu le} Fenoprofen Calcium 400 MG Pantoprazol e Sodium 40 MG Pantoprazol e Sodium 40 MG No Pantoprazo le Sodium 40 MG Vitamin B12 Vitamin B12 No Vi tamin B12 Pantoprazol e Sodium 40 MG Pantoprazol e Sodium 40 MG No 1{table t} QD Pantoprazo le Sodium 40 MG Topiramate 25 MG Topiramate 25 MG No 1{table t} QD Topiramate 25 MG SUMAtriptan 5 MG/ACT SUMAtriptan 5 MG/ACT No QD SUMAtripta n 5 MG/ACT Atorvastati n Calcium 10 MG Atorvastati n Calcium 10 MG No 1{table t} QD Atorvastat in Calcium 10 MG Montelukast Sodium 10 MG Montelukast Sodium 10 MG No Montelukas t Sodium 10 MG ProAir HFA 108 (90 Base) MCG/ACT ProAir HFA 108 (90 Base) MCG/ACT No 2{puffs _as_nee ded} ProAir HFA 108 (90 Base) MCG/ACT Metoprolol Tartrate 25 MG Metoprolol Tartrate 25 MG No BID Metoprolol Tartrate 25 MG Benzonatate 200 MG Benzonatate 200 MG No 1{capsu le_as_n eeded} Benzonatat e 200 MG predniSONE 20 MG predniSONE 20 MG No QD predniSONE 20 MG Cholecalcif idalia 25 MCG (1000 UT) Cholecalcif idalia 25 MCG (1000 UT) No 1{capsu le} QD Cholecalci ferol 25 MCG (1000 UT) Zinc Zinc No Zinc Nalfon 400 MG Nalfon 400 MG No 1{capsu le} TID Nalfon 400 MG metFORMIN HCl 500 MG metFORMIN HCl 500 MG No metFORMIN HCl 500 MG Trelegy Ellipta 100-62.5-25 MCG/INH Trelegy Ellipta 100-62.5-25 MCG/INH No 1{puff} QD Trelegy Ellipta 100-62.5-2 5 MCG/INH Topiramate 25 MG Topiramate 25 MG No 1{table t} QD Topiramate 25 MG Fenoprofen Calcium 400 MG Fenoprofen Calcium 400 MG No 1{capsu le} Fenoprofen Calcium 400 MG Pantoprazol e Sodium 40 MG Pantoprazol e Sodium 40 MG No Pantoprazo le Sodium 40 MG Vitamin B12 Vitamin B12 No Vi tamin B12 Pantoprazol e Sodium 40 MG Pantoprazol e Sodium 40 MG No 1{table t} QD Pantoprazo le Sodium 40 MG Atorvastati n Calcium 20 MG Atorvastati n Calcium 20 MG No QD Atorvastat in Calcium 20 MG SUMAtriptan 5 MG/ACT SUMAtriptan 5 MG/ACT No QD SUMAtripta n 5 MG/ACT Atorvastati n Calcium 10 MG Atorvastati n Calcium 10 MG No 1{table t} QD Atorvastat in Calcium 10 MG Montelukast Sodium 10 MG Montelukast Sodium 10 MG No Montelukas t Sodium 10 MG ProAir HFA 108 (90 Base) MCG/ACT ProAir HFA 108 (90 Base) MCG/ACT No 2{puffs _as_nee ded} ProAir HFA 108 (90 Base) MCG/ACT Metoprolol Tartrate 25 MG Metoprolol Tartrate 25 MG No BID Metoprolol Tartrate 25 MG Benzonatate 200 MG Benzonatate 200 MG No 1{capsu le_as_n eeded} Benzonatat e 200 MG predniSONE 20 MG predniSONE 20 MG No QD predniSONE 20 MG Cholecalcif idalia 25 MCG (1000 UT) Cholecalcif idalia 25 MCG (1000 UT) No 1{capsu le} QD Cholecalci ferol 25 MCG (1000 UT) Zinc Zinc No Zinc Nalfon 400 MG Nalfon 400 MG No 1{capsu le} TID Nalfon 400 MG metFORMIN HCl 500 MG metFORMIN HCl 500 MG No metFORMIN HCl 500 MG Trelegy Ellipta 100-62.5-25 MCG/INH Trelegy Ellipta 100-62.5-25 MCG/INH No 1{puff} QD Trelegy Ellipta 100-62.5-2 5 MCG/INH Topiramate 25 MG Topiramate 25 MG No 1{table t} QD Topiramate 25 MG Fenoprofen Calcium 400 MG Fenoprofen Calcium 400 MG No 1{capsu le} Fenoprofen Calcium 400 MG Pantoprazol e Sodium 40 MG Pantoprazol e Sodium 40 MG No Pantoprazo le Sodium 40 MG Vitamin B12 Vitamin B12 No Vi tamin B12 Pantoprazol e Sodium 40 MG Pantoprazol e Sodium 40 MG No 1{table t} QD Pantoprazo le Sodium 40 MG Atorvastati n Calcium 20 MG Atorvastati n Calcium 20 MG No QD Atorvastat in Calcium 20 MG Topiramate 25 MG Topiramate 25 MG No 1{table t} QD Topiramate 25 MG Atorvastati n Calcium 20 MG Atorvastati n Calcium 20 MG No Atorvastat in Calcium 20 MG Metoprolol Tartrate 25 MG Metoprolol Tartrate 25 MG No Metoprolol Tartrate 25 MG Atorvastati n Calcium 20 MG Atorvastati n Calcium 20 MG No 1{table t} QD Atorvastat in Calcium 20 MG Pantoprazol e Sodium 40 MG Pantoprazol e Sodium 40 MG No 1{table t} QD Pantoprazo le Sodium 40 MG Metoprolol Tartrate 25 MG Metoprolol Tartrate 25 MG No .5{tabl et_with _food} BID Metoprolol Tartrate 25 MG Benzonatate 200 MG Benzonatate 200 MG No 1{capsu le_as_n eeded} Benzonatat e 200 MG Montelukast Sodium 10 MG Montelukast Sodium 10 MG No 1{table t} QD Montelukas t Sodium 10 MG Montelukast Sodium 10 MG Montelukast Sodium 10 MG No Montelukas t Sodium 10 MG SUMAtriptan 5 MG/ACT SUMAtriptan 5 MG/ACT No QD SUMAtripta n 5 MG/ACT Trelegy Ellipta 100-62.5-25 MCG/INH Trelegy Ellipta 100-62.5-25 MCG/INH No 1{puff} QD Trelegy Ellipta 100-62.5-2 5 MCG/INH ProAir HFA 108 (90 Base) MCG/ACT ProAir HFA 108 (90 Base) MCG/ACT No 2{puffs _as_nee ded} ProAir HFA 108 (90 Base) MCG/ACT Nalfon 400 MG Nalfon 400 MG No 1{capsu le} TID Nalfon 400 MG Topiramate 25 MG Topiramate 25 MG No 1{table t} QD Topiramate 25 MG Atorvastati n Calcium 20 MG Atorvastati n Calcium 20 MG No Atorvastat in Calcium 20 MG Metoprolol Tartrate 25 MG Metoprolol Tartrate 25 MG No Metoprolol Tartrate 25 MG Atorvastati n Calcium 20 MG Atorvastati n Calcium 20 MG No 1{table t} QD Atorvastat in Calcium 20 MG Pantoprazol e Sodium 40 MG Pantoprazol e Sodium 40 MG No 1{table t} QD Pantoprazo le Sodium 40 MG Metoprolol Tartrate 25 MG Metoprolol Tartrate 25 MG No .5{tabl et_with _food} BID Metoprolol Tartrate 25 MG Benzonatate 200 MG Benzonatate 200 MG No 1{capsu le_as_n eeded} Benzonatat e 200 MG Montelukast Sodium 10 MG Montelukast Sodium 10 MG No 1{table t} QD Montelukas t Sodium 10 MG Montelukast Sodium 10 MG Montelukast Sodium 10 MG No Montelukas t Sodium 10 MG SUMAtriptan 5 MG/ACT SUMAtriptan 5 MG/ACT No QD SUMAtripta n 5 MG/ACT Trelegy Ellipta 100-62.5-25 MCG/INH Trelegy Ellipta 100-62.5-25 MCG/INH No 1{puff} QD Trelegy Ellipta 100-62.5-2 5 MCG/INH ProAir HFA 108 (90 Base) MCG/ACT ProAir HFA 108 (90 Base) MCG/ACT No 2{puffs _as_nee ded} ProAir HFA 108 (90 Base) MCG/ACT Nalfon 400 MG Nalfon 400 MG No 1{capsu le} TID Nalfon 400 MG Montelukast Sodium 10 MG Montelukast Sodium 10 MG No Montelukas t Sodium 10 MG Benzonatate 200 MG Benzonatate 200 MG No 1{capsu le_as_n eeded} Benzonatat e 200 MG Atorvastati n Calcium 20 MG Atorvastati n Calcium 20 MG No Atorvastat in Calcium 20 MG Metoprolol Tartrate 25 MG Metoprolol Tartrate 25 MG No Metoprolol Tartrate 25 MG Pantoprazol e Sodium 40 MG Pantoprazol e Sodium 40 MG No 1{table t} QD Pantoprazo le Sodium 40 MG Nalfon 400 MG Nalfon 400 MG No 1{capsu le} TID Nalfon 400 MG Trelegy Ellipta 100-62.5-25 MCG/INH Trelegy Ellipta 100-62.5-25 MCG/INH No 1{puff} QD Trelegy Ellipta 100-62.5-2 5 MCG/INH Topiramate 25 MG Topiramate 25 MG No 1{table t} QD Topiramate 25 MG SUMAtriptan 5 MG/ACT SUMAtriptan 5 MG/ACT No QD SUMAtripta n 5 MG/ACT ProAir HFA 108 (90 Base) MCG/ACT ProAir HFA 108 (90 Base) MCG/ACT No 2{puffs _as_nee ded} ProAir HFA 108 (90 Base) MCG/ACT Montelukast Sodium 10 MG Montelukast Sodium 10 MG No Montelukas t Sodium 10 MG Benzonatate 200 MG Benzonatate 200 MG No 1{capsu le_as_n eeded} Benzonatat e 200 MG Atorvastati n Calcium 20 MG Atorvastati n Calcium 20 MG No Atorvastat in Calcium 20 MG Metoprolol Tartrate 25 MG Metoprolol Tartrate 25 MG No Metoprolol Tartrate 25 MG Pantoprazol e Sodium 40 MG Pantoprazol e Sodium 40 MG No 1{table t} QD Pantoprazo le Sodium 40 MG Nalfon 400 MG Nalfon 400 MG No 1{capsu le} TID Nalfon 400 MG Trelegy Ellipta 100-62.5-25 MCG/INH Trelegy Ellipta 100-62.5-25 MCG/INH No 1{puff} QD Trelegy Ellipta 100-62.5-2 5 MCG/INH Topiramate 25 MG Topiramate 25 MG No 1{table t} QD Topiramate 25 MG SUMAtriptan 5 MG/ACT SUMAtriptan 5 MG/ACT No QD SUMAtripta n 5 MG/ACT ProAir HFA 108 (90 Base) MCG/ACT ProAir HFA 108 (90 Base) MCG/ACT No 2{puffs _as_nee ded} ProAir HFA 108 (90 Base) MCG/ACT Montelukast Sodium 10 MG Montelukast Sodium 10 MG No Montelukas t Sodium 10 MG Benzonatate 200 MG Benzonatate 200 MG No 1{capsu le_as_n eeded} Benzonatat e 200 MG Atorvastati n Calcium 20 MG Atorvastati n Calcium 20 MG No Atorvastat in Calcium 20 MG Metoprolol Tartrate 25 MG Metoprolol Tartrate 25 MG No Metoprolol Tartrate 25 MG Pantoprazol e Sodium 40 MG Pantoprazol e Sodium 40 MG No 1{table t} QD Pantoprazo le Sodium 40 MG Nalfon 400 MG Nalfon 400 MG No 1{capsu le} TID Nalfon 400 MG Trelegy Ellipta 100-62.5-25 MCG/INH Trelegy Ellipta 100-62.5-25 MCG/INH No 1{puff} QD Trelegy Ellipta 100-62.5-2 5 MCG/INH Topiramate 25 MG Topiramate 25 MG No 1{table t} QD Topiramate 25 MG SUMAtriptan 5 MG/ACT SUMAtriptan 5 MG/ACT No QD SUMAtripta n 5 MG/ACT ProAir HFA 108 (90 Base) MCG/ACT ProAir HFA 108 (90 Base) MCG/ACT No 2{puffs _as_nee ded} ProAir HFA 108 (90 Base) MCG/ACT Metoprolol Tartrate 25 MG Metoprolol Tartrate 25 MG No Metoprolol Tartrate 25 MG Atorvastati n Calcium 20 MG Atorvastati n Calcium 20 MG No Atorvastat in Calcium 20 MG Montelukast Sodium 10 MG Montelukast Sodium 10 MG No 1{table t} QD Montelukas t Sodium 10 MG Atorvastati n Calcium 20 MG Atorvastati n Calcium 20 MG No 1{table t} QD Atorvastat in Calcium 20 MG Trelegy Ellipta 100-62.5-25 MCG/INH Trelegy Ellipta 100-62.5-25 MCG/INH No 1{puff} QD Trelegy Ellipta 100-62.5-2 5 MCG/INH Metoprolol Tartrate 25 MG Metoprolol Tartrate 25 MG No .5{tabl et_with _food} BID Metoprolol Tartrate 25 MG ProAir HFA 108 (90 Base) MCG/ACT ProAir HFA 108 (90 Base) MCG/ACT No 2{puffs _as_nee ded} ProAir HFA 108 (90 Base) MCG/ACT Topiramate 25 MG Topiramate 25 MG No 1{table t} QD Topiramate 25 MG Pantoprazol e Sodium 40 MG Pantoprazol e Sodium 40 MG No 1{table t} QD Pantoprazo le Sodium 40 MG SUMAtriptan 5 MG/ACT SUMAtriptan 5 MG/ACT No QD SUMAtripta n 5 MG/ACT Benzonatate 200 MG Benzonatate 200 MG No 1{capsu le_as_n eeded} Benzonatat e 200 MG Montelukast Sodium 10 MG Montelukast Sodium 10 MG No Montelukas t Sodium 10 MG Nalfon 400 MG Nalfon 400 MG No 1{capsu le} TID Nalfon 400 MG Atorvastati n Calcium 20 MG Atorvastati n Calcium 20 MG No Atorvastat in Calcium 20 MG ProAir HFA 108 (90 Base) MCG/ACT ProAir HFA 108 (90 Base) MCG/ACT No 2{puffs _as_nee ded} ProAir HFA 108 (90 Base) MCG/ACT Topiramate 25 MG Topiramate 25 MG No 1{table t} QD Topiramate 25 MG Pantoprazol e Sodium 40 MG Pantoprazol e Sodium 40 MG No 1{table t} QD Pantoprazo le Sodium 40 MG Montelukast Sodium 10 MG Montelukast Sodium 10 MG No Montelukas t Sodium 10 MG SUMAtriptan 5 MG/ACT SUMAtriptan 5 MG/ACT No QD SUMAtripta n 5 MG/ACT Trelegy Ellipta 100-62.5-25 MCG/INH Trelegy Ellipta 100-62.5-25 MCG/INH No 1{puff} QD Trelegy Ellipta 100-62.5-2 5 MCG/INH Nalfon 400 MG Nalfon 400 MG No 1{capsu le} TID Nalfon 400 MG Benzonatate 200 MG Benzonatate 200 MG No 1{capsu le_as_n eeded} Benzonatat e 200 MG Metoprolol Tartrate 25 MG Metoprolol Tartrate 25 MG No Metoprolol Tartrate 25 MG Atorvastati n Calcium 20 MG Atorvastati n Calcium 20 MG No Atorvastat in Calcium 20 MG ProAir HFA 108 (90 Base) MCG/ACT ProAir HFA 108 (90 Base) MCG/ACT No 2{puffs _as_nee ded} ProAir HFA 108 (90 Base) MCG/ACT Topiramate 25 MG Topiramate 25 MG No 1{table t} QD Topiramate 25 MG Montelukast Sodium 10 MG Montelukast Sodium 10 MG No Montelukas t Sodium 10 MG Benzonatate 200 MG Benzonatate 200 MG No 1{capsu le_as_n eeded} Benzonatat e 200 MG SUMAtriptan 5 MG/ACT SUMAtriptan 5 MG/ACT No QD SUMAtripta n 5 MG/ACT Metoprolol Tartrate 25 MG Metoprolol Tartrate 25 MG No Metoprolol Tartrate 25 MG Nalfon 400 MG Nalfon 400 MG No 1{capsu le} TID Nalfon 400 MG Trelegy Ellipta 100-62.5-25 MCG/INH Trelegy Ellipta 100-62.5-25 MCG/INH No 1{puff} QD Trelegy Ellipta 100-62.5-2 5 MCG/INH Pantoprazol e Sodium 40 MG Pantoprazol e Sodium 40 MG No 1{table t} QD Pantoprazo le Sodium 40 MG ProAir HFA 108 (90 Base) MCG/ACT ProAir HFA 108 (90 Base) MCG/ACT No 2{puffs _as_nee ded} ProAir HFA 108 (90 Base) MCG/ACT Atorvastati n Calcium 20 MG Atorvastati n Calcium 20 MG No QD Atorvastat in Calcium 20 MG Omeprazole 40 MG Omeprazole 40 MG No QD Omeprazole 40 MG Topiramate 25 MG Topiramate 25 MG No 1{table t} QD Topiramate 25 MG Nalfon 400 MG Nalfon 400 MG No 1{capsu le} TID Nalfon 400 MG Trelegy Ellipta 100-62.5-25 MCG/INH Trelegy Ellipta 100-62.5-25 MCG/INH No 1{puff} QD Trelegy Ellipta 100-62.5-2 5 MCG/INH Pantoprazol e Sodium 40 MG Pantoprazol e Sodium 40 MG No 1{table t} QD Pantoprazo le Sodium 40 MG Atorvastati n Calcium 20 MG Atorvastati n Calcium 20 MG No 1{table t} QD Atorvastat in Calcium 20 MG Montelukast Sodium 10 MG Montelukast Sodium 10 MG No 1{table t} QD Montelukas t Sodium 10 MG SUMAtriptan 5 MG/ACT SUMAtriptan 5 MG/ACT No QD SUMAtripta n 5 MG/ACT Metoprolol Tartrate 25 MG Metoprolol Tartrate 25 MG No .5{tabl et_with _food} BID Metoprolol Tartrate 25 MG Augmentin 500-125 MG Augmentin 500-125 MG No 1{table t} Augmentin 500-125 MG Trelegy Ellipta 100-62.5-25 MCG/INH Trelegy Ellipta 100-62.5-25 MCG/INH No 1{puff} QD Trelegy Ellipta 100-62.5-2 5 MCG/INH Omeprazole 40 MG Omeprazole 40 MG No QD Omeprazole 40 MG Topiramate 25 MG Topiramate 25 MG No 1{table t} QD Topiramate 25 MG Augmentin 500-125 MG Augmentin 500-125 MG No 1{table t} Augmentin 500-125 MG Atorvastati n Calcium 20 MG Atorvastati n Calcium 20 MG No 1{table t} QD Atorvastat in Calcium 20 MG Metoprolol Tartrate 25 MG Metoprolol Tartrate 25 MG No .5{tabl et_with _food} BID Metoprolol Tartrate 25 MG Montelukast Sodium 10 MG Montelukast Sodium 10 MG No 1{table t} QD Montelukas t Sodium 10 MG Nalfon 400 MG Nalfon 400 MG No 1{capsu le} TID Nalfon 400 MG Pantoprazol e Sodium 40 MG Pantoprazol e Sodium 40 MG No 1{table t} QD Pantoprazo le Sodium 40 MG SUMAtriptan 5 MG/ACT SUMAtriptan 5 MG/ACT No QD SUMAtripta n 5 MG/ACT ProAir HFA 108 (90 Base) MCG/ACT ProAir HFA 108 (90 Base) MCG/ACT No 2{puffs _as_nee ded} ProAir HFA 108 (90 Base) MCG/ACT Trelegy Ellipta 100-62.5-25 MCG/INH Trelegy Ellipta 100-62.5-25 MCG/INH No 1{puff} QD Trelegy Ellipta 100-62.5-2 5 MCG/INH Omeprazole 40 MG Omeprazole 40 MG No QD Omeprazole 40 MG Topiramate 25 MG Topiramate 25 MG No 1{table t} QD Topiramate 25 MG Augmentin 500-125 MG Augmentin 500-125 MG No 1{table t} Augmentin 500-125 MG Atorvastati n Calcium 20 MG Atorvastati n Calcium 20 MG No 1{table t} QD Atorvastat in Calcium 20 MG Metoprolol Tartrate 25 MG Metoprolol Tartrate 25 MG No .5{tabl et_with _food} BID Metoprolol Tartrate 25 MG Montelukast Sodium 10 MG Montelukast Sodium 10 MG No 1{table t} QD Montelukas t Sodium 10 MG Nalfon 400 MG Nalfon 400 MG No 1{capsu le} TID Nalfon 400 MG Pantoprazol e Sodium 40 MG Pantoprazol e Sodium 40 MG No 1{table t} QD Pantoprazo le Sodium 40 MG SUMAtriptan 5 MG/ACT SUMAtriptan 5 MG/ACT No QD SUMAtripta n 5 MG/ACT ProAir HFA 108 (90 Base) MCG/ACT ProAir HFA 108 (90 Base) MCG/ACT No 2{puffs _as_nee ded} ProAir HFA 108 (90 Base) MCG/ACT Trelegy Ellipta 100-62.5-25 MCG/INH Trelegy Ellipta 100-62.5-25 MCG/INH No 1{puff} QD Trelegy Ellipta 100-62.5-2 5 MCG/INH Omeprazole 40 MG Omeprazole 40 MG No QD Omeprazole 40 MG Topiramate 25 MG Topiramate 25 MG No 1{table t} QD Topiramate 25 MG Augmentin 500-125 MG Augmentin 500-125 MG No 1{table t} Augmentin 500-125 MG Atorvastati n Calcium 20 MG Atorvastati n Calcium 20 MG No 1{table t} QD Atorvastat in Calcium 20 MG Metoprolol Tartrate 25 MG Metoprolol Tartrate 25 MG No .5{tabl et_with _food} BID Metoprolol Tartrate 25 MG Montelukast Sodium 10 MG Montelukast Sodium 10 MG No 1{table t} QD Montelukas t Sodium 10 MG Nalfon 400 MG Nalfon 400 MG No 1{capsu le} TID Nalfon 400 MG Pantoprazol e Sodium 40 MG Pantoprazol e Sodium 40 MG No 1{table t} QD Pantoprazo le Sodium 40 MG SUMAtriptan 5 MG/ACT SUMAtriptan 5 MG/ACT No QD SUMAtripta n 5 MG/ACT ProAir HFA 108 (90 Base) MCG/ACT ProAir HFA 108 (90 Base) MCG/ACT No 2{puffs _as_nee ded} ProAir HFA 108 (90 Base) MCG/ACT Trelegy Ellipta 100-62.5-25 MCG/INH Trelegy Ellipta 100-62.5-25 MCG/INH No 1{puff} QD Trelegy Ellipta 100-62.5-2 5 MCG/INH Omeprazole 40 MG Omeprazole 40 MG No QD Omeprazole 40 MG Topiramate 25 MG Topiramate 25 MG No 1{table t} QD Topiramate 25 MG Augmentin 500-125 MG Augmentin 500-125 MG No 1{table t} Augmentin 500-125 MG Atorvastati n Calcium 20 MG Atorvastati n Calcium 20 MG No 1{table t} QD Atorvastat in Calcium 20 MG Metoprolol Tartrate 25 MG Metoprolol Tartrate 25 MG No .5{tabl et_with _food} BID Metoprolol Tartrate 25 MG Montelukast Sodium 10 MG Montelukast Sodium 10 MG No 1{table t} QD Montelukas t Sodium 10 MG Nalfon 400 MG Nalfon 400 MG No 1{capsu le} TID Nalfon 400 MG Pantoprazol e Sodium 40 MG Pantoprazol e Sodium 40 MG No 1{table t} QD Pantoprazo le Sodium 40 MG SUMAtriptan 5 MG/ACT SUMAtriptan 5 MG/ACT No QD SUMAtripta n 5 MG/ACT ProAir HFA 108 (90 Base) MCG/ACT ProAir HFA 108 (90 Base) MCG/ACT No 2{puffs _as_nee ded} ProAir HFA 108 (90 Base) MCG/ACT Trelegy Ellipta 100-62.5-25 MCG/INH Trelegy Ellipta 100-62.5-25 MCG/INH No 1{puff} QD Trelegy Ellipta 100-62.5-2 5 MCG/INH Omeprazole 40 MG Omeprazole 40 MG No QD Omeprazole 40 MG Topiramate 25 MG Topiramate 25 MG No 1{table t} QD Topiramate 25 MG Augmentin 500-125 MG Augmentin 500-125 MG No 1{table t} Augmentin 500-125 MG Atorvastati n Calcium 20 MG Atorvastati n Calcium 20 MG No 1{table t} QD Atorvastat in Calcium 20 MG Metoprolol Tartrate 25 MG Metoprolol Tartrate 25 MG No .5{tabl et_with _food} BID Metoprolol Tartrate 25 MG Montelukast Sodium 10 MG Montelukast Sodium 10 MG No 1{table t} QD Montelukas t Sodium 10 MG Nalfon 400 MG Nalfon 400 MG No 1{capsu le} TID Nalfon 400 MG Pantoprazol e Sodium 40 MG Pantoprazol e Sodium 40 MG No 1{table t} QD Pantoprazo le Sodium 40 MG SUMAtriptan 5 MG/ACT SUMAtriptan 5 MG/ACT No QD SUMAtripta n 5 MG/ACT ProAir HFA 108 (90 Base) MCG/ACT ProAir HFA 108 (90 Base) MCG/ACT No 2{puffs _as_nee ded} ProAir HFA 108 (90 Base) MCG/ACT Montelukast Sodium 10 MG Montelukast Sodium 10 MG No 1{table t} QD Montelukas t Sodium 10 MG ProAir HFA 108 (90 Base) MCG/ACT ProAir HFA 108 (90 Base) MCG/ACT No 2{puffs _as_nee ded} ProAir HFA 108 (90 Base) MCG/ACT Nalfon 400 MG Nalfon 400 MG No 1{capsu le} TID Nalfon 400 MG Omeprazole 40 MG Omeprazole 40 MG No QD Omeprazole 40 MG Augmentin 500-125 MG Augmentin 500-125 MG No 1{table t} Augmentin 500-125 MG Metoprolol Tartrate 25 MG Metoprolol Tartrate 25 MG No .5{tabl et_with _food} BID Metoprolol Tartrate 25 MG Pantoprazol e Sodium 40 MG Pantoprazol e Sodium 40 MG No 1{table t} QD Pantoprazo le Sodium 40 MG Atorvastati n Calcium 20 MG Atorvastati n Calcium 20 MG No 1{table t} QD Atorvastat in Calcium 20 MG SUMAtriptan 5 MG/ACT SUMAtriptan 5 MG/ACT No QD SUMAtripta n 5 MG/ACT Atorvastati n Calcium 20 MG Atorvastati n Calcium 20 MG No 1{table t} QD Atorvastat in Calcium 20 MG Trelegy Ellipta 100-62.5-25 MCG/INH Trelegy Ellipta 100-62.5-25 MCG/INH No 1{puff} QD Trelegy Ellipta 100-62.5-2 5 MCG/INH Pantoprazol e Sodium 40 MG Pantoprazol e Sodium 40 MG No 1{table t} QD Pantoprazo le Sodium 40 MG Montelukast Sodium 10 MG Montelukast Sodium 10 MG No 1{table t} QD Montelukas t Sodium 10 MG Topiramate 25 MG Topiramate 25 MG No 1{table t} QD Topiramate 25 MG Immunizations Ordered Immunization Name Filled Immunization Name Date Status Comments Source Moderna COVID-19 Vaccine (Low Dose Booster) Moderna COVID-19 Vaccine (Low Dose Booster) 2021-02-02 09:26:00 Completed [facility] Moderna COVID-19 Vaccine (Low Dose Booster) Moderna COVID-19 Vaccine (Low Dose Booster) 2021-02-02 09:26:00 Completed [facility] Moderna COVID-19 Vaccine (Low Dose Booster) Moderna COVID-19 Vaccine (Low Dose Booster) 2021-02-02 09:26:00 Completed [facility] Moderna COVID-19 Vaccine (Low Dose Booster) Moderna COVID-19 Vaccine (Low Dose Booster) 2021-02-02 09:26:00 Completed [facility] Moderna COVID-19 Vaccine (Low Dose Booster) Moderna COVID-19 Vaccine (Low Dose Booster) 2021-02-02 09:26:00 Completed [facility] Moderna COVID-19 Vaccine (Low Dose Booster) Moderna COVID-19 Vaccine (Low Dose Booster) 2021-02-02 09:26:00 Completed [facility] Moderna COVID-19 Vaccine (Low Dose Booster) Moderna COVID-19 Vaccine (Low Dose Booster) 2021-02-02 09:26:00 Completed [facility] Moderna COVID-19 Vaccine (Low Dose Booster) Moderna COVID-19 Vaccine (Low Dose Booster) 2021-02-02 09:26:00 Completed [facility] Moderna COVID-19 Vaccine (Low Dose Booster) Moderna COVID-19 Vaccine (Low Dose Booster) 2021-02-02 09:26:00 Completed [facility] Moderna COVID-19 Vaccine (Low Dose Booster) Moderna COVID-19 Vaccine (Low Dose Booster) 2021-02-02 09:26:00 Completed [facility] Moderna COVID-19 Vaccine (Low Dose Booster) Moderna COVID-19 Vaccine (Low Dose Booster) 2021-02-02 09:26:00 Completed [facility] Moderna COVID-19 Vaccine (Low Dose Booster) Moderna COVID-19 Vaccine (Low Dose Booster) 2021-02-02 09:26:00 Completed [facility] Moderna COVID-19 Vaccine (Low Dose Booster) Moderna COVID-19 Vaccine (Low Dose Booster) 2021-02-02 09:26:00 Completed [facility] Moderna COVID-19 Vaccine (Low Dose Booster) Moderna COVID-19 Vaccine (Low Dose Booster) 2021-02-02 09:26:00 Completed [facility] Moderna COVID-19 Vaccine (Low Dose Booster) Moderna COVID-19 Vaccine (Low Dose Booster) 2021-02-02 09:26:00 Completed [facility] Moderna COVID-19 Vaccine (Low Dose Booster) Moderna COVID-19 Vaccine (Low Dose Booster) 2021-02-02 09:26:00 Completed [facility] Moderna COVID-19 Vaccine (Low Dose Booster) Moderna COVID-19 Vaccine (Low Dose Booster) 2021-02-02 09:26:00 Completed [facility] Moderna COVID-19 Vaccine (Low Dose Booster) Moderna COVID-19 Vaccine (Low Dose Booster) 2021-02-02 09:26:00 Completed [facility] Moderna COVID-19 Vaccine (Low Dose Booster) Moderna COVID-19 Vaccine (Low Dose Booster) 2021-02-02 09:26:00 Completed [facility] Moderna COVID-19 Vaccine (Low Dose Booster) Moderna COVID-19 Vaccine (Low Dose Booster) 2021-02-02 09:26:00 Completed [facility] Moderna COVID-19 Vaccine Moderna COVID-19 Vaccine 2020-08-27 08:24:00 Completed [facility] Moderna COVID-19 Vaccine Moderna COVID-19 Vaccine 2020-08-27 08:24:00 Completed [facility] Moderna COVID-19 Vaccine Moderna COVID-19 Vaccine 2020-08-27 08:24:00 Completed [facility] Moderna COVID-19 Vaccine Moderna COVID-19 Vaccine 2020-08-27 08:24:00 Completed [facility] Moderna COVID-19 Vaccine Moderna COVID-19 Vaccine 2020-08-27 08:24:00 Completed [facility] Moderna COVID-19 Vaccine Moderna COVID-19 Vaccine 2020-08-27 08:24:00 Completed [facility] Moderna COVID-19 Vaccine Moderna COVID-19 Vaccine 2020-08-27 08:24:00 Completed [facility] Moderna COVID-19 Vaccine Moderna COVID-19 Vaccine 2020-08-27 08:24:00 Completed [facility] Moderna COVID-19 Vaccine Moderna COVID-19 Vaccine 2020-08-27 08:24:00 Completed [facility] Moderna COVID-19 Vaccine Moderna COVID-19 Vaccine 2020-08-27 08:24:00 Completed [facility] Moderna COVID-19 Vaccine Moderna COVID-19 Vaccine 2020-08-27 08:24:00 Completed [facility] Moderna COVID-19 Vaccine Moderna COVID-19 Vaccine 2020-08-27 08:24:00 Completed [facility] Moderna COVID-19 Vaccine Moderna COVID-19 Vaccine 2020-08-27 08:24:00 Completed [facility] Moderna COVID-19 Vaccine Moderna COVID-19 Vaccine 2020-08-27 08:24:00 Completed [facility] Moderna COVID-19 Vaccine Moderna COVID-19 Vaccine 2020-08-27 08:24:00 Completed [facility] Moderna COVID-19 Vaccine Moderna COVID-19 Vaccine 2020-08-27 08:24:00 Completed [facility] Moderna COVID-19 Vaccine Moderna COVID-19 Vaccine 2020-08-27 08:24:00 Completed [facility] Moderna COVID-19 Vaccine Moderna COVID-19 Vaccine 2020-08-27 08:24:00 Completed [facility] Moderna COVID-19 Vaccine Moderna COVID-19 Vaccine 2020-08-27 08:24:00 Completed [facility] Moderna COVID-19 Vaccine Moderna COVID-19 Vaccine 2020-08-27 08:24:00 Completed [facility] Moderna COVID-19 Vaccine Moderna COVID-19 Vaccine 2020-08-27 08:24:00 Completed [facility] Moderna COVID-19 Vaccine Moderna COVID-19 Vaccine 2020-07-30 07:42:00 Completed [facility] Moderna COVID-19 Vaccine Moderna COVID-19 Vaccine 2020-07-30 07:42:00 Completed [facility] Moderna COVID-19 Vaccine Moderna COVID-19 Vaccine 2020-07-30 07:42:00 Completed [facility] Moderna COVID-19 Vaccine Moderna COVID-19 Vaccine 2020-07-30 07:42:00 Completed [facility] Moderna COVID-19 Vaccine Moderna COVID-19 Vaccine 2020-07-30 07:42:00 Completed [facility] Moderna COVID-19 Vaccine Moderna COVID-19 Vaccine 2020-07-30 07:42:00 Completed [facility] Moderna COVID-19 Vaccine Moderna COVID-19 Vaccine 2020-07-30 07:42:00 Completed [facility] Moderna COVID-19 Vaccine Moderna COVID-19 Vaccine 2020-07-30 07:42:00 Completed [facility] Moderna COVID-19 Vaccine Moderna COVID-19 Vaccine 2020-07-30 07:42:00 Completed [facility] Moderna COVID-19 Vaccine Moderna COVID-19 Vaccine 2020-07-30 07:42:00 Completed [facility] Moderna COVID-19 Vaccine Moderna COVID-19 Vaccine 2020-07-30 07:42:00 Completed [facility] Moderna COVID-19 Vaccine Moderna COVID-19 Vaccine 2020-07-30 07:42:00 Completed [facility] Moderna COVID-19 Vaccine Moderna COVID-19 Vaccine 2020-07-30 07:42:00 Completed [facility] Moderna COVID-19 Vaccine Moderna COVID-19 Vaccine 2020-07-30 07:42:00 Completed [facility] Moderna COVID-19 Vaccine Moderna COVID-19 Vaccine 2020-07-30 07:42:00 Completed [facility] Moderna COVID-19 Vaccine Moderna COVID-19 Vaccine 2020-07-30 07:42:00 Completed [facility] Moderna COVID-19 Vaccine Moderna COVID-19 Vaccine 2020-07-30 07:42:00 Completed [facility] Moderna COVID-19 Vaccine Moderna COVID-19 Vaccine 2020-07-30 07:42:00 Completed [facility] Moderna COVID-19 Vaccine Moderna COVID-19 Vaccine 2020-07-30 07:42:00 Completed [facility] Moderna COVID-19 Vaccine Moderna COVID-19 Vaccine 2020-07-30 07:42:00 Completed [facility] Moderna COVID-19 Vaccine Moderna COVID-19 Vaccine 2020-07-30 07:42:00 Completed [facility] Moderna COVID-19 Vaccine (Low Dose Booster) Moderna COVID-19 Vaccine (Low Dose Booster) Unknown Completed [facility] Moderna COVID-19 Vaccine Moderna COVID-19 Vaccine Unknown Completed [facility] Moderna COVID-19 Vaccine Moderna COVID-19 Vaccine Unknown Completed [facility] Moderna COVID-19 Vaccine (Low Dose Booster) Moderna COVID-19 Vaccine (Low Dose Booster) Unknown Completed [facility] Moderna COVID-19 Vaccine Moderna COVID-19 Vaccine Unknown Completed [facility] Moderna COVID-19 Vaccine Moderna COVID-19 Vaccine Unknown Completed [facility] Moderna COVID-19 Vaccine (Low Dose Booster) Moderna COVID-19 Vaccine (Low Dose Booster) Unknown Completed [facility] Moderna COVID-19 Vaccine Moderna COVID-19 Vaccine Unknown Completed [facility] Moderna COVID-19 Vaccine Moderna COVID-19 Vaccine Unknown Completed [facility] Moderna COVID-19 Vaccine (Low Dose Booster) Moderna COVID-19 Vaccine (Low Dose Booster) Unknown Completed [facility] Moderna COVID-19 Vaccine Moderna COVID-19 Vaccine Unknown Completed [facility] Moderna COVID-19 Vaccine Moderna COVID-19 Vaccine Unknown Completed [facility] Moderna COVID-19 Vaccine (Low Dose Booster) Moderna COVID-19 Vaccine (Low Dose Booster) Unknown Completed [facility] Moderna COVID-19 Vaccine Moderna COVID-19 Vaccine Unknown Completed [facility] Moderna COVID-19 Vaccine Moderna COVID-19 Vaccine Unknown Completed [facility] Moderna COVID-19 Vaccine (Low Dose Booster) Moderna COVID-19 Vaccine (Low Dose Booster) Unknown Completed [facility] Moderna COVID-19 Vaccine Moderna COVID-19 Vaccine Unknown Completed [facility] Moderna COVID-19 Vaccine Moderna COVID-19 Vaccine Unknown Completed [facility] Moderna COVID-19 Vaccine (Low Dose Booster) Moderna COVID-19 Vaccine (Low Dose Booster) Unknown Completed [facility] Moderna COVID-19 Vaccine Moderna COVID-19 Vaccine Unknown Completed [facility] Moderna COVID-19 Vaccine Moderna COVID-19 Vaccine Unknown Completed [facility] Vital Signs Vital Name Observation Time Observation Value Comments S ource height 2022-09-21 11:30:00 68 [in_i] Commo n [facility] weight 2022-09-21 11:30:00 237.0 [lb_av] Co mmon [facility] temperature 2022-09-21 11:30:00 97.3 [degF] Com mon [facility] bmi 2022-09-21 11:30:00 36.03 kg/m2 Comm on [facility] oximetry 2022-09-21 11:30:00 97 % Commo n [facility] respiratory rate 2022-09-21 11:30:00 17 /min [facility] blood pressure systolic 2022-09-21 11:30:00 117 mm[Hg[facility] pressure diastolic 2022-09-21 11:30:00 72 mm[Hg] Common [facility] height 2022-08-24 10:00:00 68 [in_i] Commo n [facility] weight 2022-08-24 10:00:00 239.2 [lb_av] Co mmon [facility] temperature 2022-08-24 10:00:00 97.7 [degF] Com mon [facility] bmi 2022-08-24 10:00:00 36.37 kg/m2 Comm on [facility] oximetry 2022-08-24 10:00:00 98 % Commo n [facility] respiratory rate 2022-08-24 10:00:00 16 /min [facility] blood pressure systolic 2022-08-24 10:00:00 132 mm[Hg] [facility] blood pressure diastolic 2022-08-24 10:00:00 80 mm[Hg] [facility] Systolic blood pressure 2022-08-01 14:16:00 128 mm[Hg] [facility] Diastolic blood pressure 2022-08-01 14:16:00 89 mm[Hg] [facility] Heart rate 2022-08-01 14:16:00 55 /min Un[facility] Respiratory rate 2022-08-01 14:16:00 19 /min [facility] Body height 2022-08-01 14:16:00 177.8 cm [facility] 2022-08-01 14:16:00 110.678 kg [facility] BMI 2022-08-01 14:16:00 35.01 kg/m2 [facility] Oxygen saturation in Arterial blood by Pulse oximetry 2022-08-01 14:16:00 96 /min [facility] height 2022-04-24 16:10:00 68 [in_i] Commo n [facility] weight 2022-04-24 16:10:00 235 [lb_av] Comm on [facility] temperature 2022-04-24 16:10:00 98 [degF] Comm on [facility] bmi 2022-04-24 16:10:00 35.73 kg/m2 Comm on [facility] blood pressure systolic 2022-04-24 16:10:00 135 mm[Hg] Common [facility] blood pressure diastolic 2022-04-24 16:10:00 87 mm[Hg] Common [facility] height 2022-02-06 13:30:00 68 [in_i] Commo n [facility] weight 2022-02-06 13:30:00 246.8 [lb_av] Co mmon [facility] temperature 2022-02-06 13:30:00 97.8 [degF] Com [facility] bmi 2022-02-06 13:30:00 37.52 kg/m2 Comm on [facility] blood pressure systolic 2022-02-06 13:30:00 130 mm[Hg] Common [facility] blood pressure diastolic 2022-02-06 13:30:00 78 mm[Hg] Common [facility] height 2021-12-26 08:10:00 68 [in_i] Commo n [facility] weight 2021-12-26 08:10:00 248.6 [lb_av] Co mmon [facility] temperature 2021-12-26 08:10:00 97.3 [degF] Com [facility] bmi 2021-12-26 08:10:00 37.8 kg/m2 Commo n [facility] oximetry 2021-12-26 08:10:00 96 % Commo n [facility] respiratory rate 2021-12-26 08:10:00 17 /min Common [facility] blood pressure systolic 2021-12-26 08:10:00 125 mm[Hg] Common [facility] blood pressure diastolic 2021-12-26 08:10:00 78 mm[Hg] [facility] height 2021-12-12 13:30:00 68 [in_i] Commo n [facility] weight 2021-12-12 13:30:00 244.0 [lb_av] Co mmon [facility] temperature 2021-12-12 13:30:00 97.4 [degF] Com mon [facility] bmi 2021-12-12 13:30:00 37.1 kg/m2 Commo n [facility] oximetry 2021-12-12 13:30:00 96 % Commo n [facility] respiratory rate 2021-12-12 13:30:00 18 /min [facility] blood pressure systolic 2021-12-12 13:30:00 121 mm[Hg] [facility] blood pressure diastolic 2021-12-12 13:30:00 72 mm[Hg] [facility] height 2021-09-23 09:30:00 68 [in_i] Commo n [facility] weight 2021-09-23 09:30:00 245 [lb_av] Comm on [facility] temperature 2021-09-23 09:30:00 97.6 [degF] Com mon [facility] bmi 2021-09-23 09:30:00 37.25 kg/m2 Comm on [facility] oximetry 2021-09-23 09:30:00 95 % Commo n [facility] respiratory rate 2021-09-23 09:30:00 16 /min Common [facility] blood pressure systolic 2021-09-23 09:30:00 131 mm[Hg] [facility] blood pressure diastolic 2021-09-23 09:30:00 79 mm[Hg] [facility] Systolic blood pressure 2021-07-29 14:23:00 113 mm[Hg] [facility] Diastolic blood pressure 2021-07-29 14:23:00 72 mm[Hg] [facility] Heart rate 2021-07-29 14:23:00 63 /min [facility] Respiratory rate 2021-07-29 14:23:00 20 /min [facility] Body height 2021-07-29 14:23:00 180.3 cm [facility] Body weight 2021-07-29 14:23:00 113.127 kg [facility] BMI 2021-07-29 14:23:00 34.78 kg/m2 [facility] Oxygen saturation in Arterial blood by Pulse oximetry 2021-07-29 14:23:00 96 /min [facility] height 2021-04-08 11:20:00 70 [in_i] Commo n [facility] weight 2021-04-08 11:20:00 251 [lb_av] Comm on [facility] bmi 2021-04-08 11:20:00 36.01 kg/m2 Comm on [facility] height 2021-01-17 07:50:00 70 [in_i] Commo n [facility] weight 2021-01-17 07:50:00 251 [lb_av] Comm on [facility] temperature 2021-01-17 07:50:00 98 [degF] Comm on [facility] bmi 2021-01-17 07:50:00 36.01 kg/m2 Comm on [facility] blood pressure systolic 2021-01-17 07:50:00 128 mm[Hg] [facility] blood pressure diastolic 2021-01-17 07:50:00 76 mm[Hg] [facility] Procedures Procedure Date / Time Performed Performing Clinicia n Source CONSENT/REFUSAL FOR DIAGNOSIS AND TREATMENT 2022-08-01 14:02:15 Doctor Unassigned, Franquez [facility] Encounters Start Date/Time End Date/Time Encounter Type Admission Type Attending [facility] Care Department Encounter ID Source 2022-12-28 11:27:00 Outpatient Davies, Burak STLMLC STLMLC [id number] [facility] 2022-12-19 14:38:00 Outpatient GoodnathaliaRosario STLC STLMLC [id number] [facility] 2022-12-18 13:25:00 Outpatient Davies, Burak STLMLC STLMLC [id number] [facility] 2022-08-24 08:49:00 Outpatient Davies, Burak STLMLC STLMLC [id number] [facility] 2022-02-07 08:11:00 Outpatient Davies, Burak STLMLC STLMLC [id number] [facility] 2022-01-30 10:25:00 Outpatient Davies, Burak STLMLC STLMLC [id number] [facility] 2021-12-22 08:50:00 Outpatient Davies, Burak STLMLC STLMLC [id number] [facility] 2021-10-05 10:04:01 Outpatient Davies, Burak STLMLC STLMLC [id number] [facility] 2021-03-30 14:19:07 Outpatient Davies, Burak STLMLC STLMLC [id number] [facility] 2021-03-30 13:26:04 Outpatient Davies, Burak STLMLC STLMLC [id number] [facility] 2021-03-30 13:25:29 Outpatient Davies, Burak STLC STLC [id number] [facility] 2021-03-30 13:08:36 Outpatient Davies, Burak STLC STLC [id number] [facility] 2021-03-30 12:43:39 Outpatient Davies, Burak STLC STLC [id number] [facility] 2021-03-30 12:38:25 Outpatient Davies, Burak STLC STLC [id number] [facility] 2021-03-30 12:22:26 Outpatient Davies, Burak [facility] STLC [id number] [facility] 2021-03-30 12:09:29 Outpatient Davies, Burak [facility] STLC [id number] [facility] 2021-03-30 12:07:24 Outpatient Davies, Burak [facility] STLC [id number] [facility] 2021-03-30 11:56:08 Outpatient Davies, Burak STLC STLC [id number] [facility] 2021-03-30 11:32:02 Outpatient Davies, Burak STLC STLC [id number] [facility] 2021-03-30 11:17:47 Outpatient Davies, Burak STLC STLC [id number] [facility] 2021-03-30 11:17:42 Outpatient Davies, Burak STLC STLC [id number] [facility] 2022-09-21 00:00:00 2022-09-21 00:00:00 PREV VISIT EST AGE 40-64 [facility] [id number] [facility] 2022-09-04 00:00:00 2022-09-04 00:00:00 (WEB) STLMLC STLMLC [id number] [facility] 2022-08-24 00:00:00 2022-08-24 00:00:00 (WEB) STLMLC STLMLC [id number] [facility] 2022-08-24 00:00:00 2022-08-24 00:00:00 (WEB) STLMLC STLMLC [id number] [facility] 2022-08-24 00:00:00 2022-08-24 00:00:00 OFFICE VISIT ESTAB PT LEVEL 3 STLMLC STLMLC [id number] [facility] 2022-08-01 09:30:00 2022-08-01 10:00:00 Office Visit Rm Dowd [facility] [id number] [facility] 2022-08-01 09:30:00 2022-08-01 09:30:00 [facility] [id number] [facility] 2022-08-01 00:00:00 2022-08-01 00:00:00 Orders Only Doctor Unassigned, Franquez [facility] [id number] [facility] 2022-07-11 00:00:00 2022-07-11 00:00:00 (WEB) STLMLC STLMLC [id number] [facility] 2022-04-24 00:00:00 2022-04-24 00:00:00 OFFICE VISIT ESTAB PT LEVEL 3 STLMLC STLMLC [id number] [facility] 2022-03-02 00:00:00 2022-03-02 00:00:00 (WEB) STLMLC STLMLC [id number] [facility] 2022-02-06 00:00:00 2022-02-06 00:00:00 OFFICE VISIT NEW PT LEVEL 3 STLMLC STLMLC [id number] [facility] 2021-12-26 00:00:00 2021-12-26 00:00:00 OFFICE VISIT ESTAB PT LEVEL 4 STLMLC STLMLC [id number] [facility] 2021-12-12 00:00:00 2021-12-12 00:00:00 (WEB) STLMLC STLMLC [id number] [facility] 2021-12-12 00:00:00 2021-12-12 00:00:00 OFFICE VISIT EST PT LEVEL 3 STLMLC STLMLC [id number] [facility] 2021-12-11 00:00:00 2021-12-11 00:00:00 (WEB) STLMLC STLMLC [id number] [facility] 2021-09-23 00:00:00 2021-09-23 00:00:00 PREV VISIT EST AGE 40-64 STLMLC STLMLC [id number] [facility] 2021-09-23 00:00:00 2021-09-23 00:00:00 (TEL) STLMLC STLMLC [id number] [facility] 2021-08-25 00:00:00 2021-08-25 00:00:00 (WEB) STLMLC STLMLC [id number] [facility] 2021-08-19 00:00:00 2021-08-19 00:00:00 (WEB) STLMLC STLMLC [id number] [facility] 2021-08-18 00:00:00 2021-08-18 00:00:00 (WEB) STLMLC STLMLC [id number] [facility] 2021-08-09 00:00:00 2021-08-09 00:00:00 Telephone Rm Dowd [facility] [id number] [facility] 2021-07-29 09:00:00 2021-07-29 09:51:50 Outpatient R RM DOWD [facility] [id number] [facility] 2021-07-29 09:00:00 2021-07-29 09:51:50 Office Visit Rm Dowd [facility] [id number] [facility] 2021-07-29 09:00:00 2021-07-29 09:51:50 Outpatient R RM DOWD [facility] [id number] [facility] 2021-07-29 00:00:00 2021-07-29 00:00:00 Orders Only Doctor Unassigned, Franquez [facility] [id number] [facility] 2021-07-21 00:00:00 2021-07-21 00:00:00 (WEB) STLMLC STLMLC [id number] [facility] 2021-04-26 00:00:00 2021-04-26 00:00:00 OFFICE VISIT ESTAB PT LEVEL 1 STLMLC STLMLC [id number] [facility] 2021-04-25 12:00:00 2021-04-25 12:00:00 Outpatient R RM DOWD [facility] [id number] [facility] 2021-04-25 00:00:00 2021-04-25 00:00:00 (TEL) STLMLC STLMLC [id number] [facility] 2021-04-24 00:00:00 2021-04-24 00:00:00 (WEB) STLMLC STLMLC [id number] [facility] 2021-04-08 00:00:00 2021-04-08 00:00:00 OFFICE VISIT EST PT LEVEL 3 STLMLC STLMLC [id number] [facility] 2021-04-08 00:00:00 2021-04-08 00:00:00 (WEB) STLMLC STLMLC [id number] [facility] 2021-03-07 00:00:00 2021-03-07 00:00:00 OFFICE VISIT ESTAB PT LEVEL 1 STLMLC STLMLC [id number] [facility] 2021-03-07 00:00:00 2021-03-07 00:00:00 (TEL) STLMLC STLMLC [id number] [facility] 2021-02-02 00:00:00 2021-02-02 00:00:00 (COVID Inj) COVID Injection STLMLC STLMLC [id number] [facility] 2021-01-17 00:00:00 2021-01-17 00:00:00 OFFICE VISIT ESTAB PT LEVEL 4 STLMLC STLMLC [id number] [facility] 2020-10-21 15:38:21 2020-10-21 16:01:31 [facility] [id number] [facility] 2020-10-21 15:30:00 2020-10-21 15:30:00 Outpatient R RM DOWD [facility] [id number] [facility] 2020-09-15 00:00:00 2020-09-15 00:00:00 Outpatient STLMLC STLMLC [id number] [facility] 2020-08-27 00:00:00 2020-08-27 00:00:00 Outpatient STLMLC STLMLC [id number] [facility] 2020-07-30 00:00:00 2020-07-30 00:00:00 Outpatient STLMLC STLMLC [id number] [facility] 2020-07-27 00:00:00 2020-07-27 00:00:00 Outpatient STLMLC STLMLC [id number] [facility] 2020-07-05 00:00:00 2020-07-05 00:00:00 Outpatient STLMLC STLMLC [id number] [facility] 2020-07-01 14:30:00 2020-07-01 14:30:00 Outpatient R RM DOWD SH[facility] [id number] [facility] 2020-06-18 11:30:00 2020-06-18 11:30:00 Outpatient R RM DOWD SH[facility] [id number] [facility] 2020-06-18 10:55:31 2020-06-18 11:25:31 Office Visit Rm Dowd [facility] [id number] [facility] 2020-06-18 00:00:00 2020-06-18 00:00:00 Orders Only Doctor Unassigned, Franquez [id number] 350.1.13.10 [id number] [id number] [facility] 2020-06-18 00:00:00 2020-06-18 00:00:00 Letter (Out) Doctor Unassigned, Franquez [id number] 350.1.13.10 [id number] [id number] [facility] 2020-06-16 00:00:00 2020-06-16 00:00:00 Outpatient STLMLC STLMLC [id number] [facility] 2020-05-26 00:00:00 2020-05-26 00:00:00 Outpatient STLMLC STLMLC [id number] [facility] 2020-05-12 00:00:00 2020-05-12 00:00:00 Outpatient STLMLC STLMLC [id number] [facility] 2020-05-06 00:00:00 2020-05-06 00:00:00 Outpatient STLMLC STLMLC [id number] [facility] 2020-05-05 00:00:00 2020-05-05 00:00:00 Outpatient STLMLC STLMLC [id number] [facility] 2020-05-04 00:00:00 2020-05-04 00:00:00 Outpatient STLMLC STLMLC [id number] [facility] 2020-05-04 00:00:00 2020-05-04 00:00:00 Outpatient STLMLC STLMLC [id number] [facility] 2020-04-28 00:00:00 2020-04-28 00:00:00 Outpatient STLMLC STLMLC [id number] [facility] 2020-04-16 00:00:00 2020-04-16 00:00:00 Outpatient STLMLC STLMLC [id number] [facility] 2020-04-14 00:00:00 2020-04-14 00:00:00 Outpatient STLMLC STLMLC [id number] [facility] 2020-04-12 00:00:00 2020-04-12 00:00:00 Outpatient STLMLC STLMLC [id number] [facility] 2020-04-11 00:00:00 2020-04-11 00:00:00 Outpatient STLMLC STLMLC [id number] [facility] 2020-04-11 00:00:00 2020-04-11 00:00:00 Outpatient STLMLC STLMLC [id number] [facility] 2020-04-06 00:00:00 2020-04-06 00:00:00 Outpatient STLMLC STLMLC [id number] [facility] 2020-03-23 00:00:00 2020-03-23 00:00:00 Outpatient STLMLC STLMLC [id number] [facility] 2020-02-16 00:00:00 2020-02-16 00:00:00 Outpatient STLMLC STLMLC [id number] [facility] 2020-02-16 00:00:00 2020-02-16 00:00:00 Outpatient STLMLC STLMLC [id number] [facility] 2020-02-03 00:00:00 2020-02-03 00:00:00 Outpatient STLMLC STLMLC [id number] [facility] 2020-01-26 00:00:00 2020-01-26 00:00:00 Outpatient STLMLC STLMLC [id number] [facility] 2020-01-19 00:00:00 2020-01-19 00:00:00 Outpatient STLMLC STLMLC [id number] [facility] 2020-01-09 00:00:00 2020-01-09 00:00:00 Outpatient STLMLC STLMLC [id number] [facility] 2020-01-06 00:00:00 2020-01-06 00:00:00 Outpatient STLMLC STLMLC [id number] [facility] 2020-01-05 00:00:00 2020-01-05 00:00:00 Outpatient STLMLC STLMLC [id number] [facility] 2019-12-22 00:00:00 2019-12-22 00:00:00 Outpatient STLMLC STLMLC [id number] [facility] 2019-09-22 08:15:00 2019-09-22 08:15:00 Outpatient [facility] [employer] [facility] [id number] [facility] 2019-06-23 08:30:00 2019-06-23 08:30:00 [facility] [employer] [facility] [address] [facility] [id number] [facility] 2019-03-21 11:15:00 2019-03-21 11:15:[address] [facility] [address] [facility] [id number] [facility] 2019-01-13 15:15:00 2019-01-13 15:15:[address] [facility] [address] [facility] [address] [facility] [id number] [facility] 2018-12-20 14:02:00 2018-12-20 14:02:[address] [facility] [address] [facility] [address] [facility] [id number] [facility] 2018-12-20 08:30:00 2018-12-20 08:30:[address] [facility] [address] [facility] [address] [facility] [id number] [facility] 2018-09-19 10:45:00 2018-09-19 10:45:[address] [facility] [address] [facility] [address] [facility] [id number] [facility] 2018-06-10 08:15:00 2018-06-10 08:15:[address] [facility] [address] [facility] [address] [facility] [id number] [facility] 2018-05-20 10:32:00 2018-05-20 10:32:[address] [facility] [address] [facility] [address] [facility] [id number] [facility] 2018-05-14 11:21:00 2018-05-14 11:21:[address] [facility] [address] [facility] [address] [facility] [id number] [facility] 2018-05-10 14:47:00 2018-05-10 14:47:[address] [facility] [address] [facility] [address] [facility] [id number] [facility] 2018-05-06 10:11:00 2018-05-06 10:11:[address] [facility] [address] [facility] [address] [facility] [id number] [facility] 2018-03-11 13:15:00 2018-03-11 13:15:00 Outpatient [facility] [id number] [facility] 2017-12-06 14:30:00 2017-12-06 14:30:00 Outpatient [facility] [id number] [facility] 2017-08-21 14:15:00 2017-08-21 14:15:00 Outpatient [facility] [id number] [facility] 2017-05-30 16:00:00 2017-05-30 16:00:00 Outpatient [facility] [id number] [facility] Results Test Description Test Time Test Comments Results Result Co mments Source PSA W/REFLEX TO FREE [id number] 00:00:00* Test Item Value Reference Range Interpretation Comme nts PROSTATE SPECIFIC AG (test code = 73405-5) 0.24 NG/ML See_Comment [Automated messa ge] The system which generated this result transmitted reference range: <=4.00 NG/ML. The reference range was not used to interpret this result as normal/abnormal. HEMOGLOBIN [id number] 00:00:00* Test Item Value Reference Range Interpretation Comme nts HEMOGLOBIN A1c (test code = 4548-4) 6.1 % See_Comment H [Automated messa ge] The system which generated this result transmitted reference range: 4.2-5.6 %. The reference range was not used to interpret this result as normal/abnormal. TSH REFLEX TO FREE [id number] 00:00:00* Test Item Value Reference Range Interpretation Comme nts TSH REFLEX TO FREE T4 (test code = 41991-6) 1.780 UIU/ML See_Comment [Automated messa ge] The system which generated this result transmitted reference range: 0.400-4.100 UIU/ML. The reference range was not used to interpret this result as normal/abnormal. HEPATITIS C [id number] 00:00:00* Test Item Value Reference Range Interpretation Comme nts HEPATITIS C ANTIBODY (test c ode = 34878-9) NON-REACTIVE NON-REACTIVE URINALYSIS (CULTURE IF INDICATED)2023-01-30 00:00:00* Test Item Value Reference Range Interpretation Comme nts APPEARANCE (test code = 5767-9) CLEAR CLEAR BILIRUBIN (test code = 5770-3) NEGATIVE NEGATIVE COLOR (test code = 5778-6) YELLOW YELLOW-STRAW GLUCOSE (test code = 5792-7) NEGATIVE NEGATIVE KETONES (test code = 5797-6) NEGATIVE NEGATIVE LEUKOCYTE ESTERASE (test code = 5799-2) NEGATIVE NEGATIVE NITRITE (test code = 5802-4) NEGATIVE NEGATIVE OCCULT BLOOD (test code = 55287-1) NEGATIVE NEGATIVE pH (test code = 5803-2) 6.5 5.0-9.0 PROTEIN (test code = 17606-0) NEGATIVE NEGATIVE SPECIFIC GRAVITY (test code = 5811-5) 1.009 1.005-1.035 UROBILINOGEN (test code = 77167-1) 0.2 MG/DL See_Comment [Automated ValuNeta ge] The system which generated this result transmitted reference range: <=2.0 MG/DL. The reference range was not used to interpret this result as normal/abnormal. LIPID PANEL WITH REFLEX DIRECT [id number] 00:00:00* Test Item Value Reference Range Interpretation Comme nts CALC LDL CHOL (test code = 75633-9) 86 MG/DL See_Comment [Automated ValuNeta ge] The system which generated this result transmitted reference range: <100 MG/DL. The reference range was not used to interpret this result as normal/abnormal. CHOLESTEROL (test code = 2093-3) 153 MG/DL See_Comment [Automated ValuNeta ge] The system which generated this result transmitted reference range: <200 MG/DL. The reference range was not used to interpret this result as normal/abnormal. HDL CHOLESTEROL (test code = 2085-9) 49 MG/DL See_Comment [Automated ValuNeta ge] The system which generated this result transmitted reference range: >39 MG/DL. The reference range was not used to interpret this result as normal/abnormal. RISK RATIO LDL/HDL (test code = 96732-4) 1.76 RATIO See_Comment [Automated message] The system which generated this result transmitted reference range: <3.55 RATIO. The reference range was not used to interpret this result as normal/abnormal. TRIGLYCERIDES (test code = 2571-8) 89 MG/DL See_Comment [Automated messa ge] The system which generated this result transmitted reference range: <150 MG/DL. The reference range was not used to interpret this result as normal/abnormal. COMPREHENSIVE METABOLIC [id number] 00:00:00* Test Item Value Reference Range Interpretation Comme nts ALBUMIN (test code = 1751-7) 4.2 G/DL See_Comment [Automated messa ge] The system which generated this result transmitted reference range: 3.5-5.2 G/DL. The reference range was not used to interpret this result as normal/abnormal. ALKALINE PHOSPHATASE (test code = 6768-6) 97 U/L See_Comment [Automated message] The system which generated this result transmitted reference range: 40-121 U/L. The reference range was not used to interpret this result as normal/abnormal. BILIRUBIN, TOTAL (test code = 1975-2) 1.1 MG/DL See_Comment [Automated message] The system which generated this result transmitted reference range: <=1.2 MG/DL. The reference range was not used to interpret this result as normal/abnormal. BUN (test code = 3094-0) 12 MG/DL See_Comment [Automated messa ge] The system which generated this result transmitted reference range: 6-20 MG/DL. The reference range was not used to interpret this result as normal/abnormal. CALCIUM (test code = 77867-2) 9.2 MG/DL See_Comment [Automated messa ge] The system which generated this result transmitted reference range: 8.5-10.5 MG/DL. The reference range was not used to interpret this result as normal/abnormal. CALC A/G RATIO (test code = 1759-0) 1.4 RATIO See_Comment [Automated messa ge] The system which generated this result transmitted reference range: 1.0-2.6 RATIO. The reference range was not used to interpret this result as normal/abnormal. CALC BUN/CREAT (test code = 3097-3) 11 RATIO See_Comment [Automated messa ge] The system which generated this result transmitted reference range: 6-28 RATIO. The reference range was not used to interpret this result as normal/abnormal. CALC GLOBULIN (test code = 57912-3) 2.9 G/DL See_Comment [Automated messa ge] The system which generated this result transmitted reference range: 1.9-3.7 G/DL. The reference range was not used to interpret this result as normal/abnormal. CARBON DIOXIDE (test code = 1963-8) 26 MEQ/L See_Comment [Automated messa ge] The system which generated this result transmitted reference range: 19-31 MEQ/L. The reference range was not used to interpret this result as normal/abnormal. CHLORIDE (test code = 5-0) 100 MEQ/L See_Comment [Automated messa ge] The system which generated this result transmitted reference range: 95-107 MEQ/L. The reference range was not used to interpret this result as normal/abnormal. CREATININE (test code = 2160-0) 1.10 MG/DL See_Comment [Automated messa ge] The system which generated this result transmitted reference range: 0.80-1.40 MG/DL. The reference range was not used to interpret this result as normal/abnormal. eGFR (2020 CKD-EPI) (test code = 87196-7) 81 ML/MIN/1.73 See_Comment [Automated messa ge] The system which generated this result transmitted reference range: >60 ML/MIN/1.73. The reference range was not used to interpret this result as normal/abnormal. GLUCOSE (test code = 1558-6) 97 MG/DL See_Comment [Automated messa ge] The system which generated this result transmitted reference range: 70-99 MG/DL. The reference range was not used to interpret this result as normal/abnormal. POTASSIUM (test code = 2823-3) 4.5 MEQ/L See_Comment [Automated messa ge] The system which generated this result transmitted reference range: 3.5-5.4 MEQ/L. The reference range was not used to interpret this result as normal/abnormal. PROTEIN, TOTAL (test code = 2885-2) 7.1 G/DL See_Comment [Automated messa ge] The system which generated this result transmitted reference range: 6.1-8.3 G/DL. The reference range was not used to interpret this result as normal/abnormal. AST (test code = 1920-8) 29 U/L See_Comment [Automated messa ge] The system which generated this result transmitted reference range: 9-50 U/L. The reference range was not used to interpret this result as normal/abnormal. ALT (test code = 1742-6) 35 U/L See_Comment [Automated messa ge] The system which generated this result transmitted reference range: 5-50 U/L. The reference range was not used to interpret this result as normal/abnormal. SODIUM (test code = 2951-2) 137 MEQ/L See_Comment [Automated messa ge] The system which generated this result transmitted reference range: 133-146 MEQ/L. The reference range was not used to interpret this result as normal/abnormal. CBC W/AUTO [id number] 00:00:00* Test Item Value Reference Range Interpretation Comme nts NUCLEATED RBCS (test code = 93568-5) 0.0 /100 WBC'S See_Comment [Automated messa ge] The system which generated this result transmitted reference range: 0.0 /100 WBC'S. The reference range was not used to interpret this result as normal/abnormal. ABSOLUTE EOSINOPHILS (test code = 03556-7) 0.13 K/UL See_Comment [Automated messa ge] The system which generated this result transmitted reference range: 0.00-0.50 K/UL. The reference range was not used to interpret this result as normal/abnormal. ABSOLUTE LYMPHOCYTES (test code = 05654-9) 2.06 K/UL See_Comment [Automated messa ge] The system which generated this result transmitted reference range: 1.00-4.00 K/UL. The reference range was not used to interpret this result as normal/abnormal. ABSOLUTE MONOCYTES (test code = 53918-7) 0.66 K/UL See_Comment [Automated messa ge] The system which generated this result transmitted reference range: 0.20-1.00 K/UL. The reference range was not used to interpret this result as normal/abnormal. ABSOLUTE NEUTROPHILS (test code = 01821-9) 2.68 K/UL See_Comment [Automated messa ge] The system which generated this result transmitted reference range: 1.50-7.50 K/UL. The reference range was not used to interpret this result as normal/abnormal. BASOPHILS (test code = 19154-3) 0.9 % EOSINOPHILS (test code = 47164-2) 2.3 % HEMATOCRIT (test code = 81995-8) 47.8 % See_Comment [Automated messa ge] The system which generated this result transmitted reference range: 40.0-51.0 %. The reference range was not used to interpret this result as normal/abnormal. HEMOGLOBIN (test code = 718-7) 16.6 G/DL See_Comment [Automated messa ge] The system which generated this result transmitted reference range: 13.5-17.0 G/DL. The reference range was not used to interpret this result as normal/abnormal. LYMPHOCYTES (test code = 12811-1) 36.1 % MCH (test code = 34904-3) 31.1 PG See_Comment [Automated messa ge] The system which generated this result transmitted reference range: 25.0-33.0 PG. The reference range was not used to interpret this result as normal/abnormal. MCHC (test code = 67676-8) 34.7 G/DL See_Comment [Automated messa ge] The system which generated this result transmitted reference range: 31.0-36.0 G/DL. The reference range was not used to interpret this result as normal/abnormal. MCV (test code = 51107-5) 89.7 fL See_Comment [Automated messa ge] The system which generated this result transmitted reference range: 80.0-99.0 fL. The reference range was not used to interpret this result as normal/abnormal. MONOCYTES (test code = 46813-0) 11.6 % NEUTROPHILS (test code = 62842-8) 47.0 % PLATELET COUNT (test code = 96852-0) 196 K/UL See_Comment [Automated messa ge] The system which generated this result transmitted reference range: 130-400 K/UL. The reference range was not used to interpret this result as normal/abnormal. RBC (test code = 59163-8) 5.33 M/UL See_Comment [Automated messa ge] The system which generated this result transmitted reference range: 4.50-6.10 M/UL. The reference range was not used to interpret this result as normal/abnormal. RDW (test code = 80097-4) 12.5 % See_Comment [Automated messa ge] The system which generated this result transmitted reference range: 11.5-15.0 %. The reference range was not used to interpret this result as normal/abnormal. WBC (test code = 45791-5) 5.7 K/UL See_Comment [Automated messa ge] The system which generated this result transmitted reference range: 3.5-11.0 K/UL. The reference range was not used to interpret this result as normal/abnormal. HEMOGLOBIN [id number] 00:00:00* Test Item Value Reference Range Interpretation Comme nts HEMOGLOBIN A1c (test code = 4548-4) 6.0 % See_Comment H [Automated messa ge] The system which generated this result transmitted reference range: 4.2-5.6 %. The reference range was not used to interpret this result as normal/abnormal. LIPID PANEL WITH REFLEX DIRECT [id number] 00:00:00* Test Item Value Reference Range Interpretation Comme nts CALC LDL CHOL (test code = 68252-0) 66 MG/DL See_Comment [Automated messa ge] The system which generated this result transmitted reference range: <100 MG/DL. The reference range was not used to interpret this result as normal/abnormal. CHOLESTEROL (test code = 2093-3) 124 MG/DL See_Comment [Automated messa ge] The system which generated this result transmitted reference range: <200 MG/DL. The reference range was not used to interpret this result as normal/abnormal. HDL CHOLESTEROL (test code = 2085-9) 30 MG/DL See_Comment L [Automated messa ge] The system which generated this result transmitted reference range: >39 MG/DL. The reference range was not used to interpret this result as normal/abnormal. RISK RATIO LDL/HDL (test code = 32742-1) 2.20 RATIO See_Comment [Automated message] The system which generated this result transmitted reference range: <3.55 RATIO. The reference range was not used to interpret this result as normal/abnormal. TRIGLYCERIDES (test code = 2571-8) 212 MG/DL See_Comment H [Automated messa ge] The system which generated this result transmitted reference range: <150 MG/DL. The reference range was not used to interpret this result as normal/abnormal. ALBUMIN/CREATININE RATIO, RANDOM [id number] 00:00:00* Test Item Value Reference Range Interpretation Comme nts ALBUMIN, URINE, RANDOM (test code = 24069-2) 1.3 MG/DL NOT ESTAB MG/DL CALC ALBUMIN/CREAT, RND (test code = 02786-6) 6 MG/G See_Comment [Automated messa ge] The system which generated this result transmitted reference range: <30 MG/G. The reference range was not used to interpret this result as normal/abnormal. CREATININE, URINE, CONC. (test code = 2161-8) 227.2 MG/DL NOT ESTAB MG/DL COMPREHENSIVE METABOLIC [id number] 00:00:00* Test Item Value Reference Range Interpretation Comme nts ALBUMIN (test code = 1751-7) 4.3 G/DL See_Comment [Automated messa ge] The system which generated this result transmitted reference range: 3.5-5.2 G/DL. The reference range was not used to interpret this result as normal/abnormal. ALKALINE PHOSPHATASE (test code = 6768-6) 104 U/L See_Comment [Automated message] The system which generated this result transmitted reference range: 40-118 U/L. The reference range was not used to interpret this result as normal/abnormal. BILIRUBIN, TOTAL (test code = 1975-2) 1.0 MG/DL See_Comment [Automated message] The system which generated this result transmitted reference range: <=1.2 MG/DL. The reference range was not used to interpret this result as normal/abnormal. BUN (test code = 3094-0) 13 MG/DL See_Comment [Automated messa ge] The system which generated this result transmitted reference range: 6-20 MG/DL. The reference range was not used to interpret this result as normal/abnormal. CALCIUM (test code = 27164-1) 9.5 MG/DL See_Comment [Automated messa ge] The system which generated this result transmitted reference range: 8.5-10.5 MG/DL. The reference range was not used to interpret this result as normal/abnormal. CALC A/G RATIO (test code = 1759-0) 1.7 RATIO See_Comment [Automated messa ge] The system which generated this result transmitted reference range: 1.0-2.6 RATIO. The reference range was not used to interpret this result as normal/abnormal. CALC BUN/CREAT (test code = 3097-3) 12 RATIO See_Comment [Automated messa ge] The system which generated this result transmitted reference range: 6-28 RATIO. The reference range was not used to interpret this result as normal/abnormal. CALC GLOBULIN (test code = 80903-3) 2.6 G/DL See_Comment [Automated messa ge] The system which generated this result transmitted reference range: 1.9-3.7 G/DL. The reference range was not used to interpret this result as normal/abnormal. CARBON DIOXIDE (test code = 1963-8) 28 MEQ/L See_Comment [Automated messa ge] The system which generated this result transmitted reference range: 19-31 MEQ/L. The reference range was not used to interpret this result as normal/abnormal. CHLORIDE (test code = 2075-0) 105 MEQ/L See_Comment [Automated messa ge] The system which generated this result transmitted reference range: 95-107 MEQ/L. The reference range was not used to interpret this result as normal/abnormal. CREATININE (test code = 2160-0) 1.08 MG/DL See_Comment [Automated messa ge] The system which generated this result transmitted reference range: 0.80-1.40 MG/DL. The reference range was not used to interpret this result as normal/abnormal. eGFR (2020 CKD-EPI) (test code = 69161-5) 84 ML/MIN/1.73 See_Comment [Automated messa ge] The system which generated this result transmitted reference range: >60 ML/MIN/1.73. The reference range was not used to interpret this result as normal/abnormal. GLUCOSE (test code = 1558-6) 102 MG/DL See_Comment H [Automated messa ge] The system which generated this result transmitted reference range: 70-99 MG/DL. The reference range was not used to interpret this result as normal/abnormal. POTASSIUM (test code = 2823-3) 4.2 MEQ/L See_Comment [Automated messa ge] The system which generated this result transmitted reference range: 3.5-5.4 MEQ/L. The reference range was not used to interpret this result as normal/abnormal. PROTEIN, TOTAL (test code = 2885-2) 6.9 G/DL See_Comment [Automated messa ge] The system which generated this result transmitted reference range: 6.1-8.3 G/DL. The reference range was not used to interpret this result as normal/abnormal. AST (test code = 1920-8) 27 U/L See_Comment [Automated messa ge] The system which generated this result transmitted reference range: 9-50 U/L. The reference range was not used to interpret this result as normal/abnormal. ALT (test code = 1742-6) 38 U/L See_Comment [Automated messa ge] The system which generated this result transmitted reference range: 5-50 U/L. The reference range was not used to interpret this result as normal/abnormal. SODIUM (test code = 2951-2) 144 MEQ/L See_Comment [Automated messa ge] The system which generated this result transmitted reference range: 133-146 MEQ/L. The reference range was not used to interpret this result as normal/abnormal.
[2023-02-20 17:19] LABS: Absolute Lymphocytes (CBC) 0.9 K/uL (0.7-4.9); Hematocrit 44.1 % (39.6-49.0); Lymphocytes % 12.7 % (15.3-44.8); MCV 91.6 fL (80-100); MPV 9.2 fL (7.6-11.3); Platelets 177 thou/uL (152-406); RBC Red Blood Cell Count 4.81 M/uL (4.33-5.43)
--- NOTE | 2023-02-20 17:24 | RAD REPORT ---
EXAM DESCRIPTION: RAD - Chest Single View - 02/20/2023 5:13 pm CLINICAL HISTORY: DYSPNEA Chest pain. COMPARISON: Chest Pa And Lat (2 Views) dated 04/19/2022; Chest Single View dated 04/21/2020; Chest Sin gle View dated 04/17/2020; Chest Single View dated 04/14/2020 FINDINGS: Portable technique limits examination quality. Interstitial markings are mildly prominent which may be related to mild interstitial edema or underly ing viral infection. The heart is normal in size. No displaced fractures.
--- NOTE | 2023-02-20 19:46 | EDPHYS ---
Physician Documentation [facility] Name: Shahab Pacheco Age: 52 yrs Sex: Male : 1970 Arrival Date: 02/20/2023 Time: 16:30 Bed 14 Private MD: [facility] ED Physician Tam Markham HPI: 02/20 18:49 This 52 yrs old Male presents to ER via Ambulatory with complaints of Asthma kb Exacerbation. 18:49 Patient is a 52-year-old male with a history of asthma who presents for bronchial kb spasms that started today. Patient states he cannot speak more than a few words before he gets into a coughing fit and has a spasms. States he also has chest pain with the cough. Patient reports he had a cardiac ablation yesterday at [facility] by Dr. Valdivia. States he was discharged this morning and was told he was wheezing at that time.. Historical: - Allergies: 16:42 Morphine; nj1 - PMHx: 16:42 cpap at night; Hypertension; lower back pain; Chron's; Chronic obstructive lung nj1 disease; Asthma; - PSHx: 16:42 Cardiac ablation (February 19, 2023); nj1 - Immunization history:: Client reports receiving the 2nd dose of the Covid vaccine. - Social history:: Smoking status: Patient denies any tobacco usage or history of. ROS: 18:49 Constitutional: Negative for fever, chills, and weight loss, kb 18:49 Cardiovascular: Positive for chest pain, with cough, 18:49 Respiratory: Positive for cough, wheezing, 18:49 All other systems are negative, Exam: 18:49 Constitutional: This is a well developed, well nourished patient who is awake, alert, kb and in no acute distress. Head/Face: Normocephalic, atraumatic. ENT: Moist Mucous membranes Cardiovascular: Regular rate Abdomen/GI: Soft, non-tender. No distention Skin: Warm, dry with normal turgor. Normal color. MS/ Extremity: Pulses equal, no cyanosis. Neurovascular intact. Full, normal range of motion. Neuro: Awake and alert, GCS 15, oriented to person, place, time, and situation. Moves all extremities. Normal gait. 18:49 ECG was reviewed by the Attending Physician. 18:49 Respiratory: the patient does not display signs of respiratory distress, Respirations: normal, Breath sounds: wheezing: expiratory that is mild, is scattered, Vital Signs: 16:35 BP 134 / 92; Pulse 92; Resp 18; Temp 98.5(O); Pulse Ox 94% on R/A; Weight 108.86 kg; nj1 Height 5 ft. 10 in. ; 17:15 BP 125 / 82; Pulse 80; Resp 16; Pulse Ox 98% on R/A; db 18:00 BP 127 / 88; Pulse 85; Resp 20; Pulse Ox 99% on R/A; db 16:35 Body Mass Index 34.44 (108.86 kg, 177.8 cm) nj1 MDM: 16:33 Patient medically screened. kb 17:58 Data reviewed: vital signs, nurses notes. Management of patient was discussed with the kb following: Candle Pourer: Dr Valdivia called and voicemail left, awaiting callback. 18:51 Differential diagnosis: acute asthma, reactive airway, pneumonia, pulmonary embolism, kb WI, abnormal EKG. Consideration of Admission/Observation Escalation of care including admission/observation considered. pt will be transferred back to [facility] for continuity of care. Management of patient was discussed with the following: Candle Pourer: Dr Valdivia at 1820, recommends transfer back to [facility] . Test considered but Not performed: CT: CT chest for PE considered, but d-dimer normal. Historians other than the Patient: Spouse/Significant Other: . Counseling: I had a detailed discussion with the patient and/or guardian regarding the historical points, exam findings, and any diagnostic results supporting the discharge/admit diagnosis, lab results, radiology results, the need to transfer to another facility, continuity of care. 02/20 16:48 Order name: Basic Metabolic Panel; Complete Time: 17:47 kb 02/20 16:48 Order name: CBC with Diff; Complete Time: 17:21 kb 02/20 16:48 Order name: D-Dimer; Complete Time: 17:26 kb 02/20 16:48 Order name: Troponin HS; Complete Time: 17:47 kb 02/20 16:48 Order name: XRAY Chest (1 view); Complete Time: 17:26 kb 02/20 16:48 Order name: EKG; Complete Time: 16:49 kb 02/20 16:48 Order name: Cardiac monitoring; Complete Time: 17:21 kb 02/20 16:48 Order name: EKG - Nurse/Tech; Complete Time: 17:21 kb 02/20 16:48 Order name: IV Saline Lock; Complete Time: 17:21 kb 02/20 16:48 Order name: Labs collected and sent; Complete Time: 17:21 kb 02/20 16:48 Order name: O2 Per Protocol; Complete Time: 17:21 kb 02/20 16:48 Order name: O2 Sat Monitoring; Complete Time: 17:21 kb EC:49 Rate is 88 beats/min. Rhythm is regular. QRS [place] is Normal. TN interval is normal at kb 132 msec. QRS interval is normal. QT interval is normal at 447 msec. Administered Medications: 17:05 Drug: Magnesium Sulfate IVPB 1 grams IVPB once over 1 hrs Route: IVPB; Infused Over: 1 db hrs; Site: left antecubital; 17:10 Drug: Albuterol Inhalation 2.5 mg Inhalation once Route: Inhalation; db 18:01 Follow up: Response: No adverse reaction db 17:10 Drug: Ipratropium Inhalation Aerosol 0.5 mg Inhalation once Route: Inhalation; db 18:01 Follow up: Response: No adverse reaction db Disposition: 19:45 Critical Care:. kb Disposition Summary: 02/20/23 19:45 Transfer Ordered Notes: Transfer Location: Other Acute Care Facility kb Reason: Higher level of care kb Condition: Stable kb Problem: new kb Symptoms: are unchanged kb Accepting Physician: Dr Graham(02/20/23 20:43) lg3 Diagnosis - NSTEMI kb Forms: - Medication Reconciliation Form kb - SBAR form kb Critical care time excluding procedures: 19:45 Critical care time: Bedside Care: 10 minutes, Consultation: 15 minutes, Family kb Intervention: 10 minutes. Total time: 35 minutes Signatures: Dispatcher [employer] Darlene Mueller, HILLARY BARBOZA-Jennifer Roman RN RN lg3 Krista Bernard, RN RN db Bonita Mendoza, RN RN nj1 Corrections: (The following items were deleted from the chart) 19:57 19:45 Dr stacey ibarra 20:43 19:57 Dr Santos ibarra lg3
--- NOTE | 2023-02-20 19:46 | ER ---
Nurse's Notes [facility] Name: Shahab Pacheco Age: 52 yrs Sex: Male : 1970 Arrival Date: 02/20/2023 Time: 16:30 Bed 14 Private MD: Burak Davies Diagnosis: NSTEMI Presentation: 02/20 16:35 Chief complaint: Patient states: Shortness of breath since , seen at [place] [id number] positive for flu, hx COPD. Had cardiac ablation yesterday, discharged from [facility] this morning, got worse after he got home. Coronavirus screen: Vaccine status: Patient reports receiving the 2nd dose of the covid vaccine. Ebola Screen: Patient denies travel to an Ebola-affected area in the 21 days before illness onset. Initial Sepsis Screen: Does the patient meet any 2 criteria? HR > 90 bpm. No. Patient's initial sepsis screen is negative. Does the patient have a suspected source of infection? No. Patient's initial sepsis screen is negative. Risk Assessment: Do you want to hurt yourself or someone else? Patient reports no desire to harm self or others. Onset of symptoms was February 2023. 16:35 Method Of Arrival: Ambulatory [facility] 16:35 Acuity: DAMIAN 3 nj1 Historical: - Allergies: 16:42 Morphine; nj1 - PMHx: 16:42 cpap at night; Hypertension; lower back pain; Chron's; Chronic obstructive lung nj1 disease; Asthma; - PSHx: 16:42 Cardiac ablation (February 19, 2023); nj1 - Immunization history:: Client reports receiving the 2nd dose of the Covid vaccine. - Social history:: Smoking status: Patient denies any tobacco usage or history of. Screenin:22 [facility] ED Fall Risk Assessment (Adult) History of falling in the last 3 months, db including since admission No falls in past 3 months (0 pts) Confusion or Disorientation No (0 pts) Intoxicated or Sedated No (0 pts) Impaired Gait No (0 pts) Mobility Assist Device Used No (0 pt) Altered Elimination No (0 pt) Score/Fall Risk Level 0 - 2 = Low Risk Oriented to surroundings, Maintained a safe environment. Abuse screen: Denies threats or abuse. Denies injuries from another. Nutritional screening: No deficits noted. Tuberculosis screening: No symptoms or risk factors identified. Assessment: 17:23 Reassessment: Patient appears in no apparent distress at this time. Patient and/or db family updated on plan of care and expected duration. Pain level reassessed. Patient is alert, oriented x 3, equal unlabored respirations, skin warm/dry/pink. SOB. General: Appears in no apparent distress. uncomfortable, Behavior is calm, cooperative. Pain: Denies pain. Neuro: Level of Consciousness is awake, alert, obeys commands, Oriented to person, place, time, situation. Respiratory: Airway is patent Respiratory effort is even, unlabored, Respiratory pattern is regular, symmetrical. 18:01 Reassessment: Patient appears in no apparent distress at this time. Patient and/or db family updated on plan of care and expected duration. Pain level reassessed. Patient is alert, oriented x 3, equal unlabored respirations, skin warm/dry/pink. POST BREATHING TREATMENT Patient states feeling better. Patient states symptoms have improved. 18:55 Reassessment: Patient appears in no apparent distress at this time. Patient and/or db family updated on plan of care and expected duration. Pain level reassessed. Patient is alert, oriented x 3, equal unlabored respirations, skin warm/dry/pink. 20:55 Reassessment: Report given to SISI Swift at [place]. nw1 Vital Signs: 16:35 BP 134 / 92; Pulse 92; Resp 18; Temp 98.5(O); Pulse Ox 94% on R/A; Weight 108.86 kg; nj1 Height 5 ft. 10 in. ; 17:15 BP 125 / 82; Pulse 80; Resp 16; Pulse Ox 98% on R/A; db 18:00 BP 127 / 88; Pulse 85; Resp 20; Pulse Ox 99% on R/A; db 16:35 Body Mass Index 34.44 (108.86 kg, 177.8 cm) nj1 ED Course: 16:31 Patient arrived in ED. mr 16:32 Burak Davies DO is Private Physician. mr 16:33 Darlene Cornejo, [facility] kb 16:33 Tam Markham MD is Attending Physician. kb 16:37 Krista Bernard, SISI is Primary Nurse. db 16:38 Triage completed. nj1 16:43 Arm band placed on right wrist. nj1 16:46 EKG done, by ED staff, reviewed by Darlene THORNTON. db 17:00 Inserted saline lock: 20 gauge in left antecubital area, using aseptic technique. Blood db collected. 17:15 XRAY Chest (1 view) In Process Unspecified. EDMS 18:[address] [facility]. bd 19:47 Pt accepted for transfer to [facility] ER by Santos Urrutia, AOC is Indra Alicea. wm 20:00 EMS accepted for transport with an ETA \T\ 2029. wm 20:43 No provider procedures requiring assistance completed. Patient transferred, IV remains nw1 in place. Administered Medications: 17:05 Drug: Magnesium Sulfate IVPB 1 grams IVPB once over 1 hrs Route: IVPB; Infused Over: 1 db hrs; Site: left antecubital; 17:10 Drug: Albuterol Inhalation 2.5 mg Inhalation once Route: Inhalation; db 18:01 Follow up: Response: No adverse reaction db 17:10 Drug: Ipratropium Inhalation Aerosol 0.5 mg Inhalation once Route: Inhalation; db 18:01 Follow up: Response: No adverse reaction db Outcome: 19:45 ER care complete, transfer ordered by . kb 20:43 Patient left the ED. lg3 20:43 Transferred Note: [facility] 20:43 Condition: stable 20:43 Instructed on the need for transfer, 20:43 Transferred nw1 Signatures: Dispatcher [employer] EDMS Darlene Cornejo FNP-C FNP-CkLala Schrader Khan, Tatiana, Reg Reg mr Jennifer Pantoja, RN RN lg3 Alisha Maya Krista Bernard RN RN db Bonita Mendoza RN RN nj1 Lynda Harkins, SISI RN nw1
[2023-02-20 21:38] VITALS: BP 127/88; TEMP 98.5; O2SAT 99
--- NOTE | 2023-02-21 12:51 | EKG ---
Test Date: 2023-02-20 Test Time: 16:45:36 Global Program Manager: KATHERINE MEASUREMENT RESULTS: Intervals: Rate: 88 CA: 132 QRSD: 88 QT: 370 QTc: 447 [place]: P: 53 CA: 132 QRS: 51 T: 66 INTERPRETIVE STATEMENTS: Normal sinus rhythm Normal ECG Compared to ECG 04/19/2022 08:01:05 Sinus bradycardia no longer present Electronically Signed On 02-21-23 12:49:26 SIZE CUTTER by James Warren
== END ==
LOC: ER 16:30
DX: I21.4 Non-ST elevation (NSTEMI) myocardial infarction (principal); R05.9 Cough, unspecified; J44.9 Chronic obstructive pulmonary disease, unspecified; I10 Essential (primary) hypertension; Z98.890 Other specified postprocedural states; Z88.5 Allergy status to narcotic agent
CPT/HCPCS: 93005; 85025; 80048; 36415; 85379; 84484; 71045; 96374; 99285; J3475; J7613; J7644

== ENCOUNTER 2023-08-17 12:34 | Emergency (ER) | payer BC ==
--- OUTSIDE RECORDS SUMMARY | 2023-08-17 12:41 | XMS REPORT | Continuity of Care Document ---
Author Name Unknown Address [address] [facility] [address] [place] [address] [facility] Address [address] [facility] [address] [facility] 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 Role Phone DARRIUS DAVIES Primary Care Physician Unavailab Darrius Olson Attending Clinician Unavailable Rosario Francis Attending Clinician Unavail able STARR DOWD Attending Clinician Unavailable STARR DOWD Attending Clinician Unavailable ANDREW BORREGO Attending Clinician Unavaila ANDREW Pike Attending Clinician Unavaila Starr Nava DO Attending Clinician Doctor Unassigned, [place] Attending Clinician U navailOswaldo Conde Attending Clinician Unavailable Dell Valdivia Attending Clinician Unavailmalinda Coyne Rn RN, Elana Zuñiga Attending Clinician Unava ilable Oswaldo Navarrete Admitting Clinician Unavailable Dell Valdivia Admitting Clinician Unavailabl e Payers Payer Name Policy Type Policy Number Effective Date Expirati on Date Source [facility] [id number] 2016 00:00:00 [place] [address] [id number] 2021 00:00:00 [facility] Problems Condition Name Condition Details Condition Category Status Onset Date Resolution Date Last Treatment Date Treating Clinician Comments Source [id number] Moderate asthma with exacerbati on, unspecifie d whether persistent Problem [facility] [id number] Atrial fibrillati on with RVR Problem [facility] [id number] Decreased hearing of both ears Problem [facility] [id number] Morbid (severe) obesity due to excess calories Problem [facility] [id number] Acute pain of left shoulder Problem [facility] 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) Post-COVID syndrome Problem [facility] Mixed hyperlipid emia Hyperlipid emia, mixed Problem [facility] Seasonal allergic rhinitis Allergic rhinitis, seasonal Problem [facility] Obstructiv e sleep apnea Obstructiv e sleep apnea Problem [facility] Dysphagia Dysphagia, unspecifie d Problem [facility] Obesity Obesity (BMI 30.0-34.9) Problem [facility] Prediabete s Prediabete s Problem [facility] Migraine without aura, not refractory Migraine without aura and without status migrainosu s, not intractabl e Problem [facility] Essential hypertensi on Benign essential HTN Problem [facility] [id number] GERD without esophagiti s Problem [facility] [id number] Non-season al allergic rhinitis, unspecifie d trigger Problem [facility] [id number] Primary insomnia Problem [facility] [id number] Supplement al oxygen dependent Problem [facility] [id number] Body mass index [BMI] 37.0-37.9, adult Problem [facility] [id number] Asthma without status asthmaticu s or acute exacerbati on Problem [facility] [id number] Controlled type 2 diabetes mellitus without complicati on, without long-term current use of insulin Problem [facility] [id number] Moderate persistent asthma without complicati on Problem [facility] No known active problems No known active problems Disease [facility] Allergies, Adverse Reactions, Alerts Allergy Name Allergy Type Status Severity Reaction(s) Onset Date Inactive Date Treating Clinician Comments Source MORPHINE DRUG INGREDI Active Unknown-Cmnt 2022-03 00:00: 00 [facility] Morphine Propensi ty to adverse reaction s Active Unknown - See comments 2022-03 00:00: 00 KITTY PARKER [facility] No Known Allergie s DA Active U 2022-03 00:00: 00 [facility] No Known Allergie s DA Active U 2022-03 00:00: 00 [facility] NO KNOWN ALLERGIE S Drug Class Active [facility] morphine morphine Active Unknown Commo n [facility] Social History Social Habit Start Date Stop Date Quantity Comments Source History of Tobacco Use [facility] Sex Assigned At [facility] Sexual orientation U [facility] Exposure to SARS-CoV-2 (event) 2022-07-22 00:00:00 2022-08-01 09:02:00 Not sure [facility] History of Social function 2022-08-01 00:00:00 2022-08-01 00:00:00 [facility] Tobacco use and exposure 2020-10-21 00:00:00 2020-10-21 00:00:00 Former smokeless tobacco user [facility] Smoking Status Start Date Stop Date Source Never Smoker [facility] Ex-smoker 2020-10-21 00:00:00 2020-10-21 00:00:00 U [facility] Medications Ordered Medication Name Filled Medication Name Start Date Stop Date Current Medication? Ordering Clinician Indication Dosage Frequency Signature (SIG) Comments Components Source atorvastati n calcium (LIPITOR ORAL) 2022-03 10:58: 11 Yes Take by mouth. [facility] montelukast 10 mg tablet 2022-03 10:58: 11 Yes 10mg Take 1 tablet by mouth. [facility] traZODone 50 mg tablet 2022-03 10:58: 11 Yes 25mg Take 0.5 tablets by mouth at bedtime. [facility] ALBUTEROL, REFILL, INHALE 2022-03 10:56: 36 03-01 00:00 :00 No Inhale. [facility] ALBUTEROL INHALE 2022-03 10:56: 31 Yes 2{puff} Inhale 2 Puffs. [facility] predniSONE 10 mg tablet 2022-03 00:00: 00 03-14 05:59 :00 No [id number] Take 4 tablets by mouth daily for 3 days, THEN 3 tablets daily for 3 days, THEN 2 tablets daily for 3 days, THEN 1 tablet daily for 3 days. [facility] flecainide 50 mg tablet 2022-03 00:00: 00 Yes 50mg Take 1 tablet by mouth every 12 (twelve) hours. [facility] ipratropium -albuteroL 0.5 mg-3 mg(2.5 mg base)/3 mL nebulizer solution 2022-03 00:00: 00 Yes INHALE ONE (1) VIAL VIA NEBULIZER EVERY 6 HOURS NEEDED FOR WHEEZING AND SHORTNESS OF BREATH. [facility] methylPREDN ISolone 4 mg tablets 2022-03 00:00: 00 Yes USE DIRECTED BY PACKAGE INSTRUCTIO NS. [facility] ELIQUIS 5 mg tablet 2022-03 00:00: 00 Yes 5mg Take 1 tablet by mouth in the morning and 1 tablet in the evening. [facility] Kenalog (Triamcinol one) Kenalog (Triamcinol one) 2022-03 0-16 00:00: 00 No [facility] Kenalog (Triamcinol one) Kenalog (Triamcinol one) 2022-03 0-16 00:00: 00 No 40mg [facility] Kenalog (Triamcinol one) Kenalog (Triamcinol one) 2022-03 0-16 00:00: 00 No 40mg [facility] Kenalog (Triamcinol one) Kenalog (Triamcinol one) 2022-03 0-16 00:00: 00 No 40mg [facility] Kenalog (Triamcinol one) Kenalog (Triamcinol one) 2022-03 0-16 00:00: 00 No 40mg [facility] Kenalog (Triamcinol one) Kenalog (Triamcinol one) 2022-03 0-16 00:00: 00 No 40mg [facility] Kenalog (Triamcinol one) Kenalog (Triamcinol one) 2022-03 0-16 00:00: 00 No 40mg [facility] Kenalog (Triamcinol one) Kenalog (Triamcinol one) 2022-03 0-16 00:00: 00 No 40mg [facility] Kenalog (Triamcinol one) Kenalog (Triamcinol one) 2022-03 0-16 00:00: 00 No 40mg [facility] Kenalog (Triamcinol one) Kenalog (Triamcinol one) 2022-03 0-16 00:00: 00 No 40mg [facility] Kenalog (Triamcinol one) Kenalog (Triamcinol one) 2022-03 0-16 00:00: 00 No 40mg [facility] Kenalog (Triamcinol one) Kenalog (Triamcinol one) 2022-03 0-16 00:00: 00 No 40mg [facility] Amoxicillin -Pot Clavulanate 875-125 MG Amoxicillin -Pot [...] -umeclidin- vilanter 100-62.5-25 mcg DsDv 08-01 09:37: 07 08-01 00:00 :00 No 1{puff} Inhale 1 Puff. [facility] vitamin C with moy hips (VITAMIN C) 1,000 mg tablet 08-01 09:19: 04 08-01 00:00 :00 No 1000mg Take 1,000 mg by mouth daily. [facility] zinc gluconate 50 mg tablet 08-01 09:18: 58 08-01 00:00 :00 No 50mg Take 50 mg by mouth daily. [facility] fluticasone -umeclidin- vilanter 100-62.5-25 mcg DsDv 3-0 5-30 00:00: 00 Yes [id number] 1{puff} Inhale 1 Puff in the morning. [facility] Albuterol Sulfate HFA 108 (90 Base) MCG/ACT Albuterol Sulfate HFA 108 (90 Base) MCG/ACT 2023-0 5-10 00:00: 00 No 1{puff_ as_need ed} QID Albuterol Sulfate HFA 108 (90 Base) MCG/ACT Albuterol Sulfate HFA 108 (90 Base) MCG/ACT Albuterol Sulfate HFA 108 (90 Base) MCG/ACT 2023-0 -10 00:00: 00 No 1{puff_ as_need ed} QID Albuterol Sulfate HFA 108 (90 Base) MCG/ACT Albuterol Sulfate HFA 108 (90 Base) MCG/ACT Albuterol Sulfate HFA 108 (90 Base) MCG/ACT 2023-0 10 00:00: 00 No 1{puff_ as_need ed} QID Albuterol Sulfate HFA 108 (90 Base) MCG/ACT Albuterol Sulfate HFA 108 (90 Base) MCG/ACT Albuterol Sulfate HFA 108 (90 Base) MCG/ACT 2023-0 10 00:00: 00 No 1{puff_ as_need ed} QID Albuterol Sulfate HFA 108 (90 Base) MCG/ACT Albuterol Sulfate HFA 108 (90 Base) MCG/ACT Albuterol Sulfate HFA 108 (90 Base) MCG/ACT 2023-0 -10 00:00: 00 No 1{puff_ as_need ed} QID Albuterol Sulfate HFA 108 (90 Base) MCG/ACT Albuterol Sulfate HFA 108 (90 Base) MCG/ACT Albuterol Sulfate HFA 108 (90 Base) MCG/ACT 2023-0 -10 00:00: 00 No 1{puff_ as_need ed} QID Albuterol Sulfate HFA 108 (90 Base) MCG/ACT Albuterol Sulfate HFA 108 (90 Base) MCG/ACT Albuterol Sulfate HFA 108 (90 Base) MCG/ACT 2023-0 5-10 00:00: 00 No 1{puff_ as_need ed} QID Albuterol Sulfate HFA 108 (90 Base) MCG/ACT Albuterol Sulfate HFA 108 (90 Base) MCG/ACT Albuterol Sulfate HFA 108 (90 Base) MCG/ACT 2022-0 10 00:00: 00 No 1{puff_ as_need ed} QID Albuterol Sulfate HFA 108 (90 Base) MCG/ACT Albuterol Sulfate HFA 108 (90 Base) MCG/ACT Albuterol Sulfate HFA 108 (90 Base) MCG/ACT 2022-0 07-12 00:00: 00 No 1{puff_ as_need ed} QID Albuterol Sulfate HFA 108 (90 Base) MCG/ACT Albuterol Sulfate HFA 108 (90 Base) MCG/ACT Albuterol Sulfate HFA 108 (90 Base) MCG/ACT 2022-0 07-12 00:00: 00 No 1{puff_ as_need ed} QID Albuterol Sulfate HFA 108 (90 Base) MCG/ACT Albuterol Sulfate HFA 108 (90 Base) MCG/ACT Albuterol Sulfate HFA 108 (90 Base) MCG/ACT 0 07-12 00:00: 00 No 1{puff_ as_need ed} QID Albuterol Sulfate HFA 108 (90 Base) MCG/ACT Albuterol Sulfate HFA 108 (90 Base) MCG/ACT Albuterol Sulfate HFA 108 (90 Base) MCG/ACT 0 10 00:00: 00 No 1{puff_ as_need ed} QID Albuterol Sulfate HFA 108 (90 Base) MCG/ACT Kenalog (Triamcinol one) Kenalog (Triamcinol one) 2021-03 2 00:00: 00 No 40mg [facility] Lidocaine Lidocaine 2021-03 2 00:00: 00 No 10mg [facility] Kenalog (Triamcinol one) Kenalog (Triamcinol one) 2021-03 2 00:00: 00 No 40mg [facility] Lidocaine Lidocaine 2021-03 2- 00:00: 00 No 10mg [facility] Kenalog (Triamcinol one) Kenalog (Triamcinol one) 2021-03 2 00:00: 00 No 40mg [facility] Lidocaine Lidocaine 2021-03 00:00: 00 No 10mg [facility] Kenalog (Triamcinol one) Kenalog (Triamcinol one) 2021-03 2- 00:00: 00 No 40mg [facility] Lidocaine Lidocaine 2021-03 2 00:00: 00 No 10mg [facility] Kenalog (Triamcinol one) Kenalog (Triamcinol one) 2021-03 2 00:00: 00 No 40mg [facility] Lidocaine Lidocaine 2021-03 00:00: 00 No 10mg [facility] Lidocaine Lidocaine 2021-03 2 00:00: 00 No 10mg [facility] Kenalog (Triamcinol one) Kenalog (Triamcinol one) 2021-03 2- 00:00: 00 No 40mg [facility] Kenalog (Triamcinol one) Kenalog (Triamcinol one) 2021-03 2 00:00: 00 No 40mg [facility] Lidocaine Lidocaine 2021-03 00:00: 00 No 10mg [facility] Kenalog (Triamcinol one) Kenalog (Triamcinol one) 2021-03 2- 00:00: 00 No 40mg [facility] Lidocaine Lidocaine 2021-03 2 00:00: 00 No 10mg [facility] Kenalog (Triamcinol one) Kenalog (Triamcinol one) 2021-03 2- 00:00: 00 No 40mg [facility] Lidocaine Lidocaine 2021-03 2 00:00: 00 No 10mg [facility] Kenalog (Triamcinol one) Kenalog (Triamcinol one) 2021-03 2- 00:00: 00 No 40mg [facility] Lidocaine Lidocaine 2021-03 2- 00:00: 00 No 10mg [facility] Kenalog (Triamcinol one) Kenalog (Triamcinol one) 2021-03 2- 00:00: 00 No 40mg [facility] Lidocaine Lidocaine 2021-03 2- 00:00: 00 No 10mg [facility] Kenalog (Triamcinol one) Kenalog (Triamcinol one) 2021-03 2- 00:00: 00 No 40mg [facility] Lidocaine Lidocaine 2021-03 2 00:00: 00 No 10mg [facility] Kenalog (Triamcinol one) Kenalog (Triamcinol one) 2021-03 2- 00:00: 00 No 40[facility] Lidocaine Lidocaine 2021-03 2- 00:00: 00 No 10mg [facility] Kenalog (Triamcinol one) Kenalog (Triamcinol one) 2021-03 2- 00:00: 00 No 40mg [facility] Lidocaine Lidocaine 2021-03 2- 00:00: 00 No 10mg [facility] Kenalog (Triamcinol one) Kenalog (Triamcinol one) 2021-03 0-10 00:00: 00 No 40mg [facility] Kenalog (Triamcinol one) Kenalog (Triamcinol one) 2021-03 0-10 00:00: 00 No 40mg [facility] Kenalog (Triamcinol one) Kenalog (Triamcinol one) 2021-03 0-10 00:00: 00 No 40mg [facility] Kenalog (Triamcinol one) Kenalog (Triamcinol one) 2021-03 0-10 00:00: 00 No 40mg [facility] Kenalog (Triamcinol one) Kenalog (Triamcinol one) 2021-03 0-10 00:00: 00 No 40mg [facility] Kenalog (Triamcinol one) Kenalog (Triamcinol one) 2021-03 0-10 00:00: 00 No 40[facility] Kenalog (Triamcinol one) Kenalog (Triamcinol one) 2021-03 0-10 00:00: 00 No 40mg [facility] Kenalog (Triamcinol one) Kenalog (Triamcinol one) 2021-03 0-10 00:00: 00 No 40mg [facility] Kenalog (Triamcinol one) Kenalog (Triamcinol one) 2021-03 0-10 00:00: 00 No 40mg [facility] Kenalog (Triamcinol one) Kenalog (Triamcinol one) 2021-03 0-10 00:00: 00 No 40mg [facility] Kenalog (Triamcinol one) Kenalog (Triamcinol one) 2021-03 0-10 00:00: 00 No 40mg [facility] Kenalog (Triamcinol one) Kenalog (Triamcinol one) 2021-03 0-10 00:00: 00 No 40mg [facility] Kenalog (Triamcinol one) Kenalog (Triamcinol one) 2021-03 0-10 00:00: 00 No 40mg [facility] Kenalog (Triamcinol one) Kenalog (Triamcinol one) 2021-03 0-10 00:00: 00 No 40mg [facility] Kenalog (Triamcinol one) Kenalog (Triamcinol one) 2021-03 0-10 00:00: 00 No 40mg [facility] Kenalog (Triamcinol one) Kenalog (Triamcinol one) 2021-03 0-10 00:00: 00 No 40mg [facility] Kenalog (Triamcinol one) Kenalog (Triamcinol one) 2021-03 0-10 00:00: 00 No 40mg [facility] Kenalog (Triamcinol one) Kenalog (Triamcinol one) 2021-03 0-10 00:00: 00 No 40mg [facility] Levocetiriz ine Dihydrochlo ride 5 MG Levocetiriz [...] QD Levocetiri zine Dihydrochl oride 5 MG doxycycline hyclate 100 mg capsule 08-09 00:00: 00 08-01 00:00 :00 No [id number] 100mg Take 1 capsule by mouth every 12 (twelve) hours. [facility] predniSONE 20 mg tablet 08-09 00:00: 00 08-01 00:00 :00 No [id number] 40mg Take 2 tablets by mouth daily. [facility] ALBUTEROL INHALE 07-29 09:26: 06 Yes 2{puff} Inhale 2 Puffs. [facility] vitamin C with moy hips (VITAMIN C) 1,000 mg tablet 07-29 09:26: 06 Yes 1000mg Take 1,000 mg by mouth daily. [facility] atorvastati n calcium (LIPITOR ORAL) 07-29 09:26: 06 Yes Take by mouth. [facility] fluticasone -umeclidin- vilanter 100-62.5-25 mcg DsDv 07-29 09:26: 06 Yes 1{puff} Inhale 1 Puff. [facility] montelukast 10 mg tablet 07-29 09:26: 06 Yes 10mg Take 10 mg by mouth. [facility] traZODone 50 mg tablet 07-29 09:26: 06 Yes 25mg Take 25 mg by mouth at bedtime. [facility] zinc gluconate 50 mg tablet 07-29 09:26: 06 Yes 50mg Take 50 mg by mouth daily. [facility] ALBUTEROL, REFILL, INHALE 10-21 15:40: 43 Yes Inhale. [facility] Pantoprazol e Sodium Pantoprazol e Sodium 03-21 00:00: 00 Yes Darrius Davies 1 tablet [facility] Kenalog (Triamcinol one) Kenalog (Triamcinol one) 2018-03 00:00: 00 No 40mg [facility] Kenalog (Triamcinol one) Kenalog (Triamcinol one) 2018-03 00:00: 00 No 40mg [facility] Kenalog (Triamcinol one) Kenalog (Triamcinol one) 2018-03 00:00: 00 No 40mg [facility] Kenalog (Triamcinol one) Kenalog (Triamcinol one) 2018-03 00:00: 00 No 40mg [facility] Kenalog (Triamcinol one) Kenalog (Triamcinol one) 2018-03 018 00:00: 00 No 40mg [facility] Kenalog (Triamcinol one) Kenalog (Triamcinol one) 2018-03 018 00:00: 00 No 40mg [facility] Kenalog (Triamcinol one) Kenalog (Triamcinol one) 2018-03 018 00:00: 00 No 40mg [facility] Kenalog (Triamcinol one) Kenalog (Triamcinol one) 2018-03 018 00:00: 00 No 40mg [facility] Kenalog (Triamcinol one) Kenalog (Triamcinol one) 2018-03 018 00:00: 00 No 40mg [facility] Kenalog (Triamcinol one) Kenalog (Triamcinol one) 2018-0318 00:00: 00 No 40mg [facility] Kenalog (Triamcinol one) Kenalog (Triamcinol one) 2018-0318 00:00: 00 No 40mg [facility] Kenalog (Triamcinol one) Kenalog (Triamcinol one) 2018-03 018 00:00: 00 No 40mg [facility] Kenalog (Triamcinol one) Kenalog (Triamcinol one) 2018-03 018 00:00: 00 No 40mg [facility] Kenalog (Triamcinol one) Kenalog (Triamcinol one) 2018-03 018 00:00: 00 No 40mg [facility] Kenalog (Triamcinol one) Kenalog (Triamcinol one) 2018-03 018 00:00: 00 No 40mg [facility] Kenalog (Triamcinol one) Kenalog (Triamcinol one) 2018-03 018 00:00: 00 No 40mg [facility] Kenalog (Triamcinol one) Kenalog (Triamcinol one) 2018-03 018 00:00: 00 No 40mg [facility] Kenalog (Triamcinol one) Kenalog (Triamcinol one) 2018-03 0-18 00:00: 00 No 40mg [facility] Kenalog (Triamcinol one) Kenalog (Triamcinol one) 2018-03 0-18 00:00: 00 No 40mg [facility] Kenalog (Triamcinol one) Kenalog (Triamcinol one) 2018-03 0-18 00:00: 00 No 40mg [facility] Montelukast Sodium Montelukast Sodium 0 7-18 00:00: 00 Yes Darrius Davies 1 tablet [facility] Atorvastati n Calcium Atorvastati n Calcium 0 4-08 00:00: 00 Yes Darrius Davies 1 tablet [facility] Losartan Potassium Losartan Potassium 0 3-11 00:00: 00 Yes Darrius Davies 1 tablet [facility] Augmentin 500-125 MG Augmentin 500-125 MG No 1{table t} Augmentin 500-125 MG Nalfon 400 MG Nalfon 400 MG No 1{capsu le} TID Nalfon 400 MG ProAir HFA 108 (90 Base) MCG/ACT ProAir HFA 108 (90 Base) MCG/ACT No 2{puffs _as_nee ded} ProAir HFA 108 (90 Base) MCG/ACT Trelegy Ellipta 100-62.5-25 MCG/INH Trelegy Ellipta 100-62.5-25 MCG/INH No 1{puff} QD Trelegy Ellipta 100-62.5-2 5 MCG/INH SUMAtriptan 5 MG/ACT SUMAtriptan 5 MG/ACT No QD SUMAtripta n 5 MG/ACT Montelukast Sodium 10 MG Montelukast Sodium 10 MG No 1{table t} QD Montelukas t Sodium 10 MG Topiramate Topiramate Yes Darrius Davies 1 tablet [facility] Metformin HCl Metformin HCl Yes Darrius Davies 1 tablet with a meal [facility] Sumatriptan Sumatriptan Yes Darrius Davies 1 puff as needed one time [facility] Nalfon Nalfon Yes Darrius Davies 1 capsule [facility] Fenoprofen Calcium Fenoprofen Calcium Yes Darrius Davies 1 capsule [facility] Metformin HCl Metformin HCl Yes Darrius Davies TAKE ONE TABLET BY MOUTH ONCE DAILY WITH A MEAL [facility] Pantoprazol e Sodium Pantoprazol e Sodium Yes Darrius Davies TAKE ONE TABLET BY MOUTH DAILY [facility] Atorvastati n Calcium Atorvastati n Calcium Yes Darrius Davies TAKE ONE TABLET BY MOUTH DAILY [facility] Losartan Potassium Losartan Potassium Yes Darrius Davies TAKE ONE TABLET BY MOUTH DAILY [facility] Topiramate 25 MG Topiramate 25 MG No 1{table t} QD Topiramate 25 MG Omeprazole 40 MG Omeprazole 40 MG No QD Omeprazole 40 MG Metoprolol Tartrate 25 MG Metoprolol Tartrate 25 MG No .5{tabl et_with _food} BID Metoprolol Tartrate 25 MG Atorvastati n [...] t} QD Atorvastat in Calcium 20 MG Augmentin 500-125 MG Augmentin 500-125 MG No 1{table t} Augmentin 500-125 MG Nalfon 400 MG Nalfon 400 MG No 1{capsu le} TID Nalfon 400 MG ProAir HFA 108 (90 Base) [...] t} QD Montelukas t Sodium 10 MG Omeprazole 40 MG Omeprazole 40 MG No QD Omeprazole 40 MG Metoprolol Tartrate 25 MG Metoprolol Tartrate 25 MG No .5{tabl et_with _food} BID Metoprolol Tartrate 25 MG SUMAtriptan 5 MG/ACT SUMAtriptan 5 MG/ACT No QD SUMAtripta n 5 MG/ACT Montelukast Sodium 10 MG Montelukast Sodium 10 [...] MG/ACT No QD SUMAtripta n 5 MG/ACT Vitamin B12 Vitamin B12 No Vi tamin B12 Trelegy Ellipta 100-62.5-25 MCG/INH Trelegy Ellipta 100-62.5-25 MCG/INH No 1{puff} QD Trelegy Ellipta 100-62.5-2 5 MCG/INH Metoprolol Tartrate 25 MG Metoprolol Tartrate 25 MG No .5{tabl et_with _food} BID Metoprolol Tartrate 25 MG Atorvastati n [...] t} QD Atorvastat in Calcium 20 MG Benzonatate 200 MG Benzonatate 200 MG No 1{capsu le_as_n eeded} Benzonatat e 200 MG Topiramate 25 MG Topiramate 25 MG [...] t_with_ food} BID Metoprolol Tartrate 25 MG Benzonatate 200 MG Benzonatate 200 MG No 1{capsu le_as_n eeded} Benzonatat e 200 MG SUMAtriptan 5 MG/ACT SUMAtriptan 5 MG/ACT No QD SUMAtripta n 5 MG/ACT Atorvastati n Calcium 10 MG Atorvastati n Calcium 10 MG No 1{table t} QD Atorvastat in Calcium 10 MG ProAir HFA 108 (90 Base) MCG/ACT ProAir HFA 108 (90 Base) MCG/ACT No 2{puffs _as_nee ded} ProAir HFA 108 (90 Base) MCG/ACT Metoprolol Tartrate 25 MG Metoprolol Tartrate 25 MG No BID Metoprolol Tartrate 25 MG Benzonatate 200 MG Benzonatate 200 MG No 1{capsu le_as_n eeded} Benzonatat e 200 MG Cholecalcif idalia 25 MCG (1000 UT) Cholecalcif idalia 25 MCG (1000 UT) No 1{capsu le} QD Cholecalci ferol 25 MCG (1000 UT) Nalfon 400 MG Nalfon 400 MG No [...] No QD Atorvastat in Calcium 20 MG Benzonatate 200 MG Benzonatate 200 MG [...] t} QD Montelukas t Sodium 10 MG Trelegy Ellipta [...] 1{capsu le_as_n eeded} Benzonatat e 200 MG Nalfon 400 MG Nalfon 400 MG [...] No 1{table t} QD Topiramate 25 MG Benzonatate 200 MG Benzonatate 200 [...] Vaccine (Low Dose Booster) 2021-02-02 09:26:00 Completed [facility] Moderna COVID-19 Vaccine (Low Dose Booster) Moderna COVID-19 Vaccine (Low Dose Booster) 2021-02-02 09:26:00 Completed [facility] Moderna COVID-19 Vaccine (Low Dose Booster) Moderna COVID-19 Vaccine (Low Dose Booster) 2021-02-02 09:26:00 Completed [facility] Moderna COVID-19 Vaccine (Low Dose Booster) Moderna COVID-19 Vaccine (Low Dose Booster) 2021-02-02 09:26:00 Completed [facility] Moderna COVID-19 Vaccine (Low Dose Booster) Moderna COVID-19 Vaccine (Low Dose Booster) 2021-02-02 09:26:00 Completed [facility] Moderna COVID-19 Vaccine (Low Dose Booster) Moderna COVID-19 Vaccine (Low Dose Booster) 2021-02-02 09:26:00 Completed [facility] Moderna COVID-19 Vaccine (Low Dose Booster) Moderna COVID-19 Vaccine (Low Dose Booster) 2021-02-02 09:26:00 Completed [facility] Moderna COVID-19 Vaccine (Low Dose Booster) Moderna COVID-19 Vaccine (Low Dose Booster) 2021-02-02 09:26:00 Completed [facility] Moderna COVID-19 Vaccine (Low Dose Booster) Moderna COVID-19 Vaccine (Low Dose Booster) 2021-02-02 09:26:00 Completed [facility] Moderna COVID-19 Vaccine (Low Dose Booster) Moderna COVID-19 Vaccine (Low Dose Booster) 2021-02-02 09:26:00 Completed [facility] Moderna COVID-19 Vaccine (Low Dose Booster) Moderna COVID-19 Vaccine (Low Dose Booster) 2021-02-02 09:26:00 Completed [facility] Moderna COVID-19 Vaccine (Low Dose Booster) Moderna COVID-19 Vaccine (Low Dose Booster) 2021-02-02 09:26:00 Completed [facility] Moderna COVID-19 Vaccine (Low Dose Booster) Moderna COVID-19 Vaccine (Low Dose Booster) 2021-02-02 09:26:00 Completed [facility] Moderna COVID-19 Vaccine (Low Dose Booster) Moderna COVID-19 Vaccine (Low Dose Booster) 2021-02-02 09:26:00 Completed [facility] Moderna COVID-19 Vaccine (Low Dose Booster) Moderna COVID-19 Vaccine (Low Dose Booster) 2021-02-02 09:26:00 Completed [facility] Moderna COVID-19 Vaccine (Low Dose Booster) Moderna COVID-19 Vaccine (Low Dose Booster) 2021-02-02 09:26:00 Completed [facility] Moderna COVID-19 Vaccine (Low Dose Booster) Moderna COVID-19 Vaccine (Low Dose Booster) 2021-02-02 09:26:00 Completed [facility] Moderna COVID-19 Vaccine (Low Dose Booster) Moderna COVID-19 Vaccine (Low Dose Booster) 2021-02-02 09:26:00 Completed [facility] Moderna COVID-19 Vaccine (Low Dose Booster) Moderna COVID-19 Vaccine (Low Dose Booster) 2021-02-02 09:26:00 Completed [facility] Moderna COVID-19 Vaccine (Low Dose Booster) Moderna COVID-19 Vaccine (Low Dose Booster) 2021-02-02 09:26:00 Completed [facility] Moderna COVID-19 Vaccine Moderna COVID-19 Vaccine 2020-08-27 08:24:00 Completed [facility] Moderna COVID-19 Vaccine Moderna COVID-19 Vaccine 2020-08-27 08:24:00 Completed [facility] Moderna COVID-19 Vaccine Moderna COVID-19 Vaccine 2020-08-27 08:24:00 Completed [facility] Moderna COVID-19 Vaccine Moderna COVID-19 Vaccine 2020-08-27 08:24:00 Completed [facility] Moderna COVID-19 Vaccine Moderna COVID-19 Vaccine 2020-08-27 08:24:00 Completed [facility] Moderna COVID-19 Vaccine Moderna COVID-19 Vaccine 2020-08-27 08:24:00 Completed [facility] Moderna COVID-19 Vaccine Moderna COVID-19 Vaccine 2020-08-27 08:24:00 Completed [facility] Moderna COVID-19 Vaccine Moderna COVID-19 Vaccine 2020-08-27 08:24:00 Completed [facility] Moderna COVID-19 Vaccine Moderna COVID-19 Vaccine 2020-08-27 08:24:00 Completed [facility] Moderna COVID-19 Vaccine Moderna COVID-19 Vaccine 2020-08-27 08:24:00 Completed [facility] Moderna COVID-19 Vaccine Moderna COVID-19 Vaccine 2020-08-27 08:24:00 Completed [facility] Moderna COVID-19 Vaccine Moderna COVID-19 Vaccine 2020-08-27 08:24:00 Completed [facility] Moderna COVID-19 Vaccine Moderna COVID-19 Vaccine 2020-08-27 08:24:00 Completed [facility] Moderna COVID-19 Vaccine Moderna COVID-19 Vaccine 2020-08-27 08:24:00 Completed [facility] Moderna COVID-19 Vaccine Moderna COVID-19 Vaccine 2020-08-27 08:24:00 Completed [facility] Moderna COVID-19 Vaccine Moderna COVID-19 Vaccine 2020-08-27 08:24:00 Completed [facility] Moderna COVID-19 Vaccine Moderna COVID-19 Vaccine 2020-08-27 08:24:00 Completed [facility] Moderna COVID-19 Vaccine Moderna COVID-19 Vaccine 2020-08-27 08:24:00 Completed [facility] Moderna COVID-19 Vaccine Moderna COVID-19 Vaccine 2020-08-27 08:24:00 Completed [facility] Moderna COVID-19 Vaccine Moderna COVID-19 Vaccine 2020-08-27 08:24:00 Completed [facility] Moderna COVID-19 Vaccine Moderna COVID-19 Vaccine 2020-08-27 08:24:00 Completed [facility] Moderna COVID-19 Vaccine Moderna COVID-19 Vaccine 2020-07-30 07:42:00 Completed [facility] Moderna COVID-19 Vaccine Moderna COVID-19 Vaccine 2020-07-30 07:42:00 Completed [facility] Moderna COVID-19 Vaccine Moderna COVID-19 Vaccine 2020-07-30 07:42:00 Completed [facility] Moderna COVID-19 Vaccine Moderna COVID-19 Vaccine 2020-07-30 07:42:00 Completed [facility] Moderna COVID-19 Vaccine Moderna COVID-19 Vaccine 2020-07-30 07:42:00 Completed [facility] Moderna COVID-19 Vaccine Moderna COVID-19 Vaccine 2020-07-30 07:42:00 Completed [facility] Moderna COVID-19 Vaccine Moderna COVID-19 Vaccine 2020-07-30 07:42:00 Completed [facility] Moderna COVID-19 Vaccine Moderna COVID-19 Vaccine 2020-07-30 07:42:00 Completed [facility] Moderna COVID-19 Vaccine Moderna COVID-19 Vaccine 2020-07-30 07:42:00 Completed [facility] Moderna COVID-19 Vaccine Moderna COVID-19 Vaccine 2020-07-30 07:42:00 Completed [facility] Moderna COVID-19 Vaccine Moderna COVID-19 Vaccine 2020-07-30 07:42:00 Completed [facility] Moderna COVID-19 Vaccine Moderna COVID-19 Vaccine 2020-07-30 07:42:00 Completed [facility] Moderna COVID-19 Vaccine Moderna COVID-19 Vaccine 2020-07-30 07:42:00 Completed [facility] Moderna COVID-19 Vaccine Moderna COVID-19 Vaccine 2020-07-30 07:42:00 Completed [facility] Moderna COVID-19 Vaccine Moderna COVID-19 Vaccine 2020-07-30 07:42:00 Completed [facility] Moderna COVID-19 Vaccine Moderna COVID-19 Vaccine 2020-07-30 07:42:00 Completed [facility] Moderna COVID-19 Vaccine Moderna COVID-19 Vaccine 2020-07-30 07:42:00 Completed [facility] Moderna COVID-19 Vaccine Moderna COVID-19 Vaccine 2020-07-30 07:42:00 Completed [facility] Moderna COVID-19 Vaccine Moderna COVID-19 Vaccine 2020-07-30 07:42:00 Completed [facility] Moderna COVID-19 Vaccine Moderna COVID-19 Vaccine 2020-07-30 07:42:00 Completed [facility] Moderna COVID-19 Vaccine Moderna COVID-19 Vaccine 2020-07-30 07:42:00 Completed [facility] MODERNA COVID-19 VACCINE (LOW DOSE BOOSTER) MODERNA COVID-19 VACCINE (LOW DOSE BOOSTER) Unknown Completed [facility] Moderna COVID-19 Vaccine Moderna COVID-19 Vaccine Unknown Completed [facility] Moderna COVID-19 Vaccine Moderna COVID-19 Vaccine Unknown Completed [facility] MODERNA COVID-19 VACCINE (LOW DOSE BOOSTER) MODERNA COVID-19 VACCINE (LOW DOSE BOOSTER) Unknown Completed [facility] Moderna COVID-19 Vaccine Moderna COVID-19 Vaccine Unknown Completed [facility] Moderna COVID-19 Vaccine Moderna COVID-19 Vaccine Unknown Completed [facility] Moderna COVID-19 Vaccine (Low Dose Booster) Moderna COVID-19 Vaccine (Low Dose Booster) Unknown Completed [facility] Moderna COVID-19 Vaccine Moderna COVID-19 Vaccine Unknown Completed [facility] Moderna COVID-19 Vaccine Moderna COVID-19 Vaccine Unknown Completed [facility] Moderna COVID-19 Vaccine (Low Dose Booster) Moderna COVID-19 Vaccine (Low Dose Booster) Unknown Completed [facility] Moderna COVID-19 Vaccine Moderna COVID-19 Vaccine Unknown Completed [facility] Moderna COVID-19 Vaccine Moderna COVID-19 Vaccine Unknown Completed [facility] Moderna COVID-19 Vaccine (Low Dose Booster) Moderna COVID-19 Vaccine (Low Dose Booster) Unknown Completed [facility] Moderna COVID-19 Vaccine Moderna COVID-19 Vaccine Unknown Completed [facility] Moderna COVID-19 Vaccine Moderna COVID-19 Vaccine Unknown Completed [facility] Moderna COVID-19 Vaccine (Low Dose Booster) Moderna COVID-19 Vaccine (Low Dose Booster) Unknown Completed [facility] Moderna COVID-19 Vaccine Moderna COVID-19 Vaccine Unknown Completed [facility] Moderna COVID-19 Vaccine Moderna COVID-19 Vaccine Unknown Completed [facility] Moderna COVID-19 Vaccine (Low Dose Booster) Moderna COVID-19 Vaccine (Low Dose Booster) Unknown Completed [facility] Moderna COVID-19 Vaccine Moderna COVID-19 Vaccine Unknown Completed [facility] Moderna COVID-19 Vaccine Moderna COVID-19 Vaccine Unknown Completed [facility] Moderna COVID-19 Vaccine (Low Dose Booster) Moderna COVID-19 Vaccine (Low Dose Booster) Unknown Completed [facility] Moderna COVID-19 Vaccine Moderna COVID-19 Vaccine Unknown Completed [facility] Moderna COVID-19 Vaccine Moderna COVID-19 Vaccine Unknown Completed [facility] Moderna COVID-19 Vaccine (Low Dose Booster) Moderna COVID-19 Vaccine (Low Dose Booster) Unknown Completed [facility] Moderna COVID-19 Vaccine Moderna COVID-19 Vaccine Unknown Completed [facility] Moderna COVID-19 Vaccine Moderna COVID-19 Vaccine Unknown Completed [facility] Moderna COVID-19 Vaccine (Low Dose Booster) Moderna COVID-19 Vaccine (Low Dose Booster) Unknown Completed [facility] Moderna COVID-19 Vaccine Moderna COVID-19 Vaccine Unknown Completed [facility] Moderna COVID-19 Vaccine Moderna COVID-19 Vaccine Unknown Completed [facility] Moderna COVID-19 Vaccine (Low Dose Booster) Moderna COVID-19 Vaccine (Low Dose Booster) Unknown Completed [facility] Moderna COVID-19 Vaccine Moderna COVID-19 Vaccine Unknown Completed [facility] Moderna COVID-19 Vaccine Moderna COVID-19 Vaccine Unknown Completed [facility] Moderna COVID-19 Vaccine (Low Dose Booster) Moderna COVID-19 Vaccine (Low Dose Booster) Unknown Completed [facility] Moderna COVID-19 Vaccine Moderna COVID-19 Vaccine Unknown Completed [facility] Moderna COVID-19 Vaccine Moderna COVID-19 Vaccine Unknown Completed [facility] Vital Signs Vital Name Observation Time Observation Value Comments S ource Systolic blood pressure 2023-05-08 14:48:00 122 mm[Hg] [facility] Diastolic blood pressure 2023-05-08 14:48:00 83 mm[Hg] [facility] Heart rate 2023-05-08 14:48:00 63 /min [facility] Body height 2023-05-08 14:48:00 177.8 cm [facility] Body weight 2023-05-08 14:48:00 113.218 kg [facility] BMI 2023-05-08 14:48:00 35.81 kg/m2 [facility] Oxygen saturation in Arterial blood by Pulse oximetry 2023-05-08 14:48:00 94 /min [facility] Systolic blood pressure 2023-03-01 16:55:00 118 mm[Hg] [facility] Diastolic blood pressure 2023-03-01 16:55:00 78 mm[Hg] [facility] Heart rate 2023-03-01 16:55:00 73 /min [facility] Respiratory rate 2023-03-01 16:55:00 18 /min [facility] Body height 2023-03-01 16:55:00 177.8 cm [facility] Body weight 2023-03-01 16:55:00 107.956 kg [facility] BMI 2023-03-01 16:55:00 34.15 kg/m2 [facility] Oxygen saturation in Arterial blood by Pulse oximetry 2023-03-01 16:55:00 95 /min [facility] height 2023-02-08 13:10:00 68 [in_i] Commo n [facility] weight 2023-02-08 13:10:00 240 [lb_av] Comm on [facility] bmi 2023-02-08 13:10:00 36.49 kg/m2 Comm on [facility] blood pressure systolic 2023-02-08 13:10:00 123 mm[Hg] [facility] blood pressure diastolic 2023-02-08 13:10:00 70 mm[Hg] [facility] height 2022-12-18 10:00:00 68 [in_i] Commo n [facility] weight 2022-12-18 10:00:00 242.8 [lb_av] Co mmon [facility] temperature 2022-12-18 10:00:00 98.4 [degF] Com mon [facility] bmi 2022-12-18 10:00:00 36.91 kg/m2 Comm on [facility] oximetry 2022-12-18 10:00:00 96 % Commo n [facility] blood pressure systolic 2022-12-18 10:00:00 119 mm[Hg] [facility] blood pressure diastolic 2022-12-18 10:00:00 78 mm[Hg] [facility] height 2022-09-21 11:30:00 68 [in_i] Commo n [facility] weight 2022-09-21 11:30:00 237.0 [lb_av] Co on [facility] temperature 2022-09-21 11:30:00 97.3 [degF] Com [facility] bmi 2022-09-21 11:30:00 36.03 kg/m2 Comm on [facility] oximetry 2022-09-21 11:30:00 97 % Commo [facility] respiratory rate 2022-09-21 11:30:00 17 /min [facility] blood pressure systolic 2022-09-21 11:30:00 117 mm[Hg] [facility] blood pressure diastolic 2022-09-21 11:30:00 72 mm[Hg] [facility] height 2022-08-24 10:00:00 68 [in_i] Commo n [facility] weight 2022-08-24 10:00:00 239.2 [lb_av] Co [facility] temperature 2022-08-24 10:00:00 97.7 [degF] Com [facility] bmi 2022-08-24 10:00:00 36.37 kg/m2 Comm on [facility] oximetry 2022-08-24 10:00:00 98 % Commo [facility] respiratory rate 2022-08-24 10:00:00 16 /min [facility] blood pressure systolic 2022-08-24 10:00:00 132 mm[Hg] [facility] blood pressure diastolic 2022-08-24 10:00:00 80 mm[Hg] [facility] Systolic blood pressure 2022-08-01 14:16:00 128 mm[Hg] [facility] Diastolic blood pressure 2022-08-01 14:16:00 89 mm[Hg] [facility] Heart rate 2022-08-01 14:16:00 55 /min [facility] Respiratory rate 2022-08-01 14:16:00 19 /min [facility] Body height 2022-08-01 14:16:00 177.8 cm [facility] Body weight 2022-08-01 14:16:00 110.678 kg [facility] BMI 2022-08-01 14:16:00 35.01 kg/m2 [facility] Oxygen saturation in Arterial blood by Pulse oximetry 2022-08-01 14:16:00 96 /min [facility] height 2022-04-24 16:10:00 68 [in_i] Commo n [facility] weight 2022-04-24 16:10:00 235 [lb_av] Comm on [facility] temperature 2022-04-24 16:10:00 98 [degF] Comm on [facility] bmi 2022-04-24 16:10:00 35.73 kg/m2 Comm on [facility] blood pressure systolic 2022-04-24 16:10:00 135 mm[Hg] [facility] blood pressure diastolic 2022-04-24 16:10:00 87 mm[Hg] [facility] height 2022-02-06 13:30:00 68 [in_i] Commo n [facility] weight 2022-02-06 13:30:00 246.8 [lb_av] Co mmon [facility] temperature 2022-02-06 13:30:00 97.8 [degF] Com mon [facility] bmi 2022-02-06 13:30:00 37.52 kg/m2 Comm on [facility] blood pressure systolic 2022-02-06 13:30:00 130 mm[Hg] [facility] blood pressure diastolic 2022-02-06 13:30:00 78 mm[Hg] [facility] height 2021-12-26 08:10:00 68 [in_i] Commo n [facility] weight 2021-12-26 08:10:00 248.6 [lb_av] Co mmon [facility] temperature 2021-12-26 08:10:00 97.3 [degF] Com [facility] bmi 2021-12-26 08:10:00 37.8 kg/m2 Commo n [facility] oximetry 2021-12-26 08:10:00 96 % Commo n [facility] respiratory rate 2021-12-26 08:10:00 17 /min [facility] blood pressure systolic 2021-12-26 08:10:00 125 mm[Hg] [facility] blood pressure diastolic 2021-12-26 08:10:00 78 mm[Hg] [facility] height 2021-12-12 13:30:00 68 [in_i] Commo n [facility] weight 2021-12-12 13:30:00 244.0 [lb_av] Co on [facility] temperature 2021-12-12 13:30:00 97.4 [degF] Com [facility] bmi 2021-12-12 13:30:00 37.1 kg/m2 Com[facility] oximetry 2021-12-12 13:30:00 96 % Commo n [facility] respiratory rate 2021-12-12 13:30:00 18 /min [facility] blood pressure systolic 2021-12-12 13:30:00 121 mm[Hg] [facility] blood pressure diastolic 2021-12-12 13:30:00 72 mm[Hg] [facility] height 2021-09-23 09:30:00 68 [in_i] Commo n [facility] weight 2021-09-23 09:30:00 245 [lb_av] Comm on [facility] temperature 2021-09-23 09:30:00 97.6 [degF] Com [facility] bmi 2021-09-23 09:30:00 37.25 kg/m2 Comm on [facility] oximetry 2021-09-23 09:30:00 95 % Commo n [facility] respiratory rate 2021-09-23 09:30:00 16 /min [facility] blood pressure systolic 2021-09-23 09:30:00 131 mm[Hg] [facility] blood pressure diastolic 2021-09-23 09:30:00 79 mm[Hg] [facility] Systolic blood pressure 2021-07-29 14:23:00 113 mm[Hg] [facility] Diastolic blood pressure 2021-07-29 14:23:00 72 mm[Hg] [facility] Heart rate 2021-07-29 14:23:00 63 /min [facility] Respiratory rate 2021-07-29 14:23:00 20 /min [facility] Body height 2021-07-29 14:23:00 180.3 cm [facility] Body weight 2021-07-29 14:23:00 113.127 kg [facility] BMI 2021-07-29 14:23:00 34.78 kg/m2 [facility] Oxygen saturation in Arterial blood by Pulse oximetry 2021-07-29 14:23:00 96 /min [facility] height 2021-04-08 11:20:00 70 [in_i] Commo n [facility] weight 2021-04-08 11:20:00 251 [lb_av] Comm on [facility] bmi 2021-04-08 11:20:00 36.01 kg/m2 Comm on [facility] height 2021-01-17 07:50:00 70 [in_i] Commo n [facility] weight 2021-01-17 07:50:00 251 [lb_av] Comm on [facility] temperature 2021-01-17 07:50:00 98 [degF] Comm on [facility] bmi 2021-01-17 07:50:00 36.01 kg/m2 Comm on [facility] blood pressure systolic 2021-01-17 07:50:00 128 mm[Hg] [facility] blood pressure diastolic 2021-01-17 07:50:00 76 mm[Hg] [facility] Procedures Procedure Date / Time Performed Performing Clinician Source AUTHORIZATION TO [facility] 2023-05-08 06:01:00 Doctor Unassigned, [place] [facility] DME/SUPPLY JUSTIFICATION 2023-04-27 06:01:00 Doc tor Unassigned, [place] [facility] [id number] 2023-02-21 00:00:00 [facility] [id number] 2023-02-21 00:00:00 [facility] [id number] 2023-02-21 00:00:00 [facility] CONSENT/REFUSAL FOR DIAGNOSIS AND TREATMENT 2022-08-01 14:02:15 Doctor Unassigned, [place] [facility] Encounters Start Date/Time End Date/Time Encounter Type Admission Type Attending Clinicians Care Facility Care Department Encounter ID Source 2023-04-19 09:20:00 Outpatient Darrius Davies [facility] [id number] [facility] 2022-12-28 11:27:00 Outpatient Darrius Davies [facility] [id number] [facility] 2022-12-19 14:38:00 Outpatient GoodtaeRosario multani [facility] ST[facility] [id number] [facility] 2022-12-18 13:25:00 Outpatient DaviesDarrius florentino STLC STLMLC [id number] [facility] 2022-08-24 08:49:00 Outpatient DaviesDarrius florentino STLC STLMLC [id number] [facility] 2022-02-07 08:11:00 Outpatient DaviesMable florentinoh STLMLC STLMLC [id number] [facility] 2022-01-30 10:25:00 Outpatient Davies, Darrius STLMLC STLMLC [id number] [facility] 2021-12-22 08:50:00 Outpatient Davies, Darrius STLMLC STLMLC [facility] 2021-10-05 10:04:01 Outpatient Davies, Darrius STLMLC STLMLC [facility] 2021-03-30 14:19:07 Outpatient Davies, Darrius STLMLC STLMLC [id number] [facility] 2021-03-30 13:26:04 Outpatient Davies, Darrius STLMLC STLMLC [id number] [facility] 2021-03-30 13:25:29 Outpatient Davies, Darrius STLMLC STLMLC [id number] [facility] 2021-03-30 13:08:36 Outpatient Davies, Darrius STLMLC STLMLC [id number] [facility] 2021-03-30 12:43:39 Outpatient Davies, Darrius STLMLC STLMLC [id number] [facility] 2021-03-30 12:38:25 Outpatient Davies, Darrius STLMLC STLMLC [id number] [facility] 2021-03-30 12:22:26 Outpatient Davies, Darrius STLMLC STLMLC [id number] [facility] 2021-03-30 12:09:29 Outpatient Davies, Darrius STLMLC STLMLC [id number] [facility] 2021-03-30 12:07:24 Outpatient Davies, Darrius STLMLC STLMLC [id number] [facility] 2021-03-30 11:56:08 Outpatient Davies, Darrius STLMLC STLC [id number] [facility] 2021-03-30 11:32:02 Outpatient Davies, Darrius STLC STLC [id number] [facility] 2021-03-30 11:17:47 Outpatient Davies, Darrius STLC STLC [id number] [facility] 2021-03-30 11:17:42 [facility] [id number] [facility] 2023-07-13 10:00:00 2023-07-13 10:00:00 Outpatient R STARR DOWD [facility] [id number] [facility] 2023-07-05 20:00:00 2023-07-05 20:00:00 Outpatient R [facility] [id number] [facility] 2023-07-01 00:00:00 2023-07-01 00:00:00 (WEB) [facility] [id number] [facility] 2023-05-25 20:00:00 2023-05-25 20:00:00 Outpatient R ANDREW BORREGO STRAMSVida [facility] [id number] [facility] 2023-05-09 00:00:00 2023-05-09 00:00:00 Telephone Starr Dowd [facility] 1.2.840.114 350.1.13.10 4.2.7.2.686 [id number] [facility] 2023-05-08 09:00:00 2023-05-08 09:28:39 Outpatient R STARR DOWD [facility] [id number] [facility] 2023-05-08 09:00:00 2023-05-08 09:28:39 Office Visit Starr Dowd [facility] 234 BEDS AT [facility] 1.2.840.114 350.1.13.10 4.2.7.2.686 [id number] [facility] 2023-05-08 00:00:00 2023-05-08 00:00:00 Orders Only Doctor Unassigned, [place] [facility] 1.2.840.114 350.1.13.10 4.2.7.2.686 [id number] [facility] 2023-04-27 00:00:00 2023-04-27 00:00:00 Orders Only Doctor Unassigned, [place] [facility] 1.2.840.114 350.1.13.10 4.2.7.2.686 [id number] [facility] 2023-04-27 00:00:00 2023-04-27 00:00:00 Telephone Starr Dowd [facility] 1.2.840.114 350.1.13.10 4.2.7.2.686 [id number] [facility] 2023-04-19 00:00:00 2023-04-19 00:00:00 Telephone Starr Dowd [facility] 1.2.840.114 350.1.13.10 4.2.7.2.686 [id number] [facility] 2023-04-19 00:00:00 2023-04-19 00:00:00 (TEL) STLMLC STLMLC [id number] [facility] 2023-03-01 11:00:00 2023-03-01 11:21:01 Outpatient R SATRR DOWD [facility] [id number] [facility] 2023-03-01 11:00:00 2023-03-01 11:21:01 Office Visit Starr Dowd [facility] 1.2.840.114 350.1.13.10 4.2.7.2.686 [id number] [facility] 2023-02-27 00:00:00 2023-02-27 00:00:00 Telephone Starr Dowd [facility] 234 BEDS AT THE [facility] 1.2.840.114 350.1.13.10 4.2.7.2.686 [id number] [facility] 2023-02-20 23:45:00 2023-02-23 12:28:00 Inpatient EM Oswaldo Navarrete [facility] [id number] [facility] 2023-02-20 23:45:00 2023-02-23 12:28:00 Inpatient EM Oswaldo Navarrete [facility] [id number] 84 [facility] 2023-02-21 00:00:00 2023-02-21 00:00:00 Telephone Lamin Starr [facility] 1.2.840.114 350.1.13.10 4.2.7.2.686 [id number] [facility] 2023-02-19 07:47:00 2023-02-20 10:23:00 Inpatient Dell Segovia [facility].02 [id number] [facility] 2023-02-20 00:00:00 2023-02-20 00:00:00 [facility] 1.2.840.114 350.1.13.10 4.2.7.2.686 [id number] [facility] 2023-02-08 00:00:00 2023-02-08 00:00:00 OFFICE VISIT ESTAB PT LEVEL 4 STLMLC STLMLC [id number] [facility] 2022-12-18 00:00:00 2022-12-18 00:00:00 OFFICE VISIT ESTAB PT LEVEL 3 STLMLC STLMLC [id number] [facility] 2022-12-16 00:00:00 2022-12-16 00:00:00 (WEB) STLMLC STLMLC [id number] [facility] 2022-09-21 00:00:00 2022-09-21 00:00:00 PREV VISIT EST AGE 40-64 STLMLC STLMLC [id number] [facility] 2022-09-04 00:00:00 2022-09-04 00:00:00 (WEB) STLMLC STLMLC [id number] [facility] 2022-08-24 00:00:00 2022-08-24 00:00:00 (WEB) STLMLC STLMLC [id number] [facility] 2022-08-24 00:00:00 2022-08-24 00:00:00 (WEB) STLMLC STLMLC [id number] [facility] 2022-08-24 00:00:00 2022-08-24 00:00:00 OFFICE VISIT ESTAB PT LEVEL 3 STLMLC STLMLC [id number] [facility] 2022-08-01 09:30:00 2022-08-01 10:00:00 Office Visit Starr Dowd [facility] 1..840.114 350.1.13.10 4.2.7.2.686 [id number] [facility] 2022-08-01 09:30:00 2022-08-01 09:30:00 Outpatient R STARR DOWD [facility] [id number] [facility] 2022-08-01 00:00:00 2022-08-01 00:00:00 Orders Only Doctor Unassigned, [place] [facility] 1..840.114 350.1.13.10 4.2.7.2.686 [id number] [facility] 2022-07-11 00:00:00 2022-07-11 00:00:00 (WEB) STLMLC STLMLC [id number] [facility] 2022-04-24 00:00:00 2022-04-24 00:00:00 OFFICE VISIT ESTAB PT LEVEL 3 STLMLC STLMLC [id number] [facility] 2022-03-02 00:00:00 2022-03-02 00:00:00 (WEB) STLMLC STLMLC [id number] [facility] 2022-02-06 00:00:00 2022-02-06 00:00:00 OFFICE VISIT NEW PT LEVEL 3 STLMLC STLMLC [id number] [facility] 2021-12-26 00:00:00 2021-12-26 00:00:00 OFFICE VISIT ESTAB PT LEVEL 4 STLMLC STLMLC [id number] [facility] 2021-12-12 00:00:00 2021-12-12 00:00:00 (WEB) STLMLC STLMLC [id number] [facility] 2021-12-12 00:00:00 2021-12-12 00:00:00 OFFICE VISIT EST PT LEVEL 3 STLMLC STLMLC [id number] [facility] 2021-12-11 00:00:00 2021-12-11 00:00:00 (WEB) STLMLC STLMLC [id number] [facility] 2021-09-23 00:00:00 2021-09-23 00:00:00 PREV VISIT EST AGE 40-64 STLMLC STLMLC [id number] [facility] 2021-09-23 00:00:00 2021-09-23 00:00:00 (TEL) STLMLC STLMLC [id number] [facility] 2021-08-25 00:00:00 2021-08-25 00:00:00 (WEB) STLMLC STLMLC [id number] [facility] 2021-08-19 00:00:00 2021-08-19 00:00:00 (WEB) STLMLC STLMLC [id number] [facility] 2021-08-18 00:00:00 2021-08-18 00:00:00 (WEB) STLMLC STLMLC [id number] [facility] 2021-08-09 00:00:00 2021-08-09 00:00:00 Telephone Starr Dowd [facility] 1.2.840.114 350.1.13.10 4.2.7.2.686 [id number] [facility] 2021-07-29 09:00:00 2021-07-29 09:51:50 [facility] [id number] [facility] 2021-07-29 09:00:00 2021-07-29 09:51:50 Office Visit Starr Dowd [address]840[address]114 350.1.13.10 4.2.7.2.686 [id number] [facility] 2021-07-29 09:00:00 2021-07-29 09:51:50 Outpatient R STARR DOWD [facility] [id number] [facility] 2021-07-29 00:00:00 2021-07-29 00:00:00 Orders Only Doctor Unassigned, [place] [facility] 1.2.840.114 350.1.13.10 4.2.7.2.686 [id number] [facility] 2021-07-21 00:00:00 2021-07-21 00:00:00 (WEB) STLMLC STLMLC [id number] [facility] 2021-04-26 00:00:00 2021-04-26 00:00:00 OFFICE VISIT ESTAB PT LEVEL 1 STLMLC STLMLC [id number] [facility] 2021-04-25 12:00:00 2021-04-25 12:00:00 Outpatient STARR CUTLER [facility] [id number] [facility] 2021-04-25 00:00:00 2021-04-25 00:00:00 (TEL) STLMLC STLMLC [id number] [facility] 2021-04-24 00:00:00 2021-04-24 00:00:00 (WEB) STLMLC STLMLC [id number] [facility] 2021-04-08 00:00:00 2021-04-08 00:00:00 OFFICE VISIT EST PT LEVEL 3 STLMLC STLMLC [id number] [facility] 2021-04-08 00:00:00 2021-04-08 00:00:00 (WEB) STLMLC STLMLC [id number] [facility] 2021-03-07 00:00:00 2021-03-07 00:00:00 OFFICE VISIT ESTAB PT LEVEL 1 STLMLC STLMLC [id number] [facility] 2021-03-07 00:00:00 2021-03-07 00:00:00 (TEL) STLMLC STLMLC [id number] [facility] 2021-02-02 00:00:00 2021-02-02 00:00:00 (COVID Inj) COVID Injection STLMLC STLMLC [id number] [facility] 2021-01-17 00:00:00 2021-01-17 00:00:00 OFFICE VISIT ESTAB PT LEVEL 4 STLMLC STLMLC [id number] [facility] 2020-10-21 15:38:21 2020-10-21 16:01:31 Office Visit Starr Dowd [facility] 1.2.840.114 350.1.13.10 4.2.7.2.686 [id number] [facility] 2020-10-21 15:30:00 2020-10-21 15:30:00 Outpatient STARR CUTLER [facility] [id number] [facility] 2020-09-15 00:00:00 2020-09-15 00:00:00 Outpatient STLMLC STLMLC [id number] [facility] 2020-08-27 00:00:00 2020-08-27 00:00:00 Outpatient STLMLC STLMLC [id number] [facility] 2020-07-30 00:00:00 2020-07-30 00:00:00 Outpatient STLMLC STLMLC [id number] [facility] 2020-07-27 00:00:00 2020-07-27 00:00:00 Outpatient STLMLC STLMLC [id number] [facility] 2020-07-05 00:00:00 2020-07-05 00:00:00 Outpatient STLMLC STLMLC [id number] [facility] 2020-07-01 14:30:00 2020-07-01 14:30:00 Outpatient STARR CUTLER [facility] [id number] [facility] 2020-06-18 11:30:00 2020-06-18 11:30:00 Outpatient STARR CUTLER SHIVTRomelia [facility] [id number] [facility] 2020-06-18 10:55:31 2020-06-18 11:25:31 Office Visit Starr Dowd [facility] 1..840.114 350.1.13.10 4.2.7.2.686 [id number] [facility] 2020-06-18 00:00:00 2020-06-18 00:00:00 Orders Only Doctor Unassigned, [place] [facility] 1..840.114 350.1.13.10 4.2.7.2.686 [id number] [facility] 2020-06-18 00:00:2020-06-18 00:00:00 Letter (Out) Doctor Unassigned, [place] [facility] 1.2.840.114 350.1.13.10 4.2.7.2.686 [id number] [facility] 2020-06-16 00:00:00 2020-06-16 00:00:00 Outpatient STLMLC STLMLC [id number] [facility] 2020-05-26 00:00:00 2020-05-26 00:00:00 Outpatient STLMLC STLMLC [id number] [facility] 2020-05-12 00:00:00 2020-05-12 00:00:00 Outpatient STLMLC STLMLC [id number] [facility] 2020-05-06 00:00:00 2020-05-06 00:00:00 Outpatient STLMLC STLMLC [id number] [facility] 2020-05-05 00:00:00 2020-05-05 00:00:00 Outpatient STLMLC STLMLC [id number] [facility] 2020-05-04 00:00:00 2020-05-04 00:00:00 Outpatient STLMLC STLMLC [id number] [facility] 2020-05-04 00:00:00 2020-05-04 00:00:00 Outpatient STLMLC STLMLC [id number] [facility] 2020-04-28 00:00:00 2020-04-28 00:00:00 Outpatient STLMLC STLMLC [id number] [facility] 2020-04-16 00:00:00 2020-04-16 00:00:00 Outpatient STLMLC STLMLC [id number] [facility] 2020-04-14 00:00:00 2020-04-14 00:00:00 Outpatient STLMLC STLMLC [id number] [facility] 2020-04-12 00:00:00 2020-04-12 00:00:00 Outpatient STLMLC STLMLC [id number] [facility] 2020-04-11 00:00:00 2020-04-11 00:00:00 Outpatient STLMLC STLMLC [id number] [facility] 2020-04-11 00:00:00 2020-04-11 00:00:00 Outpatient STLMLC STLMLC [id number] [facility] 2020-04-06 00:00:00 2020-04-06 00:00:00 Outpatient STLMLC STLMLC [id number] [facility] 2020-03-23 00:00:00 2020-03-23 00:00:00 Outpatient STLMLC STLMLC [id number] [facility] 2020-02-16 00:00:00 2020-02-16 00:00:00 Outpatient STLMLC STLMLC [id number] [facility] 2020-02-16 00:00:00 2020-02-16 00:00:00 Outpatient STLMLC STLMLC [id number] [facility] 2020-02-03 00:00:00 2020-02-03 00:00:00 Outpatient STLMLC STLMLC [id number] [facility] 2020-01-26 00:00:00 2020-01-26 00:00:00 Outpatient STLMLC STLMLC [id number] [facility] 2020-01-19 00:00:00 2020-01-19 00:00:00 Outpatient STLMLC STLMLC [id number] [facility] 2020-01-09 00:00:00 2020-01-09 00:00:00 Outpatient STLMLC STLMLC [id number] [facility] 2020-01-06 00:00:00 2020-01-06 00:00:00 Outpatient STLMLC STLMLC [id number] [facility] 2020-01-05 00:00:00 2020-01-05 00:00:00 Outpatient STLMLC STLMLC [id number] [facility] 2019-12-22 00:00:00 2019-12-22 00:00:00 Outpatient STLMLC STLMLC [id number] [facility] 2019-09-22 08:15:00 2019-09-22 08:15:[address] [facility] [id number] [facility] 2019-06-23 08:30:00 2019-06-23 08:30:[address] [facility] [id number] [facility] 2019-03-21 11:15:00 2019-03-21 11:15:[address] [facility] [id number] [facility] 2019-01-13 15:15:00 2019-01-13 15:15:[address] [facility] [id number] [facility] 2018-12-20 14:02:00 2018-12-20 14:02:[address] [facility] [id number] [facility] 2018-12-20 08:30:00 2018-12-20 08:30:[address] [facility] [facility] [id number] [facility] 2018-09-19 10:45:00 2018-09-19 10:45:[address] [facility] [id number] [facility] 2018-06-10 08:15:00 2018-06-10 08:15:[address] [facility] [facility] [id number] [facility] 2018-05-20 10:32:00 2018-05-20 10:32:00 [facility] [facility] [id number] [facility] 2018-05-14 11:21:00 2018-05-14 11:21:[address] [facility] [id number] [facility] 2018-05-10 14:47:00 2018-05-10 14:47:[address] [facility] [id number] [facility] 2018-05-06 10:11:00 2018-05-06 10:11:00 [facility] [id number] [facility] 2018-03-11 13:15:00 2018-03-11 13:15:00 [facility] [id number] [facility] 2017-12-06 14:30:00 2017-12-06 14:30:[address] [facility] [facility] [id number] [facility] 2017-08-21 14:15:00 2017-08-21 14:15:[address] [facility] [facility] [id number] [facility] 2017-05-30 16:00:00 2017-05-30 16:00:00 [facility] [id number] [facility] Results Test Description Test Time Test Comments Results Resul t Comments Source - XR CHEST 1V 2023-02-23 09:56:00 [facility] 1970 Sex: M Patient Name: ERIN PACHECO Unit No: [id number] EXAMS: CPT CODE: [id number] XR CHEST 1V [id number] EXAM: CHEST ONE VIEW INDICATION: Asthma, shortness of breath LOCATION: B2 COMPARISON: February 21, 2023 TECHNIQUE: AP view of the chest FINDINGS: The heart size is normal. The lungs are clear bilaterally. The pulmonary vasculature is normal. No pneumothorax or pleural effusion is identified. The osseous structures are normal. IMPRESSION: No acute cardiopulmonary process. at 0956 Reported and signed by: Bebe Coon MD CC: Mina Holloway; Oswaldo Navarrete MD Technologist: Javier Romero RT Transcrpt Date/Tm/Trnsp: 02/23/2023 (0956) [email or web address] Orig Print D/T: S: 02/23/2023 (0959) [facility] NAME: ERIN PACHECO [id number] PHYS: [id number] - [place] [address] : 1970 AGE: 52 SEX: M LOC: Z.617 A PHONE #: [phone] EXAM DATE: 02/23/2023 STATUS: ADM IN FAX #: [phone] RADIOLOGY NO: PAGE 1 Signed Report - XR CHEST 1V 2023-02-23 09:56:00 [facility] : 1970 Sex: M Patient Name: ERIN PACHECO Unit No: [id number] EXAMS: CPT CODE: [id number] XR CHEST 1V [id number] EXAM: CHEST ONE VIEW INDICATION: Asthma, shortness of breath LOCATION: B2 COMPARISON: February 21, 2023 TECHNIQUE: AP view of the chest FINDINGS: The heart size is normal. The lungs are clear bilaterally. The pulmonary vasculature is normal. No pneumothorax or pleural effusion is identified. The osseous structures are normal. IMPRESSION: No acute cardiopulmonary process. at 0956 Reported and signed by: Bebe Coon MD CC: Mina Holloway; Oswaldo Navarrete MD Technologist: Javier Romero RT Transcrpt Date/Tm/Trnsp: 02/23/2023 (0956) [email or web address] Orig Print D/T: S: 02/23/2023 (0959) [facility] NAME: ERIN PACHECO [id number] PHYS: [id number] - [place] [address] : 1970 AGE: 52 SEX: M LOC: Z.617 A PHONE #: [phone] EXAM DATE: 02/23/2023 STATUS: DIS IN FAX #: [phone] RADIOLOGY NO: PAGE 1 Signed Report BASIC METABOLIC [id number] 06:48:00* Test Item Value Reference Range Interpretation Comme nts SODIUM (test code = NA) 134 MMOL/L 137-145 L POTASSIUM (test code = K) 4.4 MMOL/L 3.5-5.1 N CHLORIDE (test code = CL) 102 MMOL/L 98-107 N CARBON DIOXIDE (test code = CO2) 22 MMOL/L 22-30 N GLUCOSE (test code = GLU) 142 MG/DL 74-106 H BLOOD UREA NITROGEN (test code = BUN) 22 MG/DL 9-20 H GLOMERULAR FILTRATION RATE (test code = GFR) > 60 The Glomerular Filtration Rate is a calculated parameterbased on serum Creatinine, patient age and sex. GFR valuesless than 60 mL/min/1.73 square meters are indicative ofChronic Kidney Disease. Values less than 15 mL/min/1.73square meters indicate Kidney failure. The calculation forGFR is based on the CKD-EPI (202) calculation. This formulais race indifferent and is the recommended formula for GFRby the National Kidney Foundation for Adults.The GFR will not calculate if the sex is unknown or if thepatient's age is <18 years. CREATININE (test code = CREAT) 0.80 MG/DL 0.66-1.25 N CALCIUM (test code = CA) 9.1 MG/DL 8.4-10.2 N CBC W/AUTO [id number] 06:36:00* Test Item Value Reference Range Interpretation Comme nts WHITE BLOOD CELL (test code = WBC) 12.6 K/MM3 3.8-9.8 H RED BLOOD CELL (test code = RBC) 5.18 M/MM3 3.95-5.67 N HEMOGLOBIN (test code = HGB) 15.6 G/DL 12.4-16.7 N HEMATOCRIT (test code = HCT) 47.3 % 35.9-49.5 N MEAN CELL VOLUME (test code = MCV) 91 fL 81.7-96.1 N MEAN CELL HGB (test code = MCH) 30.1 pg 27.6-33.2 N MEAN CELL HGB CONCETRATION (test code = MCHC) 33.0 % 32.9-35.5 N RED CELL DISTRIBUTION WIDTH (test code = RDW) 13.3 % 12.1-15.2 N PLATELET COUNT (test code = PLT) 250 K/MM3 129-368 N MEAN PLATELET VOLUME (test c ode = MPV) 11.1 fl 7.4-10.4 H NEUTROPHIL % (test code = NT%) 81.1 % 43-75 H IMMATURE GRANULOCYTE % (test code = IG%) 2.1 % 0.0-2.0 H LYMPHOCYTE % (test code = LY%) 9.2 % 14-44 L MONOCYTE % (test code = MO%) 7.3 % 4-13 N EOSINOPHIL % (test code = EO%) 0.0 % 0-6 N BASOPHIL % (test code = BA%) 0.3 % 0-2 N NUCLEATED RBC % (test code = NRBC%) 0.0 % 0-1.0 N NEUTROPHIL # (test code = NT#) 10.18 K/mm3 2.0-7.6 H IMMATURE GRANULOCYTE # (test code = IG#) 0.27 x10 3/uL 0-0.03 H LYMPHOCYTE # (test code = LY#) 1.15 K/mm3 1.0-3.8 N MONOCYTE # (test code = MO#) 0.92 K/mm3 0.1-0.8 H EOSINOPHIL # (test code = EO#) 0.00 K/mm3 0.0-0.2 N BASOPHIL # (test code = BA#) 0.04 K/mm3 0.0-0.2 N NUCLEATED RBC # (test code = NRBC#) 0.00 K/mm3 0.0-0.1 N BASIC METABOLIC [id number] 07:10:00* Test Item Value Reference Range Interpretation Comme nts SODIUM (test code = NA) 136 MMOL/L 137-145 L POTASSIUM (test code = K) 4.5 MMOL/L 3.5-5.1 N CHLORIDE (test code = CL) 104 MMOL/L 98-107 N CARBON DIOXIDE (test code = CO2) 23 MMOL/L 22-30 N ANION GAP (test code = GAP) 14 MMOL/L 14-24 N GLUCOSE (test code = GLU) 148 MG/DL 74-106 H BLOOD UREA NITROGEN (test code = BUN) 25 MG/DL 9-20 H GLOMERULAR FILTRATION RATE (test code = GFR) > 60 The Glomerular Filtration Rate is a calculated parameterbased on serum Creatinine, patient age and sex. GFR valuesless than 60 mL/min/1.73 square meters are indicative ofChronic Kidney Disease. Values less than 15 mL/min/1.73square meters indicate Kidney failure. The calculation forGFR is based on the CKD-EPI (2020) calculation. This formulais race indifferent and is the recommended formula for GFRby the National Kidney Foundation for Adults.The GFR will not calculate if the sex is unknown or if thepatient's age is <18 years. CREATININE (test code = CREAT) 0.90 MG/DL 0.66-1.25 N CALCIUM (test code = CA) 9.2 MG/DL 8.4-10.2 N CBC W/AUTO [id number] 06:44:00* Test Item Value Reference Range Interpretation Comme nts WHITE BLOOD CELL (test code = WBC) 15.1 K/MM3 3.8-9.8 H RED BLOOD CELL (test code = RBC) 5.17 M/MM3 3.95-5.67 N HEMOGLOBIN (test code = HGB) 15.7 G/DL 12.4-16.7 N HEMATOCRIT (test code = HCT) 47.1 % 35.9-49.5 N MEAN CELL VOLUME (test code = MCV) 91 fL 81.7-96.1 N MEAN CELL HGB (test code = MCH) 30.4 pg 27.6-33.2 N MEAN CELL HGB CONCETRATION (test code = MCHC) 33.3 % 32.9-35.5 N RED CELL DISTRIBUTION WIDTH (test code = RDW) 13.2 % 12.1-15.2 N PLATELET COUNT (test code = PLT) 245 K/MM3 129-368 MEAN PLATELET VOLUME (test c ode = MPV) 11.0 fl 7.4-10.4 H NEUTROPHIL % (test code = NT%) 82.3 % 43-75 H IMMATURE GRANULOCYTE % (test code = IG%) 1.0 % 0.0-2.0 N LYMPHOCYTE % (test code = LY%) 9.0 % 14-44 L MONOCYTE % (test code = MO%) 7.4 % 4-13 N EOSINOPHIL % (test code = EO%) 0.0 % 0-6 N BASOPHIL % (test code = BA%) 0.3 % 0-2 N NUCLEATED RBC % (test code = NRBC%) 0.0 % 0-1.0 N NEUTROPHIL # (test code = NT#) 12.44 K/mm3 2.0-7.6 H IMMATURE GRANULOCYTE # (test code = IG#) 0.15 x10 3/uL 0-0.03 H LYMPHOCYTE # (test code = LY#) 1.36 K/mm3 1.0-3.8 N MONOCYTE # (test code = MO#) 1.11 K/mm3 0.1-0.8 H EOSINOPHIL # (test code = EO#) 0.00 K/mm3 0.0-0.2 N BASOPHIL # (test code = BA#) 0.04 K/mm3 0.0-0.2 N NUCLEATED RBC # (test code = NRBC#) 0.00 K/mm3 0.0-0.1 N [id number] 13:57:00* Test Item Value Reference Range Interpretation Comme nts TROPONIN-I (test code = TROPI) 2.110 NG/ML 0.012-0.033 CALLED TO CHLOE N.R& READBACK ON 02/21/23 AT 1357 BY German Ortiz ARTERIAL BLOOD [id number] 09:22:00* Test Item Value Reference Range Interpretation Comme nts ARTERIAL BLOOD GAS PH (test code = PHA) 7.46 mmHg 7.35-7.45 H ARTERIAL BLOOD GAS PCO2 (test code = PCO2A) 29.9 mmHg 35.0-45.0 LL ARTERIAL BLOOD GAS PO2 (test code = PO2A) 65.9 mmol/L 80.0-100.0 L BICARBONATE TOTAL HCO3 (test code = HCO3) 20.8 mmol/L 20.0-26.0 N BASE EXCESS (test code = OMAR) -1.8 mmol/L -3.0-3.0 N ABG O2 SATURATION (test code = SATA) 94.3 % 95.0-100.0 L All critical values report to and readback by SISI ANTUNEZ by SONIAO at 02/21/2023 9:14:44 AM ABG DELIVERY (test code = MEREDITH) RM AIR ABG TEMPERATURE (test code = TEMPA) 37.0 C See_Comment [Automated [employer]] The system which generated this result transmitted reference range: 37. The reference range was not used to interpret this result as normal/abnormal. ABG SITE (test code = SITEA) LR ALLENS TEST (test code = ALLENS) Y CHECK FIO2 (test code = COHBGFFIO2) 21 % TSH REFLEX TO [id number] 07:09:00* Test Item Value Reference Range Interpretation Comme nts TSH REFLEX TO FT4 (test code = TSHREFLEX) 0.305 MIU/L 0.65-4.68 L Please be aware that bias results for TSH may occur forpatient who are taking Biotin supplements. LIPID PROFILE (CORONARY RISK)2023-02-21 06:49:00* Test Item Value Reference Range Interpretation Comme nts TRIGLYCERIDES (test code = TRIG) 89 MG/DL 150-199 L TRIGLYCERIDES REFERENCE RANGE:Normal: <150 mg/dLBorderline High: 150-199 mg/dLHigh: 200-499 mg/dLVery High: >=500 mg/dL CHOLESTEROL (test code = CHOL) 165 MG/DL <200 HDL CHOLESTEROL (test code = HDL) 45 MG/DL 40-59 N LIPOPROTEIN LDL (test code = LDL) 92 MG/DL 0-99 N OPTIMAL......... <100 mg/dLNEAR OPTIMAL/ABOVE OPTIMAL.........100-12 9 mg/dL BORDERLINE HIGH.........130-159 mg/dL HIGH.........160-189 mg/dL VERY HIGH.........>/= 190 mg/dL GLYCOSYLATED HEMOGLOBIN [id number] 06:47:00* Test Item Value Reference Range Interpretation Comme nts GLYCOSYLATED HEMOGLOBIN (HA1C) (test code = GLYHGB) 6.2 % 4.8-5.9 H Any condition th at shortens erythocyte survival or decreasesmean erythrocyte age (e.g., recovery from acute blood loss,hemolytic anemia) will falsely lower HGBA1c resultsregardless of the method used. HGBA1c results from patientswith HbSS, HbCC, and HbSc must be interpreted with cautiongiven the pathological processes, including anemia,increased red cell turnover, transfusion requirements, thatadversely impact HGBA1c as a marker of long-term glycemiccontrol. Alternative forms of testing such as fructosamineshould be considered for these patients. MEAN BLOOD GLUCOSE (test code = MBG) 131 MG/DL 70-110 H - XR CHEST [id number] 06:34:00 [facility] 1970 Sex: M Patient Name: ERIN PACHECO Unit No: [id number] EXAMS: CPT CODE: [id number] XR CHEST 1V 32100 LOCATION: B2 EXAM: - XR CHEST 1V HISTORY: Wheezing COMPARISON: None FINDINGS: The lungs are clear. No pleural effusion or pneumothorax. The cardiac silhouette is within normal limits. No acute osseous abnormalities. IMPRESSION: No acute cardiopulmonary disease. at 0634 Reported and signed by: Mustapha Guillory MD CC: Dell Valdivia; Ines Szymanski MD Technologist: BLANCA YAO RT Transcrpt Date/Tm/Trnsp: 02/21/2023 (0634) Sherrill.VB7 Orig PrintD/T: S: 02/21/2023 (0637) [facility] NAME: ERIN PACHECO [address] PHYS: [place] [address] : 1970 AGE: 52 SEX: M LOC: [id number].ERMED [id number] PHONE #: [phone] EXAM DATE: 02/21/2023 STATUS: ADM IN FAX #: [phone] RADIOLOGY NO: PAGE 1 Signed Report- XR CHEST [id number] 06:34:00 [facility] : 1970 Sex: M Patient Name: ERIN PACHECO Unit No: [id number] EXAMS: CPT CODE: [id number] XR CHEST 1V 09977 LOCATION: B2 EXAM: - XR CHEST 1V HISTORY: Wheezing COMPARISON: None FINDINGS: The lungs are clear. No pleural effusion or pneumothorax. The cardiac silhouette is within normal limits. No acute osseous abnormalities. IMPRESSION: No acute cardiopulmonary disease. at 0634 Reported and signed by: Mustapha Guillory MD CC: Dell Valdivia; Ines Szymanski MD Technologist: BLANCA YAO RT Transcrpt Date/Tm/Trnsp: 02/21/2023 (0634) [email or web address] Orig Print D/T: S: 02/21/2023 (0637) [facility] NAME: ERIN PACHECO [id number] PHYS: [place] [address] : 1970 AGE: 52 SEX: M LOC: [id number] A PHONE #: [phone] EXAM DATE: 02/21/2023 STATUS: DIS IN FAX #: [phone] RADIOLOGY NO: PAGE 1 [id number] 04:40:00* Test Item Value Reference Range Interpretation Comme nts TROPONIN-I (test code = TROPI) 2.890 NG/ML 0.012-0.033 HH CALLED TO OTIS Menendez& READBACK ON 02/21/23 AT 0439 BY Clover Haas [id number] 03:52:00* Test Item Value Reference Range Interpretation Comme nts TROPONIN-I (test code = TROPI) 2.880 NG/ML 0.012-0.033 HH CALLED TO AISHA Chen& READBACK ON 02/21/23 AT 0352 BY Clover Haas COVID 19 Asymptomatic IH [id number] 03:45:00* Test Item Value Reference Range Interpretation Comme nts COVID 19 Asymptomatic IH AG (test code = COVNONPUIAG) NEGATIVE Negative "Negative result s from patients with symptom onset beyondfive days, should be treated as presumptive, andconfirmation with a molecular assay, if necessary forpatient management may be performed. Negative results do notrule out COVID-19 and should not be used as the sole basisfor treatment or patient management decisions, includinginfection control decisions. Negative results should beconsidered in the context of a patients recent exposures,history, and the presence of clinical signs and symptomsconsistent with COVID-19.This test detects both viable andnon-viable SARS-CoV and SARS CoV-2.Test performance dependson the amount of virus (antigen) in the sample." COMPREHENSIVE METABOLIC [id number] 23:23:00* Test Item Value Reference Range Interpretation Comme nts SODIUM (test code = NA) 137 MMOL/L 137-145 N POTASSIUM (test code = K) 3.9 MMOL/L 3.5-5.1 N CHLORIDE (test code = CL) 103 MMOL/L 98-107 N CARBON DIOXIDE (test code = CO2) 28 MMOL/L 22-30 N GLUCOSE (test code = GLU) 129 MG/DL 74-106 H BLOOD UREA NITROGEN (test code = BUN) 14 MG/DL 9-20 N GLOMERULAR FILTRATION RATE (test code = GFR) > 60 The Glomerular Filtration Rate is a calculated parameterbased on serum Creatinine, patient age and sex. GFR valuesless than 60 mL/min/1.73 square meters are indicative ofChronic Kidney Disease. Values less than 15 mL/min/1.73square meters indicate Kidney failure. The calculation forGFR is based on the CKD-EPI (2020) calculation. This formulais race indifferent and is the recommended formula for GFRby the National Kidney Foundation for Adults.The GFR will not calculate if the sex is unknown or if thepatient's age is <18 years. CREATININE (test code = CREAT) 0.80 MG/DL 0.66-1.25 N TOTAL PROTEIN (test code = PROT) 7.5 G/DL 6.2-7.6 N Ortho Clinical D iagnostic has made us aware of newinformation regarding the potential interference ofEltrombopag (a bone marrow stimulant used to treatthrombocytonmenia and aplastic anemia) with specific assayson the Uversitys 5600 of which Total Protein is one of thoseassays performed in our lab.Interference testing performed at Ortho determined thatEltrombopag does interfere with Vitros Total Protein asfollowsEltrombopag Interference for Vitros Product Total Protein: Eltrombopag Max Observed Avg. BiasConcentration Concentration Concentration 2.5 mg/dl 6.0 g/dl +0.41 +0.34 3.5 mg/dl 6.0 g/dl +0.50 +0.45 5 mg/dl 6.0 g/dl +0.73 +0.65 2.5 mg/dl 8.0 g/dl +0.44 +0.41 3.5 mg/dl 8.0 g/dl +0.55 +0.52 5 mg/dl 8.0 g/dl +0.86 +0.77 ALBUMIN (test code = ALB) 4.0 G/DL 3.5-5.0 N CALCIUM (test code = CA) 8.6 MG/DL 8.4-10.2 N BILIRUBIN TOTAL (test code = BILT) 0.7 MG/DL 0.2-1.3 N Eltrombopag Inte rference for Vitros Product TBil, BuBc: Assay Eltrombopag Analyte/ Max Observed Avg. Bias Concentration Concentration Concentration TBil 7mg/dl TBil/ 1.2mg/dl +0.23mg.dl +0.20mg/dlBuBc 3.5mg/dl Bu/0.8mg/dl +0.25mg/dl +0.24mg/dlBuBc 7 mg/dl Bu/14.2mg/dl +0.38mg/dl +0.25mg/dlBuBc 5mg/dl Bc/0mg/dl +0.25mg/dl +0.15mg/dlBuBc 3.5mg/dl Bc/2.8mg/dl +0.25mg/dl +0.23mg/dl SGOT/AST (test code = AST) 58 UNITS/L 17-59 N SGPT/ALT (test code = ALT) 74 UNITS/L 0-49 H ALKALINE PHOSPHATASE (test code = ALKP) 104 UNITS/L 38-126 N [id number] 23:23:00* Test Item Value Reference Range [facility]ation [facility] TROPON[facility]-I (test code = TROPI) 3.150 NG/ML 0.012-0.033 CALLED TO ANGEL Menendez & READBACK ON 02/20/23 AT 2304 BY Anay Navarrete LIPOPROTEIN LDL [id number] 23:23:00* Test Item Value Reference Range Interpretation Comme [facility] LIPOPROTEIN LDL DIRECT (test code = LDLDIR) 84 mg/dL 100-129 L Refe rence Interval: mg/dL mmol/L --Optimal <100 <2.6Near/above optimal 100-129 2.6-3.3Borderline High 130-159 3.4-4.1High 160-189 4.1-4.9Very High >=190 >=4.9========= This LDL result is a direct measurement.========= PROTHROMBIN [id number] 22:51:00* Test Item Value Reference Range Interpretation Comme [facility] PROTHROMBIN TIME PATIENT (test code = PTP) 10.9 SECONDS 10.1-12.6 N INTERNATIONAL NORMAL RATIO (test code = INR) 1.0 0.86-1.14 N The INR is to be used only for monitoring oral anticoagulanttherap y. INDICATION INR VALUE -------1. Prophylaxis, deep venous thrombosis, including high risk surgery. 2.0 - 3.0 2. Prophylaxis, deep venous thrombosis, hip surgery, treatment for deep venous thrombosis or pulmonary prevention of systemic embolism in patients with valvular heart disease, atrial fibrillation, tissue heart valve, or acute myocardial infarction. 2.0 - 3.0 3. Mechanical prosthesis heart valves, recurrent systemic embolism. 3.0 - 4.5 PTT [id number] 22:51:00* Test Item Value Reference Range Interpretation Comme nts PTT ACTIVATED (test code = APTT) 28.9 SECONDS 27.2-37.9 N CBC W/AUTO [id number] 22:38:00* Test Item Value Reference Range Interpretation Comme nts WHITE BLOOD CELL (test code = WBC) 6.6 K/MM3 3.8-9.8 N RED BLOOD CELL (test code = RBC) 4.92 M/MM3 3.95-5.67 N HEMOGLOBIN (test code = HGB) 14.9 G/DL 12.4-16.7 N HEMATOCRIT (test code = HCT) 44.7 % 35.9-49.5 N MEAN CELL VOLUME (test code = MCV) 91 fL 81.7-96.1 N MEAN CELL HGB (test code = MCH) 30.3 pg 27.6-33.2 N MEAN CELL HGB CONCETRATION (test code = MCHC) 33.3 % 32.9-35.5 N RED CELL DISTRIBUTION WIDTH (test code = RDW) 13.3 % 12.1-15.2 N PLATELET COUNT (test code = PLT) 176 K/MM3 129-368 N MEAN PLATELET VOLUME (test c ode = MPV) 10.3 fl 7.4-10.4 N NEUTROPHIL % (test code = NT%) 60.2 % 43-75 N IMMATURE GRANULOCYTE % (test code = IG%) 1.4 % 0.0-2.0 N LYMPHOCYTE % (test code = LY%) 25.2 % 14-44 N MONOCYTE % (test code = MO%) 12.8 % 4-13 N EOSINOPHIL % (test code = EO%) 0.2 % 0-6 N BASOPHIL % (test code = BA%) 0.2 % 0-2 N NUCLEATED RBC % (test code = NRBC%) 0.0 % 0-1.0 N NEUTROPHIL # (test code = NT#) 3.99 K/mm3 2.0-7.6 N IMMATURE GRANULOCYTE # (test code = IG#) 0.09 x10 3/uL 0-0.03 H LYMPHOCYTE # (test code = LY#) 1.67 K/mm3 1.0-3.8 N MONOCYTE # (test code = MO#) 0.85 K/mm3 0.1-0.8 H EOSINOPHIL # (test code = EO#) 0.01 K/mm3 0.0-0.2 N BASOPHIL # (test code = BA#) 0.01 K/mm3 0.0-0.2 N NUCLEATED RBC # (test code = NRBC#) 0.00 K/mm3 0.0-0.1 N BASIC METABOLIC [id number] 05:27:00* Test Item Value Reference Range Interpretation Comme nts SODIUM (test code = NA) 136 MMOL/L 137-145 L POTASSIUM (test code = K) 3.7 MMOL/L 3.5-5.1 N CHLORIDE (test code = CL) 103 MMOL/L 98-107 N CARBON DIOXIDE (test code = CO2) 28 MMOL/L 22-30 N ANION GAP (test code = GAP) 9 MMOL/L 14-24 L GLUCOSE (test code = GLU) 132 MG/DL 74-106 H BLOOD UREA NITROGEN (test code = BUN) 14 MG/DL 9-20 N GLOMERULAR FILTRATION RATE (test code = GFR) > 60 The Glomerular Filtration Rate is a calculated parameterbased on serum Creatinine, patient age and sex. GFR valuesless than 60 mL/min/1.73 square meters are indicative ofChronic Kidney Disease. Values less than 15 mL/min/1.73square meters indicate Kidney failure. The calculation forGFR is based on the CKD-EPI (202) calculation. This formulais race indifferent and is the recommended formula for GFRby the National Kidney Foundation for Adults.The GFR will not calculate if the sex is unknown or if thepatient's age is <18 years. CREATININE (test code = CREAT) 0.90 MG/DL 0.66-1.25 N CALCIUM (test code = CA) 8.2 MG/DL 8.4-10.2 L CBC W/AUTO [id number] 04:59:00* Test Item Value Reference Range Interpretation Comme nts WHITE BLOOD CELL (test code = WBC) 8.2 K/MM3 3.8-9.8 N RED BLOOD CELL (test code = RBC) 4.69 M/MM3 3.95-5.67 N HEMOGLOBIN (test code = HGB) 14.2 G/DL 12.4-16.7 HEMATOCRIT (test code = HCT) 43.5 % 35.9-49.5 MEAN CELL VOLUME (test code = MCV) 93 fL 81.7-96.1 N MEAN CELL HGB (test code = MCH) 30.3 pg 27.6-33.2 N MEAN CELL HGB CONCETRATION (test code = MCHC) 32.6 % 32.9-35.5 L RED CELL DISTRIBUTION WIDTH (test code = RDW) 13.3 % 12.1-15.2 N PLATELET COUNT (test code = PLT) 166 K/MM3 129-368 MEAN PLATELET VOLUME (test c ode = MPV) 11.5 fl 7.4-10.4 H NEUTROPHIL % (test code = NT%) 70.6 % 43-75 N IMMATURE GRANULOCYTE % (test code = IG%) 0.6 % 0.0-2.0 N LYMPHOCYTE % (test code = LY%) 17.3 % 14-44 N MONOCYTE % (test code = MO%) 11.4 % 4-13 N EOSINOPHIL % (test code = EO%) 0.0 % 0-6 N BASOPHIL % (test code = BA%) 0.1 % 0-2 N NUCLEATED RBC % (test code = NRBC%) 0.0 % 0-1.0 N NEUTROPHIL # (test code = NT#) 5.75 K/mm3 2.0-7.6 N IMMATURE GRANULOCYTE # (test code = IG#) 0.05 x10 3/uL 0-0.03 H LYMPHOCYTE # (test code = LY#) 1.41 K/mm3 1.0-3.8 N MONOCYTE # (test code = MO#) 0.93 K/mm3 0.1-0.8 H EOSINOPHIL # (test code = EO#) 0.00 K/mm3 0.0-0.2 N BASOPHIL # (test code = BA#) 0.01 K/mm3 0.0-0.2 N NUCLEATED RBC # (test code = NRBC#) 0.00 K/mm3 0.0-0.1 N [id number] 11:40:00* Test Item Value Reference Range Interpretation Comme nts ACT-ISTAT (test code = ACTI) 325 SEC 74-137 H [id number] 11:10:00* Test Item Value Reference Range Interpretation Comme nts ACT-ISTAT (test code = ACTI) 342 SEC 74-137 H [id number] 10:40:00* Test Item Value Reference Range Interpretation Comme nts ACT-ISTAT (test code = ACTI) 369 SEC 74-137 H PROTHROMBIN [id number] 08:38:00* Test Item Value Reference Range Interpretation Comme [facility] PROTHROMBIN TIME PATIENT (test code = PTP) 10.9 SECONDS 10.1-12.6 N INTERNATIONAL NORMAL RATIO (test code = INR) 1.0 0.86-1.14 N The INR is to be used only for monitoring oral anticoagulanttherap y. INDICATION INR VALUE -------1. Prophylaxis, deep venous thrombosis, including high risk surgery. 2.0 - 3.0 2. Prophylaxis, deep venous thrombosis, hip surgery, treatment for deep venous thrombosis or pulmonary prevention of systemic embolism in patients with valvular heart disease, atrial fibrillation, tissue heart valve, or acute myocardial infarction. 2.0 - 3.0 3. Mechanical prosthesis heart valves, recurrent systemic embolism. 3.0 - 4.5 PTT [id number] 08:38:00* Test Item Value Reference Range Interpretation Comme [facility] PTT ACTIVATED (test code = APTT) 32.7 SECONDS 27.2-37.9 N BASIC METABOLIC [id number] 08:37:00* Test Item Value Reference Range Interpretation Comme nts SODIUM (test code = NA) 140 MMOL/L 137-145 N POTASSIUM (test code = K) 3.9 MMOL/L 3.5-5.1 N CHLORIDE (test code = CL) 104 MMOL/L 98-107 N CARBON DIOXIDE (test code = CO2) 27 MMOL/L 22-30 N ANION GAP (test code = GAP) 13 MMOL/L 14-24 L GLUCOSE (test code = GLU) 98 MG/DL 74-106 N BLOOD UREA NITROGEN (test code = BUN) 19 MG/DL 9-20 N GLOMERULAR FILTRATION RATE (test code = GFR) > 60 The Glomerular Filtration Rate is a calculated parameterbased on serum Creatinine, patient age and sex. GFR valuesless than 60 mL/min/1.73 square meters are indicative ofChronic Kidney Disease. Values less than 15 mL/min/1.73square meters indicate Kidney failure. The calculation forGFR is based on the CKD-EPI (2020) calculation. This formulais race indifferent and is the recommended formula for GFRby the National Kidney Foundation for Adults.The GFR will not calculate if the sex is unknown or if thepatient's age is <18 years. CREATININE (test code = CREAT) 1.00 MG/DL 0.66-1.25 N CALCIUM (test code = CA) 9.1 MG/DL 8.4-10.2 N [id number] 08:37:00* Test Item Value Reference Range Interpretation Comme nts MAGNESIUM (test code = MAG) 2.3 MG/DL 1.6-2.3 N CBC W/AUTO [id number] 08:27:00* Test Item Value Reference Range Interpretation Comme nts WHITE BLOOD CELL (test code = WBC) 9.8 K/MM3 3.8-9.8 N RED BLOOD CELL (test code = RBC) 5.44 M/MM3 3.95-5.67 N HEMOGLOBIN (test code = HGB) 16.6 G/DL 12.4-16.7 N HEMATOCRIT (test code = HCT) 49.8 % 35.9-49.5 H MEAN CELL VOLUME (test code = MCV) 92 fL 81.7-96.1 N MEAN CELL HGB (test code = MCH) 30.5 pg 27.6-33.2 N MEAN CELL HGB CONCETRATION (test code = MCHC) 33.3 % 32.9-35.5 N RED CELL DISTRIBUTION WIDTH (test code = RDW) 13.4 % 12.1-15.2 N PLATELET COUNT (test code = PLT) 222 K/MM3 129-368 N MEAN PLATELET VOLUME (test c ode = MPV) 11.2 fl 7.4-10.4 H NEUTROPHIL % (test code = NT%) 64.7 % 43-75 N IMMATURE GRANULOCYTE % (test code = IG%) 0.5 % 0.0-2.0 N LYMPHOCYTE % (test code = LY%) 22.9 % 14-44 N MONOCYTE % (test code = MO%) 11.7 % 4-13 N EOSINOPHIL % (test code = EO%) 0.0 % 0-6 N BASOPHIL % (test code = BA%) 0.2 % 0-2 N NUCLEATED RBC % (test code = NRBC%) 0.0 % 0-1.0 N NEUTROPHIL # (test code = NT#) 6.33 K/mm3 2.0-7.6 N IMMATURE GRANULOCYTE # (test code = IG#) 0.05 x10 3/uL 0-0.03 H LYMPHOCYTE # (test code = LY#) 2.24 K/mm3 1.0-3.8 N MONOCYTE # (test code = MO#) 1.15 K/mm3 0.1-0.8 H EOSINOPHIL # (test code = EO#) 0.00 K/mm3 0.0-0.2 N BASOPHIL # (test code = BA#) 0.02 K/mm3 0.0-0.2 N NUCLEATED RBC # (test code = NRBC#) 0.00 K/mm3 0.0-0.1 N CBC W/AUTO [id number] 00:00:00* Test Item Value Reference Range Interpretation Comme nts NUCLEATED RBCS (test code = 95782-3) 0.0 /100 WBC'S See_Comment [Automated messa ge] The system which generated this result transmitted reference range: 0.0 /100 WBC'S. The reference range was not used to interpret this result as normal/abnormal. ABSOLUTE EOSINOPHILS (test code = 80808-5) 0.09 K/UL See_Comment [Automated messa ge] The system which generated this result transmitted reference range: 0.00-0.50 K/UL. The reference range was not used to interpret this result as normal/abnormal. ABSOLUTE LYMPHOCYTES (test code = 68174-0) 1.81 K/UL See_Comment [Automated messa ge] The system which generated this result transmitted reference range: 1.00-4.00 K/UL. The reference range was not used to interpret this result as normal/abnormal. ABSOLUTE MONOCYTES (test code = 29917-1) 0.59 K/UL See_Comment [Automated messa ge] The system which generated this result transmitted reference range: 0.20-1.00 K/UL. The reference range was not used to interpret this result as normal/abnormal. ABSOLUTE NEUTROPHILS (test code = 86677-1) 2.51 K/UL See_Comment [Automated messa ge] The system which generated this result transmitted reference range: 1.50-7.50 K/UL. The reference range was not used to interpret this result as normal/abnormal. BASOPHILS (test code = 61852-2) 0.8 % EOSINOPHILS (test code = 95608-6) 1.8 % HEMATOCRIT (test code = 46608-2) 45.7 % See_Comment [Automated messa ge] The system which generated this result transmitted reference range: 40.0-51.0 %. The reference range was not used to interpret this result as normal/abnormal. HEMOGLOBIN (test code = 718-7) 16.3 G/DL See_Comment [Automated messa ge] The system which generated this result transmitted reference range: 13.5-17.0 G/DL. The reference range was not used to interpret this result as normal/abnormal. LYMPHOCYTES (test code = 37793-0) 35.2 % MCH (test code = 85855-1) 31.7 PG See_Comment [Automated messa ge] The system which generated this result transmitted reference range: 25.0-33.0 PG. The reference range was not used to interpret this result as normal/abnormal. MCHC (test code = 44874-8) 35.7 G/DL See_Comment [Automated messa ge] The system which generated this result transmitted reference range: 31.0-36.0 G/DL. The reference range was not used to interpret this result as normal/abnormal. MCV (test code = 88465-8) 88.7 fL See_Comment [Automated messa ge] The system which generated this result transmitted reference range: 80.0-99.0 fL. The reference range was not used to interpret this result as normal/abnormal. MONOCYTES (test code = 98190-4) 11.5 % NEUTROPHILS (test code = 93403-9) 48.8 % PLATELET COUNT (test code = 03988-1) 174 K/UL See_Comment [Automated messa ge] The system which generated this result transmitted reference range: 130-400 K/UL. The reference range was not used to interpret this result as normal/abnormal. RBC (test code = 47130-5) 5.15 M/UL See_Comment [Automated messa ge] The system which generated this result transmitted reference range: 4.50-6.10 M/UL. The reference range was not used to interpret this result as normal/abnormal. RDW (test code = 25802-9) 12.6 % See_Comment [Automated messa ge] The system which generated this result transmitted reference range: 11.5-15.0 %. The reference range was not used to interpret this result as normal/abnormal. WBC (test code = 92615-3) 5.1 K/UL See_Comment [Automated messa ge] The system which generated this result transmitted reference range: 3.5-11.0 K/UL. The reference range was not used to interpret this result as normal/abnormal. PSA W/REFLEX TO FREE [id number] 00:00:00* Test Item Value Reference Range Interpretation Comme [facility] PROSTATE SPECIFIC AG (test code = 19785-8) 0.24 NG/ML See_Comment [Automated messa ge] The system which generated this result transmitted reference range: <=4.00 NG/ML. The reference range was not used to interpret this result as normal/abnormal. HEMOGLOBIN [id number] 00:00:00* Test Item Value Reference Range Interpretation Comme [facility] HEMOGLOBIN A1c (test code = 4548-4) 6.1 % See_Comment H [Automated messa ge] The system which generated this result transmitted reference range: 4.2-5.6 %. The reference range was not used to interpret this result as normal/abnormal. TSH REFLEX TO FREE [id number] 00:00:00* Test Item Value Reference Range Interpretation Comme nts TSH REFLEX TO FREE T4 (test code = 77907-6) 1.780 UIU/ML See_Comment [Automated messa ge] The system which generated this result transmitted reference range: 0.400-4.100 UIU/ML. The reference range was not used to interpret this result as normal/abnormal. HEPATITIS C [id number] 00:00:00* Test Item Value Reference Range Interpretation Comme nts HEPATITIS C ANTIBODY (test c ode = 44795-1) NON-REACTIVE NON-REACTIVE URINALYSIS (CULTURE IF INDICATED)2023-01-30 00:00:00* [...] NEGATIVE NEGATIVE OCCULT BLOOD (test code = 62272-2) NEGATIVE NEGATIVE pH (test code = 5803-2) 6.5 5.0-9.0 PROTEIN (test code = 29548-0) NEGATIVE NEGATIVE SPECIFIC GRAVITY (test code = 5811-5) 1.009 1.005-1.035 UROBILINOGEN (test code = 77604-2) 0.2 MG/DL See_Comment [Automated [employer]] The system which generated this result transmitted reference range: <=2.0 MG/DL. The reference range was not used to interpret this result as normal/abnormal. LIPID PANEL WITH REFLEX DIRECT [id number] 00:00:00* Test Item Value Reference Range Interpretation Comme nts CALC LDL CHOL (test code = 16666-5) 86 MG/DL See_Comment [Automated [employer]] The system which generated this result transmitted reference range: <100 MG/DL. The reference range was not used to interpret this result as normal/abnormal. CHOLESTEROL (test code = 2093-3) 153 MG/DL See_Comment [Automated [employer]] The system which generated this result transmitted reference range: <200 MG/DL. The reference range was not used to interpret this result as normal/abnormal. HDL CHOLESTEROL (test code = 2085-9) 49 MG/DL See_Comment [Automated [employer]] The system which generated this result transmitted reference range: >39 MG/DL. The reference range was not used to interpret this result as normal/abnormal. RISK RATIO LDL/HDL (test code = 30056-4) 1.76 RATIO See_Comment [Automated message] The system [...] interpret this result as normal/abnormal. COMPREHENSIVE METABOLIC [id number] 00:00:00* Test Item Value Reference Range Interpretation [...] result as normal/abnormal. CALCIUM (test code = 24890-4) 9.2 MG/DL See_Comment [Automated messa ge] The [...] as normal/abnormal. CALC GLOBULIN (test code = 82927-2) 2.9 G/DL See_Comment [Automated messa ge] The [...] as normal/abnormal. CHLORIDE (test code = 2075-0) 100 MEQ/L See_Comment [Automated messa ge] The [...] normal/abnormal. eGFR (2020 CKD-EPI) (test code = 62612-4) 81 ML/MIN/1.73 See_Comment [Automated messa ge] The [...] used to interpret this result as normal/abnormal. STREP A GPVVG2790-28-02 00:00:00ResultCBC W/AUTO [id number] 00:00:00* Test Item Value Reference Range Interpretation Comme nts NUCLEATED RBCS (test code = 92197-6) 0.0 /100 WBC'S See_Comment [Automated messa ge] The system which generated this result transmitted reference range: 0.0 /100 WBC'S. The reference range was not used to interpret this result as normal/abnormal. ABSOLUTE EOSINOPHILS (test code = 84162-3) 0.13 K/UL See_Comment [Automated messa ge] The system which generated this result transmitted reference range: 0.00-0.50 K/UL. The reference range was not used to interpret this result as normal/abnormal. ABSOLUTE LYMPHOCYTES (test code = 72233-6) 2.06 K/UL See_Comment [Automated messa ge] The system which generated this result transmitted reference range: 1.00-4.00 K/UL. The reference range was not used to interpret this result as normal/abnormal. ABSOLUTE MONOCYTES (test code = 74353-6) 0.66 K/UL See_Comment [Automated messa ge] The system which generated this result transmitted reference range: 0.20-1.00 K/UL. The reference range was not used to interpret this result as normal/abnormal. ABSOLUTE NEUTROPHILS (test code = 37171-7) 2.68 K/UL See_Comment [Automated messa ge] The system which generated this result transmitted reference range: 1.50-7.50 K/UL. The reference range was not used to interpret this result as normal/abnormal. BASOPHILS (test code = 72612-3) 0.9 % EOSINOPHILS (test code = 17268-0) 2.3 % HEMATOCRIT (test code = 94833-2) 47.8 % See_Comment [Automated messa ge] The [...] result as normal/abnormal. LYMPHOCYTES (test code = 78374-0) 36.1 % MCH (test code = 21242-1) 31.1 PG See_Comment [Automated messa ge] The system which generated this result transmitted reference range: 25.0-33.0 PG. The reference range was not used to interpret this result as normal/abnormal. MCHC (test code = 62265-9) 34.7 G/DL See_Comment [Automated messa ge] The system which generated this result transmitted reference range: 31.0-36.0 G/DL. The reference range was not used to interpret this result as normal/abnormal. MCV (test code = 99306-2) 89.7 fL See_Comment [Automated messa ge] The system which generated this result transmitted reference range: 80.0-99.0 fL. The reference range was not used to interpret this result as normal/abnormal. MONOCYTES (test code = 61271-6) 11.6 % NEUTROPHILS (test code = 10683-4) 47.0 % PLATELET COUNT (test code = 61048-7) 196 K/UL See_Comment [Automated messa ge] The system which generated this result transmitted reference range: 130-400 K/UL. The reference range was not used to interpret this result as normal/abnormal. RBC (test code = 91564-6) 5.33 M/UL See_Comment [Automated messa ge] The system which generated this result transmitted reference range: 4.50-6.10 M/UL. The reference range was not used to interpret this result as normal/abnormal. RDW (test code = 05595-9) 12.5 % See_Comment [Automated messa ge] The system which generated this result transmitted reference range: 11.5-15.0 %. The reference range was not used to interpret this result as normal/abnormal. WBC (test code = 59593-2) 5.7 K/UL See_Comment [Automated messa ge] The system which generated this result transmitted reference range: 3.5-11.0 K/UL. The reference range was not used to interpret this result as normal/abnormal. HEMOGLOBIN [id number] 00:00:00* Test Item Value Reference Range Interpretation Comme nts HEMOGLOBIN A1c (test code = 4548-4) 6.0 % See_Comment H [Automated messa ge] The system which generated this result transmitted reference range: 4.2-5.6 %. The reference range was not used to interpret this result as normal/abnormal. LIPID PANEL WITH REFLEX DIRECT [id number] 00:00:00* Test Item Value Reference Range Interpretation Comme nts CALC LDL CHOL (test code = 79845-2) 66 MG/DL See_Comment [Automated messa ge] The [...] normal/abnormal. RISK RATIO LDL/HDL (test code = 27721-4) 2.20 RATIO See_Comment [Automated message] The system [...] this result as normal/abnormal. ALBUMIN/CREATININE RATIO, RANDOM [id number] 00:00:00* Test Item Value Reference Range Interpretation Comme nts ALBUMIN, URINE, RANDOM (test code = 33772-2) 1.3 MG/DL NOT ESTAB MG/DL CALC ALBUMIN/CREAT, RND (test code = 43795-9) 6 MG/G See_Comment [Automated messa ge] The system which generated this result transmitted reference range: <30 MG/G. The reference range was not used to interpret this result as normal/abnormal. CREATININE, URINE, CONC. (test code = 2161-8) 227.2 MG/DL NOT ESTAB MG/DL COMPREHENSIVE METABOLIC [id number] 00:00:00* Test Item Value Reference Range Interpretation [...] result as normal/abnormal. CALCIUM (test code = 97152-2) 9.5 MG/DL See_Comment [Automated messa ge] The [...] as normal/abnormal. CALC GLOBULIN (test code = 95744-9) 2.6 G/DL See_Comment [Automated messa ge] The [...] normal/abnormal. eGFR (2020 CKD-EPI) (test code = 31715-9) 84 ML/MIN/1.73 See_Comment [Automated messa ge] The [...] used to interpret this result as normal/abnormal. POC, COVID 19 Antigen + Flu by SofiaPOC, COVID 19 Antigen + Flu by Michelle Notes Date/Time Note Provider Source 2023-05-09 08:42:31 6299-54-89E26:42:31 Received medical records from [facility] will put in Dr. Dowd folder for review 59064-3Giscksrwj encounter CxvhKN1343-51-20O36:43:27Telephone encounter NoteTXT1.2.840.722553.1.13.104.2.7.2 .882260|[id number] for patient xiih28666-5CzzdGMMDTHEDUGVFnqrpevvf C-CDA narrative [id number] MOLINA[address] Ym[id number] NXAYZIPCNQYDIOWBYYEYLP2013-67-54G23: 43:271.2.840.293327.1.72.3.15|1.2.84 0.916480.1.13.104.2.7.2.727879_20421 87927 Hattie Vick IGGY [facility] 2023-05-03 09:34:04 6873-25-58F84:34:04 Records release form sent to patient via email 06479-9Bmtehnyfm encounter BiolCS1931-17-34D80:34:22Telephone encounter NoteTXT1.2.840.038205.1.13.104.2.7.2 .077770|2868507743BIDmanyotdd for patient wqod47323-6JqlnDBOUIAVBNURKsgkwnpns C-CDA narrative tbvv383198042Ppws Sheavly RN[address] Az[id number] SVISIAHQQOVSFUINKGDGPX0817-20-60X53: 34:221.2.840.247387.1.72.3.15|1.2.84 0.762031.1.13.104.2.7.2.727879_20370 08366 Meagan Pratt RN [facility] 2023-04-27 11:09:25 7641-07-70K20:09:25 Erin Pacheco is a 52 year old malePt is calling saying that he spoke with someone from Dr. Dowd's clinic and they told him they need records from the dr he saw in the past for his sleep study. He reached out to that dr's office and they said they need the clinic to send over a form first to release that info to [facility] ph: [phone] signed by Dulce Morales at 04/27/2023 11:15 AM KFO13973-0Hdrougzum encounter MkoeKM7872-57-21W06:15:19Telephone encounter NoteTXT1.2.840.462133.1.13.104.2.7.2 .102411|3087992027BMKdzzqytqk for patient hazb06970-6IsfzRTRPBKFSZLAHwgctghkk C-CDA narrative jocg91074876Ojrjunmq N [id number] USEPXGTTOQKNYRXQTIGRMS1480-26-71X63: 15:191.2.840.960396.1.72.3.15|1.2.84 0.365158.1.13.104.2.7.2.727879_20325 48144 Dulce León [facility] 2023-04-27 10:46:41 2551-49-32Y98:46:41 Pt was established for cpap with previous investigations director Dr. Mahmood. Will need to switch to [facility]. Will let family know. To give verbal permission to switch. Or will need come into office for release of information signatures. 91478-1Tjavlwvsy encounter XvgySH3821-24-18U61:49:15Telephone encounter NoteTXT1.2.840.439877.1.13.104.2.7.2 .598524|4589655525WTBlzqpwrce for patient zcad02633-6WmicKBSELSZBKAZCnsiyalwh C-CDA narrative text[id number] WZOEXGAUAGVFDUXGWGQKVQ0226-05-31M07: 49:151.2.840.838952.1.72.3.15|1.2.84 0.061674.1.13.104.2.7.2.727879_20325 50754 [facility] 2023-04-26 12:32:27 3930-75-86W19:32:27 Can we please get recent compliance/metric download and I will review and make changes based on that. Thanks. 92157-9Fpurtyuwo encounter DouwNF4158-60-61Q01:33:06Telephone encounter NoteTXT1.2.840.780342.1.13.104.2.7.2 .705342|3553920995QWMkggbzyxd for patient afeo24006-1AzpoODCLATVGUCEWztinzzjb C-CDA narrative textUT[id number] CHGARZQQHXVWZMLSCFZGSS3217-81-58Z01: 33:061.2.840.010870.1.72.3.15|1.2.84 0.628179.1.13.104.2.7.2.727879_20316 06255 [facility] 2023-04-25 11:52:44 7319-47-98G01:52:[address] Dowd to advise.Patient is scheduled for a follow up on 05/07/33 45035-6Wbasmharh encounter VrcgRB3561-54-61N89:53:07Telephone encounter NoteTXT1.2.840.822490.1.13.104.2.7.2 .937463|6094617422SFVbrrbjfdn for patient fiei59833-2JanbEZVNODVRSUEValbrefeg C-CDA narrative elkf103754598Wdry Sheavly RN[address] RzgaHwcpspfmeLrukzjqavFZGH9299982618 KXPCNWFJSROAWAGOVPMRVG8585-37-03E19: 53:071.2.840.675620.1.72.3.15|1.2.84 0.315396.1.13.104.2.7.2.727879_20305 47020 Meagan Pratt RN [facility] 2023-04-19 09:38:16 4370-76-79W41:38:16 Patient spouse has noticed increase snoring while patient is using CPAP machine. He is waking up tired. Patient is wanting to know if levels of CPAP can be adjusted to help with snoring. 14370-8Zcltewzqb encounter UwzeOP8465-02-28F84:40:28Telephone encounter NoteTXT1.2.840.431816.1.13.104.2.7.2 .659537|0592159094SACzcliwcgd for patient tnts40342-3MumzXXFFKYAAUZPJhamtzvtn C-CDA narrative acug913283656Ghnntdc N Wilson[address] FwifYgunlliizFxniwipheTFAI1049443014 ZABUPOOOLCWDSVBZCPYEDX9602-75-38N51: 40:281.2.840.347708.1.72.3.15|1.2.84 0.243029.1.13.104.2.7.2.727879_20256 79215 Deann Hernandez [facility] 2023-03-07 15:24:00 J53485188669i4PePMaQkMiOgJ1BN6FT/mZX CDQMG/r/lNANAZs/AklRtIf0DChGKvj6A+I5 bTnQ7603-42-41T05:24:870750-6379 [place] [address] PATIENT NAME: ERIN PACHECO ADMIT DATE: 02/20/23ACCOUNT NO: [id number] ROOM NO: .[facility] AGE: 52 REPORT TYPE: 360 - QUERY RESPONSE DOCUMENT SEX: M ADMITTING PHYSICIAN:Oswaldo Navarrete MD ATTENDING PHYSICIAN:Oswaldo Navarrete MD Provider Query QUERY TEXT: Condition General 360MD Query related questions should be directed to: [facility] Coding Query Helpline Based on your medical judgment and clinical indicators below, please document the diagnosis for which you are evaluating, treating or monitoring for this patient ( hypoxemic respiratory failure is clinically significant ,hypoxemic respiratory failure is clinically insignificant or other more appropriate diagnosis) The patient's Clinical Indicators include:acute asthma exacerbation with tachypnea and hypoxemic respiratory failure.-Hospitalist History Physical 02/21/2023 #Acute respiratory distress Secondary to asthma exacerbation-Hospitalist History Physical 02/21/2023cute respiratory distressO2 Delivery Nasal cannula 02/22 0744Respiratory rate: 20SPO2 %: 94 ABG pH (7.35 - 7.45 mmHg) 7.46 HABG pCO2 (35.0 - 45.0 mmHg) 29.9 *LABG pO2 (80.0 - 100.0 mmol/L) 65.9 LABG HCO3 (20.0 - 26.0 mmol/L) 20.8ABG O2 Saturation (95.0 - 100.0 %) 94.3 LABG Base Excess (-3.0 - 3.0 mmol/L) -1.8 BENZONATATE 100 MG CAPSULE-MARBUDESONIDE 0.5 MG/2 ML VIAL.NEB.-MARCARVEDILOL 3.125 MG TABLET-MARcefTRIAXone 1,000 mg Inj-MAR Options provided:-- Respond - Create new note now-- Dismiss - Not applicable / Not valid-- Dismiss - Clinically unable to determine / Unknown-- Assign to another provider QUERY RESPONSE: Acute hypoxemic respiratory distress due to asthma exacerbation Query created by: Alonzo Early on 02/26/2023 7:18 AM at 1524 PATIENT NAME: ERIN PACHECO noteZ.ICO74227712-2376RVVusqnshnx for patient easpIKKNMCFLKHCNIG3938-85-59S90:25:3 1 [facility] 2023-03-07 15:24:00 Z69860862613iyoZdqRJTVnwMkwq8EqXMLfn tjg/pOAjuia1nG2GPeYHPfYSSm7+02C34Rom vgGp6608-26-39V94:24:125463-4567 [place] [address]9582 PATIENT NAME: ERIN PACHECO ADMIT DATE: 02/20/23ACCOUNT NO: [id number] ROOM NO: Z.7 AGE: 52 REPORT TYPE: 360 - QUERY RESPONSE DOCUMENT SEX: M ADMITTING PHYSICIAN:Oswaldo Navarrete MD ATTENDING PHYSICIAN:Oswaldo Navarrete MD Provider Query QUERY TEXT: Condition General 360MD Query related questions should be directed to: [facility] Coding Query Help-line [[Based on your clinical judgment please clarify the diagnosis STEMI was conformed or STEMI was not conformed.] The patient's Clinical Indicators include:Past Medical History - Adult:Stated Complaint NSTEMI, ELEVATED TROPONIN-ED PHYSICIAN RECORD 02/20/2023 Primary Impression:Elevated troponin-ED PHYSICIAN RECORD 02/20/2023 #Elevated troponinNSTEMI vs demand ischemia.Pt is post cardiac ablation on 02/19Cardiology consult-Hospitalist History Physical 02/21/2023 for evaluation of Asthma and elevated troponin under the care of hiscardiologist here.Pt stated he was home for about 2 hours after beingdischarged from here when he began to have shortness of breath so went to the-Hospitalist Discharge Summary 02/23/2023Options provided:-- Respond - Create new note now-- Dismiss - Not applicable / Not valid-- Dismiss - Clinically unable to determine / Unknown-- Assign to another provider QUERY RESPONSE: NSTEMI not confirmed Query created by: Alvaro Gaston on 03/07/2023 4:42 AM at 1524 PATIENT NAME: ERIN PACHECO noteZ.RJT87960180-3589MTMzvzrztoz for patient vofeCSHQXTAGPVCLXX9017-25-37Z96:25:3 1 [facility] 2023-02-28 08:49:05 9222-13-93A60:49:05 Patient has been contacted and scheduled for 03/01 at 11 AM 46368-2Vrlatkvqz encounter OawhLZ0433-98-29T49:49:32Telephone encounter NoteTXT1.2.840.774730.1.13.104.2.7.2 .430103|9854684644GKIupyeewiz for patient odqs98725-3EyicKMJIXMSRQABRhpspsozv C-CDA narrative xdwm569090222Duigi L Rodriguez[id number] FQJXBMQJSLAVWQHEFRQEDC8349-35-22D12: 49:321.2.840.994786.1.72.3.15|1.2.84 0.518075.1.13.104.2.7.2.727879_19847 37793 Angélica Mcpherson Junior [facility] 2023-02-27 08:11:40 7253-83-33V65:11:40 Patient calling needing to schedule a HFU appointment with Dr. Dowd. Please advise 45766-6Bdbxlimyj encounter IbfjBD5798-05-71C73:13:15Telephone encounter NoteTXT1.2.840.330072.1.13.104.2.7.2 .711087|5247309018ODOeeurfvds for patient qgtk89165-9OmczUUSUBZMOLHVRtwkznzrq C-CDA narrative zxyl791520133Uwkst [id number] KZCRWFRCPUWYXETZBZQWSJ5702-50-01I44: 13:151.2.840.301407.1.72.3.15|1.2.84 0.844185.1.13.104.2.7.2.727879_19853 82879 Jodi Farr [facility] 2023-02-24 13:50:00 [id number]/PO7WTFkMaqTQz r0t856Etgd8rqxEk3Mq2adNZ0lZ5dwiHwNCP LGdh6560-22-90Q37:50:474628-2962 [place] [address]95[address] PATIENT NAME: ERIN PACHECO ADMIT DATE: 02/19/23ACCOUNT NO: [id number] ROOM NO: [facility] AGE: 52 REPORT TYPE: eTRANSESOPHAGEAL ECHO SEX: M ADMITTING PHYSICIAN:Dell Valdivia MD ATTENDING PHYSICIAN:Dell Valdivia MD *[place], [place] [address]Phone Transesophageal Echocardiogram Patient: [place] Pachecoudmao Date: 02/19/2023P:URN: [id number]: [id number]#: [id number]: 1970Age: 52Gender: MHeight: /Weight: /BMI/BSA: /*Ordering Physician: * Dell Valdivia MD *Interpreting Physician: * Dell Valdivia MD*Electrical Development Engineer: * Tae Middleton ------Indications: PAF. ------Study data: Consent: The risks, benefits, and alternatives to the procedurewere explained to the patient and informed consent was obtained. Procedure:The patient arrived at the laboratory in a fasting state. Intravenous accesswas obtained. Surface ECG leads and pulse oximetric signals were monitored.Moderate sedation was administered by cardiology staff. A transesophagealechocardiogram was performed. Topical anesthesia was obtained using viscouslidocaine. A transesophageal probe was inserted by the attending cardiologistwithout difficulty. Images were obtained using a [employer] cardiac ultrasoundmachine. Complete 2D, complete spectral Doppler, and color Doppler.Location: [facility]. Study completion: The patient tolerated the procedure well.There were no complications. ------ PATIENT NAME: ERIN PACHECO [phone] [place] [address] PATIENT NAME: ERIN PACHECO ADMIT DATE: 02/19/23ACCOUNT NO: [id number] ROOM NO: [facility] AGE: 52 REPORT TYPE: eTRANSESOPHAGEAL ECHO SEX: M ADMITTING PHYSICIAN:Dell Valdivia MD ATTENDING PHYSICIAN:Dell Valdivia MD Findings Left ventricle: The cavity size is normal. Systolic function is normal.There is no evidence of a thrombus.Right ventricle: The cavity size is normal. Systolic function is normal.Ventricular septum: The ventricular septum is normal.Left atrium: The atrium is normal in size. There is no evidence of athrombus in the atrial cavity or appendage. No spontaneous echo contrast isobserved.Appendage: The appendage is well visualized. The appendage is small. Emptyingvelocity is reduced.Right atrium: The atrium is normal in size.Atrial septum: No defect or patent foramen ovale is identified.Aorta:Aorta: The aorta is normal.Aortic valve: The leaflets are normal thickness. There is mild regurgitation.Mitral valve: The leaflets are normal thickness. There is mild regurgitation.Tricuspid valve: The valve is structurally normal. There is no evidence of avegetation. There is no regurgitation.Pulmonic valve: There is no significant regurgitation.Pericardium: There is no pericardial effusion. ------Conclusions Summary: 1. Left ventricle: The cavity size is normal. Systolic function is normal. There is no evidence of a thrombus.2. Left atrium: Appendage properties: The appendage is well visualized. The appendage is small. Emptying velocity is reduced. There is no evidence of a thrombus in the atrial cavity or appendage. No spontaneous echo contrast is observed.3. Atrial septum: No defect or patent foramen ovale is identified.4. Tricuspid valve: There is no evidence of a vegetation.Electronically signed by Dell Valdivia MD02/24/2023 13:50 PATIENT NAME: ERIN PACHECO [id number] [place] 8[address] PATIENT NAME: ERIN PACHECO ADMIT DATE: 02/19/23ACCOUNT NO: [id number] ROOM NO: Z.361 AGE: 52 REPORT TYPE: eTRANSESOPHAGEAL ECHO SEX: M ADMITTING PHYSICIAN:Dell Valdivia MD ATTENDING PHYSICIAN:Dell Valdivia MD at 1350 PATIENT NAME: ERIN PACHECO ssbkyuc3760-26-73P07:50:00Z.YBJ89456 223-0019AVAvailable for patient ffmcJFNOIETOYLLLBD8095-06-48T44:50:4 0 [facility] 2023-02-23 15:16:00 [id number]MG bEG52T9LRohG9YOa7XQDEtCDAwDjbHNfhB2t dUJi5961-42-28R40:16:721572-[address] [address] PATIENT NAME: ERIN PACHECO ADMIT DATE: 02/20/23ACCOUNT NO: [id number] ROOM NO: Z.617 AGE: 52 REPORT TYPE: ECHOCARDIOGRAM SEX: M ADMITTING PHYSICIAN:Oswaldo Navarrete MD ATTENDING PHYSICIAN:Oswaldo Navarrete MD *[facility]*[address] [place] [address] Transthoracic Echocardiogram Patient: Skyler Pacheco Date: 02/21/2023P:URN: [id number]: [id number]#: [id number]: 1970Age: 52Gender: MHeight: 70 in / 177.8 cmWeight: 240 lb / 108.9 kgBMI/BSA: 34.4 kg/m 2 / 2.36 m 2*Ordering Physician: * Reji Rios MD *Interpreting Physician: * Reji Rios MD*Electrical Development Engineer: Lizbeth Razo ------Indications: CAD/MO. ------Study data: Transthoracic echocardiogram. Procedure: A transthoracicechocardiogram was performed. Images were obtained using a [employer] cardiacultrasound machine. Image quality was adequate. M-mode, complete 2D, completespectral Doppler, and color Doppler. Location: Emergency department.Patient status: Inpatient. Patient room number: 05. Study status: Routine. ------Findings Left ventricle: The cavity size is normal. Wall thickness is mildlyincreased. Systolic function is normal. The estimated ejection fraction is55-59%. Wall motion is normal; there are no regional wall motionabnormalities. Left ventricular diastolic function parameters are normal. PATIENT NAME: ERIN PACHECO Right ventricle: Well visualized. The cavity size is normal. Wall thicknessis normal. Systolic function is normal.Ventricular septum: Well visualized.Left atrium: Well visualized. The atrium is normal in size.Right atrium: Well visualized. The atrium is normal in size.Atrial septum: Well visualized. No defect or patent foramen ovale isidentified.Aorta:Aorta: The aorta is well visualized and normal-sized.Aortic valve: Well visualized. The valve is trileaflet. The leaflets aremildly calcified. There is no evidence of stenosis. There is no significantregurgitation.Mitral valve: Well visualized. The leaflets are normal thickness. There isno evidence of stenosis. There is no significant regurgitation.Tricuspid valve: Well visualized. The leaflets are normal thickness. Thereis no evidence of stenosis. There is no significant regurgitation.Pulmonic valve: Well visualized. The leaflets are normal thickness. Thereis no evidence of stenosis. There is no significant regurgitation.Pericardium: There is no pericardial effusion. No evidence of pleuralfluid accumulation.Systemic veins:Inferior vena cava: The IVC is well visualized and normal-sized. ------Measurements Left ventricle Value Ref SIENNA, LAX 4.0 cm 4.2 - 5.8 ESD, LAX 2.8 cm 2.5 - 4.0 FS, LAX 31 % 25 - 43 IVS, ED 1.1 cm 0.6 - 1.0 IVS, ES 1.4 cm --------- PW, ED 1.0 cm 0.6 - 1.0 PW, ES 1.4 cm --------- IVS/PW, ED 1.12 --------- EF 59 % 52 - 72 LVOT Value Ref Diam, S 2.01 cm --------- Area 3.2 cm 2 --------- Peak nancy, S 0.99 m/sec --------- Mean nancy, S 0.7 m/sec --------- VTI, S 22.0 cm --------- Peak grad, S 4 mm Hg --------- Mean grad, S 2 mm Hg --------- SV 70 ml --------- Qs 6.1 L/min --------- Qs/bsa 2.6 L/(min-m 2) --------- SV/bsa 30 ml/m 2 --------- RVOT Value Ref Peak v, S 0.7 m/sec --------- Peak grad, S 2 mm Hg --------- PATIENT NAME: ERIN PACHECO Left atrium Value Ref AP dim, ES 3.3 cm 3.0 - 4.0 Aortic valve Value Ref Peak v, S 1.3 m/sec --------- Mean v, S 0.98 m/sec --------- VTI, S 24.1 cm --------- Mean grad, S 4 mm Hg --------- Peak grad, S 6.4 mm Hg --------- LVOT/AV, VTI ratio 0.91 --------- REYMUNDO, VTI 2.90 cm 2 --------- LVOT/AV, Vpeak ratio 0.78 --------- REYMUNDO, Vmax 2.47 cm 2 --------- Mitral valve Value Ref Mean v, D 0.47 m/sec --------- Peak E 0.6 m/sec --------- Peak A 0.64 m/sec --------- VTI leaflet coapt 12.7 cm --------- MiV/LVOT VTI 0.6 --------- Decel time 137 ms --------- Mean grad, D 1 mm Hg --------- Peak grad, D 1.6 mm Hg --------- Peak E/A ratio 0.93 --------- Aortic root Value Ref Root diam 2.6 cm 2.9 - 4.4 ------Conclusions Summary: 1. Left ventricle: The cavity size is normal. Wall thickness is mildly increased. Systolic function is normal. The estimated ejection fraction is 55-59%. Wall motion is normal; there are no regional wall motion abnormalities. Left ventricular diastolic function parameters are normal.2. Atrial septum: No defect or patent foramen ovale is identified.Electronically signed by Reji Rios MD02/23/2023 15:16 at 1516 PATIENT NAME: ERIN PACHECO 12-22T15:16:00Z.RTR14963334-1773LXLc ailable for patient cqfaMHXPSVRVMAOXTH9204-64-15A34:17:0 2 [facility] 2023-02-23 10:24:00 [id number]+ebgK0 m7lsme4MmZtw+617Bir/Hdq5ZHC0PdVlTus8 u48s7410-69-11U93:24:00 [facility] ([facility])Hospitalist Discharge SummaryREPORT#:[id number] REPORT STATUS: SignedREPORT INITIALIZATION DATE:02/23/23 TIME: 1024 PATIENT: ERIN PACHECO UNIT #: [id number]#: [id number] ROOM[facility]BED: [facility]-ADOB: [birth year] AGE: 52 SEX: M ATTEND: Oswaldo Navarrete MDADM AUTHOR: Freddy Devlin MD R1REPT SERVICE DT/TIME: 02/23/23 1024* ALL edits or amendments must be made on the electronic/computer document * Freddy Devlin 02/23/23 1024:General InformationProblem List/A P: 1. Acute asthma exacerbation 2. Acute respiratory distress 3. Elevated troponin Discharge date: 02/23/23Discharge diagnosis:See problem listHospital course:Patient is a 52 yo M with PMH of Afib with ablation done on 02/19/[address] Valdivia, PREMA on CPAP and Asthma presented as a transfer from [facility] for evaluation of Asthma and elevated troponin under the care of his multi site leasing consultant here. Pt stated he was home for about 2 hours after being discharged from here when he began to have shortness of breath so went to the ED. He was endorsing coughing, chest tightness, headache and wheezing. Previous facility: Pt arrived there in respiratory distress and coughing fits. Labs remarkable for troponin 4443. Chest xray showed interstitial markings whichare mildly prominent. Given magnesium, albuterol and atrovent prior to transfer. He arrived here requiring nasal cannula use due to increased work of breathing. Troponins elevated as well with peak of 3.15. Patient denied any chest pain. CXRunremarkable. He was admitted and given IV steroids, breathing treatments, abx and IV lasix for likely asthma exacerbation with possible volume overload given recent ablation surgery. Appeals Writer was consulted and noted that elevated troponin was likely due to recent procedure. Physical Aerodynamicist was also consulted. Patient quickly improved following treatment and denied any further SOB or chestpain prior to discharge. He will be d/c'd with abx, nebulizer, among other new medications. Also recommend follow up with PCP within 2 weeks. Pt in agreement. Med Rec Med RecDischarge meds:Start taking the following new medications:CEFDINIR (OMNICEF) 300 MG CAP 300 MILLIGRAM ORAL EVERY 12 HOURS. Qty = 10 No Refills IPRATROPIUM/ALBUTEROL (DUONEB 0.5 MG-3/3ML) 0.5 MG-3 MG (2.5 MG BASE)/3 ML NEB 3 MILLILITERS INHALATION RT - EVERY 6 HOURS NEEDED. as needed for WHEEZING AND SOB Qty = 100 Refills = 1 Instructions: DISPENSE 100 AMPULES WITH 1 REFILL RIVAROXABAN (XARELTO) 20 MG TAB 20 MILLIGRAM ORAL DAILY AT 1700. Qty = 30 No Refills NEBIVOLOL (BYSTOLIC) 5 MG TAB 5 MILLIGRAM ORAL DAILY. Qty = 30 No Refills FLECAINIDE (TAMBOCOR) 50 MG TAB 50 MILLIGRAM ORAL EVERY 12 HOURS. Qty = 180 No Refills Fluticasone/Umeclidin/Vilanter (TRELEGY ELLIPTA 100-62.5-25) 100-62.5 BLST.W.DEV 1 PUFF INHALATION DAILY. Qty = 60 No Refills methylPREDNISolone (MEDROL 4 MG DOSEPAK) 4 MG TAB.DS.PK 4 MILLIGRAM ORAL DIRECTED. Qty = 1 No Refills DME - NEBULIZER (NEBULIZER) 1 ITEM EACH EACH MISCELLANEOUS DIRECTED. Qty = 1 No Refills Instructions: Nebulizer of Choice ObjectiveVS/I OLast Documented: Result Date Time Pulse Ox 95 02/23 725 FiO2 21 02/23 725 O2 Delivery Room air 02/23 725 B/P 137/91 02/23 623 B/P Mean 106.2 02/23 623 Temp 36.5 02/23 623 Pulse 81 02/23 623 Resp 16 02/23 623 O2 Flow Rate 3 02/22 0744 24 hour I O ending at 0700: 02/23 0700 02/22 1900 Intake Total 250 970 Output Total Balance 250 970 Intake, Oral 250 250 Intake, Oral 720 Supplement Number 3 Incontinent Voids Number Voids 2 General appearance: alert, awake, oriented, no acute distressHead/Eyes: atraumatic, normal conjunctiva/sclera, normocephalic, PERRLENT: moist mucosal membranes, normal ear left, normal ear right, normal noseNeck: non-tender, supple/no meningismus, no masses or swellingCardiovascular: normal capillary refill, normal heart sounds, regular rate rhythmRespiratory: aerating well, clear to auscultation, symmetric expansion, no distressAbdomen: non-tender, normal bowel sounds, soft, no guardingExtremities: moves all, no calf tenderness, no cyanosisMusculoskeletal: normal inspection, no CVA tenderness, no muscle spasmNeuro/MOTOR CHECKER: alert, oriented X 3, normal speech, no motor deficitsSkin: dry, normal color, normal temperaturePsychiatry: normal affect, normal judgment/insight, normal mood ResultsFindings/Data:Laboratory Tests: 02/23 02/23 02/23 0609 0608 0608 Chemistry Sodium (137 - 145 MMOL/L) 134 L Potassium (3.5 - 5.1 MMOL/L) 4.4 Chloride (98 - 107 MMOL/L) 102 Carbon Dioxide (22 - 30 MMOL/L) 22 BUN (9 - 20 MG/DL) 22 H Creatinine (0.66 - 1.25 MG/DL) 0.80 Glomerular Filtr Rate > 60 Glucose (74 - 106 MG/DL) 142 H Calcium (8.4 - 10.2 MG/DL) 9.1 NT-Pro-B Natriuret Pep (pg/mL) 36.6 Hematology WBC (3.8 - 9.8 K/MM3) 12.6 H RBC (3.95 - 5.67 M/MM3) 5.18 Hgb (12.4 - 16.7 G/DL) 15.6 Hct (35.9 - 49.5 %) 47.3 MCV (81.7 - 96.1 fL) 91 MCH (27.6 - 33.2 pg) 30.1 MCHC (32.9 - 35.5 %) 33.0 RDW (12.1 - 15.2 %) 13.3 Plt Count (129 - 368 K/MM3) 250 MPV (7.4 - 10.4 fl) 11.1 H Neut % (Auto) (43 - 75 %) 81.1 H Lymph % (Auto) (14 - 44 %) 9.2 L Emanuel % (Auto) (4 - 13 %) 7.3 Eos % (Auto) (0 - 6 %) 0.0 Baso % (Auto) (0 - 2 %) 0.3 Neut # (Auto) (2.0 - 7.6 K/mm3) 10.18 H Lymph # (Auto) (1.0 - 3.8 K/mm3) 1.15 Emanuel # (Auto) (0.1 - 0.8 K/mm3) 0.92 H Eos # (Auto) (0.0 - 0.2 K/mm3) 0.00 Baso # (Auto) (0.0 - 0.2 K/mm3) 0.04 Immature Gran % (0.0 - 2.0 %) 2.1 H Nucleated RBC % (0 - 1.0 %) 0.0 Nucleated RBCs # (Man) (0.0 - 0.1 K/mm3) 0.00 Radiology data:Recent Impressions:RADIOLOGY - XR CHEST 1V 02/23 0940 Report Impression - Status: SIGNED Entered: 02/23/2023 0959 IMPRESSION:No acute cardiopulmonary process. Impression By: Dawna - Bebe Coon MD Discharge Instructions PCPPCP follow-up:PCP: No Primary or Family Physician Discharge to: Home/Self CareAdditional Discharge Routines: Blow Molding Machine Operator Follow-UpDiet: CardiacActivity: As ToleratedTime spent: Time spent on patient care (minutes): 28 Follow-up AppointmentsConsulting provider 1: Provider 1: Dell Valdivia MD Consult follow up timeframe: In 1-2 weeks Quality: Discharge BMI Screening > 25 or < 18.5BMI status/follow-up: abnl BMI, pt to F/U w/PCP AttestationsAttestation needed: supervising physician Oswaldo Navarrete 02/23/23 2145:Attestations Teaching Physician AttestationF/U visit w/ resident:I saw and examined the patient with the resident Dr Devlin PGy1 and . . . agree with the resident's findings and plan. at 6405 RPT #:[id number] OF REPORTDSDischarge lwkxmxe2059-15-98C83:24:00Z.PTUY3227 [id number] for patient wycxGLPBJYMGNAEXLD0056-57-72Z09:54:0 9 [facility] 2023-02-23 10:24:00 [id number] LTaqHZY1V1zvPNHUdX7+WCzmfTlwpmqEMr6P Nsl09375-09-59P73:24:00 [facility] ([facility])Hospitalist Discharge SummaryREPORT#:[id number] REPORT STATUS: SignedREPORT INITIALIZATION DATE:02/23/23 TIME: 1024 PATIENT: ERIN PACHECO UNIT #: [id number]#: [id number] [facility] AGE: 52 SEX: M ATTEND: Oswaldo Navarrete MDADM AUTHOR: Freddy Devlin MD R1REPT SERVICE DT/TIME: 02/23/23 1024* ALL edits or amendments must be made on the electronic/computer document * Freddy Devlin 02/23/23 1024:General InformationProblem List/A P: 1. Acute asthma exacerbation 2. Acute respiratory distress 3. Elevated troponin Discharge date: 02/23/23Discharge diagnosis:See problem listHospital course:Patient is a 52 yo M with PMH of Afib with ablation done on 02/19/[address] Valdivia, PREMA on CPAP and Asthma presented as a transfer from [facility] for evaluation of Asthma and elevated troponin under the care of his multi site leasing consultant here. Pt stated he was home for about 2 hours after being discharged from here when he began to have shortness of breath so went to the ED. He was endorsing coughing, chest tightness, headache and wheezing. Previous facility: Pt arrived there in respiratory distress and coughing fits. Labs remarkable for troponin 4443. Chest xray showed interstitial markings whichare mildly prominent. Given magnesium, albuterol and atrovent prior to transfer. He arrived here requiring nasal cannula use due to increased work of breathing. Troponins elevated as well with peak of 3.15. Patient denied any chest pain. CXRunremarkable. He was admitted and given IV steroids, breathing treatments, abx and IV lasix for likely asthma exacerbation with possible volume overload given recent ablation surgery. Appeals Writer was consulted and noted that elevated troponin was likely due to recent procedure. Physical Aerodynamicist was also consulted. Patient quickly improved following treatment and denied any further SOB or chestpain prior to discharge. He will be d/c'd with abx, nebulizer, among other new medications. Also recommend follow up with PCP within 2 weeks. Pt in agreement. Med Rec Med RecDischarge meds:Start taking the following new medications:CEFDINIR (OMNICEF) 300 MG CAP 300 MILLIGRAM ORAL EVERY 12 HOURS. Qty = 10 No Refills IPRATROPIUM/ALBUTEROL (DUONEB 0.5 MG-3/3ML) 0.5 MG-3 MG (2.5 MG BASE)/3 ML NEB 3 MILLILITERS INHALATION RT - EVERY 6 HOURS NEEDED. as needed for WHEEZING AND SOB Qty = 100 Refills = 1 Instructions: DISPENSE 100 AMPULES WITH 1 REFILL RIVAROXABAN (XARELTO) 20 MG TAB 20 MILLIGRAM ORAL DAILY AT 1700. Qty = 30 No Refills NEBIVOLOL (BYSTOLIC) 5 MG TAB 5 MILLIGRAM ORAL DAILY. Qty = 30 No Refills FLECAINIDE (TAMBOCOR) 50 MG TAB 50 MILLIGRAM ORAL EVERY 12 HOURS. Qty = 180 No Refills Fluticasone/Umeclidin/Vilanter (TRELEGY ELLIPTA 100-62.5-25) 100-62.5 BLST.W.DEV 1 PUFF INHALATION DAILY. Qty = 60 No Refills methylPREDNISolone (MEDROL 4 MG DOSEPAK) 4 MG TAB.DS.PK 4 MILLIGRAM ORAL DIRECTED. Qty = 1 No Refills DME - NEBULIZER (NEBULIZER) 1 ITEM EACH EACH MISCELLANEOUS DIRECTED. Qty = 1 No Refills Instructions: Nebulizer of Choice ObjectiveVS/I OLast Documented: Result Date Time Pulse Ox 95 02/23 725 FiO2 21 02/23 725 O2 Delivery Room air 02/23 725 B/P 137/91 02/23 623 B/P Mean 106.2 02/23 623 Temp 36.5 02/23 623 Pulse 81 02/23 623 Resp 16 02/23 623 O2 Flow Rate 3 02/22 0744 24 hour I O ending at 0700: 12/22 0700 02/22 1900 Intake Total 250 970 Output Total Balance 250 970 Intake, Oral 250 250 Intake, Oral 720 Supplement Number 3 Incontinent Voids Number Voids 2 General appearance: alert, awake, oriented, no acute distressHead/Eyes: atraumatic, normal conjunctiva/sclera, normocephalic, PERRLENT: moist mucosal membranes, normal ear left, normal ear right, normal noseNeck: non-tender, supple/no meningismus, no masses or swellingCardiovascular: normal capillary refill, normal heart sounds, regular rate rhythmRespiratory: aerating well, clear to auscultation, symmetric expansion, no distressAbdomen: non-tender, normal bowel sounds, soft, no guardingExtremities: moves all, no calf tenderness, no cyanosisMusculoskeletal: normal inspection, no CVA tenderness, no muscle spasmNeuro/MOTOR CHECKER: alert, oriented X 3, normal speech, no motor deficitsSkin: dry, normal color, normal temperaturePsychiatry: normal affect, normal judgment/insight, normal mood ResultsFindings/Data:Laboratory Tests: 02/23 02/23 02/23 0609 0608 0608 Chemistry Sodium (137 - 145 MMOL/L) 134 L Potassium (3.5 - 5.1 MMOL/L) 4.4 Chloride (98 - 107 MMOL/L) 102 Carbon Dioxide (22 - 30 MMOL/L) 22 BUN (9 - 20 MG/DL) 22 H Creatinine (0.66 - 1.25 MG/DL) 0.80 Glomerular Filtr Rate > 60 Glucose (74 - 106 MG/DL) 142 H Calcium (8.4 - 10.2 MG/DL) 9.1 NT-Pro-B Natriuret Pep (pg/mL) 36.6 Hematology WBC (3.8 - 9.8 K/MM3) 12.6 H RBC (3.95 - 5.67 M/MM3) 5.18 Hgb (12.4 - 16.7 G/DL) 15.6 Hct (35.9 - 49.5 %) 47.3 MCV (81.7 - 96.1 fL) 91 MCH (27.6 - 33.2 pg) 30.1 MCHC (32.9 - 35.5 %) 33.0 RDW (12.1 - 15.2 %) 13.3 Plt Count (129 - 368 K/MM3) 250 MPV (7.4 - 10.4 fl) 11.1 H Neut % (Auto) (43 - 75 %) 81.1 H Lymph % (Auto) (14 - 44 %) 9.2 L Emanuel % (Auto) (4 - 13 %) 7.3 Eos % (Auto) (0 - 6 %) 0.0 Baso % (Auto) (0 - 2 %) 0.3 Neut # (Auto) (2.0 - 7.6 K/mm3) 10.18 H Lymph # (Auto) (1.0 - 3.8 K/mm3) 1.15 Emanuel # (Auto) (0.1 - 0.8 K/mm3) 0.92 H Eos # (Auto) (0.0 - 0.2 K/mm3) 0.00 Baso # (Auto) (0.0 - 0.2 K/mm3) 0.04 Immature Gran % (0.0 - 2.0 %) 2.1 H Nucleated RBC % (0 - 1.0 %) 0.0 Nucleated RBCs # (Man) (0.0 - 0.1 K/mm3) 0.00 Radiology data:Recent Impressions:RADIOLOGY - XR CHEST 1V 02/23 0940 Report Impression - Status: SIGNED Entered: 02/23/2023 0959 IMPRESSION:No acute cardiopulmonary process. Impression By: Dawna Coon MD Discharge Instructions PCPPCP follow-up:PCP: No Primary or Family Physician Discharge to: Home/Self CareAdditional Discharge Routines: Blow Molding Machine Operator Follow-UpDiet: CardiacActivity: As ToleratedTime spent: Time spent on patient care (minutes): 28 Follow-up AppointmentsConsulting provider 1: Provider 1: Dell Valdivia MD Consult follow up timeframe: In 1-2 weeks Quality: Discharge BMI Screening > 25 or < 18.5BMI status/follow-up: abnl BMI, pt to F/U w/PCP AttestationsAttestation needed: supervising physician Oswaldo Navarrete 02/23/23 3204:Attestations Teaching Physician AttestationF/U visit w/ resident:I saw and examined the patient with the resident Dr Devlin PGy1 and . . . agree with the resident's findings and plan. at 2153 at 1447 RPT #:[id number] OF REPORTDSDischarge mmgllfp0128-75-32G68:24:00Z.OQKV3260 [id number] for patient snmpVLKUCYIATVAZTJ4861-57-65M10:47:2 6 [facility] 2023-02-23 09:17:00 [id number] eOf1VmwczGmz9frKqRtOFLbTmf4Jrce2ye7T ghNB0244-63-23X67:17:00 [facility] ([facility])Pulmonology Progress NoteREPORT#:[id number] REPORT STATUS: SignedREPORT INITIALIZATION DATE:02/23/23 TIME: 916 PATIENT: ERIN PACHECO UNIT #: [id number]#: [id number] [address] [birth year] AGE: 52 SEX: M ATTEND: Oswaldo Navarrete MDADM AUTHOR: Mina Holloway MDREPT SERVICE DT/TIME: 02/23/23916* ALL edits or amendments must be made on the electronic/computer document * SubjectivePatient reports:Yes: feeling better. Objective GeneralVS/I O:Last Documented: Result Date Time Pulse Ox 95 02/23 07 FiO2 21 02/23 725 O2 Delivery Room air 02/23 725 B/P 137/91 02/23 623 B/P Mean 106.2 02/23 623 Temp 97.7 02/23 623 Pulse 81 02/23 623 Resp 16 02/23 623 O2 Flow Rate 3 02/22 0744 24 hour I O ending at 0700: 02/23 0700 02/22 1900 Intake Total 250 970 Output Total Balance 250 970 Intake, Oral 250 250 Intake, Oral 720 Supplement Number 3 Incontinent Voids Number Voids 2 PATIENT WEIGHT: Weight (lb): Weight (oz): Weight (kg): 109.091 Medications:Active Meds + DC'd Last 24 HrsCefdinir (OMNICEF) 300 MG Q12HR PO (UNV) Methylprednisolone (Medrol DOSEPAK) 4 MG ASDIR PO (UNV) Flecainide Acetate (TAMBOCOR) 50 MG Q12HR PO Benzonatate (TESSALON PERLE) 100 MG TID PO Ceftriaxone Sodium (ROCEPHIN) 1,000 MG QAM IV (DCr) Sodium Chloride (SODIUM CHLORIDE 0.9%) 10 MLNebivolol (BYSTOLIC) 5 MG DAILY PO Methylprednisolone Sodium Succinate (SOLU-Medrol) 40 MG Q8HR IV (DCr) Montelukast Sodium (SINGULAIR) 10 MG BEDTIME PO Rivaroxaban (XARELTO) 20 MG DAILY 1700 PO Budesonide (Pulmicort) 0.5 MG RTBID NEB Albuterol/Ipratropium (DUONEB 2.5-0.5 MG/3 ML SOLN) 3 ML RTQ4H INH Acetaminophen (TYLENOL) 650 MG Q4H PRN PRN PO Benzonatate (TESSALON PERLE) 100 MG TID PRN PRN PO (DC) Guaifenesin/Dextromethorphan (ROBITUSSIN-DM) 10 ML Q4H PRN PRN PO Melatonin (MELATONIN) 3 MG BEDTIME PRN PRN PO Nitroglycerin (NITROSTAT) 0.4 MG Q5M PRN PRN SL Ondansetron HCl (ZOFRAN) 4 MG Q6H PRN PRN IV Physical ExamGeneral appearance: alert, awake, no acute distressCardiovascular: regular rate rhythmRespiratory/chest: crackles, no distressAbdomen: soft, non-tenderExtremities: moves all, normal temperature, no edemaNeuro/MOTOR CHECKER: alert, oriented X 3 ResultsFindings/Data:Laboratory Tests 02/23/23 0609:[Embedded Image Not Available] 02/23/23 0608:[Embedded Image Not Available]Laboratory Tests 02/23 02/23 06 0608 Chemistry Sodium (137 - 145 MMOL/L) 134 L Potassium (3.5 - 5.1 MMOL/L) 4.4 Chloride (98 - 107 MMOL/L) 102 Carbon Dioxide (22 - 30 MMOL/L) 22 BUN (9 - 20 MG/DL) 22 H Creatinine (0.66 - 1.25 MG/DL) 0.80 Glomerular Filtr Rate > 60 Glucose (74 - 106 MG/DL) 142 H Calcium (8.4 - 10.2 MG/DL) 9.1 NT-Pro-B Natriuret Pep (pg/mL) 36.6 Laboratory Tests 02/23 0609 Hematology WBC (3.8 - 9.8 K/MM3) 12.6 H RBC (3.95 - 5.67 M/MM3) 5.18 Hgb (12.4 - 16.7 G/DL) 15.6 Hct (35.9 - 49.5 %) 47.3 MCV (81.7 - 96.1 fL) 91 MCH (27.6 - 33.2 pg) 30.1 MCHC (32.9 - 35.5 %) 33.0 RDW (12.1 - 15.2 %) 13.3 Plt Count (129 - 368 K/MM3) 250 MPV (7.4 - 10.4 fl) 11.1 H Neut % (Auto) (43 - 75 %) 81.1 H Lymph % (Auto) (14 - 44 %) 9.2 L Emanuel % (Auto) (4 - 13 %) 7.3 Eos % (Auto) (0 - 6 %) 0.0 Baso % (Auto) (0 - 2 %) 0.3 Neut # (Auto) (2.0 - 7.6 K/mm3) 10.18 H Lymph # (Auto) (1.0 - 3.8 K/mm3) 1.15 Emanuel # (Auto) (0.1 - 0.8 K/mm3) 0.92 H Eos # (Auto) (0.0 - 0.2 K/mm3) 0.00 Baso # (Auto) (0.0 - 0.2 K/mm3) 0.04 Immature Gran % (0.0 - 2.0 %) 2.1 H Nucleated RBC % (0 - 1.0 %) 0.0 Nucleated RBCs # (Man) (0.0 - 0.1 K/mm3) 0.00 Microbiology Date/Time Procedure - Status Source Growth 02/22 190 Respiratory Syncytial Virus Ag - COMP NASAL ASPI Diagnosis, Assessment PlanProblem List/A P: 1. Asthma 2. Elevated troponin 3. Dyspnea Free Text A P:Breathing more comfortably todaySitting at bedside on room airExam without wheezes however with mild crackles at lung basesWill do follow-up chest x-ray now subjectively the patient would like to transition to outpatient careIf x-ray is stable it appears this is reasonableWould however continue course of antibiotics perhaps with cefdinir for 5-7 further daysRSV antigen was negativeWould of course continue steroids with taper such as Medrol DosepakAnd the patient would feel more comfortable with bronchodilators by nebulizer which I believe is reasonable as well to have at home at time of dischargeAnd follow-up with outpatient pulmonologyDiscussed with the patient as well as his at bedside at 0920 RPT #:[id number] OF REPORTPRProgress ctwd4114-15-79H57:17:00Z.[id number] 2-0121AVAvailable for patient lzdqOCUEWMWSAYWHIP1372-48-64I79:20:3 0 [facility] 2023-02-23 05:24:00 [id number] 0tedjuKOVfl9SZZ7l1aUJBm0zKyKow76F1rH 2GMi5182-34-40E06:24:00 [facility] ([facility])Cardiology Progress NoteREPORT#:[id number] REPORT STATUS: SignedREPORT INITIALIZATION DATE:02/23/23 TIME: 523 PATIENT: ERIN PACHECO UNIT #: [id number]#: [id number] [facility] [birth year] AGE: 52 SEX: M ATTEND: Oswaldo Navarrete MDADM AUTHOR: Dell Valdivia MDREPT SERVICE DT/TIME: 02/23/23 0524* ALL edits or amendments must be made on the electronic/computer document * SubjectiveChief complaint:WheezingPatient reports:No: chest pain, palpitations, shortness of breath. Objective GeneralVS/I O:24 hour I O ending at 0700: 02/23 0700 02/22 1900 Intake Total 970 Output Total Balance 970 Intake, Oral 250 Intake, Oral 720 Supplement Number Voids 2 Vital Signs: Date Time Temp Pulse Resp B/P B/P Pulse O2 O2 Flow FiO2 Mean Ox Delivery Rate 02/23 0442 97.5 83 16 136/87 103.4 94 02/23 0359 95 Room air 02/22 2350 98 Room air 02/22 2349 97.7 77 16 132/86 101.2 95 02/22 1948 94 Room air 02/22 1830 98.4 86 16 138/91 106.8 95 02/22 1534 98.4 85 18 127/81 96.5 92 02/22 1032 98.1 91 18 127/84 98.3 92 02/22 0744 92 Nasal 3 32 cannula 02/22 0730 Nasal 3 cannula 02/22 0717 98.1 79 16 124/80 94.6 92 PATIENT WEIGHT: Weight (lb): Weight (oz): Weight (kg): 109.091 Medications:Active Meds + DC'd Last 24 HrsBenzonatate (TESSALON PERLE) 100 MG TID PO Ceftriaxone Sodium (ROCEPHIN) 1,000 MG QAM IV Sodium Chloride (SODIUM CHLORIDE 0.9%) 10 MLNebivolol (BYSTOLIC) 5 MG DAILY PO Carvedilol (COREG) 3.125 MG Q12HR PO (DC) Methylprednisolone Sodium Succinate (SOLU-Medrol) 40 MG Q8HR IV Montelukast Sodium (SINGULAIR) 10 MG BEDTIME PO Rivaroxaban (XARELTO) 20 MG DAILY 1700 PO Budesonide (Pulmicort) 0.5 MG RTBID NEB Albuterol/Ipratropium (DUONEB 2.5-0.5 MG/3 ML SOLN) 3 ML RTQ4H INH Acetaminophen (TYLENOL) 650 MG Q4H PRN PRN PO Benzonatate (TESSALON PERLE) 100 MG TID PRN PRN PO (DC) Guaifenesin/Dextromethorphan (ROBITUSSIN-DM) 10 ML Q4H PRN PRN PO Melatonin (MELATONIN) 3 MG BEDTIME PRN PRN PO Nitroglycerin (NITROSTAT) 0.4 MG Q5M PRN PRN SL Ondansetron HCl (ZOFRAN) 4 MG Q6H PRN PRN IV Physical ExamGeneral appearance: alert, awake, orientedHead/Eyes: atraumatic, normocephalicENT: moist mucosal membranesNeck: no JVDCardiovascular: CV assessment: regular rate and rhythmRespiratory: Bilateral ronchi.Lower extremity: LE assessment: no edemaMusculoskeletal: full range of motionNeuro/MOTOR CHECKER: alert, oriented X 3, CN II-XII intactSkin: dry, intactPsychiatry: normal affect, normal judgment/insight, normal mood ResultsFindings/Data:Laboratory Tests 02/22 06 Chemistry Sodium (137 - 145 MMOL/L) 136 L Potassium (3.5 - 5.1 MMOL/L) 4.5 Chloride (98 - 107 MMOL/L) 104 Carbon Dioxide (22 - 30 MMOL/L) 23 Anion Gap (14 - 24 MMOL/L) 14 BUN (9 - 20 MG/DL) 25 H Creatinine (0.66 - 1.25 MG/DL) 0.90 Glomerular Filtr Rate > 60 Glucose (74 - 106 MG/DL) 148 H Calcium (8.4 - 10.2 MG/DL) 9.2 Laboratory Tests 02/22 06 Hematology WBC (3.8 - 9.8 K/MM3) 15.1 H RBC (3.95 - 5.67 M/MM3) 5.17 Hgb (12.4 - 16.7 G/DL) 15.7 Hct (35.9 - 49.5 %) 47.1 MCV (81.7 - 96.1 fL) 91 MCH (27.6 - 33.2 pg) 30.4 MCHC (32.9 - 35.5 %) 33.3 RDW (12.1 - 15.2 %) 13.2 Plt Count (129 - 368 K/MM3) 245 MPV (7.4 - 10.4 fl) 11.0 H Neut % (Auto) (43 - 75 %) 82.3 H Lymph % (Auto) (14 - 44 %) 9.0 L Emanuel % (Auto) (4 - 13 %) 7.4 Eos % (Auto) (0 - 6 %) 0.0 Baso % (Auto) (0 - 2 %) 0.3 Neut # (Auto) (2.0 - 7.6 K/mm3) 12.44 H Lymph # (Auto) (1.0 - 3.8 K/mm3) 1.36 Emanuel # (Auto) (0.1 - 0.8 K/mm3) 1.11 H Eos # (Auto) (0.0 - 0.2 K/mm3) 0.00 Baso # (Auto) (0.0 - 0.2 K/mm3) 0.04 Immature Gran % (0.0 - 2.0 %) 1.0 Nucleated RBC % (0 - 1.0 %) 0.0 Nucleated RBCs # (Man) (0.0 - 0.1 K/mm3) 0.00 Microbiology Date/Time Procedure - Status Source Growth 02/22 1900 Respiratory Syncytial Virus Ag - COMP NASAL ASPI Telemetry Interpretation:SR Diagnosis, Assessment Plan Free Text DxA P NotesFree Text DxA P Notes:IMP: Asthma PAF - s/p PVI. Dyspnea - Probably multifactorial - asthma, probable mild volume overload. Mild troponin elevation - secondary to ablation 2 days ago. PLAN: Pulmonary f/u. Lasix prn Review echo Review labs at [address] [facility] #:[id number] OF REPORTPRProgress togn9054-32-25H01:24:00Z.[id number] 2-0044AVAvailable for patient hhjpQPRUKXZBYDSRCN0803-35-90N16:13:5 8 [facility] 2023-02-23 04:08:00 [id number]/7aqEqHOiCT Ka18jvLpt1wvvBrLw+SSIx16K1CYcJ2c5nTw +Qin8175-02-00Z33:08:[id number] [address] PATIENT NAME: ERIN PACHECO ADMIT DATE: 02/20/23ACCOUNT NO: [id number] ROOM NO: [facility] AGE: 52 REPORT TYPE: ELECTROCARDIOGRAM SEX: M ADMITTING PHYSICIAN:Oswaldo Navarrete MD ATTENDING PHYSICIAN:Oswaldo Navarrete MD Order:[id number] Reason : CAD Test Date/Time Stamp:SunFeb 23 2023 04:08:50Blood Pressure : / mmHGVent. Rate : 080 BPM Atrial Rate : 080 BPM P-R Int : 130 ms QRS Dur : 076 ms QT Int : 378 ms P-R-T Axes : 037 033 048 degrees QTc Int : 435 ms Normal sinus rhythmNonspecific ST abnormalityAbnormal ECGWhen compared with ECG of 22-FEB-2023 09:00,premature ventricular complexes are no longer presentConfirmed by REJI RIOS ([id number]) on 02/23/2023 3:06:14 PM Referred By: Self Referred Confirmed by:REJI RIOS at 1506 PATIENT NAME: ERIN PACHECO .[facility] [id number] for patient jokdWQWGVBLBJEQHWP5560-09-78B70:06:4 0 [facility] 2023-02-22 10:31:00 [id number]/+UGs6wjTjvhdvGs5 ZcD0FdIMFRmPo9z43EN8hKbzySzaOWWU3Nyt t1qJ1043-81-73Q31:31:00 [facility] ([facility])Pulmonary Consultation NoteREPORT#:[id number] REPORT STATUS: SignedREPORT INITIALIZATION DATE:02/22/23 TIME: 1031 PATIENT: ERIN PACHECO UNIT #: [id number]#: [id number] [facility] [birth year] AGE: 52 SEX: M ATTEND: Oswaldo Navarrete MDADM AUTHOR: Mina Holloway MDREPT SERVICE DT/TIME: 02/22/23 1031* ALL edits or amendments must be made on the electronic/computer document * History of Present Illness HPIHPI: Patient is 52-year-old man who has a history of paroxysmal atrial fibrillation as well as asthma and Crohn's disease who underwent ablation several days ago. After returning home within several hours he developed shortness of breath and cough and went to the emergency department in [place] near his home and was referred to our facility for further workup and management of what appeared to be an asthma attack. The patient states that he has had asthma for many years and typically has exacerbation once a year symptoms requiring hospitalization. He uses Trelegy and metered-dose inhaler athome. He has no history of tobacco use. He also has obstructive sleep apnea and has used CPAP for several years at home and tolerating well. He denies productive cough nausea vomiting or diarrhea with this current illness. History - Adult longitudinalPast medical history:Reports: Asthma. Additional medical history:Paroxysmal Afib, Crohn's, PREMA on CPAP and AsthmaPast surgical history:Reports: Cholecystectomy, Hernia repair (inguinal,umbilical). Additional surgical history:Cardiac ablation right toe surgerySmoking status for patients 13 years old or older: Never SmokerAllergies:Coded Allergies:No Known Allergies (02/20/23) Review of SystemsRespiratory:Reports: non productive cough, SOB. Objective Physical ExamVitals:Last Documented: Result Date Time Pulse Ox 92 02/22 1032 B/P 127/84 02/22 1032 B/P Mean 98.3 02/22 1032 Temp 98.1 02/22 1032 Pulse 91 02/22 1032 Resp 18 02/22 1032 FiO2 32 02/22 0744 O2 Delivery Nasal cannula 02/22 0744 O2 Flow Rate 3 02/22 0744 General appearance: alert, awake, no acute distressCardiovascular: regular rate rhythmRespiratory/chest: crackles, wheezingAbdomen: soft, non-tenderExtremities: moves all, normal temperature, no edemaNeuro/MOTOR CHECKER: alert, oriented X 3 ResultsFindings/Data:Laboratory Tests 02/22/23 0604:[Embedded Image Not Available]Laboratory Tests 02/22 02/21 0604 1154 Chemistry Sodium (137 - 145 MMOL/L) 136 L Potassium (3.5 - 5.1 MMOL/L) 4.5 Chloride (98 - 107 MMOL/L) 104 Carbon Dioxide (22 - 30 MMOL/L) 23 Anion Gap (14 - 24 MMOL/L) 14 BUN (9 - 20 MG/DL) 25 H Creatinine (0.66 - 1.25 MG/DL) 0.90 Glomerular Filtr Rate > 60 Glucose (74 - 106 MG/DL) 148 H Calcium (8.4 - 10.2 MG/DL) 9.2 Troponin I (0.012 - 0.033 NG/ML) 2.110 *H Laboratory Tests 02/22 0604 Hematology WBC (3.8 - 9.8 K/MM3) 15.1 H RBC (3.95 - 5.67 M/MM3) 5.17 Hgb (12.4 - 16.7 G/DL) 15.7 Hct (35.9 - 49.5 %) 47.1 MCV (81.7 - 96.1 fL) 91 MCH (27.6 - 33.2 pg) 30.4 MCHC (32.9 - 35.5 %) 33.3 RDW (12.1 - 15.2 %) 13.2 Plt Count (129 - 368 K/MM3) 245 MPV (7.4 - 10.4 fl) 11.0 H Neut % (Auto) (43 - 75 %) 82.3 H Lymph % (Auto) (14 - 44 %) 9.0 L Emanuel % (Auto) (4 - 13 %) 7.4 Eos % (Auto) (0 - 6 %) 0.0 Baso % (Auto) (0 - 2 %) 0.3 Neut # (Auto) (2.0 - 7.6 K/mm3) 12.44 H Lymph # (Auto) (1.0 - 3.8 K/mm3) 1.36 Emanuel # (Auto) (0.1 - 0.8 K/mm3) 1.11 H Eos # (Auto) (0.0 - 0.2 K/mm3) 0.00 Baso # (Auto) (0.0 - 0.2 K/mm3) 0.04 Immature Gran % (0.0 - 2.0 %) 1.0 Nucleated RBC % (0 - 1.0 %) 0.0 Nucleated RBCs # (Man) (0.0 - 0.1 K/mm3) 0.00 Diagnosis, Assessment Plan Diagnosis, Assessment PlanProblem List/A P: 1. Asthma 2. Elevated troponin Free Text DxA P NotesFree Text DxA P Notes:He is currently awake alert breathing comfortably on room airHe he is using as needed nasal cannula he saysIn addition he has his CPAP device at bedside for nocturnal useHe has bilateral mild crackles and wheezes on examWhen talking a is frequently coughing however nonproductive in natureChest x-ray with only minimally infiltrated with with interstitial prominenceCOVID screen and influenza screen is negativeAgree with treatment for asthma exacerbation including IV Solu-Medrol as well asscheduled bronchodilators and inhaled steroids with budesonide nebsWould continue Singulair as you are doingGiven negative COVID and flu screen we will send RSV as well if not doneEven though no obvious consolidations noted on the chest x-ray will add Rocephinempirically and follow clinicallyHis troponins are mildly elevated though possibly secondary to recent ablation and cardiology is following as wellHe is currently on XareltoWill change Tessalon to scheduled and continue Robitussin as neededWill be following closely with you at 1039 RPT #:[id number] OF [id number] :31:00Z.[id number] for patient nctpTBKZRSNXBNKXIA4912-73-28K71:40:0 2 [facility] 2023-02-22 10:27:00 [id number] dmeF7HGiSNRjUlayOKSZIQuiQt9RBjVRPyjZ xtt70075-51-04H86:27:00 [facility] ([facility])Hospitalist Progress NoteREPORT#:[id number] REPORT STATUS: SignedREPORT INITIALIZATION DATE:02/22/23 TIME: 1026 PATIENT: ERIN PACHECO UNIT #: [id number]#: [id number] ROOM[facility]ED[facility]-ADOB: [birth year] AGE: 52 SEX: M ATTEND: Oswaldo Navarrete MDADM AUTHOR: Freddy Devlin MD R1REPT SERVICE DT/TIME: 02/22/23 1027* ALL edits or amendments must be made on the electronic/computer document * Freddy Devlin 02/22/23 1027:SubjectiveChief complaint:shortness of breathHPI:52 yo M with PMH of Afib with ablation done on 02/19/[address] Valdivia with discharge home yesterday, PREMA on CPAP and Asthma presented [facility] of Asthma and elevated troponin under the care of his multi site leasing consultant here. Pt states he was home for about 2 hours after being discharged from here when he began to have shortness of breath so went to the ED. Endorsing coughing, chest tightness, headache and wheezing. States he was supposed to start on xarelto yesterday but did not make it to the pharmacy to pickle pumper the medication yet. Previous facility: Pt arrived there in respiratory distress and coughing fits. Labs remarkable for troponin 4443. Chest xray showed interstitial markings whichare mildly prominent Given magnesium, albuterol and atrovent prior to transfer. Arrives here requiring nasal cannula use due to increased work of breathing. Troponins elevated here as well. Pt admitted for further eval and management. Free Text Subj NotesFree Text Subj Notes:Patient evaluated this AM. NAEON. He continues to feel his breathing improve andhas been ambulating in his room without significant dyspnea. He has not requiredfurther use of nasal cannula. Bedside pulse oximetry showed adequate saturation following normal activity. He continues to feel chest congestion and has a dry cough. Patient denies any chest pain, fever, chills, abdominal pain, or N/V/D. Review of Systems Free Text ROS NotesFree Text ROS Notes:Constitutional:Reports: fatigue. Denies: chills, fever. Respiratory:Reports: non productive cough, wheezing. Denies: productive cough (sputum), RICHTER(dyspnea on exertion), SOB.Cardiovascular:Denies: chest pain, edema, orthopnea. GI:Denies: abdominal pain, constipation, diarrhea, nausea, vomiting. Neuro:Denies: headache. All systems rev neg: except as noted Objective GeneralVS/I O:Vital Signs: Date Time Temp Pulse Resp B/P B/P Pulse O2 O2 Flow FiO2 Mean Ox Delivery Rate 02/22 1534 36.9 85 18 127/81 96.5 92 02/22 1032 36.7 91 18 127/84 98.3 92 02/22 0744 92 Nasal 3 32 cannula 02/22 0717 36.7 79 16 124/80 94.6 92 02/22 0408 36.5 85 16 140/96 110.9 97 CPAP 02/22 0318 96 Nasal 3 32 cannula 02/22 0100 Nasal 3 cannula 02/22 0042 36.6 90 16 150/103 118.3 95 Nasal cannula 02/21 2100 93 20 114/56 75 93 CPAP 02/21 2000 100 18 145/84 104 95 CPAP 02/21 1900 115 20 151/80 103 93 CPAP 02/21 1843 CPAP 02/21 1640 37.0 87 18 147/91 109 92 Nasal 5 cannula 02/21 1637 36.7 99 20 139/79 99 97 CPAP 02/21 1632 CPAP PATIENT WEIGHT: Weight (lb): Weight (oz): Weight (kg): 109.091 Medications:Active Meds + DC'd Last 24 HrsBenzonatate (TESSALON PERLE) 100 MG TID PO Ceftriaxone Sodium (ROCEPHIN) 1,000 MG QAM IV Sodium Chloride (SODIUM CHLORIDE 0.9%) 10 MLNebivolol (BYSTOLIC) 5 MG DAILY PO Carvedilol (COREG) 3.125 MG Q12HR PO (DC) Methylprednisolone Sodium Succinate (SOLU-Medrol) 40 MG Q8HR IV Montelukast Sodium (SINGULAIR) 10 MG BEDTIME PO Rivaroxaban (XARELTO) 20 MG DAILY 1700 PO Budesonide (Pulmicort) 0.5 MG RTBID NEB Albuterol/Ipratropium (DUONEB 2.5-0.5 MG/3 ML SOLN) 3 ML RTQ4H INH Acetaminophen (TYLENOL) 650 MG Q4H PRN PRN PO Benzonatate (TESSALON PERLE) 100 MG TID PRN PRN PO (DC) Guaifenesin/Dextromethorphan (ROBITUSSIN-DM) 10 ML Q4H PRN PRN PO Melatonin (MELATONIN) 3 MG BEDTIME PRN PRN PO Nitroglycerin (NITROSTAT) 0.4 MG Q5M PRN PRN SL Ondansetron HCl (ZOFRAN) 4 MG Q6H PRN PRN IV Physical ExamGeneral appearance: alert, awake, oriented, no acute distressHead/Eyes: atraumatic, normal conjunctiva/sclera, normocephalic, PERRLENT: moist mucosal membranes, normal ear left, normal ear right, normal noseNeck: non-tender, supple/no meningismus, no masses or swellingCardiovascular: normal capillary refill, normal heart sounds, regular rate rhythmRespiratory: decreased breath sounds, wheezing, symmetric expansion, no distressAbdomen: non-tender, normal bowel sounds, soft, no guardingExtremities: moves all, no calf tenderness, no cyanosisMusculoskeletal: normal inspection, no CVA tenderness, no muscle spasmNeuro/MOTOR CHECKER: alert, oriented X 3, normal speech, no motor deficitsSkin: dry, normal color, normal temperaturePsychiatry: normal affect, normal judgment/insight, normal mood ResultsFindings/Data:Laboratory Tests 02/23 604 Chemistry Sodium (137 - 145 MMOL/L) 136 L Potassium (3.5 - 5.1 MMOL/L) 4.5 Chloride (98 - 107 MMOL/L) 104 Carbon Dioxide (22 - 30 MMOL/L) 23 Anion Gap (14 - 24 MMOL/L) 14 BUN (9 - 20 MG/DL) 25 H Creatinine (0.66 - 1.25 MG/DL) 0.90 Glomerular Filtr Rate > 60 Glucose (74 - 106 MG/DL) 148 H Calcium (8.4 - 10.2 MG/DL) 9.2 Laboratory Tests 02/22 06 Hematology WBC (3.8 - 9.8 K/MM3) 15.1 H RBC (3.95 - 5.67 M/MM3) 5.17 Hgb (12.4 - 16.7 G/DL) 15.7 Hct (35.9 - 49.5 %) 47.1 MCV (81.7 - 96.1 fL) 91 MCH (27.6 - 33.2 pg) 30.4 MCHC (32.9 - 35.5 %) 33.3 RDW (12.1 - 15.2 %) 13.2 Plt Count (129 - 368 K/MM3) 245 MPV (7.4 - 10.4 fl) 11.0 H Neut % (Auto) (43 - 75 %) 82.3 H Lymph % (Auto) (14 - 44 %) 9.0 L Emanuel % (Auto) (4 - 13 %) 7.4 Eos % (Auto) (0 - 6 %) 0.0 Baso % (Auto) (0 - 2 %) 0.3 Neut # (Auto) (2.0 - 7.6 K/mm3) 12.44 H Lymph # (Auto) (1.0 - 3.8 K/mm3) 1.36 Emanuel # (Auto) (0.1 - 0.8 K/mm3) 1.11 H Eos # (Auto) (0.0 - 0.2 K/mm3) 0.00 Baso # (Auto) (0.0 - 0.2 K/mm3) 0.04 Immature Gran % (0.0 - 2.0 %) 1.0 Nucleated RBC % (0 - 1.0 %) 0.0 Nucleated RBCs # (Man) (0.0 - 0.1 K/mm3) 0.00 Diagnosis, Assessment Plan Free Text DxA P NotesFree text DxA P notes:Assessment/Plan #Acute asthma exacerbation 140mg IV solumedrol given Scheduled duonebs q4h Encourage incentive spirometer use- Continue Singulair 10mg PO bedtime- Continue budesonide 0.5 BID- Pulmonary consulted. Appreciate recs: --- Start Tessalon Perle 100mg TID --- Continue Robitussin PRN --- Send for RSV test --- Start empiric Rocephin 1g daily #Acute respiratory distressSecondary to asthma exacerbation. This AM patient has improved, saturating well on room air with minimal residual wheezing Consider NC use as needed ABG on RA: pH 7.46, CO2 29.9, O2 65.9, HCO3 20.8 Flu and covid negative No acute findings on chest x-ray #Elevated troponin NSTEMI vs demand ischemia. Pt is post cardiac ablation on 02/19. Troponin peak of 3.15, decreased to 2.88 and 2.11 Cardiology consulted. Appreciate recs: - Likely 2/2 ablation surgery - Lasix 20 x1 for probable mild volume overload --- ECHO pending --- Start Nebivolol 5mg daily --- dc Carvedilol No acute ischemic findings on EKG. Keep on telemetry Currently has chest pain associated with coughing/asthma exacerbation only Give ASA 325 mg x 1.- Continue Xarelto #Paroxysmal A-fib s/p cardiac ablation Keep on telemetry #PREMA Okay to use home CPAP VTE ppx: n/a, on xarelto Full CodeDispo: likely dc home, pending clinical improvement Time spent is 60 mins Quality: Gen Med Crit Care VTE ProphylaxisVTE prophylaxis initiated: yes, no pharmacologic, reason: (pt on anticoagulant tx) BMI Screening > 25 or < 18.5BMI status/follow-up: abnl BMI, pt to F/U w/PCP AttestationsAttestation needed: supervising physician Oswaldo Navarrete 02/22/232039:Attestations Teaching Physician AttestationF/U visit w/ resident:I saw and examined the patient with the resident Dr Devlin PGy1 and . . . agree with the resident's findings and plan. at 1606 at 2041 RPT #:[id number] OF REPORTPRProgress [id number]:27:00Z.[id number] 1-0158AVAvailable for patient vgkrAXBUKDKVXUQUMD0517-49-60J10:06:4 4 [facility] 2023-02-22 09:00:00 [id number]//CiIYt2kCEOsf PxhwK+u3Eac6N6NC2jmyH+Gjm0Ht7lVCl2iW WigJ6210-01-95N06:00:[id number] [address] PATIENT NAME: ERIN PACHECO ADMIT DATE: 02/20/23ACCOUNT NO: [id number] ROOM NO: Z.617 AGE: 52 REPORT TYPE: ELECTROCARDIOGRAM SEX: M ADMITTING PHYSICIAN:Oswaldo Navarrete MD ATTENDING PHYSICIAN:Oswaldo Navarrete MD Order:[id number] Reason : CAD Test Date/Time Stamp:SunFeb 22 2023 09:00:11Blood Pressure : / mmHGVent. Rate : 094 BPM Atrial Rate : 094 BPM P-R Int : 126 ms QRS Dur : 078 ms QT Int : 360 ms P-R-T Axes : 042 042 057 degrees QTc Int : 450 ms Sinus rhythm with occasional premature ventricular complexesNonspecific ST abnormalityAbnormal ECGNo previous ECGs availableConfirmed by REJI RIOS ([id number]) on 02/22/2023 10:16:46 AM Referred By: Oswaldo Navarrete Confirmed by:REJI RIOS at 1016 PATIENT NAME: ERIN PACHECO .[facility] [id number] for patient huwnKFOZGIUJEDNCOS5424-78-61Z37:17:1 1 [facility] 2023-02-22 07:04:00 [id number]//Fk95YzP2sO B5LbY8/3CxdHgh3yxEAfmlelIbZdMe4hE7da E2Ng0775-15-68A69:04:00 [facility] ([facility])Cardiology Progress NoteREPORT#:[id number] REPORT STATUS: SignedREPORT INITIALIZATION DATE:02/22/23 TIME: 703 PATIENT: ERIN PACHECO UNIT #: [id number]#: [id number] [facility] [birth year] AGE: 52 SEX: M ATTEND: Oswaldo Navarrete MDADM AUTHOR: Dell Valdivia MDREPT SERVICE DT/TIME: 02/22/23 0704* ALL edits or amendments must be made on the electronic/computer document * SubjectiveChief complaint:WheezingPatient reports:No: chest pain, palpitations, shortness of breath. Objective GeneralVS/I O:Vital Signs: Date Time Temp Pulse Resp B/P B/P Pulse O2 O2 Flow FiO2 Mean Ox Delivery Rate 02/23 408 97.7 85 16 140/96 110.9 97 CPAP 02/22 0318 96 Nasal 3 32 cannula 02/22 0100 Nasal 3 cannula 02/22 42 97.9 90 16 150/103 118.3 95 Nasal cannula 02/21 2100 93 20 114/56 75 93 CPAP 02/21 2000 100 18 145/84 104 95 CPAP 02/21 1900 115 20 151/80 103 93 CPAP 02/21 1843 CPAP 02/21 1640 98.6 87 18 147/91 109 92 Nasal 5 cannula 02/21 1637 98.0 99 20 139/79 99 97 CPAP 02/21 1632 CPAP 02/21 1351 Nasal 3 cannula 02/21 0819 CPAP 02/21 0743 98.1 76 21 142/90 107 95 CPAP PATIENT WEIGHT: Weight (lb): Weight (oz): Weight (kg): 109.091 Medications:Active Meds + DC'd Last 24 HrsCarvedilol (COREG) 3.125 MG Q12HR PO Methylprednisolone Sodium Succinate (SOLU-Medrol) 40 MG Q8HR IV Montelukast Sodium (SINGULAIR) 10 MG BEDTIME PO Rivaroxaban (XARELTO) 20 MG DAILY 1700 PO Furosemide (LASIX) 20 MG ONCE ONE IV (DC) Methylprednisolone Sodium Succinate (SOLU-Medrol) 100 MG NOW ONE IV (DC) Budesonide (Pulmicort) 0.5 MG RTBID NEB Methylprednisolone Sodium Succinate (SOLU-Medrol) 40 MG Q8HR IV (DC) Albuterol/Ipratropium (DUONEB 2.5-0.5 MG/3 ML SOLN) 3 ML RTQ4H INH Acetaminophen (TYLENOL) 650 MG Q4H PRN PRN PO Benzonatate (TESSALON PERLE) 100 MG TID PRN PRN PO Guaifenesin/Dextromethorphan (ROBITUSSIN-DM) 10 ML Q4H PRN PRN PO Melatonin (MELATONIN) 3 MG BEDTIME PRN PRN PO Nitroglycerin (NITROSTAT) 0.4 MG Q5M PRN PRN SL Ondansetron HCl (ZOFRAN) 4 MG Q6H PRN PRN IV Physical ExamGeneral appearance: alert, awake, orientedHead/Eyes: atraumatic, normocephalicENT: moist mucosal membranesNeck: no JVDCardiovascular: CV assessment: regular rate and rhythmRespiratory: Bilateral ronchi.Lower extremity: LE assessment: no edemaMusculoskeletal: full range of motionNeuro/MOTOR CHECKER: alert, oriented X 3, CN II-XII intactSkin: dry, intactPsychiatry: normal affect, normal judgment/insight, normal mood ResultsFindings/Data:Laboratory Tests 02/21 0905 Blood Gas Puncture Site LR ABG pH (7.35 - 7.45 mmHg) 7.46 H ABG pCO2 (35.0 - 45.0 mmHg) 29.9 *L ABG pO2 (80.0 - 100.0 mmol/L) 65.9 L ABG HCO3 (20.0 - 26.0 mmol/L) 20.8 ABG O2 Saturation (95.0 - 100.0 %) 94.3 L ABG Base Excess (-3.0 - 3.0 mmol/L) -1.8 Alfred Test (CHECK) Y Temperature (37 C) 37.0 O2 Delivery Device RM AIR FiO2 (%) 21 Laboratory Tests 02/21 1154 Chemistry Troponin I (0.012 - 0.033 NG/ML) 2.110 *H Laboratory Tests 02/22 0604 Hematology WBC (3.8 - 9.8 K/MM3) 15.1 H RBC (3.95 - 5.67 M/MM3) 5.17 Hgb (12.4 - 16.7 G/DL) 15.7 Hct (35.9 - 49.5 %) 47.1 MCV (81.7 - 96.1 fL) 91 MCH (27.6 - 33.2 pg) 30.4 MCHC (32.9 - 35.5 %) 33.3 RDW (12.1 - 15.2 %) 13.2 Plt Count (129 - 368 K/MM3) 245 MPV (7.4 - 10.4 fl) 11.0 H Neut % (Auto) (43 - 75 %) 82.3 H Lymph % (Auto) (14 - 44 %) 9.0 L Emanuel % (Auto) (4 - 13 %) 7.4 Eos % (Auto) (0 - 6 %) 0.0 Baso % (Auto) (0 - 2 %) 0.3 Neut # (Auto) (2.0 - 7.6 K/mm3) 12.44 H Lymph # (Auto) (1.0 - 3.8 K/mm3) 1.36 Emanuel # (Auto) (0.1 - 0.8 K/mm3) 1.11 H Eos # (Auto) (0.0 - 0.2 K/mm3) 0.00 Baso # (Auto) (0.0 - 0.2 K/mm3) 0.04 Immature Gran % (0.0 - 2.0 %) 1.0 Nucleated RBC % (0 - 1.0 %) 0.0 Nucleated RBCs # (Man) (0.0 - 0.1 K/mm3) 0.00 Laboratory Tests 02/21 1154 Chemistry Troponin I (0.012 - 0.033 NG/ML) 2.110 *H Diagnosis, Assessment Plan Free Text DxA P NotesFree Text DxA P Notes:IMP: Asthma PAF - s/p PVI. Dyspnea - Probably multifactorial - asthma, probable mild volume overload. Mild troponin elevation - secondary to ablation 2 days ago. PLAN: Solumedrol Nebs Change to cardioselective beta marleny. Lasix Echo at 0520 RPT #:[id number] OF REPORTPRProgress [id number]:04:00Z.[id number] 1-0064AVAvailable for patient putwVTNZBIBCKTUGDR3598-71-08E39:20:2 1 [facility] 2023-02-21 10:46:00 [id number] TS5Ki2jnLoEjrwc+NT6hoDWH6t67K4xLFLHc BHYx5999-94-77B95:46:00 [facility] ([facility])Hospitalist Progress NoteREPORT#:[id number] REPORT STATUS: SignedREPORT INITIALIZATION DATE:02/21/23 TIME: 1045 PATIENT: ERIN PACHECO UNIT #: [id number]#: [id number] ROOM/BED: [facility]DOB: [birth year] AGE: 52 SEX: M ATTEND: Oswaldo Navarrete MDADM AUTHOR: Freddy Devlin MD R1REPT SERVICE DT/TIME: 02/21/23 1046* ALL edits or amendments must be made on the electronic/computer document * Freddy Devlin 02/21/23 1046:SubjectiveChief complaint:shortness of breathHPI:52 yo M with PMH of Afib with ablation done on 02/19/[address] Valdivia with discharge home yesterday, PREMA on CPAP and Asthma [facility] Asthma and elevated troponin under the care of his multi site leasing consultant here. Pt states he was home for about 2 hours after being discharged from here when he began to have shortness of breath so went to the ED. Endorsing coughing, chest tightness, headache and wheezing. States he was supposed to start on xarelto yesterday but did not make it to the pharmacy to pickle pumper the medication yet. Previous facility: Pt arrived there in respiratory distress and coughing fits. Labs remarkable for troponin 4443. Chest xray showed interstitial markings whichare mildly prominent Given magnesium, albuterol and atrovent prior to transfer. Arrives here requiring nasal cannula use due to increased work of breathing. Troponins elevated here as well. Pt admitted for further eval and management. Free Text Subj NotesFree Text Subj Notes:Patient evaluated at bedside this AM. NAEON. Patient feeling much better after receiving steroids and breathing treatments. He was saturating in the low 90s onroom air during my assessment. Still with some mild wheezing. He also notes improvement in his dry cough and headache. Dr. Valdivia was also in the room and believes that pt's elevated troponin levels are 2/2 his recent ablation procedure. Patient continues to deny any chest pain. Also denies any fever, chills, abdominal pain, or N/V/D. Review of SystemsConstitutional:Reports: fatigue. Denies: chills, fever. Respiratory:Reports: RICHTER (dyspnea on exertion), non productive cough, SOB, wheezing. Denies: productive cough (sputum). Cardiovascular:Reports: RICHTER (dyspnea on exertion). Denies: chest pain, edema, orthopnea. GI:Denies: abdominal pain, constipation, diarrhea, nausea, vomiting. Neuro:Denies: headache. All systems rev neg: except as noted Objective GeneralVS/I O:Vital Signs: Date Time Temp Pulse Resp B/P B/P Pulse O2 O2 Flow FiO2 Mean Ox Delivery Rate 02/21 1351 Nasal 3 cannula 02/21 0819 CPAP 02/21 0743 36.7 76 21 142/90 107 95 CPAP 02/21 0300 72 18 116/65 82 94 CPAP 02/21 0200 76 16 146/89 108 95 CPAP 02/21 0100 75 16 140/90 106 97 CPAP 02/21 0000 76 18 131/85 100 97 Nasal 3 cannula 02/20 2301 72 18 115/66 82 93 Room air 02/20 2227 36.8 77 18 136/89 104 95 Room air 02/20 2149 81 17 126/83 97 94 24 hour I O ending at 0700: 02/21 0700 02/20 1900 Intake Total Output Total Balance Patient 109.091 kg Weight Weight Stated/Reported Measurement Method PATIENT WEIGHT: Weight (lb): Weight (oz): Weight (kg): 109.091 Medications:Active Meds + DC'd Last 24 HrsMontelukast Sodium (SINGULAIR) 10 MG BEDTIME PO Rivaroxaban (XARELTO) 20 MG DAILY 1700 PO Furosemide (LASIX) 20 MG ONCE ONE IV (DC) Methylprednisolone Sodium Succinate (SOLU-Medrol) 100 MG NOW ONE IV (DC) Budesonide (Pulmicort) 0.5 MG RTBID NEB Aspirin (CHILDREN'S ASPIRIN) 324 MG ONCE ONE CHEW (DC) Methylprednisolone Sodium Succinate (SOLU-Medrol) 40 MG Q8HR IV (DC) Albuterol/Ipratropium (DUONEB 2.5-0.5 MG/3 ML SOLN) 3 ML RTQ4H INH Acetaminophen (TYLENOL) 650 MG Q4H PRN PRN PO Benzonatate (TESSALON PERLE) 100 MG TID PRN PRN PO Guaifenesin/Dextromethorphan (ROBITUSSIN-DM) 10 ML Q4H PRN PRN PO Melatonin (MELATONIN) 3 MG BEDTIME PRN PRN PO Nitroglycerin (NITROSTAT) 0.4 MG Q5M PRN PRN SL Ondansetron HCl (ZOFRAN) 4 MG Q6H PRN PRN IV Ipratropium [place] (ATROVENT U/D INHALATION) 0.5 MG X1ED STA NEB (DC) Dexamethasone Sodium Phosphate (DECADRON) 10 MG X1ED STA IV (DC) Physical ExamGeneral appearance: alert, awake, oriented, no acute distressHead/Eyes: atraumatic, normal conjunctiva/sclera, normocephalic, PERRLENT: moist mucosal membranes, normal ear left, normal ear right, normal noseNeck: non-tender, supple/no meningismus, no masses or swellingCardiovascular: normal capillary refill, normal heart sounds, regular rate rhythmRespiratory: decreased breath sounds, wheezing, symmetric expansion, no distressAbdomen: non-tender, normal bowel sounds, soft, no guardingExtremities: moves all, no calf tenderness, no cyanosisMusculoskeletal: normal inspection, no CVA tenderness, no muscle spasmNeuro/MOTOR CHECKER: alert, oriented X 3, normal speech, no motor deficitsSkin: dry, normal color, normal temperaturePsychiatry: normal affect, normal judgment/insight, normal mood ResultsFindings/Data:Laboratory Tests 02/21 09 Blood Gas Puncture Site LR ABG pH (7.35 - 7.45 mmHg) 7.46 H ABG pCO2 (35.0 - 45.0 mmHg) 29.9 *L ABG pO2 (80.0 - 100.0 mmol/L) 65.9 L ABG HCO3 (20.0 - 26.0 mmol/L) 20.8 ABG O2 Saturation (95.0 - 100.0 %) 94.3 L ABG Base Excess (-3.0 - 3.0 mmol/L) -1.8 Alfred Test (CHECK) Y Temperature (37 C) 37.0 O2 Delivery Device RM AIR FiO2 (%) 21 Laboratory Tests 02/21 02/21 02/21 02/21 1154 0612 0612 0612 Chemistry Mean Blood Glucose (70 - 110 MG/DL) 131 H Hemoglobin A1c (4.8 - 5.9 %) 6.2 H Troponin I (0.012 - 0.033 NG/ML) 2.110 *H Triglycerides (150 - 199 MG/DL) 89 L Cholesterol (<200 MG/DL) 165 LDL Cholesterol Measurd (0 - 99 MG/DL) 92 HDL Cholesterol (40 - 59 MG/DL) 45 TSH (0.65 - 4.68 MIU/L) 0.305 L 02/21 02/21 02/20 0334 0304 2229 Chemistry Sodium (137 - 145 MMOL/L) 137 Potassium (3.5 - 5.1 MMOL/L) 3.9 Chloride (98 - 107 MMOL/L) 103 Carbon Dioxide (22 - 30 MMOL/L) 28 BUN (9 - 20 MG/DL) 14 Creatinine (0.66 - 1.25 MG/DL) 0.80 Glomerular Filtr Rate > 60 Glucose (74 - 106 MG/DL) 129 H Calcium (8.4 - 10.2 MG/DL) 8.6 Total Bilirubin (0.2 - 1.3 MG/DL) 0.7 AST (17 - 59 UNITS/L) 58 ALT (0 - 49 UNITS/L) 74 H Total Alk Phosphatase (38 - 126 UNITS/L) 104 Troponin I (0.012 - 0.033 NG/ML) 2.890 *H 2.880 *H 3.150 *H Total Protein (6.2 - 7.6 G/DL) 7.5 Albumin (3.5 - 5.0 G/DL) 4.0 LDL Cholesterol (100 - 129 mg/dL) 84 L Laboratory Tests 02/20 2229 Coagulation INR (0.86 - 1.14) 1.0 APTT (27.2 - 37.9 SECONDS) 28.9 PT Patient/Control Mix (10.1 - 12.6 SECONDS) 10.9 Laboratory Tests 02/20 2229 Hematology WBC (3.8 - 9.8 K/MM3) 6.6 RBC (3.95 - 5.67 M/MM3) 4.92 Hgb (12.4 - 16.7 G/DL) 14.9 Hct (35.9 - 49.5 %) 44.7 MCV (81.7 - 96.1 fL) 91 MCH (27.6 - 33.2 pg) 30.3 MCHC (32.9 - 35.5 %) 33.3 RDW (12.1 - 15.2 %) 13.3 Plt Count (129 - 368 K/MM3) 176 MPV (7.4 - 10.4 fl) 10.3 Neut % (Auto) (43 - 75 %) 60.2 Lymph % (Auto) (14 - 44 %) 25.2 Emanuel % (Auto) (4 - 13 %) 12.8 Eos % (Auto) (0 - 6 %) 0.2 Baso % (Auto) (0 - 2 %) 0.2 Neut # (Auto) (2.0 - 7.6 K/mm3) 3.99 Lymph # (Auto) (1.0 - 3.8 K/mm3) 1.67 Emanuel # (Auto) (0.1 - 0.8 K/mm3) 0.85 H Eos # (Auto) (0.0 - 0.2 K/mm3) 0.01 Baso # (Auto) (0.0 - 0.2 K/mm3) 0.01 Immature Gran % (0.0 - 2.0 %) 1.4 Nucleated RBC % (0 - 1.0 %) 0.0 Nucleated RBCs # (Man) (0.0 - 0.1 K/mm3) 0.00 Laboratory Tests 02/22 304 Serology SARS-CoV-2 Ag (Rapid) (Negative) NEGATIVE Microbiology Date/Time Procedure - Status Source Growth 02/22 304 Influenza Virus Type B Antigen - COMP NASOPHARG 02/22 304 Influenza Virus Type A Antigen - COMP NASOPHARG Radiology data:Recent Impressions:RADIOLOGY - XR CHEST 1V 02/21 0540 Report Impression - Status: SIGNED Entered: 02/21/2023 0637 IMPRESSION:No acute cardiopulmonary disease.Impression By: [email or web address] Nathanael Guillory MD Diagnosis, Assessment Plan Free Text DxA P NotesFree text DxA P notes:Assessment/Plan #Acute asthma exacerbation 140mg IV solumedrol given Scheduled duonebs q4h Encourage incentive spirometer use--- Start Singulair 10mg PO bedtime--- Start budesonide 0.5 BID--- Pulmonary consulted for further recommendations #Acute respiratory distressSecondary to asthma exacerbation. This AM patient improved, saturating well on room air with minimal residual wheezing Consider NC use as needed ABG on RA: pH 7.46, CO2 29.9, O2 65.9, HCO3 20.8 Flu and covid negative No acute findings on chest x-ray #Elevated troponin NSTEMI vs demand ischemia. Pt is post cardiac ablation on 02/19. Troponin peak of 3.15, decreased to 2.88 and 2.11 Cardiology consulted. Appreciate recs: --- Likely 2/2 ablation surgery --- Lasix 20 x1 for probable mild volume overload --- Order ECHO No acute ischemic findings on EKG. Keep on telemetry Currently has chest pain associated with coughing/asthma exacerbation only Give ASA 325 mg x 1.- Continue Xarelto #Paroxysmal A-fib s/p cardiac ablation Keep on telemetry #PREMA Okay to use home CPAP VTE ppx: n/a, on xarelto Full CodeDispo: likely dc home, pending clinical improvement Time spent is 60 mins Quality: Gen [facility] Crit Care VTE ProphylaxisVTE prophylaxis initiated: yes, no pharmacologic, reason: (pt on anticoagulant tx) BMI Screening > 25 or < 18.5BMI status/follow-up: abnl BMI, pt to F/U w/PCP AttestationsAttestation needed: supervising physician Oswaldo Navarrete 02/21/231926:Attestations Teaching Physician AttestationF/U visit w/ resident:I saw and examined the patient with the resident Dr Devlin PGy1 and . . . agree with the resident's findings and plan. 52 yoM with h/o p-Afib s/p ablation 2 days ago, d/c home yesterday by Dr Valdivia,now re-admitted with acute asthma exacerbation with tachypnea and hypoxemic respiratory failure. Pt repsonded to treatment o/n and is now breathing easier on N/C. He's c/o dried nonproductive cough and has been screend negative for viral infection. His CXR is clear without infiltrate. Will continue inhaled bronchodilators and ICS with systemic steroid. He's currently in NSR rate in 80s. Will start low dose coreg to help keep pt inNSR.pt denies any chest pain. His elevated troponins most likely sequella of recent Afib ablationC/s pulmonary for further recommendation at 1551 at 1928 RPT #:[id number] OF REPORTPRProgress [id number]:[id number] for patient [id number]:51:2 0 [facility] 2023-02-21 09:31:00 [id number]n3gdwmjU0G8 [id number]:31:00 [facility]vineCard[facility] Progress NoteREPORT#:[id number] REPORT STATUS: SignedREPORT INITIALIZATION DATE:02/21/23 TIME: 930 PATIENT: ERIN PACHECO UNIT #: [id number]#: [id number] [facility] AGE: 52 SEX: M ATTEND: Oswaldo Navarrete MDADM AUTHOR: Dell Valdivia MDREPT SERVICE DT/TIME: 02/21/23930* ALL edits or amendments must be made on the electronic/computer document * SubjectiveChief complaint:WheezingHPI:52 year old male with h/o asthma, PAF, PVI 02/19/23, [facility] [place] [facility] c/o wheezing and dyspnea. No chest pain. No palpitations. Objective GeneralVS/I O:24 hour I O ending at 0700: 02/21 0700 02/20 1900 Intake Total Output Total Balance Patient 109.091 kg Weight Weight Stated/Reported Measurement Method Vital Signs: Date Time Temp Pulse Resp B/P B/P Pulse O2 O2 Flow FiO2 Mean Ox Delivery Rate 02/21 0819 CPAP 02/21 0743 98.1 76 21 142/90 107 95 CPAP 02/21 0300 72 18 116/65 82 94 CPAP 02/21 0200 76 16 146/89 108 95 CPAP 02/21 0100 75 16 140/90 106 97 CPAP 02/21 0000 76 18 131/85 100 97 Nasal 3 cannula 02/20 2301 72 18 115/66 82 93 Room air 02/20 2227 98.3 77 18 136/89 104 95 Room air 02/20 2149 81 17 126/83 97 94 PATIENT WEIGHT: Weight (lb): Weight (oz): Weight (kg): 109.091 Medications:Active Meds + DC'd Last 24 HrsMontelukast Sodium (SINGULAIR) 10 MG BEDTIME PO Rivaroxaban (XARELTO) 20 MG DAILY 1700 PO Furosemide (LASIX) 20 MG ONCE ONE IV (DC) Methylprednisolone Sodium Succinate (SOLU-Medrol) 100 MG NOW ONE IV (DC) Budesonide (Pulmicort) 0.5 MG RTBID NEB Aspirin (CHILDREN'S ASPIRIN) 324 MG ONCE ONE CHEW (DC) Methylprednisolone Sodium Succinate (SOLU-Medrol) 40 MG Q8HR IV (DC) Albuterol/Ipratropium (DUONEB 2.5-0.5 MG/3 ML SOLN) 3 ML RTQ4H INH Acetaminophen (TYLENOL) 650 MG Q4H PRN PRN PO Benzonatate (TESSALON PERLE) 100 MG TID PRN PRN PO Guaifenesin/Dextromethorphan (ROBITUSSIN-DM) 10 ML Q4H PRN PRN PO Melatonin (MELATONIN) 3 MG BEDTIME PRN PRN PO Nitroglycerin (NITROSTAT) 0.4 MG Q5M PRN PRN SL Ondansetron HCl (ZOFRAN) 4 MG Q6H PRN PRN IV Ipratropium [place] (ATROVENT U/D INHALATION) 0.5 MG X1ED STA NEB (DC) Dexamethasone Sodium Phosphate (DECADRON) 10 MG X1ED STA IV (DC) Physical ExamGeneral appearance: alert, awake, orientedHead/Eyes: atraumatic, normocephalicENT: moist mucosal membranesNeck: no JVDCardiovascular: CV assessment: regular rate and rhythmRespiratory: Bilateral ronchi.Lower extremity: LE assessment: no edemaMusculoskeletal: full range of motionNeuro/MOTOR CHECKER: alert, oriented X 3, CN II-XII intactSkin: dry, intactPsychiatry: normal affect, normal judgment/insight, normal mood ResultsFindings/Data:Laboratory Tests 02/21 0905 Blood Gas Puncture Site LR ABG pH (7.35 - 7.45 mmHg) 7.46 H ABG pCO2 (35.0 - 45.0 mmHg) 29.9 *L ABG pO2 (80.0 - 100.0 mmol/L) 65.9 L ABG HCO3 (20.0 - 26.0 mmol/L) 20.8 ABG O2 Saturation (95.0 - 100.0 %) 94.3 L ABG Base Excess (-3.0 - 3.0 mmol/L) -1.8 Alfred Test (CHECK) Y Temperature (37 C) 37.0 O2 Delivery Device RM AIR FiO2 (%) 21 Laboratory Tests 02/21 02/21 02/21 02/21 02/21 0612 0612 0612 0334 0304Chemistry Mean Blood Glucose (70 - 110 MG/DL) 131 H Hemoglobin A1c (4.8 - 5.9 %) 6.2 H Troponin I (0.012 - 0.033 NG/ML) 2.890 *H 2.880 *H Triglycerides (150 - 199 MG/DL) 89 L Cholesterol (<200 MG/DL) 165 LDL Cholesterol Measurd (0 - 99 92MG/DL) HDL Cholesterol (40 - 59 MG/DL) 45 TSH (0.65 - 4.68 MIU/L) 0.305 L 02/20 2229 Chemistry Sodium (137 - 145 MMOL/L) 137 Potassium (3.5 - 5.1 MMOL/L) 3.9 Chloride (98 - 107 MMOL/L) 103 Carbon Dioxide (22 - 30 MMOL/L) 28 BUN (9 - 20 MG/DL) 14 Creatinine (0.66 - 1.25 MG/DL) 0.80 Glomerular Filtr Rate > 60 Glucose (74 - 106 MG/DL) 129 H Calcium (8.4 - 10.2 MG/DL) 8.6 Total Bilirubin (0.2 - 1.3 MG/DL) 0.7 AST (17 - 59 UNITS/L) 58 ALT (0 - 49 UNITS/L) 74 H Total Alk Phosphatase (38 - 126 UNITS/L) 104 Troponin I (0.012 - 0.033 NG/ML) 3.150 *H Total Protein (6.2 - 7.6 G/DL) 7.5 Albumin (3.5 - 5.0 G/DL) 4.0 LDL Cholesterol (100 - 129 mg/dL) 84 L Laboratory Tests 02/20 2229 Coagulation INR (0.86 - 1.14) 1.0 APTT (27.2 - 37.9 SECONDS) 28.9 PT Patient/Control Mix (10.1 - 12.6 SECONDS) 10.9 Laboratory Tests 02/20 2229 Hematology WBC (3.8 - 9.8 K/MM3) 6.6 RBC (3.95 - 5.67 M/MM3) 4.92 Hgb (12.4 - 16.7 G/DL) 14.9 Hct (35.9 - 49.5 %) 44.7 MCV (81.7 - 96.1 fL) 91 MCH (27.6 - 33.2 pg) 30.3 MCHC (32.9 - 35.5 %) 33.3 RDW (12.1 - 15.2 %) 13.3 Plt Count (129 - 368 K/MM3) 176 MPV (7.4 - 10.4 fl) 10.3 Neut % (Auto) (43 - 75 %) 60.2 Lymph % (Auto) (14 - 44 %) 25.2 Emanuel % (Auto) (4 - 13 %) 12.8 Eos % (Auto) (0 - 6 %) 0.2 Baso % (Auto) (0 - 2 %) 0.2 Neut # (Auto) (2.0 - 7.6 K/mm3) 3.99 Lymph # (Auto) (1.0 - 3.8 K/mm3) 1.67 Emanuel # (Auto) (0.1 - 0.8 K/mm3) 0.85 H Eos # (Auto) (0.0 - 0.2 K/mm3) 0.01 Baso # (Auto) (0.0 - 0.2 K/mm3) 0.01 Immature Gran % (0.0 - 2.0 %) 1.4 Nucleated RBC % (0 - 1.0 %) 0.0 Nucleated RBCs # (Man) (0.0 - 0.1 K/mm3) 0.00 Laboratory Tests 02/21 030 Serology SARS-CoV-2 Ag (Rapid) (Negative) NEGATIVE Microbiology Date/Time Procedure - Status Source Growth 02/21 030 Influenza Virus Type B Antigen - COMP NASOPHARG 02/21 0304 Influenza Virus Type A Antigen - COMP NASOPHARG Laboratory Tests 02/21 02/21 02/20 0334 0304 2229 Chemistry Troponin I (0.012 - 0.033 NG/ML) 2.890 *H 2.880 *H 3.150 *H Laboratory Tests 02/20 2229 Coagulation APTT (27.2 - 37.9 SECONDS) 28.9 Radiology data:Recent Impressions:RADIOLOGY - XR CHEST 1V 02/21 0540 Report Impression - Status: SIGNED Entered: 02/21/2023 0637 IMPRESSION:No acute cardiopulmonary disease.Impression By: [email or web address] Nathanael Guillory MD Diagnosis, Assessment Plan Free Text DxA P NotesFree Text DxA P Notes:IMP: Asthma PAF - s/p PVI. Dyspnea - Probably multifactorial - asthma, probable mild volume overload. Mild troponin elevation - secondary to ablation 2 days ago. PLAN: Solumedrol Nebs Lasix Echo at [address] [facility] #:[id number] OF REPORTPRProgress [id number]:31:00Z.[id number] for patient [id number]:20:2 1 [facility] 2023-02-21 05:42:00 [id number] r5McdwHnHazEuZ44UzEeyci42z5tQW9tz+aw [id number]:42:[id number] [place] [address] PATIENT NAME: ERIN PACHECO ADMIT DATE: 02/20/23ACCOUNT NO: [id number] ROOM NO: Z.617 AGE: 52 REPORT TYPE: CARDIAC CATHETERIZATION REPORT SEX: M ADMITTING PHYSICIAN:Oswaldo Navarrete MD ATTENDING PHYSICIAN:Oswaldo Navarrete MD PROCEDURE DATE: 02/21/2023 PROCEDURE NOTE PROCEDURE: Comprehensive electrophysiology study with atrial fibrillation ablation/pulmonary vein isolation. PREPROCEDURE DIAGNOSIS: Paroxysmal atrial fibrillation. POSTPROCEDURE DIAGNOSIS: Paroxysmal atrial fibrillation. AUTO CLEANER: Dell Valdivia MD WIRE COATING MACHINE OPERATOR: None. ANESTHESIA: General endotracheal anesthesia. PROCEDURE DETAILS: After informed consent was obtained explaining to the patient risks, benefits, and alternatives and following induction of general anesthesia, local anesthesia was applied over both femoral veins with 1% lidocaine. Access to the veins was obtained using modified Seldinger technique with a micropuncture kit and ultrasound guidance. An 8-Malagasy sheath was placedin the right femoral vein. A 2 Perclose sutures were placed in a pre-close fashion in the right femoral vein. A 6-Malagasy, locking 8-Malagasy, and 25 cm 9-Malagasy sheaths were placed in the left femoral vein. All sheaths were aspirated and flushed and connected to heparinized saline infusion. A 5-Malagasy Cournand catheter was advanced via the 6-Malagasy sheath and placed in the right ventricle. A decapolar catheter was advanced via the locking 8-Malagasy sheath and placed in the coronary sinus. An intracardiac echocardiography catheter wasadvanced via the 9-Malagasy sheath and placed in the right atrium. Intracardiac echocardiography was performed to map the left atrium and visualized the interatrial septum. The VersaCross pigtail RF wire was advanced via the 8-Malagasy sheath into the right atrium. The 8-Malagasy sheath was exchanged for a VersaCross sheath. The VersaCross sheath and wire were withdrawn into the posterior septal region. After appropriate placement on the interatrial septum,a transseptal puncture was performed. The VersaCross sheath was advanced acrossthe septum and withdrawn. The wires retained. A progressive dilatation of the right femoral venous access site was made with a 12-Malagasy, then 14-Malagasy dilator. The Thrinaciatronic FlexCath sheath was then advanced over the wire into theleft atrium. The dilator and wire removed. The sheath was aspirated and flushed and connected to heparinized saline infusion. A PentaRay catheter was then advanced via the sheath and a 3-dimensional interatrial map of the left PATIENT NAME: ERIN PACHECO atrium and pulmonary veins was created. The PentaRay was then exchanged for theMedtronic cryoballoon. The balloon was advanced over the Achieve wire. Sequential isolation of the 4 pulmonary veins was then made starting at the leftsuperior, then left inferior, right inferior, and right superior pulmonary veins. The balloon was then removed and a post-ablation 3-dimensional map was created verifying entrance block into all 4 pulmonary veins. At the end of the procedure, all catheters were removed. The sheaths were aspirated and flushed. The FlexCath sheath was removed and hemostasis achieved with the Perclose sutures. A 3 Vascade devices were utilized to close the left femoral venous access sites. Esophageal temperature monitoring was utilized throughout. Phrenic nerve pacing was utilized while isolating the right pulmonary veins. The patient tolerated the procedure well with no complications. CONCLUSION: Successful pulmonary vein isolation. ESTIMATED BLOOD LOSS: 15 mL. COMPLICATIONS: No complications. Dictated By: Dell Valdivia MD Date Dictated: 02/21/2023 05:42:55Date Transcribed: 02/21/2023 06:35:48GSP/LRSJob #: [id number] ID: [id number] CC:Reji Rios MD (F)Authenticated by Dell Valdivia MD On 02/26/2023 01:59:04 PM at 0159 PATIENT NAME: ERIN PACHECO [id number] for patient [id number]:59:5 0 [facility] 2023-02-21 01:45:00 [id number] SISIiYWwRobin/Daniel/GkzxV1TbVVnl11cESrdLC [id number]:45:00 [facility] ([facility])Hospitalist History PhysicalREPORT#:[id number] REPORT STATUS: SignedREPORT INITIALIZATION DATE:02/21/23 TIME: 144 PATIENT: ERIN PACHECO UNIT #: [id number]#: [id number] [address] [birth year] AGE: 52 SEX: M ATTEND: Oswaldo Navarrete MDADM AUTHOR: Alesia Bourne PAREPT SERVICE DT/TIME: 02/21/23144* ALL edits or amendments must be made on the electronic/computer document * Alesia Bourne 02/21/23144:History of Present Illness HPIChief complaint:shortness of breath PCP:Dr Darrius Davies HPI:52 yo M with PMH of Afib with ablation done on 02/19/[address] Valdivia with discharge home yesterday, PREMA on CPAP and Asthma [facility] Asthma and elevated troponin under the care of his multi site leasing consultant here. Pt states he was home for about 2 hours after being discharged from here when he began to have shortness of breath so went to the ED. Endorsing coughing, chest tightness, headache and wheezing. States he was supposed to start on xarelto yesterday but did not make it to the pharmacy to pickle pumper the medication yet. Previous facility: Pt arrived there in respiratory distress and coughing fits. Labs remarkable for troponin 4443. Chest xray showed interstitial markings whichare mildly prominent Given magnesium, albuterol and atrovent prior to transfer. Arrives here requiring nasal cannula use due to increased work of breathing. Troponins elevated here as well. Pt admitted for further eval and management. HistoryAdditional medical history:Paroxysmal Afib, Crohn's, PREMA on CPAP and AsthmaPast surgical history:Reports: Cholecystectomy, Hernia repair (inguinal,umbilical). Additional surgical history:Cardiac ablation right toe surgery Family history:Reports: Diabetes (Parents), Hypertension (Parents ). Alcohol use: Denies EtOH useDrug use: Denies recreational drugsSmoking status for patients 13 years old or older: Never Smoker Medication/Allergy-Vaccine HxMedications:Current Hospital Medications:Autonomic Drugs Sig/Fredo Start time Last Medication Dose Route Stop Time Status Admin Albuterol/Ipratropium 3 ML RTQ4H 02/21 0300 AC 02/21 (DUONEB 2.5-0.5 MG/3 INH 03/23 0301 0300 ML SOLN) Ipratropium [place] 0.5 MG X1ED STA 02/20 2349 DC 02/20 (ATROVENT U/D NEB 02/20 2350 2354 INHALATION) Cardiovascular Drugs Sig/Fredo Start time Last Medication Dose Route Stop Time Status Admin Nitroglycerin 0.4 MG Q5M PRN PRN 02/21 0235 AC (NITROSTAT) SL 03/23 0236 Central Nervous System Agents Sig/Fredo Start time Last Medication Dose Route Stop Time Status Admin Aspirin 324 MG ONCE ONE 02/21 0540 DC 02/21 (CHILDREN'S ASPIRIN) CHEW 02/21 0541 0606 Acetaminophen 650 MG Q4H PRN PRN 02/21 0235 AC (TYLENOL) PO 03/23 0236 Eye, Ear, Nose And Throat (Een Sig/Fredo Start time Last Medication Dose Route Stop Time Status Admin Budesonide 0.5 MG RTBID 02/21 0700 AC (Pulmicort) NEB 03/23 0701 Dexamethasone Sodium 10 MG X1ED STA 02/20 2341 DC 02/20 Phosphate IV 02/20 2342 2354 (DECADRON) Gastrointestinal Drugs Sig/Fredo Start time Last Medication Dose Route Stop Time Status Admin Ondansetron HCl 4 MG Q6H PRN PRN 02/21 0235 AC (ZOFRAN) IV 03/23 023 Hormones And Synthetic Substit Sig/Fredo Start time Last Medication Dose Route Stop Time Status Admin Methylprednisolone 40 MG Q8HR 02/21 0500 AC 02/21 Sodium Succinate IV 03/23 0501 0521 (SOLU-Medrol) Miscellaneous Therapeutic Agen Sig/Fredo Start time Last Medication Dose Route Stop Time Status Admin Melatonin 3 MG BEDTIME PRN PRN 02/21 0235 AC (MELATONIN) PO 03/23 023 Respiratory Tract Agents Sig/Fredo Start time Last Medication Dose Route Stop Time Status Admin Benzonatate 100 MG TID PRN PRN 02/21 0235 AC (TESSALON PERLE) PO 03/23 0236 Guaifenesin/ 10 ML Q4H PRN PRN 02/21 0235 AC Dextromethorphan PO 03/23 023 (ROBITUSSIN-DM) Allergies:Coded Allergies:No Known Allergies (02/20/23) Review of SystemsConstitutional:Denies: fever, generalized weakness, lethargy. Skin:Denies: diaphoresis, ecchymosis, itching. Allergy/Immun:Denies: hives, itching, rhinorrhea. Eyes:Denies: itching, diplopia, eye pain. ENT:Denies: nasal congestion, sore throat, voice change. Respiratory:Reports: RICHTER (dyspnea on exertion), SOB, wheezing. Denies: pleurisy. Cardiovascular:chest pain. Denies: edema, palpitations. GI:Denies: abdominal pain, nausea, vomiting. :Denies: dysuria, flank pain, frequency, hematuria. Musculoskeletal:Denies: extremity pain, extremity swelling, lumbar pain, myalgias. Neuro:headache. Denies: confusion, dizziness. Psych:Denies: confusion, delusional, depression. Objective GeneralVS/I O:Vital Signs: Date Time Temp Pulse Resp B/P B/P Pulse O2 O2 Flow FiO2 Mean Ox Delivery Rate 02/21 0000 76 18 131/85 100 97 Nasal 3 cannula 02/20 2301 72 18 115/66 82 93 Room air 02/20 2227 98.3 77 18 136/89 104 95 Room air 02/20 2149 81 17 126/83 97 94 24 hour I O ending at 0700: 02/21 0700 02/20 1900 Intake Total Output Total Balance Patient 109.091 kg Weight Weight Stated/Reported Measurement Method PATIENT WEIGHT: Weight (lb): Weight (oz): Weight (kg): 109.091 Physical ExamGeneral appearance: alert, awake, oriented, pleasantHead/Eyes: atraumatic, normal conjunctiva/sclera, normocephalic, PERRLENT: moist mucosal membranes, normal ear left, normal ear right, normal noseNeck: non-tender, supple/no meningismus, no masses or swellingCardiovascular: normal capillary refill, normal heart sounds, regular rate rhythmRespiratory: dyspneic, on oxygen, wheezing, poor air movement Abdomen: non-tender, normal bowel sounds, soft, no guardingExtremities: moves all, no calf tenderness, no cyanosisMusculoskeletal: normal inspection, no CVA tenderness, no muscle spasmNeuro/MOTOR CHECKER: alert, oriented X 3, normal speech, no motor deficitsSkin: dry, normal color, normal temperaturePsychiatry: normal affect, normal judgment/insight, normal mood ResultsFindings/Data:Laboratory Tests 02/20 2229 Chemistry Sodium (137 - 145 MMOL/L) 137 Potassium (3.5 - 5.1 MMOL/L) 3.9 Chloride (98 - 107 MMOL/L) 103 Carbon Dioxide (22 - 30 MMOL/L) 28 BUN (9 - 20 MG/DL) 14 Creatinine (0.66 - 1.25 MG/DL) 0.80 Glomerular Filtr Rate > 60 Glucose (74 - 106 MG/DL) 129 H Calcium (8.4 - 10.2 MG/DL) 8.6 Total Bilirubin (0.2 - 1.3 MG/DL) 0.7 AST (17 - 59 UNITS/L) 58 ALT (0 - 49 UNITS/L) 74 H Total Alk Phosphatase (38 - 126 UNITS/L) 104 Troponin I (0.012 - 0.033 NG/ML) 3.150 *H Total Protein (6.2 - 7.6 G/DL) 7.5 Albumin (3.5 - 5.0 G/DL) 4.0 LDL Cholesterol (100 - 129 mg/dL) 84 L Laboratory Tests 02/20 2229 Coagulation INR (0.86 - 1.14) 1.0 APTT (27.2 - 37.9 SECONDS) 28.9 PT Patient/Control Mix (10.1 - 12.6 SECONDS) 10.9 Laboratory Tests 02/20 2229 Hematology WBC (3.8 - 9.8 K/MM3) 6.6 RBC (3.95 - 5.67 M/MM3) 4.92 Hgb (12.4 - 16.7 G/DL) 14.9 Hct (35.9 - 49.5 %) 44.7 MCV (81.7 - 96.1 fL) 91 MCH (27.6 - 33.2 pg) 30.3 MCHC (32.9 - 35.5 %) 33.3 RDW (12.1 - 15.2 %) 13.3 Plt Count (129 - 368 K/MM3) 176 MPV (7.4 - 10.4 fl) 10.3 Neut % (Auto) (43 - 75 %) 60.2 Lymph % (Auto) (14 - 44 %) 25.2 Emanuel % (Auto) (4 - 13 %) 12.8 Eos % (Auto) (0 - 6 %) 0.2 Baso % (Auto) (0 - 2 %) 0.2 Neut # (Auto) (2.0 - 7.6 K/mm3) 3.99 Lymph # (Auto) (1.0 - 3.8 K/mm3) 1.67 Emanuel # (Auto) (0.1 - 0.8 K/mm3) 0.85 H Eos # (Auto) (0.0 - 0.2 K/mm3) 0.01 Baso # (Auto) (0.0 - 0.2 K/mm3) 0.01 Immature Gran % (0.0 - 2.0 %) 1.4 Nucleated RBC % (0 - 1.0 %) 0.0 Nucleated RBCs # (Man) (0.0 - 0.1 K/mm3) 0.00 Radiology data:Recent Impressions:RADIOLOGY - XR CHEST 1V 02/21 4940 Report Impression - Status: SIGNED Entered: 02/21/2023 0637 IMPRESSION:No acute cardiopulmonary disease.Impression By: [email or web address] Nathanael Guillory MD Diagnosis, Assessment Plan Free Text DxA P NotesFree Text DxA P Notes:Assessment/Plan #Acute asthma exacerbation IV steroids Scheduled nebs Encourage incentive spirometer use Start Singulair #Acute respiratory distressSecondary to asthma exacerbation. Patient can barely speak when he presented toprevious facility. Saturating well on room air however with increased work of breathing with minimal exertion Consider NC use as needed Order ABG Flu and covid negative No acute findings on chest x-ray #Elevated troponin NSTEMI vs demand ischemia. Pt is post cardiac ablation on 02/19 Cardiology consult Trend troponin No acute ischemic findings on EKG. Keep on telemetry Eval risk: Order TSH, lipid panel and hemoglobin A1c Currently has chest pain associated with coughing/asthma exacerbation only Give ASA 325 mg x 1. Will resume Xarelto #Paroxysmal A-fib s/p cardiac ablation Keep on telemetry #PREMA Okay to use home CPAP VTE ppx: n/a, on xarelto Full CodeDispo: likely dc home, pending clinical improvement Time spent is 60 mins Quality: Gen Med Crit Care VTE ProphylaxisVTE prophylaxis initiated: yes, no pharmacologic, reason: (pt on anticoagulant tx) Current MedicationsUnable to obtain:Unable to obtain an accurate home medication list at this time. The patient is in an urgent or emergent medical situation where time is of the essence. To delay treatment would jeopardize the patient's health status on the day of the encounter. BMI Screening > 25 or < 18.5Patient's BMI:Current BMI: 34.5 BMI status/follow-up: abnl BMI, pt to F/U w/PCP Oswaldo Navarrete 02/21/231923:Attestations Physician AttestationAgree w/findings plan:I saw and examined patient and agree with the findings and plan as documented byKATIE Glaser* my personal evaluation is 52 yoM with h/o p-Afib s/p ablation 2 days ago, d/c home yesterday by Dr Valdivia,now re-admitted with acute asthma exacerbation with tachypnea and hypoxemic respiratory failure. Pt repsonded to treatment o/n and is now breathing easier on N/C. He's c/o dried nonproductive cough and has been screend negative for viral infection. His CXR is clear without infiltrate. Will continue inhaled bronchodilators and ICS with systemic steroid. He's currently in NSR rate in 80s. Will start low dose coreg to help keep pt inNSR.pt denies any chest pain. His elevated troponins most likely sequella of recent Afib ablationC/s pulmonary for further recommendation at 0753 at 1927 RPT #:[id number] OF REPORTHPHistory and physical wuixdrjevkx2081-09-09C16:45:00Z.PDOC [id number] for patient yupgRWFSXGXSUXZQTO2254-71-35Z43:53:5 3 [facility] 2023-02-20 22:03:00 [id number] 8ORNS0Wh7aERPykKrwX2AXxa9aMHPvtP092g pkDO4877-94-34A76:03:00 [facility] ([facility])EMERGENCY PROVIDER REPORTREPORT#:[id number] REPORT STATUS: SignedDATE:02/20/23 TIME: 2202 PATIENT: ERIN PACHECO UNIT #: [id number]#: [id number] [facility] SEX: M PCP PHYS: No Primary or Family PhysicianSERVICE AUTHOR: Pati March MD [place] [facility] [place] ALL edits or amendments must be made on the electronic/computer document * HPI-General Illness Free Text HPI NotesFree Text HPI Notes52 yo M with PMH of Afib with ablation done on 02/19/[address] Valdivia with discharge home yesterday status postcardiac ablation for A-fib. Presented to the emergency department at an outside hospital for shortness of breath and asthma exacerbation found to have elevated troponin and transferred here for further management. Denies any active chest pain at this time GeneralConfirmed Patient YesInitial Greet Date/Time 02/20/232201 PresentationChief Complaint Shortness of breath Review of Systems ROS StatementsAll systems rev neg except as marked. Past Medical History - AdultStated Complaint NSTEMI, ELEVATED TROPONINAllergiesCoded Allergies:No Known Allergies (02/20/23) Review of Nursing Notes Triage notes reviewedSmoking status for patients 13 years old or older: Unknown,if ever smoked Physical Exam Vital SignsVital SignsFirst Documented: Result Date Time Pulse Ox 94 02/20 2149 B/P 126/83 02/20 2149 B/P Mean 97 02/20 2149 Pulse 81 02/20 2149 Resp 17 02/20 2149 O2 Delivery Room air 02/20 2227 Temp 36.8 02/20 2227 Last Documented: Result Date Time Pulse Ox 93 02/20 2301 B/P 115/66 02/20 2301 B/P Mean 82 02/20 2301 O2 Delivery Room air 02/20 2301 Pulse 72 02/20 2301 Resp 18 02/20 2301 Temp 36.8 02/20 2227 Review of Vital Signs Reviewed Free Text PE NotesFree Text PE NotesGeneral: Awake, no acute distressHead: Atraumatic, normocephalicENT: Oropharynx patent, no oropharyngeal edemaCV: Regular rate, regular rhythmRespiratory: Bilateral wheezing, no wheezes bilateralAbdomen: No tenderness to palpation, no distentionMSK back: No midline tenderness, no CVA tendernessSkin: No rash, no lacerations Interpretation Diagnostics Lab Results InterpretationConsiderations Independ review imaging, Reviewed prior recordsResultsLaboratory Tests 02/20/232228:[Embedded Image Not Available]Laboratory Tests: 02/20 2229 Chemistry Sodium (137 - 145 MMOL/L) 137 Potassium (3.5 - 5.1 MMOL/L) 3.9 Chloride (98 - 107 MMOL/L) 103 Carbon Dioxide (22 - 30 MMOL/L) 28 BUN (9 - 20 MG/DL) 14 Creatinine (0.66 - 1.25 MG/DL) 0.80 Glomerular Filtr Rate > 60 Glucose (74 - 106 MG/DL) 129 H Calcium (8.4 - 10.2 MG/DL) 8.6 Total Bilirubin (0.2 - 1.3 MG/DL) 0.7 AST (17 - 59 UNITS/L) 58 ALT (0 - 49 UNITS/L) 74 H Total Alk Phosphatase (38 - 126 UNITS/L) 104 Troponin I (0.012 - 0.033 NG/ML) 3.150 *H Total Protein (6.2 - 7.6 G/DL) 7.5 Albumin (3.5 - 5.0 G/DL) 4.0 LDL Cholesterol (100 - 129 mg/dL) 84 L Coagulation INR (0.86 - 1.14) 1.0 APTT (27.2 - 37.9 SECONDS) 28.9 PT Patient/Control Mix (10.1 - 12.6 SECONDS) 10.9 Hematology WBC (3.8 - 9.8 K/MM3) 6.6 RBC (3.95 - 5.67 M/MM3) 4.92 Hgb (12.4 - 16.7 G/DL) 14.9 Hct (35.9 - 49.5 %) 44.7 MCV (81.7 - 96.1 fL) 91 MCH (27.6 - 33.2 pg) 30.3 MCHC (32.9 - 35.5 %) 33.3 RDW (12.1 - 15.2 %) 13.3 Plt Count (129 - 368 K/MM3) 176 MPV (7.4 - 10.4 fl) 10.3 Neut % (Auto) (43 - 75 %) 60.2 Lymph % (Auto) (14 - 44 %) 25.2 Emanuel % (Auto) (4 - 13 %) 12.8 Eos % (Auto) (0 - 6 %) 0.2 Baso % (Auto) (0 - 2 %) 0.2 Neut # (Auto) (2.0 - 7.6 K/mm3) 3.99 Lymph # (Auto) (1.0 - 3.8 K/mm3) 1.67 Emanuel # (Auto) (0.1 - 0.8 K/mm3) 0.85 H Eos # (Auto) (0.0 - 0.2 K/mm3) 0.01 Baso # (Auto) (0.0 - 0.2 K/mm3) 0.01 Immature Gran % (0.0 - 2.0 %) 1.4 Nucleated RBC % (0 - 1.0 %) 0.0 Nucleated RBCs # (Man) (0.0 - 0.1 K/mm3) 0.00 Lab Imaging StatementLaboratory radiographic studies reviewed and considered in the medical decision-making. Re-Evaluation MDM Free Text MDM NotesFree Text MDM NotesPresents with elevated troponins status post cardiac ablation as is to be expected. No active chest pain. Symptoms present clinically with acute asthma exacerbation first patient was given nebs and steroids. Dr. Valdivia consulted admitted to medicine ED CourseMedication(s) OrderedMedication(s) Ordered:Autonomic Drugs Sig/Fredo Start time Last Medication Dose Route Stop Time Status Admin Ipratropium [place] 0.5 MG X1ED STA 02/20 2349 DC 02/20 NEB 02/20 2350 2354 Eye, Ear, Nose And Throat (Een Sig/Fredo Start time Last Medication Dose Route Stop Time Status Admin Dexamethasone Sodium 10 MG X1ED STA 02/20 2341 DC 02/20 Phosphate IV 02/20 2342 2354 Patient Discharge Departure Vital Signs/ConditionVital SignsFirst Documented: Result Date Time Pulse Ox 94 02/20 2149 B/P 126/83 02/20 2149 B/P Mean 97 02/20 2149 Pulse 81 02/20 2149 Resp 17 02/20 2149 O2 Delivery Room air 02/20 2227 Temp 36.8 02/20 2227 Last Documented: Result Date Time Pulse Ox 93 02/20 2301 B/P 115/66 02/20 2301 B/P Mean 82 02/20 2301 O2 Delivery Room air 02/20 2301 Pulse 72 02/20 2301 Resp 18 02/20 2301 Temp 36.8 02/20 2227 All vital signs available at the time of this entry have been reviewed. Clinical ImpressionClinical ImpressionPrimary Impression: Elevated troponinSecondary Impressions: Asthma, Dyspnea Disposition DecisionHospitalize )( Accepts Hospitalization Yes )( Reason for Hospitalizationelevated troponin )( Accepted Time 0107 )( Accepted Date 02/21/23 Call Information will see patient, agrees with eval, agrees with plan Discharge/Care Plan(Auto) PrescriptionsCurrent Visit ScriptsCEFDINIR (OMNICEF) 300 MG PO Q12HR CEFDINIR (OMNICEF) 300 MG PO Q12HR #10 CAP IPRATROPIUM/ALBUTEROL (DUONEB 0.5 MG-3/3ML) 3 ML INH RTQ6H PRN PRN WHEEZING AND SOB IPRATROPIUM/ALBUTEROL (DUONEB 0.5 MG-3/3ML) 3 ML INH RTQ6H PRN PRN WHEEZINGAND SOB #100 CAPS Ref 1 DISPENSE 100 AMPULES WITH 1 REFILL RIVAROXABAN (XARELTO) 20 MG PO DAILY 1700 RIVAROXABAN (XARELTO) 20 MG PO DAILY 1700 #30 TAB NEBIVOLOL (BYSTOLIC) 5 MG PO DAILY NEBIVOLOL (BYSTOLIC) 5 MG PO DAILY #30 TAB Fluticasone/Umeclidin/Vilanter (TRELEGY ELLIPTA 100-62.5-25) 1 PUFF INH DAILY Fluticasone/Umeclidin/Vilanter (TRELEGY ELLIPTA 100-62.5-25) 1 PUFF INH DAILY #60 BLIST methylPREDNISolone (MEDROL 4 MG DOSEPAK) 4 MG PO ASDIR methylPREDNISolone (MEDROL 4 MG DOSEPAK) 4 MG PO ASDIR #1 PACKET DME - NEBULIZER (NEBULIZER) [facility] ASDIR DME - NEBULIZER (NEBULIZER) [facility] ASDIR #1 Nebulizer of Choice FLECAINIDE (TAMBOCOR) 50 MG PO Q12H FLECAINIDE (TAMBOCOR) 50 MG PO Q12H #180 TABS at 0309RPT #:[id number] OF REPORTEl [facility] department griytt7790-95-78R92:03:00Z.JKDK13808 [id number] for patient fxvyWUBNIKUXOPDXYS1813-89-77X77:09:5 8 [facility] 2023-02-20 15:32:00 3207-69-32C10:32:00 Regarding: apptesc pulmonary----- Message from Radha Hines sent at 02/20/2023 3:17 PM 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 Having SOB and wheezing , requesting sooner appt. With pulmonary. 80609-8Sfsejidsw encounter DykuVF6334-51-81T36:32:48Telephone encounter NoteTXT1.2.840.038460.1.13.104.2.7.2 .774220|[id number] for patient fnvh34667-5VpouKFVZGREIBXWHsxwrbguy C-CDA narrative [id number] S Hart Rn RN57 Jones [id number] AKZVXVMLCXONTHSTLIIWFI5772-53-43M21: 32:481.2.840.647858.1.72.3.15|1.2.84 0.755717.1.13.104.2.7.2.727879_19805 93856 Elana Coyne Rn, RN [facility] 2023-02-20 15:32:00 1933-27-86Q17:32:00 Adult Triage AssessmentLast Clinic Visit: 08-01-2022 Mild intermittent asthmaPrimary Symptom: Wheezing - can say a few words and then starts coughing.Onset / Duration: Has gotten worse todayLocation / Description: respiratory I could not hear any wheezing when we spoke but I could hear him coughingPain / Severity: Deferred sent to EDAssociated Symptoms: SOBFever / Method: Deferred sent to EDHydration: Deferred sent to EDTreatment so far: Using his Trelegy in the am. albuterol inhaler - 2 puff as as directed last time was 1 hour ago and medication he received from a non [facility] ER - states she that he was given prednisone and is on Augmentin, tamiflu,Effect on ADL's: Can only sit and restLMP: N/APre-existing condition / Immunocompromised: AsthmaReason for Disposition[1] SEVERE asthma attack (e.g., very SOB at rest, speaks in single words, loud wheezes) AND [2] not resolved after 2 nebulizer or inhaler treatmentsProtocols used: Asthma Tzvecv-QZWLL-CAOz phoned trying to get appt with Physical Aerodynamicist. Pt states that he was at an ER last Adrian and treated for pneumonia and then asked if I could speak to his to get all the information. states that he was seen last Adrian at an non [facility] ER and was given steroids and antibiotics. States he had a heart procedure today at a non [facility] facility and Came in before D/C and pt talked to him about his wheezing. states that dr said that he could hear the wheezing and to continue using his inhalers. asked if they should follow up with investigations director and that is why they called in to get an appt. Above protocol used and pt states she will drive him to [facility] in [place]. Told her to call 911 from the car if breathing became more difficult. verbalized understanding. I called the pt back to tell him he could take 4 puffs of his albuterol- as per Home Care Advice. Pt states they are still at home getting dressed. I asked if he needed to call 911 and he states no. They are only 5 minutes from the hospital. I told him not to take too long getting dressed and to get to the hospital. Pt kind of laughed and said ok. I am forwarding this encounter to Dr. Dowd[place] [address]-9Jsfgzfsrp encounter KxnrQD6502-64-76V74:30:45Telephone encounter NoteTXT1.2.840.586777.1.13.104.2.7.2 .353795|[id number] for patient fiiz53487-5LwjvZAJMYFHSFHFKxwnrirge C-CDA narrative text[address] Zj[id number] DEWQLDCLDFNZEHNFFXYMVZ7457-01-49Z32: 30:451.2.840.763283.1.72.3.15|1.2.84 0.629371.1.13.104.2.7.2.727879_19805 09643 [facility] 2023-02-20 06:19:00 [id number]+YGPDPbPOL8U+ E2DAoNckg9CukgUIuuE6XF/cy1EJ8Sv5DKey tjYS8652-97-54X69:19:00 [facility] ([facility])Cardiology Progress NoteREPORT#:[id number] REPORT STATUS: SignedREPORT INITIALIZATION DATE:02/20/23 TIME: 618 PATIENT: ERIN PACHECO UNIT #: [id number]#: [id number] ROOM[facility]BED: [facility]-ADOB: [birth year] AGE: 52 SEX: M ATTEND: Dell Valdivia MDADM AUTHOR: Dell Valdivia MDREPT SERVICE DT/TIME: 02/20/23618* ALL edits or amendments must be made on the electronic/computer document * SubjectiveChief complaint:AFIBPatient reports:No: chest pain, palpitations, shortness of breath. Objective GeneralVS/I O:24 hour I O ending at 0700: 02/20 0700 02/19 1900 Intake Total Output Total Balance Patient 109 kg Weight Weight Stated/Reported Measurement Method Vital Signs: Date Time Temp Pulse Resp B/P B/P Pulse O2 O2 Flow FiO2 Mean Ox Delivery Rate 02/21 400 98.1 02/19 1922 99.9 PATIENT WEIGHT: Weight (lb): 240Weight (oz): 4.86Weight (kg): 109.000 Medications:Active Meds + DC'd Last 24 HrsAtorvastatin Calcium (LIPITOR) 20 MG DAILY PO Hydrocodone Bitart/Acetaminophen (NORCO 5/325 TABLET (C-II)) 1 TAB Q4H PRN PRN PO Enoxaparin Sodium (LOVENOX) 55 MG Q12HR SUBQ Flecainide Acetate (TAMBOCOR) 50 MG Q12HR PO Metoprolol Tartrate (LOPRESSOR) 25 MG BID PO Sodium Chloride (SODIUM CHLORIDE 0.9%) 1,000 ML ONCE ONE IV (DC) Cefazolin Sodium (ANCEF) 2 GM .STK-MED ONE Z (DC) Dexamethasone Sodium Phosphate (DECADRON 4MG IJ) 12 MG .STK-MED ONE Z (DC) Glycopyrrolate (ROBINUL IJ) 0.4 MG .STK-MED ONE Z (DC) Lidocaine HCl (XYLOCAINE 1%) 5 ML .STK-MED ONE Z (DC) Ondansetron HCl (ZOFRAN) 4 MG .STK-MED ONE Z (DC) Succinylcholine Chloride (Quelicin) 20 MG .STK-MED ONE Z (DC) Protamine Sulfate (PROTAMINE SULFATE) 0 .STK-MED ONE .ROUTE (DC) Heparin Sodium (HEPARIN SODIUM) 0 .STK-MED ONE .ROUTE (DC) Heparin Sodium/Sodium Chloride (HEPARIN 1000 UNITS/NS 500ML) 1,000 ML .STK-MED ONE IV (DC) Iopamidol (ISOVUE-300) 0 .STK-MED ONE .ROUTE (DC) Lidocaine (XYLOCAINE 1%) 0 .STK-MED ONE .ROUTE (DC) Fentanyl Citrate (SUBLIMAZE (C-II)) 0 .STK-MED ONE .ROUTE (DC) Propofol (DIPRIVAN) 0 .STK-MED ONE .ROUTE (DC) Albuterol Sulfate (ALBUTEROL SULFATE) 0 .STK-MED ONE .ROUTE (DC) Lidocaine HCl (Glydo 2% JELLY) 0 .STK-MED ONE .ROUTE (DC) Cefazolin Sodium (ANCEF) 0 .STK-MED ONE .ROUTE (DC) Lidocaine (XYLOCAINE 1%) 0 .STK-MED ONE .ROUTE (DC) Fentanyl Citrate (SUBLIMAZE (C-II)) 0 .STK-MED ONE .ROUTE (DC) Midazolam HCl (VERSED (C-IV)) 0 .STK-MED ONE .ROUTE (DC) Phenylephrine HCl (TIBURCIO-SYNEPHRINE/NS 10MG/100ML) 100 ML .STK-MED ONE IV (DC) Ephedrine Sulfate (ePHEDrine sulfate) 0 .STK-MED ONE .ROUTE (DC) Famotidine (PEPCID) 0 .STK-MED ONE .ROUTE (DC) Physical ExamGeneral appearance: alert, awake, orientedHead/Eyes: atraumatic, normocephalicENT: moist mucosal membranesNeck: no JVDCardiovascular: CV assessment: regular rate and rhythmRespiratory: clear to auscultation, no distressLower extremity: LE assessment: no edemaMusculoskeletal: full range of motionNeuro/MOTOR CHECKER: alert, oriented X 3, CN II-XII intactSkin: dry, intactPsychiatry: normal affect, normal judgment/insight, normal mood ResultsFindings/Data:Laboratory Tests 02/20 02/19 0405 0800 Chemistry Sodium (137 - 145 MMOL/L) 136 L 140 Potassium (3.5 - 5.1 MMOL/L) 3.7 3.9 Chloride (98 - 107 MMOL/L) 103 104 Carbon Dioxide (22 - 30 MMOL/L) 28 27 Anion Gap (14 - 24 MMOL/L) 9 L 13 L BUN (9 - 20 MG/DL) 14 19 Creatinine (0.66 - 1.25 MG/DL) 0.90 1.00 Glomerular Filtr Rate > 60 > 60 Glucose (74 - 106 MG/DL) 132 H 98 Calcium (8.4 - 10.2 MG/DL) 8.2 L 9.1 Magnesium (1.6 - 2.3 MG/DL) 2.3 Laboratory Tests 02/19 02/19 02/19 02/19 1129 1100 1030 0800 Coagulation INR (0.86 - 1.14) 1.0 APTT (27.2 - 37.9 SECONDS) 32.7 PT Patient/Control Mix (10.1 - 12.6 SECONDS) 10.9 Activated Coag Time (74 - 137 SEC) 325 H 342 H 369 H Laboratory Tests 02/20 02/19 0406 0800 Hematology WBC (3.8 - 9.8 K/MM3) 8.2 9.8 RBC (3.95 - 5.67 M/MM3) 4.69 5.44 Hgb (12.4 - 16.7 G/DL) 14.2 16.6 Hct (35.9 - 49.5 %) 43.5 49.8 H MCV (81.7 - 96.1 fL) 93 92 MCH (27.6 - 33.2 pg) 30.3 30.5 MCHC (32.9 - 35.5 %) 32.6 L 33.3 RDW (12.1 - 15.2 %) 13.3 13.4 Plt Count (129 - 368 K/MM3) 166 222 MPV (7.4 - 10.4 fl) 11.5 H 11.2 H Neut % (Auto) (43 - 75 %) 70.6 64.7 Lymph % (Auto) (14 - 44 %) 17.3 22.9 Emanuel % (Auto) (4 - 13 %) 11.4 11.7 Eos % (Auto) (0 - 6 %) 0.0 0.0 Baso % (Auto) (0 - 2 %) 0.1 0.2 Neut # (Auto) (2.0 - 7.6 K/mm3) 5.75 6.33 Lymph # (Auto) (1.0 - 3.8 K/mm3) 1.41 2.24 Emanuel # (Auto) (0.1 - 0.8 K/mm3) 0.93 H 1.15 H Eos # (Auto) (0.0 - 0.2 K/mm3) 0.00 0.00 Baso # (Auto) (0.0 - 0.2 K/mm3) 0.01 0.02 Immature Gran % (0.0 - 2.0 %) 0.6 0.5 Nucleated RBC % (0 - 1.0 %) 0.0 0.0 Nucleated RBCs # (Man) (0.0 - 0.1 K/mm3) 0.00 0.00 Laboratory Tests 02/19 0800 Chemistry Magnesium (1.6 - 2.3 MG/DL) 2.3 Laboratory Tests 02/19 0800 Coagulation APTT (27.2 - 37.9 SECONDS) 32.7 Diagnosis, Assessment Plan Free Text DxA P NotesFree Text DxA P Notes:IMP: PAF s/p PVI PLAN: d/c home f/u one week. at [address] [facility] #:[id number] OF REPORTPRProgress xepy3588-50-78N04:19:00Z.[id number] 9-0057AVAvailable for patient bmnsCNEXDSTMRSKJCT9617-75-11J00:21:5 9 [facility] 2023-02-19 08:21:00 [id number]+7 v6FBWGnt4HsEVSSl0ZflI//Alec/nx1c2rNup 1VBU2666-64-07R34:21:780397-[address] [address] PATIENT NAME: ERIN PACHECO ADMIT DATE: 02/19/23ACCOUNT NO: [id number] ROOM NO: [facility] AGE: 52 REPORT TYPE: ELECTROCARDIOGRAM SEX: M ADMITTING PHYSICIAN:Dell Valdivia MD ATTENDING PHYSICIAN:Dell Valdivia MD Order:[id number] Reason : PAF Test Date/Time Stamp:SunFeb 19 2023 08:21:07Blood Pressure : / mmHGVent. Rate : 046 BPM Atrial Rate : 046 BPM P-R Int : 136 ms QRS Dur : 088 ms QT Int : 474 ms P-R-T Axes : 045 023 041 degrees QTc Int : 414 ms Marked sinus bradycardiaAbnormal ECGNo previous ECGs availableConfirmed by REJI RIOS ([id number]) on 02/19/2023 5:58:32 PM Referred By: Dell Valdivia Confirmed by:REJI RIOS at 6597 PATIENT NAME: ERIN PACHECO .[facility] [id number] for patient pwbyDMWQFVRFUQDOGE8448-19-14G32:58:5 1 [facility]
[2023-08-17] MEDS ORDERED: ALBUTEROL 2.5 MG/3 ML NEB SOL ONE (13:11)
[2023-08-17] MEDS ORDERED: IPRATROPIUM BROM 0.5MG/2.5ML ONE (13:11)
[2023-08-17] MEDS ORDERED: METHYLPREDNISOLONE 125 MG INJ ONE (13:12)
[2023-08-17] MEDS ORDERED: AMOX/K CLAV 875 MG TAB ONE (13:12)
--- NOTE | 2023-08-17 13:56 | RAD REPORT ---
EXAM DESCRIPTION: RAD - Chest Single View - 08/17/2023 1:32 pm CLINICAL HISTORY: COPD Chest pain. COMPARISON: Chest Single View dated 02/20/2023; Chest Pa And Lat (2 Views) dated 04/19/2022; Chest Si ngle View dated 04/21/2020; Chest Single View dated 04/17/2020 FINDINGS: Portable technique limits examination quality. The lungs are grossly clear. The heart is normal in size. No displaced fractures. IMPRESSION: No acute intrathoracic process suspected.
--- NOTE | 2023-08-17 14:04 | ER ---
Nurse's Notes [facility] Name: Shahab Pacheco Age: 52 yrs Sex: Male : 1970 Arrival Date: 08/17/2023 Time: 12:34 Bed 11 Private MD: Diagnosis: Acute suppurative otitis media;Unspecified otitis externa, right ear;Mild intermittent asthma with (acute) exacerbation Presentation: 08/16 12:50 Chief complaint: Chief complaint: Patient states: SOB for 1 week, worse today. R ear ll1 pain for 2 days. Temp 99.0 at home, came here from work. Coronavirus screen: Client denies travel out of the [place] in the last 14 days. At this time, the client does not indicate any symptoms associated with coronavirus-19. Ebola Screen: Patient denies travel to an Ebola-affected area in the 21 days before illness onset. Initial Sepsis Screen: Does the patient meet any 2 criteria? No. Patient's initial sepsis screen is negative. Does the patient have a suspected source of infection? No. Patient's initial sepsis screen is negative. Risk Assessment: Do you want to hurt yourself or someone else? Patient reports no desire to harm self or others. Onset of symptoms was August 10, 2023. 12:50 Method Of Arrival: Ambulatory ll1 12:50 Acuity: DAMIAN 3 ll1 Triage Assessment: 12:53 General: Appears distressed, uncomfortable, Behavior is calm, cooperative, appropriate ll1 for age. Pain: Complains of pain in right ear Pain currently is 8 out of 10 on a pain scale. Quality of pain is described as aching. EENT: Reports pain in right ear. Respiratory: Reports shortness of breath labored breathing. Historical: - Allergies: 12:49 Morphine; ll1 - PMHx: 12:49 Asthma; Chronic obstructive lung disease; cpap at night; Hypertension; chron's; lower ll1 back pain; - PSHx: 12:49 Cardiac Ablation (February 19); ll1 - Immunization history:: Adult Immunizations up to date. - Infectious Disease History:: Denies. - Social history:: Smoking status: Patient denies any tobacco usage or history of. Screenin:21 [facility] ED Fall Risk Assessment (Adult) History of falling in the last 3 months, as6 including since admission No falls in past 3 months (0 pts) Confusion or Disorientation No (0 pts) Intoxicated or Sedated No (0 pts) Impaired Gait No (0 pts) Mobility Assist Device Used No (0 pt) Altered Elimination No (0 pt) Score/Fall Risk Level 0 - 2 = Low Risk Oriented to surroundings, Maintained a safe environment, Educated pt \T\ family on fall prevention, incl call for assistance when getting out of bed, Assessed \T\ reinforced patient's understanding of fall precautions. Abuse screen: Denies threats or abuse. Denies injuries from another. Nutritional screening: No deficits noted. Tuberculosis screening: No symptoms or risk factors identified. Assessment: 13:21 Reassessment: Patient appears in no apparent distress at this time. No changes from as6 previously documented assessment. no complaints or concerns at this time. 14:10 Reassessment: Patient states feeling better. Patient states symptoms have improved. as6 Vital Signs: 12:50 BP 144 / 82; Pulse 74; Resp 18; Temp 97.1; Pulse Ox 97% ; Height 5 ft. 11 in. ; Pain ll1 8/10; 14:10 BP 129 / 73; Pulse 64; Resp 16; Pulse Ox 100% ; as6 12:50 Pain Scale: Adult ll1 ED Course: 12:37 Patient arrived in ED. rg4 12:37 Jeramy Gimenez MD is Attending Physician. ec2 12:51 Triage completed. ll1 12:53 Arm band placed on. ll1 12:54 Asher Gutierrez, SISI is Primary Nurse. as6 13:21 Bed in low position. Call light in reach. as6 13:34 CXR XRAY In Process Unspecified. EDMS 14:04 No provider procedures requiring assistance completed. Patient did not have IV access as6 during this emergency room visit. 14:10 Provided Education on: follow up. as6 Administered Medications: 13:19 Drug: Amoxicillin-Clavulanate PO 875 mg PO once Route: PO; as6 14:09 Follow up: Response: No adverse reaction as6 13:19 Drug: DuoNeb Nebulize (3:1) (2.5 mg - 0.5 mg) 3 ml Nebulizer once Route: Nebulizer; as6 14:10 Follow up: Response: No adverse reaction as6 13:20 Drug: MethylPREDNISolone Sodium Succinate IM 125 mg IM once Route: IM; Site: right as6 ventrogluteal; 14:10 Follow up: Response: No adverse reaction as6 Medication: 13:22 VIS not applicable for this client. as6 Outcome: 14:03 Discharge ordered by . ec2 14:05 Condition: stable as6 14:10 Discharged to home ambulatory, with significant other, as6 14:10 Discharge instructions given to patient, Instructed on discharge instructions, follow up and referral plans. medication usage, Demonstrated understanding of instructions, follow-up care, medications, Prescriptions given X 3, 14:11 Patient left the ED. as6 Signatures: Dispatcher [employer] Alayna Avitia rg4 Zulma Hays RN RN ll1 Asher Gutierrez RN RN as6 Jeramy Gimenez MD MD ec2 Corrections: (The following items were deleted from the chart) 12:53 12:50 Chief complaint: ll1 ll1
--- NOTE | 2023-08-17 14:04 | EDPHYS ---
Physician Documentation [facility] Name: Shahab Pacheco Age: 52 yrs Sex: Male : 1970 Arrival Date: 08/17/2023 Time: 12:34 Bed 11 Private MD: ED Physician Jeramy Gimenez HPI: 08/16 13:09 This 52 yrs old Male presents to ER via Ambulatory with complaints of Ear ec2 Pain, Breathing Difficulty. 13:09 Patient arrives today for evaluation of right ear pain as well as difficulty breathing. ec2 History of asthma, increased shortness of breath, cough, nonproductive sputum. No fevers or chills, no nausea or vomiting. 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 Historical: - Allergies: 12:49 Morphine; ll1 - PMHx: 12:49 Asthma; Chronic obstructive lung disease; cpap at night; Hypertension; chron's; lower ll1 back pain; - PSHx: 12:49 Cardiac Ablation (February 19); ll1 - Immunization history:: Adult Immunizations up to date. - Infectious Disease History:: Denies. - Social history:: Smoking status: Patient denies any tobacco usage or history of. ROS: 13:09 Constitutional: as per hpi ec2 Exam: 13:09 Constitutional: GEN: NAD Head: atraumatic Eyes: EOMI Ears: External ears are normal. ec2 Right ear with canal with erythema, fluid behind the membrane. CV: regular rate LUNGS: no respiratory distress ABD: non-distended SKIN: no evidence of rashes MSK: no evidence of trauma NEURO: moves all extremities equally Vital Signs: 12:50 BP 144 / 82; Pulse 74; Resp 18; Temp 97.1; Pulse Ox 97% ; Height 5 ft. 11 in. ; Pain ll1 8/10; 14:10 BP 129 / 73; Pulse 64; Resp 16; Pulse Ox 100% ; as6 12:50 Pain Scale: Adult ll1 MDM: 12:52 Patient medically screened. ec2 13:09 Data reviewed: vital signs. ED course: Patient arrives today for URI signs and symptoms ec2 along with right ear pain. Examination remarkable for ear findings as above. Will obtain a chest x-ray, treat with a DuoNeb, steroids as well as Augmentin for otitis media. Differential diagnosis includes otitis media/externa, asthma exacerbation, pneumonia. . 14:00 ED course: Chest x-ray independently reviewed and interpreted by me, shows no evidence ec2 of acute intrathoracic process. Will discharge patient home with prescription for Augmentin as well as otic solution for treatment for otitis media and externa and also the patient on steroids for asthma exacerbation. . 08/16 13:07 Order name: CXR XRAY; Complete Time: 14:00 ec2 Administered Medications: 13:19 Drug: Amoxicillin-Clavulanate PO 875 mg PO once Route: PO; as6 14:09 Follow up: Response: No adverse reaction as6 13:19 Drug: DuoNeb Nebulize (3:1) (2.5 mg - 0.5 mg) 3 ml Nebulizer once Route: Nebulizer; as6 14:10 Follow up: Response: No adverse reaction as6 13:20 Drug: MethylPREDNISolone Sodium Succinate IM 125 mg IM once Route: IM; Site: right as6 ventrogluteal; 14:10 Follow up: Response: No adverse reaction as6 Disposition Summary: 08/17/23 14:03 Discharge Ordered Notes: Location: Home ec2 Condition: Stable ec2 Diagnosis - Acute suppurative otitis media ec2 - Unspecified otitis externa, right ear ec2 - Mild intermittent asthma with (acute) exacerbation ec2 Followup: ec2 - With: Private Physician - When: - Reason: Re-evaluation by your physician Discharge Instructions: - Discharge Summary Sheet ec2 - Otitis Media, Adult, [id number] ec2 Forms: - Medication Reconciliation Form ec2 - Antibiotic Education ec2 - Prescription Opioid Use ec2 - Patient Portal Instructions ec2 - Leadership Thank You Letter ec2 Prescriptions: - ofloxacin 0.3 % Otic drops - instill 10 drop OTIC route once daily; 5 milliliter; Refills: 0, Product ec2 Selection Permitted - Augmentin 875-125 mg Oral tablet - take 1 tablet ORAL route every 12 hours for 7 days; 14 tablet; Refills: 0, ec2 Product Selection Permitted - Prednisone 20 mg Oral Tablet - take 2 tablets ORAL route once daily for 5 days; 10 tablet; Refills: 0, Product ec2 Selection Permitted Signatures: Dispatcher [employer] Zulma Khan RN RN ll1 Asher Gutierrez RN RN as6 Gimenez, Jeramy, MD MD ec2
[2023-08-17 14:25] VITALS: BP 129/73; TEMP 97.1; O2SAT 100
== END 2023-08-17 14:11 | disposition home or self-care (01) ==
LOC: ER 12:34
DX: H66.001 Acute suppurative otitis media without spontaneous rupture of ear drum, right ear (principal); H60.91 Unspecified otitis externa, right ear; J45.21 Mild intermittent asthma with (acute) exacerbation
CPT/HCPCS: 71045; 94640; 96372; 99284; J7613; J7644; J2919